=== PATIENT | female | born 1975 | race Caucasian/White ===

== ENCOUNTER → 2017-09-06 09:10 | Outpatient (CLI) | payer OTHER, SELFPAY | PROVIDERS: Family Provider Family Medicine; PCP Family Medicine; Visit Provider Internal Medicine | DX: R00.2 Palpitations (principal) | CPT/HCPCS: 93225; 93226 ==

== ENCOUNTER 2017-10-25 14:21 | Day surgery (SDC) | payer OTHER, SELFPAY ==
--- NOTE | 2017-10-24 17:20 | SUR.PREOP ---
Pt is known to me from my private office where she had presented complaining of chronic heel pain to right foot. Pt had been treated successfully by another DPM about 4 years ago with injections and stretching. Then, the pain returned. She was seen by a different physician who treated her with stretching, arch supports, injections, NSAIDs, etc. Her pain did not resolve. They began to discuss surgical intervention and pt was interested in Endoscopic Plantar Fasciotomy (EPF) rather than open techniques. Pt presented to our office after speaking with a patient who underwent successful EPF. She stated she was very frustrated because the pain was not responding to treatments. MRI was ordered and showed chronic plantar fasciitis of the right foot. She also noticed a very painful plantar wart to the right heel. She would like that removed. Allergies: PCN PMH: See Chart. Medications: See chart. Surgeon: Cyndi Herrera DPM Diagnosis: 1. Chronic plantar fasciitis right foot. 2. Painful plantar verruca right heel. Planned Procedure: 1. Endoscopic Plantar Fasciotomy right foot, 2. Excision painful verruca plantaris right foot Lower extremity examination showed easily palpable pedal pulses to b/l feet. Sensation was intact with negative Tinel's sign to right foot. After reviewing all of pt's history and treatments of the right foot, it seems she has undergone conservative measures unsuccessfully. Risks, complications, alternative treatments were reviewed with pt in detail. No guarantees were given. We discussed the possibility of recurrence of pain, infection, need for additional surgery, nerve injury, etc, for the EPF. We also discussed possibility of painful scar/callus or recurrence of plantar verruca following excision. All questions were answered and pt wished to proceed with outpatient surgical intervention. [facility] for outpatient surgical intervention.
[2017-10-25 14:38] VITALS: BP 136/90; PULSE 99; RESP 18; TEMP 36.8; O2SAT 98; BMI 33.7
[2017-10-25 14:40] LABS: Internal QC Validated? YES +Cl - CLEAR BKGD
[2017-10-25 14:45] LABS: Pregnancy, Urine Negative Negative
[2017-10-25 15:01] LABS: Bedside Glucose 106 mg/dL (70-110)
[2017-10-25] MEDS: Clindamycin 900 MG/50 ML BAG 75 MG IV (15:45)
--- NOTE | 2017-10-25 16:00 | WART_PTH ---
PATIENT: LUANA CASTELLANO LOC: [facility] [place] U#:[id number] AGE/SX: 41/F ROOM: RE10/25/[address]: Dr. Cyndi Herrera DPM : 1975 BED: DIS: 10/25/2017 SPEC #: [id number] RECD: 10/26/17 08:18 STATUS: STACY RIGO #: [id number] KATHY: 10/25/17 16:[address]: Cyndi Herrera DEPT: SURGICAL PATHOLOGY RECD BY: Freya Bradford ENTERED: 10/26/17 09:33 SP TYPE: Issac RUBIO DR: Dr. Tamika Pereyra MD Tissues: Epidermis Procedures: Surgery Specimen Level IV HEADER OPERATION: right endoscopic plantar fasciotomy, excision plantar wart PRE-OP DIAGNOSIS: Plantar fasciitis, plantar wart right heel TISSUE SUBMITTED: Plantar wart right heel MICROSCOPIC DIAGNOSIS Plantar wart right heel, biopsy: Superficial fragments of verrucal vulgaris. AM:leesa 10/27/17 MICROSCOPIC DESCRIPTION Slides are reviewed. GROSS DESCRIPTION Received in fixative is one container labeled with the patient's name and designated plantar wart right heel. The specimen consists of three variable size indurated pieces of keller-white skin. The largest piece measures 0.5 x 0.5 x 0.2 cm. The two smaller pieces each measure 0.2 cm in greatest dimension. The largest piece is bisected. The entire specimen is submitted in one cassette. / RICHARD:leesa 10/26/17 TC:5 CPT: 82667
[2017-10-25 16:39] VITALS: BP 118/71; BP 136/90; PULSE 90; RESP 16; TEMP 36.4; O2SAT 97
[2017-10-25 16:45] VITALS: BP 122/75; BP 136/90; PULSE 80; RESP 16; O2SAT 93
[2017-10-25 17:00] VITALS: BP 120/78; BP 136/90; PULSE 73; RESP 16; O2SAT 99
--- NOTE | 2017-10-25 17:04 | PCM.OPRPT ---
Problem List (1) Plantar fasciitis of right foot Status: Acute (2) Verruca plantaris Status: Acute Report of Operation Date of Procedure: 10/25/17 Pre-Operative Diagnosis: 1. painful chronic plantar fasciitis right foot. 2. painful verruca plantaris right foot Post-Operative Diagnosis: same Surgery/Procedure Performed:: 1. endoscopic plantar fasciotomy right foot. 2. excision of verruca plantaris right foot, 6mm Description of Surgical Findings:: thickened plantar fascia right foot with 6mm solitary verruca plantaris right heel Type of Anesthesia:: General, Local - 10 cc's 1% lidocaine plain post operatively Specimen's removed: 6mm verruca plantaris right heel Drains: none Estimated Blood Loss (mL): minimal Description of Procedure: Pt was brought to the OR and placed on the operating table in supine position. Following sedation, right foot was scrubbed, prepped, and draped in the usual aseptic manner. The right leg was elevated to exsanguinate the limb and the pneumatic ankle tourniquet was elevated to 250 mmHg. Attention was then directed to the medial plantar right heel, where the origin of the plantar fascia was palpated at the medial calcaneal tubercle. A 2cm linear longitudinal incision was made at this area. Then, a spatula was placed oriented transversely to the foot and the soft tissues were at the plantar fat pad and fascia. When the spatula tented the lateral aspect of the plantar heel, another 2cm linear longitudinal incision was made. The spatula was removed and a trochar was inserted. An endoscopic camera was placed in the lateral opening while a probe was placed in the medial. The knife was then inserted medially and the plantar fascia was incised about 50%, encompassing the central and medial bands. The flexor digitorum muscle belly was visualized. Then, the camera and knife were removed, allowing rinsing with NSS. Cotton swabs were used to clear some of the fat globules. The camera was reinserted and the prob was as well to ensure no remaining fibers. Pictures were taken. Then, trochar, camera, and probe were removed and medial and lateral incisions were reapproximated and coapted using 3-0 vicryl sutures. Attentions was then directed to the plantar posterior right heel where the verruca plantaris was located. Using a bone cutter, the lesion was excised in toto and passed from the operative field. It measured approximately 6mm in diameter. Then, the surrounding callus was removed with #15 blade. Next, utilizing a curette, the base of the wound was cleared of any remaining verrucous tissue. Mild bleeding was controlled with compression and then electrocautery. Upon completion of the procedures, a post operative block consisting of a total of 1% lidocaine plain was infiltrated throughout all incisions and excision areas. A sterile compressive dressing consisting of xeroform, 4x4 gauze, and kerlix was applied. An edgardo wrap was then applied. The tourniquet was released and a prompt hyperemic response was noted to all digits of the right foot. Pt tolerated procedure and anesthesia well. She was transferred to recovery room with VSS and vascular status intact to all toes of the right foot. Following a period of post operative monitoring, the pt will be discharged home with written and oral post operative instructions. She is to keep the dressing clean, dry, and intact. Remain NWB right foot and rest, ice, elevate. Wear surgical shoe at all times while ambulating with the knee walker. Follow in Dr. Herrera's personal office for all post operative care and if any problems arise. Rx was given for pain control, Percocet 5/325mg, and pt should take as directed. - Complications none - Admit VTE Documentation VTE Present on Admission: No VTE Mechan Device Prophylaxis: None VTE Pharm Prophylaxis ordered?: No Reason prophylaxis not ordered:: Treatment Not Indicated
[2017-10-25 17:15] VITALS: BP 130/82; BP 136/90; PULSE 70; RESP 16; TEMP 35.9; O2SAT 100
[2017-10-25 18:15] VITALS: BP 136/90
== END 2017-10-25 18:30 | disposition home or self-care (01) ==
LOC: SDC 14:21 → AC 14:22
PROVIDERS: Family Provider Internal Medicine; PCP Internal Medicine; Visit Provider Podiatrist
PROC: (CPT 29893; principal; 2017-10-25 15:45)
DX: M72.2 Plantar fascial fibromatosis (principal); B07.0 Plantar wart; K21.9 Gastro-esophageal reflux disease without esophagitis; E04.2 Nontoxic multinodular goiter; F17.201 Nicotine dependence, unspecified, in remission
CPT/HCPCS: 01464; 11421; 29893; 81025; 82962; 88305; J7120; J2405

== ENCOUNTER 2017-12-22 05:36 | Day surgery (SDC) | payer OTHER, SELFPAY ==
[2017-12-22 05:51] VITALS: BP 123/85; PULSE 78; RESP 18; TEMP 36.6; O2SAT 98; BMI 33.7
[2017-12-22 06:02] LABS: Hemoglobin 14.2 g/dl (12.0-15.0); Mean Corp Hgb Conc 33.8 g/gl (32-36); Mean Corpuscular Hgb 30.5 pg (27.0-32.0); Mean Corpuscular Volume 90.1 fL (81-99); Mean Platelet Vol. 9.7 fl (6.2-12.0); Platelet Count 262 K/mm3 (150-450); RBC Distribution Width CV 13.4 % (11.6-14.6); RBC Distribution Width SD 44.1 fl (35.1-43.9); Red Blood Count 4.66 M/mm3 (4.2-5.4); White Blood Count 9.9 K/mm3 (4.4-11.0)
[2017-12-22 06:05] LABS: Scan Indicated on CBC? Y/N NO
[2017-12-22 06:13] LABS: Internal QC Validated? YES +Cl - CLEAR BKGD; Pregnancy, Urine Negative Negative
[2017-12-22 06:15] LABS: Bedside Glucose 96 mg/dL (70-110)
--- NOTE | 2017-12-22 07:30 | SKTAG_PTH ---
PATIENT: LUANA CASTELLANO [place] [facility] [place][id number] AGE/SX: 42/F ROOM: RE12/22/[address]: Dr. Glo Leyva, MDDOB: 1975 BED: DIS: 12/22/2017 SPEC #: [id number] RECD: 12/22/17 08:54 STATUS: STACY RIGO #: [id number] KATHY: 12/22/17 07:[address]: Glo Leyva DEPT: SURGICAL PATHOLOGY RECD BY: Francisco Javier Wang ENTERED: 12/22/17 09:34 SP TYPE: SKIN TAG OTHR DR: Dr. Tamika Pereyra MD Tissues: A - Skin appendage, NOS B - Endometrium, NOS C - Fallopian tube Procedures: Surgery Specimen Level II Surgery Specimen Level IV HEADER OPERATION: Hysteroscopy, D & C, Alma, ablation, removal of vulvar skin ta PRE-OP DIAGNOSIS: Desires sterilization; vulvar skin tag; abnormal uterine bleeding TISSUE SUBMITTED: A ? Vulvar skin tags, B ? Endometrial curettings, C ? Bilateral fallopian tubes MICROSCOPIC DIAGNOSIS A. Vulvar skin tags, biopsy: Fragments of intradermal nevi. B. Endometrium, curettings: Disordered proliferative endometrium. Rare strips of benign superficial endocervix. C. Right and left fallopian tubes, bilateral salpingectomies: Complete cross-sections of fallopian tubes with no pathologic change. AM:leesa 12/23/17 COMMENT B - Case has been reviewed in consultation with Dr. Be who concurs with the above diagnosis. IDC:SJ MICROSCOPIC DESCRIPTION Slides are reviewed. GROSS DESCRIPTION A - Received in fixative is one container labeled with the patient's name and designated vulvar skin tags. The specimen consists of two pieces of keller-white skin measuring 0.3 x 0.2 x 0.1 cm and 0.4 x 0.3 x 0.2 cm. The entire specimen is submitted in one cassette. B - Received in fixative is one container labeled with the patient's name and designated endometrial curettings. The specimen consists of multiple fragments of hemorrhagic soft tissue mixed with polypoid tissue that in aggregate measure 6 x 3 x 0.3 cm. The entire specimen is submitted in three cassettes. C - Received in fixative is one container labeled with the patient's name and designated bilateral fallopian tubes. The specimen consists of bilateral fallopian tubes including fimbrial ends. The fallopian tubes are not identified as right of left. One of the fallopian tubes measure 8 cm in length and 0.6 cm in diameter. The second fallopian tube is received in three pieces measuring 5 and 3 cm in length and 0.4 to 0.6 cm in diameter. Also present are three variable sized pieces of soft tissue consistent with fimbrial end measuring in aggregate 3.5 x 2.5 x 0.6 cm. A paratubal cyst is also noted measuring 0.5 cm in greatest dimension. Sections of both fallopian tubes reveal unremarkable cut surfaces. Sed Special Education Teacher sections are submitted in two cassettes as follows: 1 ? intact fallopian tube, 2 ? second fallopian tube in multiple pieces. / RICHARD:leesa 12/22/17 TC:5 CPT: 47072 x2, 44947 x2
--- NOTE | 2017-12-22 08:23 | PCM.OP.BLANK ---
Operative Report Date of Procedure: 12/22/17 Surgeon: Dr. Glo Leyva [employer] Operator: Jonny [employer]AB[employer] student Preoperative diagnosis: AUB, vulvar skin tags, Sterilization request Procedure performed: Hysteroscopy, D&C, Alma ablation, removal of vulvar skin tags, Laparoscopic bilateral salpingectomy, Postoperative diagnosis: same complications: None Estimated blood loss: 5 cc Drains: none Specimens collected: Bilateral tubes, vulvar skin tags, endometrial curettings Findings: Normal tubes and ovaries bilaterally uterus sounded to approximately 10 cm. anesthesia: general Operative note: After informed consent was obtained patient taken to the operating room she is placed in supine position she is given anesthesia is prepped draped normal sterile fashion. Bladder was drained prior to the start of the procedure 100cc. Two small vulvar skin tags were removed at base on left labia majora using sterile scissors. pressure held for hemostasis. At this time the weighted speculum was placed the posterior fornix of the vagina then a single-tooth tenaculum was used to grasp the anterior lip of the cervix. At this time the uterus was sounded to approximately 10 cm the endocervical canal sounded to 4 cm. Next cervix was dilated in incremental fashion. Once adequate dilatation was achieved the hysteroscope was inserted using normal saline as distention medium. On hysteroscopy there were no gross abnormalities. Both tubal ostia were visualized. At this time sharp curettage was performed which yielded moderate amount of endometrial tissue. tissue will be sent to pathology for evaluation. At this time the Alma device was opened. The Alma was set at 6 cm. The device was activated. Prior to activation the field test was performed and cavity was intact. The device was then fired and activated for 120 seconds. Once the 120 seconds was completed the device was removed intact and the tenaculum was removed. At this time the uterine maniupulator was placed. Laparoscopic portion was performed. Good hemostasis was appreciated. Weighted speculum was removed. At this time uterine 2 towel clamps were placed superior to umbilicus. After Marcaine was injected superior to umbilicus a small incision was made and a 5 mm trocar was placed under direct visualization. CO2 gas was used to insufflate the intra-abdominal cavity. Upon inspection no gross abnormalities uterus tubes and ovaries appeared to be normal. At this time then the LLQ port was placed again Marcaine was injected small incision was made a knife and the 5 mm trocar was placed. Alligator clamp was then placed suprapubically. At this time then tubes were traced back to the fimbriated ends. Ligasure was used to coagulate and ligate along mesosalpynx bilaterally until tubes removed completely. tube were large and difficult to remove in one piece through port- a 5mm suprapubic port was then placed for assistance. tubes removed in pieces. Good hemostasis was appreciated. At this time procedure was deemed complete successful. The gas was desufflated on from the intra-abdominal cavity. The trochars were removed. Skin was closed using 4-0 Monocryl in a subcutaneous fashion. Dermabond glue was placed. Instrument lap and needle counts were correct ?2. The uterine manipulator was removed. Vaginal sweep was performed it was negative. There were no complications anticipated normal postoperative course for this patient.
--- NOTE | 2017-12-22 08:31 | PCM.DC.TUB ---
Discharge Diet: No Restrictions, - - Increase fluid intake for 48 hours. Discharge Activity: Return to Normal Activity, May Drive - when you are no longer taking narcotic pain medications., May Shower, May Take a Tub Bath - in 7 days., - - Ambulate often the next week after surgery. May shower in (days): 1 May resume sexual activity in: 2 weeks Additional Activity Instructions:: Nothing in the vagina for the next 14 days. Call your doctor if your incision/area has: Continuous Slow Oozing, Sudden Increased Bleeding, Increased Pain/ Swelling, Increased Redness, Foul Smelling Discharge, Swelling at the incision site Call your doctor if you observe: Fever of 101 or Higher Cleanse incision/area with: Soap & Water, Keep Dressing Clean & Dry, - - do not pick off skin glue- you may let soap and water run over incision sites and dab dry. Allergies/Adverse Reactions: Allergies Penicillins Allergy (Verified 10/18/17 09:14) Other Medications to take at Discharge Cholecalciferol (Vitamin D3) [Vitamin D3] 2,000 unit PO DAILY 10/18/17 Metformin HCl [Metformin HCl ER] 500 mg PO DAILY 10/18/17 buPROPion XL [Wellbutrin Xl] 150 mg PO DAILY 10/18/17 Primary Care Physician: Tamika Pereyra MD [Primary Care Provider] - Please Follow Up With: Glo Leyva MD When: as scheduled in 2 weeks
[2017-12-22 08:42] VITALS: BP 123/85; BP 128/92; PULSE 64; RESP 14; TEMP 36.1; O2SAT 99
[2017-12-22 08:45] VITALS: BP 123/85; BP 134/92; PULSE 69; RESP 14; O2SAT 100
[2017-12-22 08:56] LABS: Bedside Glucose 120 mg/dL (70-110)
[2017-12-22 09:07] VITALS: BP 116/81; BP 123/85; PULSE 66; RESP 14; TEMP 36.3; O2SAT 96
[2017-12-22 10:58] VITALS: BP 123/85
== END 2017-12-22 11:00 | disposition home or self-care (01) ==
LOC: SDC 05:37 → AC 05:38
PROVIDERS: Family Provider Internal Medicine; PCP Internal Medicine; Visit Provider Obstetrics & Gynecology
PROC: 0U5B8ZZ Destruction of Endometrium, Via Natural or Artificial Opening Endoscopic (ICD-10-PCS; CPT 58558; principal; 2017-12-22 07:15)
PROC: (CPT 58661; 2017-12-22 07:15)
DX: N93.9 Abnormal uterine and vaginal bleeding, unspecified (principal); D28.0 Benign neoplasm of vulva; Z30.2 Encounter for sterilization; F17.200 Nicotine dependence, unspecified, uncomplicated; R73.03 Prediabetes
CPT/HCPCS: 00840; 11200; 58563; 58661; 36415; 81025; 82962; 85027; 88302; 88304; 88305; J7120; J0330; J2405

== ENCOUNTER 2018-09-02 07:31 | Emergency (ER) | payer OTHER, SELFPAY ==
[2018-09-02 07:33] VITALS: BP 129/81; PULSE 89; RESP 16; TEMP 36.6; O2SAT 98; BMI 35.3
[2018-09-02 08:22] LABS: Bacteria 0 SEEN /hpf (None Seen); Mucous, Urine 0 SEEN /hpf (<or=2+); Red Blood Cells-Urine 0 SEEN /hpf (0-5); Squamous Epithelial Cells - UA 0 SEEN /hpf (5-10)
[2018-09-02 08:33] LABS: Color, Urine Yellow (Yellow); Glucose, Dipstick Normal (Normal); Ketone-Dipstick Negative (Negative); Leukocyte Esterase-Dipstick 25 /ul (Negative); Nitrite-Dipstick Negative (Negative); Occult Blood-Urine Negative /ul (Negative); Protein-Dipstick Negative (Negative); Specific Gravity, Urine 1.025 (1.002-1.030); Urine Bilirubin Dipstick Negative (Negative); Urine Clarity Clear (Clear); Urine Urobilinogen Normal (Normal)
[2018-09-02 08:36] LABS: Internal QC Validated? YES +Cl - CLEAR BKGD; Pregnancy, Urine Negative Negative; White Blood Cells 0-5 SEEN /hpf (0-5)
--- NOTE | 2018-09-02 08:55 | ED.VISSUMM ---
- ER Visit Summary Date of Service: 09/02/18 Chief Complaint: Back pain History of Present Illness: The patient is a 42 F who states that yesterday around noon on her lunch break she began having pain in her left CVA/paraspinal region. She denies any known trauma. States it was continuous and worse with movement. She went bowling last night. She states she had a hard time sleeping due to pain. She cannot find a position of comfort. She denies any nausea vomiting. She denies any urinary symptoms. She took a hot shower this morning and states it felt better. She notes it is grabbing and stabbing in nature. There is no radicular symptoms. No known trauma. Physical Examination: Afebrile vital signs are stable Gen: Well-nourished well-developed Head: Normocephalic atraumatic Eyes: Perrl EOMI ENT: TMs clear no rhinorrhea moist mucous membranes Neck: Supple no lymphadenopathy no JVD nontender CVS: Regular rate rhythm no murmurs normal S1-S2 Respiratory: No distress clear to auscultation bilaterally chest nontender Abdomen: Soft nontender nondistended normal bowel sounds no masses Back: Patient is leaning towards her right side. Her pain seems to be exacerbated with movement. She has palpable lumbar paraspinal musculature spasm. Somatic tissue texture changes Extremity: Nontender no edema Skin: Normal color no rash Neuro: alert orientated ?3 CN II-XII intact normal strength sensation reflexes gait cerebellar Psych: Normal affect normal mood Test Results: Urinalysis is normal Emergency Department Course and Treatment: Patient will be started on anti-inflammatories and Flexeril. Instructions for heat and gentle stretching. She has an appointment with chiropractic medicine on Tuesday. Return if worsening or concerns. We did talk about returning if she sees the rash of shingles. Impression: 1. Lumbar muscle spasm This note was generated with [employer] dictation software. It may contain incorrect words, spelling, and punctuation that were not noted in review of the chart prior to signing ED Disposition - Plan for ED Patient: Disposition: Home or Assisted Living Instructions: ED Spasm Back No Trauma Prescriptions: Ibuprofen [Motrin] 800 mg PO TID PRN PRN #20 tab PRN Reason: Pain Cyclobenzaprine [Flexeril] 10 mg PO TID PRN #20 tab PRN Reason: Muscle Spasm Referrals: Tamika Pereyra MD [Primary Care Provider] - As Needed Additional Instructions: Keep your appointment with chiropractic medicine on Tuesday
--- NOTE | 2018-09-02 08:59 | ED.DCSUM_ITS ---
- ER Visit Summary Date of Service: 09/02/18 Chief Complaint: Back pain History of Present Illness: The patient is a 42 F who states that yesterday around noon on her lunch break she began having pain in her left CVA/paraspinal region. She denies any known trauma. States it was continuous and worse with m ovement. She went bowling last night. She states she had a hard time sleeping due to pain. She cannot find a position of comfort. She denies any nausea vomiting. She denies any urinary symptoms. She took a hot shower this morning and states it felt better. She notes it is grabbing and stabbing in nature. There is no radicular symptoms. No known trauma. Physical Examination: Afebrile vital signs are stable Gen: Well-nourished well-developed Head: Normocephalic atraumatic Eyes: Perrl EOMI ENT: TMs clear no rhinorrhea moist mucous membranes Neck: Supple no lymphadenopathy no JVD nontender CVS: Regular rate rhythm no murmurs normal S1-S2 Respiratory: No distress clear to auscultation bilaterally chest nontender Abdomen: Soft nontender nondistended normal bowel sounds no masses Back: Patient is leaning towards her right side. Her pain seems to be exacerbated with movement. She has palpable lumbar paraspinal musculature spasm. Somatic tissue texture changes Extremity: Nontender no edema Skin: Normal color no rash Neuro: alert orientated ?3 CN II-XII intact normal strength sensation reflexes gait cerebellar Psych: Normal affect normal mood Test Results: Urinalysis is normal Emergency Department Course and Treatment: Patient will be started on anti- inflammatories and Flexeril. Instructions for heat and gentle stretching. She has an appointment with chiropractic medicine on Tuesday. Return if worsening or concerns. We did talk about returning if she sees the rash of shingles. Impression: 1. Lumbar muscle spasm This note was generated with [employer] dictation software. It may contain incorrect words, spelling, and punctuation that were not noted in review of the chart prior to signing ED Disposition - Plan for ED Patient: Disposition: Home or Assisted Living Instructions: ED Spasm Back No Trauma Prescriptions: Ibuprofen [Motrin] 800 mg PO TID PRN PRN #20 tab PRN Reason: Pain Cyclobenzaprine [Flexeril] 10 mg PO TID PRN #20 tab PRN Reason: Muscle Spasm Referrals: Tamika Pereyra MD [Primary Care Provider] - As Needed Additional Instructions: Keep your appointment with chiropractic medicine on Tuesday
== END 2018-09-02 09:05 | disposition home or self-care (01) ==
PROVIDERS: Emergency Provider Emergency Medicine; Family Provider Internal Medicine; PCP Internal Medicine
DX: M62.830 Muscle spasm of back (principal); Z72.0 Tobacco use
CPT/HCPCS: 81001; 81025; 99282

== ENCOUNTER 2018-10-09 21:56 | Emergency (ER) | payer OTHER, SELFPAY ==
[2018-10-09 21:57] VITALS: BP 145/93; PULSE 88; RESP 16; TEMP 36.3; O2SAT 97; BMI 34.7
[2018-10-09 22:03] VITALS: PULSE 82; RESP 23; O2SAT 97
--- NOTE | 2018-10-09 22:15 | RAD_ITS ---
STUDY: X-RAY CHEST REASON FOR EXAM: Female, 42 years old. Bilateral rib and sternal pain. TECHNIQUE: Single AP portable view of the chest. COMPARISON: 02/02/2017. FINDINGS: The lungs are clear and expanded. There is no demonstrated pleural abnormality. Normal size heart. Normal mediastinum and chelo. Normal visualized pulmonary arteries. Normal visualized aortic arch and descending thoracic aorta. The thoracic spine is suboptimally visualized. Normal visualized ribs, clavicles, and shoulders. There is no demonstrated abnormality of the visualized soft tissue structures of the upper abdomen. RAD/Chest 1 View (Portable) IMPRESSION: No active pulmonary disease. Electronically Signed: Lincoln Da Silva MD at 22:46 EDT Tel , Service support ,
--- NOTE | 2018-10-09 22:16 | EKG12_ITS ---
Test Reason : CP Blood Pressure : / mmHG Vent. Rate : 081 BPM Atrial Rate : 081 BPM P-R Int : 166 ms QRS Dur : 092 ms QT Int : 388 ms P-R-T Axes : 029 018 019 degrees QTc Int : 450 ms Normal sinus rhythm Normal ECG Confirmed by EVENS SCHWARTZ, DOMINGO ([id number]), assistant production editor ANDERS CARDONA ([id number]) on 10/13/2018 11:34:50 AM Referred By: KATJA Confirmed By:DOMINGO HORNER MD
[2018-10-09] MEDS: Ketorolac 30 MG/ML Syringe IV (22:22)
[2018-10-09] MEDS: 0.9% Normal Saline 1,000 ML 150 ML IV (22:22)
[2018-10-09 22:42] LABS: Anion Gap 4 (5-15); BUN 11 mg/dL (7-18); BUN/Creat Ratio 13.5 RATIO (10-20); Calcium,Total 8.6 mg/dL (8.5-10.1); Chloride 108 mmol/L (98-107); Creatinine, Serum 0.82 mg/dL (0.55-1.02); EST Glomerular Filtration Rate 82 mL/min (>60); Est Glom Filt Rate - Afr Amer 99 mL/min (>60); Estimated Creatinine Clearance 98.62 ml/min; Glucose 102 mg/dL (74-106); Potassium 3.6 mmol/L (3.5-5.1); Sodium Level 139 mmol/L (136-145)
[2018-10-09 22:45] LABS: Absolute Lymphocyte Count 3.69 X10^3/ul (0.83-4.51); Absolute Neutrophil Count 5.4 X10^3/uL (2.0-7.7); Basophil# 0.04 X10^3/uL; Basophil% 0.4 % (0-1); Eosinophil# 0.24 X10^3/uL; Eosinophils% 2.3 % (0-5); Hematocrit 40.9 % (37-47); Hemoglobin 13.8 g/dl (12.0-15.0); Lymphocyte # 3.69 X10^3/ul (4.0); Lymphocyte % 35.7 % (19-41); Mean Corp Hgb Conc 33.7 g/gl (32-36); Mean Corpuscular Hgb 30.1 pg (27.0-32.0); Mean Corpuscular Volume 89.3 fL (81-99); Mean Platelet Vol. 9.7 fl (6.2-12.0); Monocyte# 0.95 X10^3/uL; Monocyte% 9.2 % (0-10); Neutrophil % 52.2 % (47-70); Platelet Count 277 K/mm3 (150-450); RBC Distribution Width CV 13.3 % (11.6-14.6); RBC Distribution Width SD 43.3 fl (35.1-43.9); Red Blood Count 4.58 M/mm3 (4.2-5.4); White Blood Count 10.3 K/mm3 (4.4-11.0)
[2018-10-09 22:46] LABS: POSITIVE COUNT NO; POSITIVE DIFFERENTIAL NO; POSITIVE MORPHOLOGY NO
--- NOTE | 2018-10-09 22:55 | ED.VISSUMM ---
- ER Visit Summary Date of Service: 10/09/18 Chief Complaint: Chest pain, rib pain, back pain History of Present Illness: The patient is a 42 F with a several week history of chest, rib, and back pain. She states the area does feels very achy. It does seem to be worse with arm movement and deep breath. She states her symptoms started after having bronchitis. Last week she had a sharp pain in her right calf that is now resolved. Today she felt short of breath. Physical Examination: Vital signs unremarkable. Patient is in no acute distress and is nontoxic appearing. Head and neck examination is normal. Heart is regular rate and rhythm. Palpable pulses are noted throughout. Lungs are clear with good air movement throughout. She does have reproducible tenderness along the lateral borders of the lower sternum. She also has mild reproducible tenderness along the lower ribs bilaterally. Abdomen is soft and nontender. Bowel sounds are noted. Back examination reveals reproducible tenderness in the musculature along the thoracolumbar paraspinals. Extremity examination is unremarkable with full range of motion. Neurologic examination reveals no focal deficits. Test Results: EKG is sinus 81 with no acute ischemia. Portable chest x-ray shows no active pulmonary disease. CBC and chemistry studies normal. Troponin and d-dimer are both negative. Emergency Department Course and Treatment: Patient was given IV fluids along with Toradol. On repeat evaluation she is resting comfortably. I believe she likely has costochondritis with chest wall pain after her bronchitis. Her pain is completely reproducible. She will be given Toradol for home along with a short course of prednisone. She will be given Prevacid for reflux. Treatment Plan: [] Disposition: Discharge Impression: 1. Costochondritis 2. Chest wall pain This note was generated with [employer] dictation software. It may contain incorrect words, spelling, and punctuation that were not noted in review of the chart prior to signing ED Disposition - Plan for ED Patient: Referrals: Tamika Pereyra MD [Primary Care Provider] -
[2018-10-09 22:57] LABS: D-Dimer Quantitative (DVT/PE) < 0.27 FEU/ug/m (0.27-0.49)
[2018-10-09 23:01] VITALS: BP 144/88; PULSE 77; RESP 18; O2SAT 100
--- NOTE | 2018-10-09 23:08 | ED.DEP ---
ED Disposition - Plan for ED Patient: Disposition: Home or Assisted Living Instructions: ED Chest Pain Costochondritis Prescriptions: Lansoprazole [Prevacid] 15 mg PO DAILY #30 tab.rap Prednisone [Deltasone] 40 mg PO DAILY #10 tablet Ketorolac [Toradol] 10 mg PO Q6H PRN #14 tablet PRN Reason: Pain Referrals: Tamika Pereyra MD [Primary Care Provider] - 10-14 Days if not better
[2018-10-09] MEDS: predniSONE 20 MG Tablet 40 MG PO (23:10)
[2018-10-09] MEDS: Famotidine 20 MG Tablet 40 MG PO (23:10)
[2018-10-09 23:13] VITALS: BP 134/81; PULSE 74; RESP 15; O2SAT 100
== END 2018-10-09 23:14 | disposition home or self-care (01) ==
PROVIDERS: Emergency Provider Emergency Medicine; Family Provider Internal Medicine; PCP Internal Medicine
DX: M94.0 Chondrocostal junction syndrome [Tietze] (principal); R07.89 Other chest pain; Z72.0 Tobacco use
CPT/HCPCS: 71045; 80048; 84484; 85025; 85379; 93005; 96361; 96374; 99285; J7030; A4216

== ENCOUNTER → 2019-02-28 14:17 | Outpatient (CLI) | payer OTHER, SELFPAY ==
--- NOTE | 2019-02-28 14:22 | RAD_ITS ---
STUDY: X-RAY - RIGHT FOOT CLINICAL: Female, 43 years old. Pain TECHNIQUE: 3 view(s) of the foot. COMPARISON: None. FINDINGS: There is no evidence of fracture or dislocation. There is normal alignment. There are no significant degenerative changes. There is a plantar calcaneal spur. There are no radiodense foreign bodies. RAD/Foot min 3 Views IMPRESSION: No fracture or dislocation. Plantar calcaneal spur. Electronically Signed: Fernando Lao, at 19:12 EDT Tel , Service support ,
== END ==
PROVIDERS: Family Provider Internal Medicine; PCP Internal Medicine; Referring Provider Podiatrist; Visit Provider Podiatrist
DX: M84.30XA Stress fracture, unspecified site, initial encounter for fracture (principal)
CPT/HCPCS: 73630

== ENCOUNTER → 2019-03-08 10:02 | Outpatient (CLI) | payer OTHER, SELFPAY ==
--- NOTE | 2019-03-08 10:07 | STEWCON_ITS ---
Reason For Study: Atypical Chest pain Stress Results Protocol: Dobutatmine Stress Echo Maximum Predicted HR: 179 bpm Target HR: 152 bpm % Maximum Predicted HR: 88 % DurationHeart Rate Stage (mm:ss) (bpm) BP Dose Comment BASELINE 59 140/80 DILUTED DEFINITY USED 6 CC DSE- 10 MCG 3:53 62 132/8210.00NO CP DSE- 20 MCG 3:08 133 153/8120.00NO CP DSE- 30 MCG 3:05 150 137/7330.00NO CP DSE- 40 MCG 2:10 157 142/8440.00NO CP, THROAT TIGHTNESS RECOVERY 88 140/80 NO CP Stress Duration: 12:16 mm:ss Maximum Stress HR: 157 bpm Baseline Echocardiogram Findings Stress Echo Wall motion Data Resting WM Intermediate WM Stress WM Resting Wall Motion Wall Motion Int. Wall Motion Stress No regional wall motion No regional wall motion No regional wall motion abnormalities noted. abnormalities noted. abnormalities noted. EKG Data Sinus bradycardia. About 1-1.5mm horizontal ST depression in the inferior and lateral leads with return of ST segments to baseline during recovery. Symptoms with Stress throat tightness during dobutamine infusion. Interpretation Summary About 1-1.5mm horizontal ST depression in the inferior and lateral leads with return of ST segments to baseline during recovery. throat tightness during dobutamine infusion. 1. Dobutamine stress echo is positive for dobutamine infusion induced EKG changes of ischemia and throat tighttness. 2. The test is -ve for dobutamine infusion induced echocardiographic changes of ischemia. Ordering Physician: Tamika Pereyra Referring Physician: Tamika Pereyra Performed By: Jillian Greer, RDKYUNG
== END ==
PROVIDERS: Family Provider Internal Medicine; PCP Internal Medicine; Referring Provider Internal Medicine; Visit Provider Internal Medicine
DX: R07.9 Chest pain, unspecified (principal)
CPT/HCPCS: 93017; 93350; J7040; Q9957; A4216; C8928

== ENCOUNTER → 2019-03-15 15:43 | Outpatient (CLI) | payer OTHER, SELFPAY ==
--- NOTE | 2019-03-15 | TISS_PTH ---
PATIENT: LUANA CASTELLANO LOC: [facility] U#:[id number] AGE/SX: 49/F ROOM: RE03/15/[address]: Dr. Jeffry Kathleen MD : 1975 BED: DIS: SPEC #: [id number] RECD: 03/15/19 15:34 STATUS: STACY RICHARDSONMaxine #: [id number] KATHY: 03/15/19 00:[address]: Jeffry Kathleen DEPT: SURGICAL PATHOLOGY RECD BY: Toño Solis ENTERED: 03/16/19 08:38 SP TYPE: Tissue Bx JOANNE DR: Dr. Tamika Pereyra MD Tissues: Pharynx, NOS Procedures: Surgery Specimen Level IV HEADER OPERATION: Not noted PRE-OP DIAGNOSIS: Oropharyngeal neoplasm TISSUE SUBMITTED: Oropharynx, permanent pathology MICROSCOPIC DIAGNOSIS Oropharynx, biopsy: Squamous papilloma. SJ:leesa 03/19/19 MICROSCOPIC DESCRIPTION Slides are reviewed. GROSS DESCRIPTION Received in fixative is one container labeled with the patient's name and designated permanent path. The specimen consists of a piece of keller-white soft tissue measuring 0.4 x 0.3 x 0.2 cm. The entire specimen is submitted in one cassette. / SJ:rg 03/16/19 TC:1 CPT: 13277
== END ==
PROVIDERS: Family Provider Internal Medicine; PCP Internal Medicine; Referring Provider Otolaryngology; Visit Provider Otolaryngology
DX: D49.0 Neoplasm of unspecified behavior of digestive system (principal)
CPT/HCPCS: 88305

== ENCOUNTER → 2019-04-27 12:57 | Outpatient (CLI) | payer OTHER, SELFPAY ==
[2019-04-25 14:36] VITALS: BMI 34.7
== END ==
PROVIDERS: Family Provider Internal Medicine; PCP Internal Medicine; Referring Provider Specialist; Visit Provider Specialist
DX: R00.2 Palpitations (principal)
CPT/HCPCS: 93225; 93226

== ENCOUNTER → 2019-05-28 13:26 | Outpatient (CLI) | payer OTHER, SELFPAY ==
[2019-04-25 14:36] VITALS: BMI 34.7
== END ==
PROVIDERS: Family Provider Internal Medicine; PCP Internal Medicine; Referring Provider Internal Medicine; Visit Provider Internal Medicine
DX: G47.30 Sleep apnea, unspecified (principal)
CPT/HCPCS: 95806

== ENCOUNTER → 2019-05-29 09:55 | Outpatient (CLI) | payer OTHER, SELFPAY ==
[2019-04-25 14:36] VITALS: BMI 34.7
--- NOTE | 2019-05-29 09:58 | NM_ITS ---
CLINICAL: 43-year-old female with history of right upper quadrant abdominal pain. RADIONUCLIDE HEPATOBILIARY SCINTIGRAPHY COMPARISON: None available FINDINGS: Following the intravenous administration of 5.4 mCi of 99m Tc Mebrofenin, hepatobiliary images reveal: 1. Relatively prompt and homogeneous radiopharmaceutical concentration is noted by a normal sized liver. No parenchymal defects are identified. 2. Gallbladder activity is identified at 15 minutes post radiopharmaceutical administration. 3. Small intestinal tract is observed at 15 minutes following tracer injection. 4. Washout of the radiopharmaceutical by the hepatic parenchyma appears qualitatively normal. Cholecystokinin (0.02 ug/kg) was administered intravenously over a 30-minute period. The post CCK gallbladder ejection fraction calculated at 20 minutes following Cholecystokinin administration was noted to be 97.0 % (normal greater than 35%). During 30 minutes of post CCK imaging, there is no scintigraphic evidence of reflux of the radiotracer into the common hepatic duct or refilling of the gallbladder. NM/Hepatobilliary Img w/Pharm Int IMPRESSION: 1. NORMAL 99m Tc Mebrofenin hepatobiliary imaging examination with Cholecystokinin. A. A gallbladder ejection fraction calculated to be greater than 35% following the administration of Cholecystokinin makes the probability of functional hepatobiliary disease (gallbladder and/or sphincter of Oddi dyskinesia) and/or organic hepatobiliary disease (chronic acalculous cholecystitis and/or cystic duct syndrome) to be low. (Flores Klein et al, Journal of Nuclear Medicine 32:1695, 1990). Electronically Signed: Francisco Javier Madrid DO at 20:15 EST Tel , Service support ,
== END ==
PROVIDERS: Family Provider Internal Medicine; PCP Internal Medicine; Referring Provider Nurse Practitioner Adult Health; Visit Provider Nurse Practitioner Adult Health
DX: R11.0 Nausea (principal); R10.11 Right upper quadrant pain
CPT/HCPCS: 78227; A9537; J2805

== ENCOUNTER 2019-05-31 19:05 | Emergency (ER) | payer OTHER, SELFPAY ==
[2019-05-29 14:34] VITALS: BMI 35.3
[2019-05-31 19:05] VITALS: BP 126/76; PULSE 86; RESP 18; TEMP 36.3; O2SAT 99; BMI 36.1
--- NOTE | 2019-05-31 19:42 | EKG12_ITS ---
Test Reason : Blood Pressure : / mmHG Vent. Rate : 072 BPM Atrial Rate : 072 BPM P-R Int : 172 ms QRS Dur : 096 ms QT Int : 392 ms P-R-T Axes : 034 025 041 degrees QTc Int : 429 ms Normal sinus rhythm with sinus arrhythmia Normal ECG Confirmed by GEORGE SCHWARTZ, GAB ([id number]), image editor LYNDSAY FRENCH ([id number]) on 06/04/2019 9:26:48 AM Referred By: DARIUS Confirmed By:BRIAN VAZQUEZ MD
--- NOTE | 2019-05-31 19:42 | RAD_ITS ---
STUDY: X-RAY CHEST REASON FOR EXAM: Female, 43 years old. Cough TECHNIQUE: Frontal and lateral views of the chest. COMPARISON: 10/09/18. FINDINGS: Cardiac silhouette unremarkable. Pulmonary vascularity unremarkable. Aorta unremarkable. No focal airspace opacities. No pleural effusions. Upper abdomen unremarkable. Osseous structures intact. No pneumothorax. RAD/Chest PA and Lateral IMPRESSION: No acute cardiopulmonary findings Electronically Signed: Stephane Hennessy, at 20:21 EST Tel , Service support ,
--- NOTE | 2019-05-31 19:43 | ED.VISSUMM ---
- ER Visit Summary Date of Service: 05/31/19 Chief Complaint: Back pain History of Present Illness: The patient is a 43 F who presents with back pain that is been constant for the past month. Patient states is gradually gotten worse. Patient states she has been following with her primary care physician for this. Patient states she was evaluated for GI problems and this all came back normal. Patient states she is supposed to have an endoscopy soon because of her reflux. Patient also states she was seen by cardiology who ruled out cardiac causes of her pain. Patient states her pain is worse with deep breathing. Patient states the pain is over the lower thoracic area and radiates around to her lower chest bilaterally. Patient admits to a cough with some clear sputum. Patient also admits to some palpitations. Patient admits to nausea but denies any vomiting. Physical Examination: Vital signs are stable. Patient is afebrile. Patient is in no acute distress. Oral mucosa is pink and moist. Neck is supple. Trachea is midline. There is no JVD. Heart was regular rate and rhythm. Lungs are clear and equal bilaterally. There is good respiratory effort noted. Abdomen is soft and nontender. Cranial nerves II through XII are intact. There are no focal motor or sensory deficits noted. Musculoskeletal exam reveals tenderness over the lower thoracic paraspinal areas bilaterally. There is no bony crepitance or step-off. There is no midline tenderness. There is full range of motion. Test Results: CBC shows a mild leukocytosis of 11.6. Basic metabolic profile was essentially within normal limits. Urinalysis does not show any evidence of urinary tract infection. D-dimer was normal. EKG showed normal sinus rhythm with a rate of 72. There are no acute ST or T wave changes. PA and lateral chest x-ray was obtained. There is no acute cardiopulmonary process. This was interpreted by the radiologist and myself. Emergency Department Course and Treatment: Patient was feeling better on reevaluation. Patient was instructed to use ice to the area. Patient was instructed to follow-up with her primary care physician in 5 to 7 days. Patient was instructed to take Tylenol, ibuprofen, or Aleve as needed for pain. Patient understood and was agreeable with the plan. All questions were answered. Disposition: Discharge home Impression: 1. Thoracic muscle strain This note was generated with [employer]ation software. It may contain incorrect words, spelling, and punctuation that were not noted in review of the chart prior to signing ED Disposition - Plan for ED Patient: Disposition: Home or Assisted Living Diagnosis: Strain of muscle and tendon of back wall of thorax, initial encounter Instructions: Thoracic Strain Referrals: Tamika Pereyra MD [Primary Care Provider] - 5-7 Days
[2019-05-31 20:10] LABS: Absolute Lymphocyte Count 3.73 X10^3/uL (0.83-4.51); Absolute Neutrophil Count 6.5 X10^3/uL (2.0-7.7); Basophil# 0.06 X10^3/uL; Basophil% 0.5 % (0-1); Eosinophil# 0.32 X10^3/uL; Eosinophils% 2.8 % (0-5); Hematocrit 42.9 % (37-47); Hemoglobin 14.6 g/dL (12.0-15.0); Lymphocyte # 3.73 X10^3/ul (4.0); Lymphocyte % 32.2 % (19-41); Mean Corpuscular Hgb 30.7 pg (27.0-32.0); Mean Corpuscular Volume 90.1 fL (81-99); Mean Platelet Vol. 9.7 fl (6.2-12.0); Monocyte% 7.8 % (0-10); NRBC Flagged by Analyzer 0 % (0-5); Neutrophil # 6.53 X10^3/uL (2.7-7.7); Neutrophil % 56.4 % (47-70); Platelet Count 334 K/mm3 (150-450); RBC Distribution Width CV 12.8 % (11.6-14.6); RBC Distribution Width SD 42.5 fl (35.1-43.9); Red Blood Count 4.76 M/mm3 (4.2-5.4); White Blood Count 11.6 K/mm3 (4.4-11.0)
[2019-05-31 20:10] LABS: Bacteria 0 SEEN /hpf (None Seen); Red Blood Cells-Urine 0 SEEN /hpf (0-5); White Blood Cells 0 SEEN /hpf (0-5)
[2019-05-31 20:11] LABS: Color, Urine Yellow (Yellow); Glucose, Dipstick Normal (Normal); Ketone-Dipstick 5 mg/dl (Negative); Leukocyte Esterase-Dipstick Negative /ul (Negative); Nitrite-Dipstick Negative (Negative); Occult Blood-Urine Negative /ul (Negative); Protein-Dipstick Negative (Negative); Specific Gravity, Urine 1.025 (1.002-1.030); Urine Bilirubin Dipstick Negative (Negative); Urine Clarity Clear (Clear); Urine Urobilinogen Normal (Normal)
[2019-05-31 20:27] LABS: Anion Gap 6 (5-15); BUN 18 mg/dL (7-18); BUN/Creat Ratio 21.8 RATIO (10-20); Calcium,Total 9.3 mg/dL (8.5-10.1); Chloride 110 mmol/L (98-107); Creatinine, Serum 0.82 mg/dL (0.55-1.02); EST Glomerular Filtration Rate 81 mL/min (>60); Est Glom Filt Rate - Afr Amer 98 mL/min (>60); Estimated Creatinine Clearance 94.36 ml/min; Glucose 97 mg/dL (74-106); Potassium 3.9 mmol/L (3.5-5.1); Sodium Level 143 mmol/L (136-145)
[2019-05-31 20:28] LABS: D-Dimer Quantitative (DVT/PE) 0.34 FEU/ug/m (0.27-0.49)
[2019-05-31 20:28] LABS: Mucous, Urine 1+ /hpf (<or=2+); Squamous Epithelial Cells - UA 0-5 SEEN /hpf (5-10)
[2019-05-31 21:14] VITALS: PULSE 57
== END 2019-05-31 21:15 | disposition home or self-care (01) ==
PROVIDERS: Emergency Provider Emergency Medicine; Family Provider Internal Medicine; PCP Internal Medicine
DX: S29.012A Strain of muscle and tendon of back wall of thorax, initial encounter (principal); X58.XXXA Exposure to other specified factors, initial encounter; K21.9 Gastro-esophageal reflux disease without esophagitis; R05 Cough; R11.0 Nausea; E66.9 Obesity, unspecified; F17.210 Nicotine dependence, cigarettes, uncomplicated
CPT/HCPCS: 71046; 80048; 81001; 85025; 85379; 93005; 96360; 99283

== ENCOUNTER 2019-06-18 09:13 | Day surgery (SDC) | payer OTHER, SELFPAY ==
[2019-06-05 08:04] VITALS: BMI 36.1
--- NOTE | 2019-06-06 11:24 | HP_ITS ---
Intake Vital Signs 06/05/19 Body Mass Index (BMI) 36.1 06/05/19 Height 5 ft 9 in 06/05/19 Weight: 245 lb 06/05/19 Body Mass Index (BMI) 36.1 06/05/19 Blood Pressure 111/66 06/05/19 Blood Pressure Location Rt brachial 06/05/19 Blood Pressure Position Sitting 06/05/19 Respiratory Rate 18 06/05/19 Pulse Rate 86 06/05/19 Pulse Source Monitor 06/05/19 Temperature 98.5 F 06/05/19 Temperature Source Oral 06/05/19 Pulse Ox 97 06/05/19 Oxygen Delivery Method room air Intake Visit Reasons: Upper Scope Chief Complaint: Goiter Tipple Operator Required: No Is patient in pain?: No Allergies Penicillins Allergy (Verified 06/04/19 14:06) Other Medications topiramate 25 mg tablet 25 mg PO BID 04/20/19 [History Confirmed 06/05/19] cholecalciferol (vitamin D3) 2,000 unit capsule 6,000 unit PO DAILY cap 04/25/19 [History Confirmed 06/05/19] pantoprazole 40 mg tablet,delayed release 40 mg PO DAILY 05/29/19 [History Confirmed 06/05/19] [facility] Medical History (Updated 06/06/19 @ 11:39 by Tejinder Jarvis MD) Pre-diabetes (Acute) H/O urinary tract infection (Acute) Back problem (Acute) Psoriasis (Chronic) Tobacco abuse (Acute) SERA (obstructive sleep apnea) (Suspected) Vitamin D deficiency (Chronic) Plantar fasciitis (Chronic) Goiter (Chronic) Abnormal stress echo (Acute) Hemochromatosis (Resolved) Chronic fatigue syndrome (Chronic) GERD (gastroesophageal reflux disease) (Chronic) Migraine (Chronic) Hyperlipidemia (Chronic) Surgical History (Updated 06/05/19 @ 08:01 by Laurence Nicholas) History of bilateral salpingo-oophorectomy (BSO) (Resolved ~12/2017) History of endometrial ablation (Resolved ~12/2017) History of dilatation and curettage (Resolved) History of foot surgery (Resolved) Family History Father CAD (coronary artery disease) Diabetes Cancer brain Mother Parkinson's disease Colon cancer Kidney disease Grandmother Cancer pancreatic Grandfather Colon cancer Diabetes Social History (Updated 06/06/19 @ 11:40 by Tejinder Jarvis MD) Smoking Status: Current every day smoker quit status: considering quitting alcohol intake: never substance use type: does not use caffeine: Yes Type: carbonated beverages Number of servings: 2 what type of physical activity do you participate in: none HPI HPI HPI: LUANA CASTELLANO, is a 43 F who presents to the office today for HPI HPI Surgical H&P: Yes HPI: LUANA CASTELLANO, is a 43 F who presents to the office today for Evaluation of GERD. Patient has had a long-standing history of GERD and is never had an upper endoscopy. She has been recently placed on propanolol and she has noticed some improvement but she is also noticed some looser stools. She has not had any waterbrash symptoms. Occasionally she will have some difficulty with dysphasia and food in the upper esophagus with some discomfort. ROS General General: Yes weight change and fatigue; no appetite, colon cancer, breast cancer or weakness HEENT HEENT: Yes swollen glands; no difficulty swallowing, eye injury, eye surgery or hoarseness Endo Endocrine: No thyroid disease, diabetes mellitus, thyroid cancer, Hair loss, heat intolerance or cold intolerance Skin Skin: No rash or changing moles Musc Musculoskeletal: Yes back problems and arthritis; no rheumatoid arthritis, gout or joint pain Cardio Cardiovascular: No murmur, pacemaker, heart disease, atrial fibrillation, high blood pressure, heart attack, heart stent, palpitations, shortness of breat with exertion or chest pain Psych Psychiatric: Yes anxiety; no depression or hearing voices Resp Respiratory: Yes shortness of breath, No sleep apnea, Yes cough, No COPD, No asthma, No emphysema, No wheezing Gastro Gastrointestinal: Yes abdominal pain, Yes nausea or vomiting, Yes diarrhea, No constipation, No blood in stool, Yes acid reflux, No hemorrhoids, No ulcers, No gallbladder problem, No black,tarry stools Blaze Hematologic: No blood thinners, No blood disorders, No bleeding, No anemia, No blood clots Neuro Neurologic: Yes numbness, Yes tingling, No weakness Exam Const General: no acute distress, well developed, well hydrated Orientation: oriented to person, oriented to place, oriented to time [facility] Head: normocephalic, atraumatic Ears: external ears normal Mouth: moist mucous membranes Eyes Sclera: sclerae normal Pupils: normal by confrontation Neck Neck: no lymphadenopathy noted Neck mass: No Thyroid: thyroid normal, symmetrical Chest Chest palpation & inspection: normal inspection of the chest Resp Effort & Inspection: normal respiratory effort Auscultation: clear to auscultation bilaterally Percussion: percussion normal Cardio Rate: regular rate Rhythm: regular rhythm Heart Sounds: no murmurs GI Palpation: soft, no hepatosplenomegaly, no masses, nontender Rectal Exam: other Other: Rectal exam deferred. Extrem General: normal to inspection, no clubbing, cyanosis or edema Assessment & Plan Problems 1. Gastroesophageal reflux disease, esophagitis presence not specified K21.9 Plan I have discussed the above with the patient. I have offered the patient esophagogastroduodenoscopy for evaluation. I have explained the risks/benefits of the procedure and described the procedure. I have discussed the risks with the patient, including but not limited to: infection, bleeding, perforation of the GI tract requiring emergency surgery, inability to complete the procedure, injury to any internal organs, complications of anesthesia, etc. - the patient understands and agrees to proceed. I have answered all the patient's questions to the patient's satisfaction and the patient has no further questions. The patient has been given instructions for the colon cleansing preparation. Orders Orders: EGD 06/05/19 Coding Level of Care Code Off vis,new,level 3 Diagnoses Gastroesophageal reflux disease, esophagitis presence not specified K21.9 ??Esophagitis presence: esophagitis presence not specified 06/06/19 1140 <Electronically signed by Tejinder cheng MD> Date _ Tejinder Jarvis MD I have re-examined the patient. There are no clinical changes since date of exam.
[2019-06-18] VITALS (7 sets, daily range): BP systolic 106–120; BP diastolic 76–85; PULSE 66–81; RESP 16; TEMP 36.5–36.9; O2SAT 94–98; BMI 36.5
--- NOTE | 2019-06-18 | EGD_PTH ---
PATIENT: LUANA CASTELLANO LOC: EN U#:[id number] AGE/SX: 43/F ROOM: RE06/18/[address]: Dr. Tejinder Jarvis MD : 1975 BED: DIS: 06/18/2019 SPEC #: [id number] RECD: 06/18/19 13:45 STATUS: STACY RIGO #: [id number] KATHY: 06/18/19 00:[address]: Tejinder Jarvis DEPT: SURGICAL PATHOLOGY RECD BY: Rudy Arora ENTERED: 06/18/19 13:45 SP TYPE: EGD BIOPSY OT DR: Dr. Tamika Pereyra MD Tissues: A - Duodenum, NOS B - Stomach, NOS Procedures: Surgery Specimen Level IV HEADER OPERATION: EGD ([facility] [place] PRE-OP DIAGNOSIS: GERD TISSUE SUBMITTED: A. Duodenum biopsy, B. Stomach biopsy MICROSCOPIC DIAGNOSIS A. Duodenum, biopsy: No pathologic change. B. Gastric mucosa, biopsy: Mild chronic gastritis. AM:elier 06/19/19 COMMENT B. The results of immunohistochemistry for Helicobacter pylori will be reported separately ([id number]). MICROSCOPIC DESCRIPTION Slides are reviewed. GROSS DESCRIPTION A. Received is one container labeled with the patient name and designated duodenum biopsy. The specimen consists of multiple irregular fragments of light keller soft tissue that in aggregate measure 0.5 x 0.3 x 0.1 cm. The specimen is totally submitted in one cassette. B. Received is one container labeled with the patient name and designated stomach biopsy. The specimen consists of one irregular fragment of light keller soft tissue that measures 0.3 x 0.2 x 0.1 cm. The specimen is totally submitted in one cassette. RICHARD:elier 06/18/19 TC: 3 CPT: 68112 x2
--- NOTE | 2019-06-18 | IMM_PTH ---
PATIENT: LUANA CASTELLANO LOC: [facility] U#:[id number] AGE/SX: 43/F ROOM: RE06/18/[address]: Dr. Tejinder Jarvis MD : 1975 BED: DIS: 06/18/2019 SPEC #: [id number] RECD: 06/18/19 15:23 STATUS: STACY REMaxine #: [id number] KATHY: 06/18/19 00:[address]: Tejinder Jarvis DEPT: IMMUNOHISTOCHEMISTRY RECD BY: Freya Bradford ENTERED: 06/18/19 15:24 SP TYPE: IMMUNO OTHR DR: Dr. Tamika Pereyra MD Tissues: Gastric mucous membrane Procedures: H Pylori (initial) PHYSICIAN & INSTITUTION [place] [id number] SPECIMEN INFORMATION: Tissue Source: B. Stomach biopsy Clinical Info: GERD Specimen Number: [id number] CPT code: 03498 METHODOLOGY: Deparaffinized sections of prefer/formalin-fixed tissue or PAP/DQ stained slides are incubated with monoclonal/polyclonal antibodies/oligonucleotide probes. Localization is made via biotin free immunoperoxidase method. Appropriate controls are performed and reacted as expected. Results on target cell population are indicated in the following table: RESULTS: ANTIBODY / CLONE RESULT Block B H Pylori (polyclonal) negative These tests were developed and their performance characteristics determined by [facility]. They may not have been cleared or approved by the U.S. Food and Drug Administration. The FDA has determined that such clearance or approval is not necessary. INTERPRETATION: B. Stomach, biopsy: Negative for Helicobacter pylori organisms. AM:judson 06/19/19
[2019-06-18] MEDS: Lactated Ringers 1,000 ML 100 ML IV (09:38)
--- NOTE | 2019-06-18 10:07 | OP.EGD_ITS ---
Patient Name: Juany Webb Procedure Date: 06/18/2019 9:46 AM Date of : 1975 Age: 43 Procedure: Upper GI endoscopy Indications: Gastro-esophageal reflux disease Providers: Tejinder Jarvis MD Referring MD: Tamika Pereyra Medicines: See the Anesthesia note for documentation of the administered medications Patient Profile: This is a 43 year old female. Refer to note in patient chart for documentation of history and physical. Complications: No immediate complications. Procedure: Pre-Anesthesia Assessment: - Prior to the procedure, a History and Physical was performed, and patient medications and allergies were reviewed. The patient's tolerance of previous anesthesia was also reviewed. The risks and benefits of the procedure and the sedation options and risks were discussed with the patient. All questions were answered, and informed consent was obtained. Prior Anticoagulants: The patient has taken no previous anticoagulant or antiplatelet agents. ASA Grade Assessment: II - A patient with mild systemic disease. After reviewing the risks and benefits, the patient was deemed in satisfactory condition to undergo the procedure. After obtaining informed consent, the endoscope was passed under direct vision. Throughout the procedure, the patient's blood pressure, pulse, and oxygen saturations were monitored continuously. The gastroscope was introduced through the mouth, and advanced to the second part of duodenum. The upper GI endoscopy was accomplished without difficulty. The patient tolerated the procedure well. Scope In: 10:01:23 AM Scope Out: 10:04:03 AM Total Procedure Duration Time 0 hours 2 minutes 40 seconds Findings: The Z-line was regular and was found 42 cm from the incisors. No biopsies or other specimens were collected for this exam. The examined esophagus was normal. Localized minimal inflammation characterized by erythema was found in the prepyloric region of the stomach. Biopsies were taken with a cold forceps for Helicobacter pylori testing. The examined duodenum was normal. Biopsies were taken with a cold forceps for histology. Impression: - Z-line regular, 42 cm from the incisors. No specimens collected. - Normal esophagus. - Gastritis. Biopsied. - Normal examined duodenum. Biopsied. Recommendation: - Await pathology results. - Repeat upper endoscopy (date not yet determined) for surveillance. - Return to physician broker assistant in 1 week. - Continue present medications. Procedure Code(s): --- Professional --- 23648, Esophagogastroduodenoscopy, flexible, transoral; with biopsy, single or multiple Diagnosis Code(s): --- Professional --- K29.70, Gastritis, unspecified, without bleeding K21.9, Gastro-esophageal reflux disease without esophagitis CPT copyright 2017 [employer]. All rights reserved. The codes documented in this report are preliminary and upon desk lieutenant review may be revised to meet current compliance requirements. MD Tejinder Winn MD 06/18/2019 10:07:27 AM This report has been signed electronically. Number of Addenda: 0 Note Initiated On: 06/18/2019 9:46 AM
== END 2019-06-18 10:45 | disposition home or self-care (01) ==
LOC: EN 09:14 → AC 09:14
PROVIDERS: Family Provider Internal Medicine; PCP Internal Medicine; Referring Provider Internal Medicine; Visit Provider Surgery
PROC: 0DJ08ZZ Inspection of Upper Intestinal Tract, Via Natural or Artificial Opening Endoscopic (ICD-10-PCS; CPT 43235; principal; 2019-06-18 10:10)
DX: K29.50 Unspecified chronic gastritis without bleeding (principal); K21.9 Gastro-esophageal reflux disease without esophagitis; G47.30 Sleep apnea, unspecified; G43.909 Migraine, unspecified, not intractable, without status migrainosus; F17.200 Nicotine dependence, unspecified, uncomplicated; Z79.899 Other long term (current) drug therapy
CPT/HCPCS: 43239; 88305; 88342; J7120; J2405

== ENCOUNTER → 2019-06-19 14:44 | Outpatient (CLI) | payer OTHER, SELFPAY ==
[2019-06-18 09:33] VITALS: BMI 36.5
== END ==
PROVIDERS: Family Provider Internal Medicine; PCP Internal Medicine; Referring Provider Internal Medicine; Visit Provider Internal Medicine
DX: Z46.89 Encounter for fitting and adjustment of other specified devices (principal)

== ENCOUNTER → 2019-08-20 | Outpatient (CLI) | payer OTHER, SELFPAY ==
[2019-06-18 09:33] VITALS: BMI 36.5
== END | disposition home or self-care (01) ==
LOC: SL 12:37
PROVIDERS: PCP Internal Medicine; Referring Provider Internal Medicine; Visit Provider Internal Medicine
DX: Z46.89 Encounter for fitting and adjustment of other specified devices (principal)

== ENCOUNTER → 2019-09-05 | Outpatient (CLI) | payer OTHER, SELFPAY ==
[2019-08-29 14:39] VITALS: BMI 35.9
[2019-09-05 13:21] LABS: D-Dimer Quantitative (DVT/PE) <= 0.27 FEU/ug/m (0.27-0.49)
== END | disposition home or self-care (01) ==
LOC: LABSPEC 12:52
PROVIDERS: PCP Internal Medicine; Referring Provider Nurse Practitioner Primary Care; Visit Provider Nurse Practitioner Primary Care
DX: M54.9 Dorsalgia, unspecified (principal)
CPT/HCPCS: 85379

== ENCOUNTER 2019-12-13 08:45 | Emergency (ER) | payer OTHER, SELFPAY ==
[2019-08-29 14:39] VITALS: BMI 35.9
[2019-12-13 08:46] VITALS: BP 157/88; PULSE 88; RESP 18; TEMP 36.6; O2SAT 98; BMI 34.2
--- NOTE | 2019-12-13 09:21 | EKG12_ITS ---
Test Reason : BACK Blood Pressure : / mmHG Vent. Rate : 070 BPM Atrial Rate : 070 BPM P-R Int : 162 ms QRS Dur : 068 ms QT Int : 388 ms P-R-T Axes : 012 014 014 degrees QTc Int : 419 ms Normal sinus rhythm Normal ECG Confirmed by MICHAEL SCHWARTZ, JANETH ([id number]), book editor ANDERS CARDONA ([id number]) on 12/17/2019 1:33:32 PM Referred By: KATLYN Confirmed By:JANETH RODRIGUEZ MD
[2019-12-13 09:45] LABS: Absolute Lymphocyte Count 2.17 X10^3/uL (0.83-4.51); Absolute Neutrophil Count 5.6 X10^3/uL (2.0-7.7); Basophil# 0.07 X10^3/uL; Basophil% 0.8 % (0-1); Eosinophil# 0.17 X10^3/uL; Hematocrit 43.7 % (37-47); Hemoglobin 14.3 g/dL (12.0-15.0); Lymphocyte # 2.17 X10^3/ul (4.0); Lymphocyte % 25.1 % (19-41); Mean Corp Hgb Conc 32.7 g/dL (32-36); Mean Corpuscular Hgb 30.1 pg (27.0-32.0); Mean Platelet Vol. 9.9 fl (6.2-12.0); Monocyte# 0.62 X10^3/uL; Monocyte% 7.2 % (0-10); NRBC Flagged by Analyzer 0 % (0-5); Neutrophil # 5.58 X10^3/uL (2.7-7.7); Neutrophil % 64.4 % (47-70); Platelet Count 298 K/mm3 (150-450); RBC Distribution Width CV 13.2 % (11.6-14.6); RBC Distribution Width SD 44.9 fl (35.1-43.9); Red Blood Count 4.75 M/mm3 (4.2-5.4); White Blood Count 8.7 K/mm3 (4.4-11.0)
--- NOTE | 2019-12-13 09:50 | RAD_ITS ---
STUDY: X-RAY CHEST REASON FOR EXAM: Female, 44 years old. CHEST PAIN TECHNIQUE: Single AP portable view of the chest. COMPARISON: Comparison is made with prior study May 31, 2019. FINDINGS: EKG electrodes are seen. The lungs are clear and expanded. There is no demonstrated pleural abnormality. Normal size heart. Normal mediastinum and chelo. Normal visualized pulmonary arteries. Normal visualized aortic arch and descending thoracic aorta. Normal visualized thoracic spine. Normal visualized ribs, clavicles, and shoulders. There is no demonstrated abnormality of the visualized soft tissue structures of the upper abdomen. RAD/Chest 1 View (Portable) IMPRESSION: Normal x-ray examination of the chest. Electronically Signed: Chapito Reza, at 10:04 EDT , Service support ,
[2019-12-13 09:54] LABS: Bacteria 0 SEEN /hpf (None Seen); Mucous, Urine 0 SEEN /hpf (<or=2+); Red Blood Cells-Urine 0 SEEN /hpf (0-5); White Blood Cells 0 SEEN /hpf (0-5)
--- NOTE | 2019-12-13 09:57 | ED.VIS.GEN ---
History of Present Illness Chief Complaint: Back Informant: Patient Onset: Month(s) Context: Gradual Onset Timing: Continuous Narrative: Is a 44-year-old female with history of fibroid nodules, migraines, GERD and anxiety presenting with persistent pain in her mid thoracic back as well as right-sided chest pain. Patient states she has had this pain in her back for the past year or so. Seems to be worse when she takes a deep breath as well as in the morning when she wakes up and in the evening when she goes home. States it is an aching sensation. She denies any history of remote trauma. The symptoms have not changed however patient is concerned that they are still going on. She notes she had a stress test in April, 8 months ago and thinks it was normal. Patient is also had pain over her right chest. She describes it as feeling of bruising underneath her pec muscle. She states is been intermittent but constant over the past 3 weeks. She notes that after she had her stress test they did an ultrasound back in April and she feels like it is been bruised since then. Patient was recently on phentermine for weight loss but stopped it 2 weeks ago because she was having tachycardia. States her heart rate was getting up to 140. Patient denies any associated shortness of breath. She denies any cough or upper respiratory symptoms. Denies any swelling of her legs. She is not on any estrogen supplements of control. Patient dates she came in today because she is grueling all of her symptoms and wishes getting very concerned that there could be something more seriously wrong with her. Past Medical History - Allergies and Home Meds Allergies/Adverse Reactions: Allergies Penicillins Allergy (Verified 12/13/19 08:49) Other Primary Care Physician: Tamika Pereyra MD [Primary Care Provider] - Past Medical History: - - Anxiety, GERD, migraines, thyroid nodules Surgical History: noncontributory Smoking Status: Current every day smoker Review of Systems General: Denies: Chills, Fever, Sweats Eyes: Denies: Visual changes - bilaterally, Diplopia ENT: Denies: Rhinorrhea, Sore throat Cardiovascular: Reports: Chest pain. Denies: Palpitations Respiratory: Denies: Dyspnea, Cough, Dyspnea on exertion Gastrointestinal: Denies: Abdominal pain, Nausea, Vomiting, Diarrhea, Melena, Hematochezia Genitourinary: Denies: Dysuria, Hematuria, Frequency Musculoskeletal: Reports: Back pain. Denies: Swelling, Extremity Pain Skin: Denies: Rash, Wounds Neurological: Denies: Headache, Weakness, Numbness Physical Exam Vital Signs/Narrative: Vital Signs Temp Pulse Resp BP Pulse Ox 12/13/19 08:46 98 F 88 18 157/88 H 98 Inital Vital Signs reviewed: Yes General: Well nourished, Well developed, No Acute Distress Head: Normocephalic, Atraumatic Eyes: Perrl, EOMI ENT: Moist mucous membranes, No rhinorrhea Neck: Supple, Nontender Cardiovascular: Regular rate, Regular rhythm, No murmurs Respiratory: No distress, CTA bilaterally, Chest nontender, - - No chest wall deformity, ecchymosis or crepitus. Negative for: Chest tenderness Abdomen: Soft, Nontender, Nondistended, Normal bowel sounds Back: Nontender, Normal Inspection, - - Patient's area of pain is in her mid thoracic region right where her bra strap would be. It is not reproducible. There is no overriding tenderness, step-off sign or other deformity noted.. Negative for: CVA tenderness, Spinal tenderness Extremities: Nontender, No edema Skin: Normal color, No rash Neurological: Alert, Oriented x3, Cranial nerves II-XII grossly intact, Normal Strength, Normal Sensation Psychological: Normal affect, Normal Mood Diagnostic/Tx/Re-eval Chest X-Ray - ED: 1 View, Read by ED Physician, Read by Radiologist, No Acute Disease Clinical Impression(s) from Imaging Studies Chest X-Ray 12/13/19 09:50 IMPRESSION: Normal x-ray examination of the chest. Electronically Signed: Chapito Reza, at 10:04 EDT , Service support , Laboratory Data 12/13/19 12/13/19 12/13/19 09:35 09:35 09:35 WBC 8.7 RBC 4.75 Hgb 14.3 Hct 43.7 MCV 92.0 MCH 30.1 MCHC 32.7 RDW Std Deviation 44.9 H RDW Coeff of Roshan 13.2 Plt Count 298 MPV 9.9 Immature Gran % (Auto) 0.500 Neut % (Auto) 64.4 Lymph % (Auto) 25.1 [place] % (Auto) 7.2 Eos % (Auto) 2.0 Baso % (Auto) 0.8 Absolute Neuts (auto) 5.6 Absolute Lymphs (auto) 2.17 Nucleated RBC % 0 D-Dimer Quant (PE/DVT) <= 0.27 Sodium 142 Potassium 4.3 Chloride 109 H Carbon Dioxide 28.0 Anion Gap 5 BUN 10 Creatinine 0.87 Estim Creat Clear Calc 88.03 Est GFR (MDRD) Af Amer 92 Est GFR (MDRD) Non-Af 76 BUN/Creatinine Ratio 11.5 Glucose 116 H Calcium 8.5 Total Bilirubin 0.40 AST 12 L ALT 23 Alkaline Phosphatase 92 Troponin I < 0.015 Total Protein 7.0 Albumin 3.3 Globulin 3.7 Albumin/Globulin Ratio 0.9 Lipase 136 TSH 1.54 Urine Color Urine Clarity Urine pH Ur Specific [place] Urine Protein Urine Glucose (UA) Urine Ketones Urine Occult Blood Urine Nitrite Urine Bilirubin Urine Urobilinogen Ur Leukocyte Esterase Urine RBC Urine WBC Ur Squamous Epith Cells Urine Bacteria Urine Mucus Urine Test 12/13/19 12/13/19 09:45 09:45 WBC RBC Hgb Hct MCV MCH MCHC RDW Std Deviation RDW Coeff of [place] Plt Count MPV Immature Gran % (Auto) Neut % (Auto) Lymph % (Auto) [place] % (Auto) Eos % (Auto) Baso % (Auto) Absolute Neuts (auto) Absolute Lymphs (auto) Nucleated RBC % D-Dimer Quant (PE/DVT) Sodium Potassium Chloride Carbon Dioxide Anion Gap BUN Creatinine Estim Creat Clear Calc Est GFR (MDRD) Af Amer Est GFR (MDRD) Non-Af BUN/Creatinine Ratio Glucose Calcium Total Bilirubin AST ALT Alkaline Phosphatase Troponin I Total Protein Albumin Globulin Albumin/Globulin Ratio Lipase TSH Urine Color Yellow Urine Clarity Sl. Cloudy Urine pH 7.0 Ur Specific [place] 1.010 Urine Protein Negative Urine Glucose (UA) Normal Urine Ketones Negative Urine Occult Blood Negative Urine Nitrite Negative Urine Bilirubin Negative Urine Urobilinogen Normal Ur Leukocyte Esterase Negative Urine RBC 0 SEEN Urine WBC 0 SEEN Ur Squamous Epith Cells 0-5 SEEN Urine Bacteria 0 SEEN Urine Mucus 0 SEEN Urine Test Negative - Rhythm Strip Rhythm Strip: Sinus Rhythm Rate: 70 Ectopy: None - EKG Initial EKG Interpretation: Sinus Rhythm, - - Sinus rhythm at a rate of 70 Normal intervals Normal axis Normal ST segments - Medical Decision Making Patient is evaluated for 1 year of midthoracic back pain as well as intermittent right chest pain that is been going on for the past few months. Is been constant for the past 3 weeks. She states she is actually very concerned that she might have lung cancer given her smoking history even though she has no other symptoms. She has followed up with cardiology and had a stress test in April 2019. Allergy note from August of this year states that they have a low suspicion for ACS and do not want to proceed with angiography at this time. In August per negative these note concerned about any lung issues it could be because her chest pain is she is a smoker she is not had any significant change in her symptoms. Patient's vital signs are normal. She is a normal EKG. I did check a TSH as a D as well as a d-dimer given her palpitations 2 weeks ago and tachycardia. All of these are negative. Very low suspicion for an acute cardiopulmonary process causing her symptoms. Her back pain is centered in her mid thoracic region right where her bra strap is not counseled that she could be having some muscle skeletal pain in that area. Patient is encouraged to follow-up with her primary care doctor for further evaluation especially if she is concerned about lung cancer. At this time I do not think patient requires admission. Patient is counseled that she should quit smoking. Patient is counseled on signs and symptoms requiring return to the emergency room. Patient verbalizes agreement and understand this plan. Patient discharged home in stable and improved condition. ED Disposition - Plan for ED Patient: Disposition: Home or Assisted Living Diagnosis: Atypical chest pain, Chronic thoracic back pain Instructions: ED Back Pain Acute or Chronic, ED Chest Pain Atypical Unkn Cause Referrals: Tamika Pereyra MD [Primary Care Provider] - Additional Instructions: Your work-up today was largely normal. The exact cause of your pain is not clear. I do encourage you to discuss this with your primary care doctor and your concerns for lung cancer for further screening. Please stop smoking. Try taking Tylenol for your pain.
[2019-12-13 09:59] LABS: Color, Urine Yellow (Yellow); Glucose, Dipstick Normal (Normal); Ketone-Dipstick Negative (Negative); Leukocyte Esterase-Dipstick Negative /ul (Negative); Nitrite-Dipstick Negative (Negative); Occult Blood-Urine Negative /ul (Negative); Protein-Dipstick Negative (Negative); Urine Bilirubin Dipstick Negative (Negative); Urine Clarity Sl. Cloudy (Clear); Urine Urobilinogen Normal (Normal)
[2019-12-13 09:59] LABS: D-Dimer Quantitative (DVT/PE) <= 0.27 FEU/ug/m (0.27-0.49)
[2019-12-13 10:00] LABS: Internal QC Validated? YES +Cl - CLEAR BKGD
[2019-12-13 10:01] LABS: Pregnancy, Urine Negative Negative
[2019-12-13 10:06] LABS: Squamous Epithelial Cells - UA 0-5 SEEN /hpf (5-10)
[2019-12-13 10:09] LABS: ALB/GLOB Ratio 0.9 RATIO (0.9-2.4); AST(SGOT) 12 U/L (15-37); Alanine Aminotransfer ALT/SGPT 23 U/L (13-56); Albumin, Serum 3.3 g/dL (3.2-5.0); Alkaline Phosphatase 92 U/L (45-117); Anion Gap 5 (5-15); BUN 10 mg/dL (7-18); BUN/Creat Ratio 11.5 RATIO (10-20); Calcium,Total 8.5 mg/dL (8.5-10.1); Chloride 109 mmol/L (98-107); Creatinine, Serum 0.87 mg/dL (0.55-1.02); EST Glomerular Filtration Rate 76 mL/min (>60); Est Glom Filt Rate - Afr Amer 92 mL/min (>60); Estimated Creatinine Clearance 88.03 ml/min; Globulin 3.7 g/dL (2.2-4.2); Glucose 116 mg/dL (74-106); Lipase 136 U/L (73-393); Potassium 4.3 mmol/L (3.5-5.1); Sodium Level 142 mmol/L (136-145); Thyroid Stim Hormone (TSH) 1.54 uIU/mL (0.358-3.74)
--- OUTSIDE RECORDS SUMMARY | 2020-04-27 07:33 | XMS RPT_ITS | CCD ---
:1975 External Reference #:[id number] Author Organization [facility] Care Team Providers Name Role Phone Hafsa Primary Care Provider Allergies Reported Allergen Reaction(s) Severity Date of Onset Location Penicillins Intolerance 05-20-2005 - [facility] ([id number]) Medications Medication Name Sig Date Prescriber Location Albuterol albuterol (PROVENTIL) 09-28-2019 - Ed ([facility]) [facility] 2.5 mg /3 mL (0.083 04-01-2020 Ilya Leaah ([phone]) %) nebulizer solution ([employer]older [employer]eder) Ilya Indications: Persistent cough , SOB (shortness of breath) , Chest pain on breathing Use 3 mL via nebulizer every 4 hours as needed for Wheezing/Shortness of Breath. Use over 5-15minutes. 1 Package 1 09/28/2019 04/01/2020 Discontinued (Course of therapy completed) Comment: Use 3 mL via nebulizer every 4 hours as needed for Wheezing/Shortness of Breath. Use over 5-15minutes . albuterol HFA (PROAIR albuterol HFA 09-10-2019 - Romana R (Pa) [facility] HFA) 90 mcg/actuation (PROAIR HFA) 90 04-01-2020 Athy Romana R ([id number] [phone]) inhaler mcg/actuation (Pa) [facility] inhaler Inhale 2 Puffs as instructed every 6 hours as needed. 1 Inhaler 0 09/10/2019 04/01/2020 Discontinued (Course of therapy completed) Comment: Inhale 2 Puffs as instructed every 6 hours as needed. benzonatate benzonatate (TESSALON 09-10-2019 - Romana R (Pa) [facility] PER[facility]) 100 mg capsule 04-01-2020 Athy Romana R ([id number]) Take 2 capsules by (Pa) Athy mouth three times daily as needed. 30 capsule 0 09/10/2019 04/01/2020 Discontinued (Course of therapy completed) Comment: Take 2 capsules by mouth thr ee times daily as needed. BIOTIN, BULK, MISC BIOTIN, BULK, MISC 04-01-2020 [facility] Provider [facility] ([id number]) buPROPion buPROPion SR 10-19-2019 Kojo ([facility]) [facility] (WELLBUTRIN SR) 150 (08343) mg 12 hr tablet Indications: Tobacco abuse disorder Take 1 tablet by mouth twice daily. 60 tablet 5 10/19/2019 Active Comment: Take 1 tablet by mouth twice daily. cyclobenzaprine cyclobenzaprine 01-10-2020 - Joanie ([facility]) [facility] (FLEXERIL) 10 mg tablet 04-01-2020 Older (441 [id number]) Indications: DDD (degenerative disc disease), thoracic Take 0.5-1 tablets by mouth three times daily as needed for Muscle Spasm. 30 tablet 1 04/01/2020 Active Comment: Take 0.5-1 tablets by mouth three times daily as needed for Muscle Spasm. Dexamethasone / tobramycin-dexamethasone 10-19-2019 Kojo ([facility]) [facility] Tobramycin (TOBRADEX) ophthalmic [facility] (92148) suspension Use 1 Drop in the left eye three times daily. 5 mL 0 10/19/2019 Active Comment: Use 1 Drop in the left eye t hree times daily. Ergocalciferol ergocalciferol 50,000 unit 04-27-2019 Castillo Still [facility] capsule (VITAMIN D2, (25279) DRISDOL) Indications: Vitamin D deficiency Take 1 capsule by mouth two times a week. TO BE TAKEN ORALLY DIRECTED. Take 1 tablet by mouth twice weekly [id number], then decrease to 1 tablet weekly. 8 capsule 5 04/27/2019 Active Comment: Take 1 capsule by mouth two times a week. TO BE TAKEN ORALLY DIRECTED. Take 1 tablet by mouth twice weekly [id number], then decrease to 1 tablet weekly. fluticasone fluticasone (FLONASE) 07-20-2019 - Kojo ([facility]) [facility] 50 mcg/actuation nasal 04-01-2020 Eusebio Viveros (4419 5) spray Use 2 [facility]ays [facility] each nostril once daily. Rinse mouth after use. 1 Bottle 11 07/20/2019 04/01/2020 Discontinued (Course of therapy completed) Comment: Use 2 Sprays in each nostril once daily. Rinse mouth after use. meloxicam meloxicam (MOBIC) 15 10-19-2019 - Joanie ([facility]) Older [facility] mg tablet Take 1 04-01-2020 (65140) tablet by mouth once daily. for pain. Take with food. 30 tablet 1 04/01/2020 Active Comment: Take 1 tablet by mouth once daily. for pain. Take with food. Naproxen naproxen sodium (ALEVE) 04-01-2020 [facility] Provider f [facility] 220 mg cap Take 2 Provider (03170) capsules by mouth twice daily at 6AM and 9PM. 0 04/01/2020 Discontinued Comment: Take 2 capsules by mouth twi ce daily at 6AM and 9PM. Nicotine nicotine (NICODERM) 21 10-19-2019 Kojo ([facility]) [facility] mg/24 hr Indications: (37004 ) Tobacco abuse disorder Apply 1 Patch as directed every 24 hours. 30 Patch 1 10/19/2019 Active Comment: Apply 1 Patch as directed ev peri 24 hours. pantoprazole pantoprazole 10-19-2019 Kojo ([facility]) [facility] (PROTONIX) 40 mg tablet Eusebio (441 95) Take 1 tablet by mouth daily before breakfast. Take on empty stomach, 1/2 hr before meal. 30 tablet 5 10/19/2019 Active Comment: Take 1 tablet by mouth daily before breakfast. Take on empty stomach, 1/2 hr before meal. predniSONE predniSONE (DELTASONE) 01-10-2020 - Kojo ([facility]) [facility] 10 mg tablet 04-01-2020 Eusebio Viveros (11795) Indications: DDD ([facility]) Eusebio (degenerative disc disease), lumbar , DDD (degenerative disc disease), thoracic , Chronic midline thoracic back pain , Costochondritis Take 40 mg x 3 days, 20 mg x 3 days, 10 mg x 3 days. Take with food, once daily 21 tablet 0 01/10/2020 04/01/2020 Discontinued (Course of therapy completed) Comment: Take 40 mg x 3 days, 20 mg x 3 days, 10 mg x 3 days. Take with food, once daily topiramate topiramate (TOPAMAX) 25 mg 04-19-2019 Castillo Draper [facility] tablet Indications: (54958) migraine prevention Take 25mgs in the evening for a week, then go to 50 mgs daily. 60 tablet 2 04/19/2019 Active Comment: Take 25mgs in the evening fo r a week, then go to 50 mgs daily. Vitamin B vitamin B complex (B 04-01-2020 [facility] Provider [facility] Complex COMPLEX-VITAMIN B12 Provider (61975) ORAL) Take by mouth. 0 04/01/2020 Discontinued (Discontinued by Patient) Comment: Take by mouth. Problems Active Problems Category Problem Name Status Date Location Allergic reactions Solar degeneration Active 06-16-2006 - 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 intervertebral disc intervertebral disc ( 53385) disorders; other back problems Substance-related Tobacco dependence Active 03-06-2014 - [facility] disorders syndrome (64590) Thyroid disorders Thyroid nodule Active 04-19-2012 [facility] (95602) Unclassified Patient encounter status Active [facility] (56830) Urinary tract Chronic cystitis Active 10-17-2008 - [facility] infections (42477) Past or Other Problems Category Problem Name Status Date Location Contraceptive and IUD contraception Completed 12-14-2012 [facility] procreative management (4419 5) Inflammation; Scleritis Completed 10-29-2015 - [facility] ic infection of eye (30685) (except that caused by tuberculosis or sexually transmitteddisease) Nonspecific chest pain Chest pain Completed 12-06-2018 - [facility] (03658) Other and unspecified Melanocytic nevus of Completed 08-15-2013 [facility] benign neoplasm face (47244) Other and unspecified Melanocytic nevus of Completed 08-15-2013 [facility] benign neoplasm trunk (50566) Other and unspecified Benign neoplasm of Completed 08-15-2013 [facility] benign neoplasm skin of shoulder (44828) Other and unspecified Melanocytic nevus of Completed 08-15-2013 [facility] benign neoplasm upper limb (16417) Other injuries and Superficial injury Completed 08-04-2007 [facility] conditions due to (12414) external causes Other non-traumatic Pain in elbow Completed 08-01-2019 [facility] joint disorders (12741) Other skin disorders Non-scarring alopecia Completed 10-30-2015 [facility] (62116) Other skin disorders Scar Completed 08-15-2013 [facility] (87727) Other skin disorders Acne Completed 08-15-2013 [facility] (13128) Other skin disorders Senile lentigo Completed 08-15-2013 - [facility] (16904) Other skin disorders Epidermoid cyst of Completed 08-15-2013 [facility] skin (50592) Results Result Name Value Range Unit Interpretation Flag Date Location progress on 2020-04 PROGRESS HNO ID: [id number] Normal 04-24-2020 [facility] Author: Tony (PtJulia Saavedra [place] ([id number]) Service: ? Author Type: Physical Therapist Type: Progress Notes Filed: 04/24/2020 4:25 PM Note Text: Episode Visit Count: 4 Therapist That Will Oversee The Plan Of Care: Tony Saavedra Start of Care Date: 04/03/20 Onset Date: 10/02/19 [facility]ERAPY PHYSICAL THERAPY TREATMENT NOTE ASSESSMENT: Juany Castellano demonstrated improvements in int ensity of pain. The patients pain symptoms displayed centralization co mpared to previous visits. The patient will continue to benefit from o ngoing skilled physical therapy for decreasing frequency and intens ity of pain to increase function, specifically breathing, and overall quali ty of life. PLAN FOR NEXT VISIT: Dry needling if necessary Posterior mobilizations if necessary SUBJECTIVE: Patient Reason for Visit: Pt states that it is o verall feeling better with the pain at the sides subsiding, but still has p ain next to her spine in the same spot as before. Taking the deep breath s are still difficult for her. Pain: Pain Pain Level: 5 Pain Location: Thoracic Spine Description: Aching Frequency: Continuous OBJECTIVE MEASURES WITH LEVEL OF FUNCTION: Decrease in widespread tenderness in thoracic paraspinal mus cles Improved breathing post dry needling TREATMENT: Manual Therapy: 1: STM to R and L paraspinals x5 minutes Dry Needling: (1) 30 and 40 mm needle to R T7-8 paraspinals and L T7 paraspinals with pistoning and fanning Skilled Intervention: Manual skills to improve joint mobilit y, ROM, and decrease pain. Utilized anatomy knowledge of the therapist, and assessment of patient's response to intervention. Dry Needling performed by Tony Saavedra PT Billing: [facility]: Manual Therapy (54404): 1:1 time: 25 minut es (2 units: 23-37 mins) Total time / Length of visit: 25 minutes Maria Esther Escalante, SPT Tony Saavedra PT Direct supervision was provided by the licensed physical the rapist for the entire treatment session and licensed provider made all [facility] decisions. cntherapy on 2019-07 0-15 CNTHERAPY OT/PT/Speech Visit (PTWS) Normal 04-10 [facility] JUANY CASTELLANO ([id number]) 1975 [facility] Date Time Provider Department [place] 04/24/20 1:15 PM OTNY SAAVEDRA (PT) PTWS (56016) Date Time Provider Department [place] 04/24/2020 1:15 PM [id number], SEAN (PT)PTWS [facility] Reason for Visit: Physical Therapy [503] Primary Visit Diagnosis:Chronic bilateral thoracic andrew k pain [M54.6, G89.29] Allergies As of Date: 04/24/2020 Noted Allergy Reaction PENICILLINS 05/20/2005 5 - Intolerance Date Reviewed: 04/01/2020 Reviewed by: Yanet Clarke Cinema Operator - Fully Assessed Prescriptions as of 04/24/2020 Sig: CYCLOBENZAPRINE 10 MG TABLET Take 0.5-1 tablets by mouth t* MELOXICAM 15 MG TABLET Take 1 tablet by mouth once d* NICOTINE 21 MG/24 HR DAILY TR* Apply 1 Patch as directed mak * TOBRAMYCIN 0.3 %-DEXAMETHASON* Use 1 Drop in the left eye th * PANTOPRAZOLE 40 MG TABLET,DEL* Take 1 tablet by mouth daily * BUPROPION HCL SR 150 MG TABLE* Take 1 tablet by mouth twice * ERGOCALCIFEROL (VITAMIN D2) 1* Take 1 capsule by mouth two t * TOPIRAMATE 25 MG TABLET Take 25mgs in the evening for* Progress Notes: Tony Saavedra, PT 04/24/2020 4:25 PM Signed Episode Visit Count: 4 Therapist That Will Oversee The Plan Of Care: Tony Saavedra Start of Care Date: 04/03/20 Onset Date: 10/02/19 REHABILITATION AND SPORTS THERAPY PHYSICAL THERAPY TREATMENT NOTE ASSESSMENT: Juany Castellano demonstrated improvements in intensity of pain. The patients pain symptoms displayed centralization compar ed to previous visits. The patient will continue to benefit fro m ongoing skilled physical therapy for decreasing frequency and intensity of pain to in crease function, specifically breathing, and overall quality of life. PLAN FOR NEXT VISIT: Dry needling if necessary Posterior mobilizations if necessary SUBJECTIVE: Patient Reason for Visit: Pt states that it is o verall feeling better with the pain at the sides subsiding, but still has pain next to her spine in the same spot as before. Taking the aracelis p breaths are still difficult for her. Pain: Pain Pain Level: 5 Pain Location: Thoracic Spine Description: Aching Frequency: Continuous OBJECTIVE MEASURES WITH LEVEL OF FUNCTION: Decrease in widespread tenderness in thoracic paraspinal mus cles Improved breathing post dry needling TREATMENT: Manual Therapy: 1: STM to R and L paraspinals x5 minutes Dry Needling: (1) 30 and 40 mm needle to R T7-8 paraspinals and L T7 paraspinals with pistoning and fanning Skilled Intervention: Manual skills to improve joint mobility, ROM, and decrease pain. Utilized anatomy knowledge of the therapist, and assessment of patient's response to intervention. Dry Needling performed by Tony Saavedra PT Billing: [facility]: Manual Therapy (72608) : 1:1 time: 25 minutes (2 units: 23-37 mins) Total time / Length of visit: 25 minutes Maria Esther Escalante, SPT Tony Saavedra PT Direct supervision was provided by the licensed physical the rapist for the entire treatment session and licensed provider made all cl inical decisions. Previous Version progress on 2020-04 PROGRESS HNO ID: [id number] Normal 04-17-2020 [facility] Author: Tony (Pt) Quentin Fernandez ([id number]) Service: ? Author Type: Physical Therapist Type: Progress Notes Filed: 04/17/2020 5:33 PM Note Text: Episode Visit Count: 3 Therapist That Will Oversee The Plan Of Care: Tony Saavedra Start of Care Date: 04/03/20 Onset Date: 10/02/19 REHABILITATION AND SPORTS THERAPY PHYSICAL THERAPY TREATMENT NOTE ASSESSMENT: Juanyshanae Castellano demonstrated improvements in cezar quency and intensity of pain. The patient will continue to benefit from ongoing skilled physical therapy for decreasing intensity and freque ncy of pain and decreasing stiffness and hypomobility in the thoracic sp ine to increase quality of life. PLAN FOR NEXT VISIT: Continue with posterior rib mobilizations and STM in tight p araspinals SUBJECTIVE: Patient Reason for Visit: Pt states that the andrew k is feeling like the pain is still there, but not as bad. Pt fell asleep on their stomach and woke up at one point and felt that the symtpoms were feeling much better. Pain: Pain Pain Level: 5 Pain Location: Thoracic Spine Description: Aching Frequency: Continuous Post Treatment Pain Post Treatment Pain Location: Thoracic Spine Post Treatment Pain Description: Aching Post Treatment Symptoms: (Decrease in intensity but is sore ) OBJECTIVE MEASURES WITH LEVEL OF FUNCTION: Decrease in hypomobility at T8 with grade III mobs and MET TREATMENT: Therapeutic Exercise: 1: Prone progression flat 3 minutes, MARISSA 3 minutes, press up s x10 2: *MET anterior self mobilization x10 Skilled Intervention: Patient was educated in proper exercis e technique and purpose for exercises. Reviewed and educated patient on additions/changes for home exercise program as above (*) Reviewed and educated patient on additions/changes for home exercise program Skilled judgment was provided in selection of appropriate in terventions. Correct performance of therapeutic exercises was facilitated with verbal, visual and tactile cuing. Manual Therapy: 1: MET posterior mobilizations T7-9 x10 5 seconds 2: MET anterior mobilizations 2x10 5 second holds 3: STM R and L thoracic paraspinals x8 minutes Skilled Intervention: Manual skills to improve joint mobilit y, ROM, and decrease pain. Utilized anatomy knowledge of the therapist, and assessment of patient's response to intervention. Billing: [facility]: Therapeutic Exercise (09552): 1:1 time: 13 minutes (1 unit: 8-22 mins) Manual Therapy (68396): 1:1 time: 37 minutes (2 units: 23-37 mins) Total time / Length of visit: 50 minutes Maria Esther Escalante, SUNIL Saavedra PT Direct supervision was provided by the licensed physical the rapist for the entire treatment session and licensed provider made all [facility] decisions. cntherapy on 2019-07 0-08 CNTHERAPY OT/PT/Speech Visit (PTWS) Normal 10-0 [place] JUANY CASTELLANO ([id number]) 1975 [facility] Date Time Provider Department [place] 04/17/20 3:45 PM TONY SAAVEDRA (PT) PTWS ([id number]) Date Time Provider Department [place] 04/17/2020 3:45 PM [id number], SEAN (PT)PTWS [facility] Reason for Visit: Physical Therapy [503] Primary Visit Diagnosis:Chronic bilateral thoracic andrew k pain [M54.6, G89.29] Allergies As of Date: 04/17/2020 Noted Allergy Reaction PENICILLINS 05/20/2005 5 - Intolerance Date Reviewed: 04/01/2020 Reviewed by: Yanet Clarke Cinema Operator - Fully Assessed Prescriptions as of 04/17/2020 Sig: CYCLOBENZAPRINE 10 MG TABLET Take 0.5-1 tablets by mouth t* MELOXICAM 15 MG TABLET Take 1 tablet by mouth once d* NICOTINE 21 MG/24 HR DAILY TR* Apply 1 Patch as directed mak * TOBRAMYCIN 0.3 %-DEXAMETHASON* Use 1 Drop in the left eye th * PANTOPRAZOLE 40 MG TABLET,DEL* Take 1 tablet by mouth daily * BUPROPION HCL SR 150 MG TABLE* Take 1 tablet by mouth twice * ERGOCALCIFEROL (VITAMIN D2) 1* Take 1 capsule by mouth two t * TOPIRAMATE 25 MG TABLET Take 25mgs in the evening for* Progress Notes: Tony Saavedra, PT 04/17/2020 5:33 PM Signed Episode Visit Count: 3 Therapist That Will Oversee The Plan Of Care: Tony Saavedra Start of Care Date: 04/03/20 Onset Date: 10/02/19 REHABILITATION AND SPORTS THERAPY PHYSICAL THERAPY TREATMENT NOTE ASSESSMENT: Juany Castellano demonstrated improvements in frequency and intensity of pain. The patient will continue to benefit from ongoing skilled physical therapy for decreasing inten sity and frequency of pain and decreasing stiffness and hypomobility in the thoracic spine to increase quality o f life. PLAN FOR NEXT VISIT: Continue with posterior rib mobilizations and STM in tight p araspinals SUBJECTIVE: Patient Reason for Visit: Pt states that the back is feeling like the pain is still there, but not as bad. Pt fell aslee p on their stomach and woke up at one point and felt that the symtpoms were feeling much better. Pain: Pain Pain Level: 5 Pain Location: Thoracic Spine Description: Aching Frequency: Continuous Post Treatment Pain Post Treatment Pain Location: Thoracic Spine Post Treatment Pain Description: Aching Post Treatment Symptoms: (Decrease in intensity but is sore ) OBJECTIVE MEASURES WITH LEVEL OF FUNCTION: Decrease in hypomobility at T8 with grade III mobs and MET TREATMENT: Therapeutic Exercise: 1: Prone progression flat 3 minutes, MARISSA 3 minutes, press up s x10 2: *MET anterior self mobilization x10 Skilled Intervention: Patient was educated in proper exerc ise technique and purpose for exercises. Reviewed and educated maryen t on additions/changes for home exercise program as above (*) Reviewed and educated patient on additions/changes for home exercise program Skilled judgment was provided in selection of appropriate in terventions. Correct performance of thera peutic exercises was facilitated with verbal, visual and tactile cuing. Manual Therapy: 1: MET posterior mobilizations T7-9 x10 5 seconds 2: MET anterior mobilizations 2x10 5 second holds 3: STM R and L thoracic paraspinals x8 minutes Skilled Intervention: Manual skills to improve joint mobility, ROM, and decrease pain. Utilized anatomy knowledge of the therapist, and assessment of patient's response to intervention. Billing: [facility]: Therapeutic Exercise (09913): 1:1 time: 13 minutes (1 unit: 8-22 mins) Manual Therapy (56485): 1:1 time: 37 minutes (2 units: 23-37 mins) Total time / Length of visit: 50 minutes Maria Esther Escalante, SUNIL Saavedra, DICK Direct supervision was provided by the licensed physical the rapist for the entire treatment session and licensed provider made all cl inical decisions. Previous Version progress on 2020-04 PROGRESS HNO ID: [id number] Normal 04-10-2020 [facility] Author: Tony (Pt) Quentin Fernandez ([id number]) Service: ? Author Type: Physical Therapist Type: Progress Notes Filed: 04/10/2020 2:55 PM Note Text: Episode Visit Count: 2 Therapist That Will Oversee The Plan Of Care: Tony Saavedra Start of Care Date: 04/03/20 Onset Date: 10/02/19 REHABILITATION AND SPORTS THERAPY PHYSICAL THERAPY TREATMENT NOTE ASSESSMENT: Juany Castellano demonstrated slight improvement in thoracic pain today post session following mobility and manual work. The patient will continue to benefit from ongoing skilled physical thera py for manual prn and progressive exercises to decrease pain and return to prior level of function. PLAN FOR NEXT VISIT: assess carry over of thoracic mobilization exercises, november tr y a thoracic MET SUBJECTIVE: Patient Reason for Visit: Pt states exercises ar e going well, no issues. Feels breathing is getting slightly better but john[address] rd to tell overall. Still feels it in the same 2 spots in the mid back and bottom of her ribs. Pain: Pain Pain Level: 6 Pain Location: Thoracic Spine Description: Aching Frequency: Continuous OBJECTIVE MEASURES WITH LEVEL OF FUNCTION: Tenderness in B thoracic paraspinals L>R TREATMENT: Therapeutic Exercise: 1: *Cat and cow 3x10 with syncing of breath 2: *Seated thoracic extensions in tolerated range 3x10 3: *Supine lying on towel roll for thoracic mobilization 3x6 0 sec Skilled Intervention: Patient was educated in proper exercis e technique and purpose for exercises. Skilled judgment was provided in selection of appropriate in terventions. Provided written instruction for home exercise program to fa cilitate proper performance and compliance. Correct performance of therapeutic exercises was facilitated with verbal, visual and tactile cuing. Manual Therapy: 1: Grade 1-2 thoracic spine PA mobs x30 each segment T4-12 2: STM to B thoracic paraspinals and scapular stabilizers wi th push to tolerance while also assessing for symptoms 3: STM to R lat with push to tolerance 4: TrPr to R QL Skilled Intervention: Manual skills to improve joint mobilit y, ROM, and decrease pain. Utilized anatomy knowledge of the therapist, and assessment of patient's response to intervention. Billing: [facility]: Therapeutic Exercise ([id number]): 1:1 time: 10 minutes (1 unit: 8-22 mins) Manual Therapy ([id number]): 1:1 time: 45 minutes (3 units: 38-52 mins) Total time / Length of visit: 55 minutes Tony Saavedra, PT cntherapy on 2019-07 CNTHERAPY OT/PT/Speech Visit (PTWS) Normal [place] JUANY CASTELLANO ([id number]) 1975 [facility] Date Time Provider Department [place] 04/10/20 1:15 PM TONY SAAVEDRA (PT) PTWS ([id number]) Date Time Provider Department [place] 04/10/2020 1:15 PM [id number], SEAN (PT)PTWS [facility] WOISAIAH R Reason for Visit: Physical Therapy [503] Primary Visit Diagnosis:Chronic bilateral thoracic andrew k pain [M54.6, G89.29] Allergies As of Date: 04/10/2020 Noted Allergy Reaction PENICILLINS 05/20/2005 5 - Intolerance Date Reviewed: 04/01/2020 Reviewed by: Yanet Clarke Cinema Operator - Fully Assessed Prescriptions as of 04/10/2020 Sig: CYCLOBENZAPRINE 10 MG TABLET Take 0.5-1 tablets by mouth t* MELOXICAM 15 MG TABLET Take 1 tablet by mouth once d* NICOTINE 21 MG/24 HR DAILY TR* Apply 1 Patch as directed mak * TOBRAMYCIN 0.3 %-DEXAMETHASON* Use 1 Drop in the left eye th * PANTOPRAZOLE 40 MG TABLET,DEL* Take 1 tablet by mouth daily * BUPROPION HCL SR 150 MG TABLE* Take 1 tablet by mouth twice * ERGOCALCIFEROL (VITAMIN D2) 1* Take 1 capsule by mouth two t * TOPIRAMATE 25 MG TABLET Take 25mgs in the evening for* Progress Notes: Tony Saavedra, PT 04/10/2020 2:55 PM Signed Episode Visit Count: 2 Therapist That Will Oversee The Plan Of Care: Tony Saavedra Start of Care Date: 04/03/20 Onset Date: 10/02/19 REHABILITATION AND SPORTS THERAPY PHYSICAL THERAPY TREATMENT NOTE ASSESSMENT: Juany Castellano demonstrated slight improv ement in thoracic pain today post session following mobility and manual work. 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 PLAN FOR NEXT VISIT: assess carry over of thoracic mobilization exercises, may try a thoracic MET SUBJECTIVE: Patient Reason for Visit: Pt states exerci ses are going well, no issues. Feels breathing is getting slightly better but hard to tell overall. Still feels it in the same 2 spots in the mid back and botto m of her ribs. Pain: Pain Pain Level: 6 Pain Location: Thoracic Spine Description: Aching Frequency: Continuous OBJECTIVE MEASURES WITH LEVEL OF FUNCTION: Tenderness in B thoracic paraspinals L>R TREATMENT: Therapeutic Exercise: 1: *Cat and cow 3x10 with syncing of breath 2: *Seated thoracic extensions in tolerated range 3x10 3: *Supine lying on towel roll for thoracic mobilization 3x6 0 sec Skilled Intervention: Patient was educated in proper exerc ise technique and purpose for exercises. Skilled judgment was provided in selection of appropriate in terventions. Provided written instruction for home exercise program to facilitate proper performance and compliance. Correct performance of thera peutic exercises was facilitated with verbal, visual and tactile cuing. Manual Therapy: 1: Grade 1-2 thoracic spine PA mobs x30 each segment T4-12 2: STM to B thoracic paraspi nals and scapular stabilizers with push to tolerance while also assessing for symptoms 3: STM to R lat with push to tolerance 4: TrPr to R QL Skilled Intervention: Manual skills to improve joint mobility, ROM, and decrease pain. Utilized anatomy knowledge of the therapist, and assessment of patient's response to intervention. Billing: [facility]: Therapeutic Exercise ([id number]): 1:1 time: 10 minutes (1 unit: 8-22 mins) Manual Therapy (75122): 1:1 time: 45 minutes (3 units: 38-52 mins) Total time / Length of visit: 55 minutes Tony Saavedra PT judith on 2020-04-04 JESSICAN Telephone ([id number]) Normal 04-04-2020 [place] JUANY Mcallister ([id number]) 1975 [facility] Date Time Provider Department ([id number]) 04/04/20 CASTILLO STILL During your visit today, we recorded the following informati on about you: Yanet Clarke Cinema Operator 04/04/2020 8:30 AM Signed Patient requesting lab results. Please review and advise. Thank you. Yanet Clarke Cma April 04, 2020 8:30 AM Joanie Gallagher APRN.CNP 04/04/2020 9:11 AM Signed Fasting glucose 115, indicates pre-diabetes. Total cho lesterol near optimal, LDL (bad cholesterol) border line high and HDL (good cholesterol) was at target. Heart disease risk low. Diet should be rich in f ruits, vegetables, lean meats and healthy fats/oils. Avoid processed foods, trans fa ts, vegetable oils and simple sugars. Watch portion sizes. Aerobic exer cise for at least 20 minutes, 3-5 days a week. SHELBIE Domingo [facility] 04/04/2020 10:02 AM Signed Patient is notified of all information and verbalizes unders tanding Yanet Clarke Cma April 04, 2020 10:02 AM Allergies As of Date: 04/04/2020 Noted Allergy Reaction PENICILLINS 05/20/2005 5 - Intolerance Date Reviewed: 04/01/2020 Reviewed by: Yanet Clarke [facility] - Fully Assessed Reason for Visit: Results [95] Prescriptions as of 04/04/2020 Sig: CYCLOBENZAPRINE 10 MG TABLET Take 0.5-1 tablets by mouth t* MELOXICAM 15 MG TABLET Take 1 tablet by mouth once d* NICOTINE 21 MG/24 HR DAILY TR* Apply 1 Patch as directed mak * TOBRAMYCIN 0.3 %-DEXAMETHASON* Use 1 Drop in the left eye th * PANTOPRAZOLE 40 MG TABLET,DEL* Take 1 tablet by mouth daily * BUPROPION HCL SR 150 MG TABLE* Take 1 tablet by mouth twice * ERGOCALCIFEROL (VITAMIN D2) 1* Take 1 capsule by mouth two t * TOPIRAMATE 25 MG TABLET Take 25mgs in the evening for* Problem List As Of Date 04/04/2020 Noted Resolved Contact dermatitis and other eczema, due to uns*06/16/2006 0 11/25/2011 OTHER PSORIASIS [L40.8] 06/16/2006 OTHER ATOPIC DERMATITIS [L20.89] 06/16/2006 XEROSIS////SEBACEOUS GLAND DIS NEC [L73.8] 06/16/20062013 Unspecified pruritic disorder [L29.9] 08/04/2007 08/15/2013 EXCORIATIONS///SUPERFICIAL INJURY NEC [T07.XXXA]08/04/2007 HYPOPIGMENTATION///DYSCHROMIA UNSPECIFIED [L81.*08/04/2007 0 08/15/2013 CHRONIC CYSTITIS NEC [N30.20] 10/17/2008 Nontoxic multinodular goiter [E04.2] 04/19/2012 Hyperlipidemia [E78.5] 11/02/2012 Tobacco abuse disorder [Z72.0] 11/02/2012 IUD (intrauterine device) in place [Z97.5] 12/14/2012 Thyroid nodule [E04.1] 04/18/2013 Multinodular goiter [E04.2] 04/18/2013 10/12/2017 Atypical nevus of shoulder [D22.60] 08/15/2013 Melanocytic nevus of face [D22.30] 08/15/2013 Solar lentigo [L81.4] 08/15/2013 Epidermal cyst [L72.0] 08/15/2013 Melanocytic nevi of trunk [D22.5] 08/15/2013 Melanocytic nevi of upper extremity or shoulder*08/15/2013 Actinic skin damage [L57.8] 08/15/2013 Scars [L90.5] 08/15/2013 Acne vulgaris [L70.0] 08/15/2013 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*03/06/2014 Obesity [E66.9] 03/06/2014 Tobacco dependence [F17.200] 03/06/2014 Migraine headache with aura [G43.109] 08/15/2014 Scleritis [H15.009] 10/29/2015 Nonscarring hair loss, unspecified [L65.9] 10/30/2015 Hereditary hemochromatosis (HCC) [E83.110] 10/31/2015 Plantar fasciitis of right foot [M72.2] 07/22/2017 Chest pain [R07.9] 12/06/2018 Left elbow pain [M25.522] 08/01/2019 Chronic bilateral thoracic back pain [M54.6, G8*04/03/2020 Encounter Status:Closed by MICKIE DELGADILLO YANET Caitlin on 04/04/20 progress on 2020-03 PROGRESS HNO ID: [id number] Normal 04-03-2020 [place] Author: Tony (Pt) [facility] Service: ? [place] Author Type: Physical Therapist ([id number]) Type: Progress Notes Filed: 04/04/2020 11:27 AM Note Text: Episode Visit Count: 1 Therapist That Will Oversee The Plan Of Care: Tony Saavedra Start of Care Date: 04/03/20 Onset Date: 10/02/19 Patient Identified by Name and Date of : Yes REHABILITATION AND SPORTS THERAPY PHYSICAL THERAPY EVALUATION PLAN OF CARE: Assessment: Juany Castellano presents with the chief complain t of chronic thoracic back pain. She presents with impairments of difficu lty with deep breaths, poor tolerance for prolonged activity, difficulty w ith lying, transitional movements, and painful palpation to thoracic sp ine and hypermobile segment around T6 that created pain. She may jim efit from skilled therapy services to improve the above noted deficits to decrease pain and improve quality of life. Patient will benefit from core stabilization, and general aerobic activity, cessation of sm oking, and improving overall stress in every day life to improve sympto ms. Prognosis: Fair Fair due to: clinical presentation;chronic nature of impairm ents;limited tolerance to activity;occupational demands Goals for Episode of Care: created on 04/03/20 through 06/03 [place] in home exercise program. Patient will decrease pain rating by 2 points to meet minima l clinical important difference for numeric pain rating scale. Patient will demonstrate increase in thoracic paraspinals an d scapular stabilizers strength to 4+/5 during manual muscle testing in order to improve function for leisure / recreation skills, light func tional tasks, moderate to heavy functional tasks, prior functional tasks a nd work tasks. Perform lying, work tasks, and self care with decreased repo rt of symptoms/pain in 4-6 weeks. Perform deep breathing without pain. Planned Interventions, Frequency, and Duration: Current Freq uency: 1x/week Duration: 8 weeks Total Number of Visits Planned: 8 Planned Treatment Interventions: Therapeutic exercise;Neurom uscular re-education;Manual therapy;Self-chcf management;Patient/Family/Caregiver Education;Body Mechanics Training;General Conditioning PLAN FOR NEXT VISIT: May try bike for some Aerobic exercises , continue to assess for any muscular involvement Patient demonstrates good understanding of plan of care and treatment. The above goals and plan of care were discussed and agreed u christina by patient/family. SUBJECTIVE: Juany Castellano is a 44 year old female seen tod ay for thoracic back pain for months with recent flare up. Hurts to take deep breaths. Deep aching pain that gets worse as the day goes on . Notes a lot of fatigue lately due to extended work hours. No issues slee ping, and hard to correlate it to any posture, position, or movement. Notes pain currently in the center of her back at the level of her bra strap Red Flags Vertebral Fracture Red Flags: Female Vertebral Fracture Clinical Reasoning: No identified risk fa ctors Cancer Red Flags: Night pain at rest Cancer Clinical Reasoning: No identified risk factors. Infection Red Flags: Constant, progressive pain Infection Clinical Reasoning: No identified risk factors. Cervical Arterial Dysfunction Clinical Reasoning: No identif ied risk factors Cervical Myelopathy Diagnostic Rule: No identified risk fact ors. Red Flags - Cervical Cancer Red Flags: Night pain at rest Cancer Clinical Reasoning: No identified risk factors. Infection Red Flags: Constant, progressive pain Infection Clinical Reasoning: No identified risk factors. Cervical Arterial Dysfunction Clinical Reasoning: No identif ied risk factors Cervical Myelopathy Diagnostic Rule: No identified risk fact ors. Pain: Pain Pain Level: 7 Pain Location: Thoracic Spine Description: Aching Frequency: Continuous Post Treatment Pain Post Treatment Pain Level: No Change Post Treatment Pain Location: Thoracic Spine Post Treatment Pain Description: Aching PROMIS Scales Higher is Better 12/02/2016 08/01/2019 Phys Func - Score - 47 (within normal limits) Phys Func - Percentile - 38 % Social Roles - Score - 53 (within normal limits) Social Role - Percentile - 62 % GH Physical - Score - Incomplete GH Physical - Percentile 41 % - GH Mental - Score - 53.3 GH Mental - Percentile 53 % 63 % T-scores: mean of general population = 50. 5 points is clini april meaningfully difference Percentiles provide an indication of how the patient's score ranks in relation to the general population. Higher percentile angelo gs indicate better function/quality of life. 50th percentile is the aver age of the general population and indicates half of respondents had a w orse score. Lower is Better 08/01/2019 Fatigue - Score 48 (within normal limits) Fatigue - Percentile 58 % T-scores: mean of general population = 50. 5 points is clini april meaningfully difference Percentiles provide an indication of how the patient's score ranks in relation to the general population. Higher percentile angelo gs indicate better function/quality of life. 50th percentile is the aver age of the general population and indicates half of respondents had a w orse score. OBJECTIVE MEASURES WITH LEVEL OF FUNCTION: Thoracic Spine AROM Thoracic Flexion: Normal Thoracic Extension: Minimal limitation Thoracic Sidebend Right: Minimal limitation Thoracic Sidebend Left: Minimal limitation Thoracic Rotation Right: Minimal limitation;Pain during move ment Thoracic Rotation Left: Minimal limitation;Pain during movem ent Special Tests - Thoracic Thoracic Special Tests: Rib Compression tests;Spring Guilherme peter Rib Compression Test: Right Negative;Left Negative Spring Compression: Positive Education: Education Learning Preferences: Demonstration;Explanation;Performance; Printed Materials Barriers: None Learning/educational needs: Home exercise program;Plan of Ca re Education Provided: Yes, see treatment interventions for edu cation provided Education Provided To: Patient Education Mode/Type: Demonstration;Explanation/Discussion;Literature/Printed Materials;Performance Response to Education/Teach Back: States/Identifies;Return D emonstration TREATMENT: PT Treatment Interventions: Therapeutic Exercise;Manual Ther apy Evaluation Therapeutic Exercise: 1: *P Tband rows 2x10 2: *O Tband W's 2x10 3: Prone Trap progression #1 2x10, 3-5 sec holds 4: Discussed role of stress, caffeine, lack of sleep in heig htened pain. Also discussed hypermobility and role in pain, along with co re stabilization rationale of exercises Skilled Intervention: Patient was educated in proper exercis e technique and purpose for exercises. Skilled judgment was provided in selection of appropriate in terventions. Provided written instruction for home exercise program to fa cilitate proper performance and compliance. Correct performance of therapeutic exercises was facilitated with verbal, visual and tactile cuing. Manual Therapy: 1: Grade 1-2 thoracic spine PA mobs x30 each segment T4-12 2: STM to B thoracic paraspinals and scapular stabilizers wi th push to tolerance assessing for symptoms and mm tissue quality Skilled Intervention: Manual skills to improve joint mobilit y, ROM, and decrease pain. Utilized anatomy knowledge of the therapist, and assessment of patient's response to intervention. Billing: [facility]: Evaluation - Low Complexity ([id number]) Therapeutic Exercise (92602): 1:1 time: 15 minutes (1 unit: 8-22 mins) Manual Therapy (69500): 1:1 time: 9 minutes (1 unit: 8-22 mi ns) Total time / Length of visit: 48 minutes Tony Saavedra PT cntherapy on 0 04-03 CNTHERAPY OT/PT/Speech Visit (PTWS) Normal 03-12 [place] JUANY CASTELLANO ([id number]) 1975 [facility] Date Time Provider Department [place] 04/03/20 10:00 AM TONY SAAVEDRA (PT) PTWS ([id number]) Date Time Provider Department [place] 04/03/2020 10:00 AM [id number], SEAN (PT)PTWS [facility] Reason for Visit: PT Eval [747] Visit Diagnosis:Chronic bilateral thoracic back pain [M54.6, G89.29] Allergies As of Date: 04/03/2020 Noted Allergy Reaction PENICILLINS 05/20/2005 5 - Intolerance Date Reviewed: 04/01/2020 Reviewed by: Yanet Clarke Cinema Operator - Fully Assessed Prescriptions as of 04/03/2020 Sig: CYCLOBENZAPRINE 10 MG TABLET Take 0.5-1 tablets by mouth t* MELOXICAM 15 MG TABLET Take 1 tablet by mouth once d* NICOTINE 21 MG/24 HR DAILY TR* Apply 1 Patch as directed mak * TOBRAMYCIN 0.3 %-DEXAMETHASON* Use 1 Drop in the left eye th * PANTOPRAZOLE 40 MG TABLET,DEL* Take 1 tablet by mouth daily * BUPROPION HCL SR 150 MG TABLE* Take 1 tablet by mouth twice * ERGOCALCIFEROL (VITAMIN D2) 1* Take 1 capsule by mouth two t * TOPIRAMATE 25 MG TABLET Take 25mgs in the evening for* Progress Notes: Tony Saavedra, PT 04/04/2020 11:27 AM Signed Episode Visit Count: 1 Therapist That Will Oversee The Plan Of Care: Tony Saavedra Start of Care Date: 04/03/20 Onset Date: 10/02/19 Patient Identified by Name and Date of : Yes REHABILITATION AND SPORTS THERAPY PHYSICAL THERAPY EVALUATION PLAN OF CARE: Assessment: Juany Castellano presents with the chief complain t of chronic thoracic back pain. She presents with impairments of difficu lty with deep breaths, poor tolerance for prolonged activity, difficulty w ith lying, transitional movements, and painful palpation to thoracic spine and hypermobile segment around T6 that created pain. She may benefit from sk illed therapy services to improve the above noted deficits to decrease martha n and improve quality of life. Patient will benefit from core stabilizatio n, and general aerobic activity, cessation of smoking, and impr oving overall stress in every day life to improve symptoms. Prognosis: Fair Fair due to: clinical presentation;chronic nature of impairm ents;limited tolerance to activity;occupational demands Goals for Episode of Care: created on 04/03/20 through 06/03 [place] in home exercise program. Patient will decrease pain r ating by 2 points to meet minimal clinical important difference for numeric pain rating scale. Patient will demonstrate increase in thoracic paraspinals an d scapular stabilizers strength to 4+/5 during manual muscl e testing in order to improve function for leisure / recreation skills, light functional tasks, moderate to heavy functional tasks, prior functional tasks and work task s. Perform lying, work tasks, a nd self care with decreased report of symptoms/pain in 4-6 weeks. Perform deep breathing without pain. Planned Interventions, Frequency, and Duration: Current Freq uency: 1x/week Duration: 8 weeks Total Number of Visits Planned: 8 Planned Treatment Interventions: Therapeutic exercise;Neurom uscular re-education;Manual therapy;Self-care ho me management;Patient/Family/Caregiver Education;Body Mechanics Training;General Conditioning PLAN FOR NEXT VISIT: May try bike for some Aerobic exercises, continue to assess for any muscular involvement Patient demonstrates good understanding of plan of care and treatment. The above goals and plan of care were discus sed and agreed upon by patient/family. SUBJECTIVE: Juany Castellano is a 44 year old female seen t helene for thoracic back pain for months with recent flare up. Hurts to take d eep breaths. Deep aching pain that gets worse as the day goes on. Notes a lot of fatigue lately due to extended work hours. No issues sleeping, and hard to correlate it to any posture, position, or movement. Notes pa in currently in the center of her back at the level of her bra strap Red Flags Vertebral Fracture Red Flags: Female Vertebral Fracture Clinical Reasoning: No identified risk fa ctors Cancer Red Flags: Night pain at rest Cancer Clinical Reasoning: No identified risk factors. Infection Red Flags: Constant, progressive pain Infection Clinical Reasoning: No identified risk factors. Cervical Arterial Dysfunction Clinical Reasoning: No i dentified risk factors Cervical Myelopathy Diagnostic Rule: No identified risk fact ors. Red Flags - Cervical Cancer Red Flags: Night pain at rest Cancer Clinical Reasoning: No identified risk factors. Infection Red Flags: Constant, progressive pain Infection Clinical Reasoning: No identified risk factors. Cervical Arterial Dysfunction Clinical Reasoning: No i dentified risk factors Cervical Myelopathy Diagnostic Rule: No identified risk fact ors. Pain: Pain Pain Level: 7 Pain Location: Thoracic Spine Description: Aching Frequency: Continuous Post Treatment Pain Post Treatment Pain Level: No Change Post Treatment Pain Location: Thoracic Spine Post Treatment Pain Description: Aching PROMIS Scales Higher is Better 12/02/2016 08/01/2019 Phys Func - Score - 47 (within normal limits) Phys Func - Percentile - 38 % Social Roles - Score - 53 (within normal limits) Social Role - Percentile - 62 % GH Physical - Score - Incomplete GH Physical - Percentile 41 % - GH Mental - Score - 53.3 GH Mental - Percentile 53 % 63 % T-scores: mean of general population = 50. 5 points is clini april meaningfully difference Percentiles provide an indication of how the patient's score ranks in relation to the general population. Higher percentile rankings indica te better function/quality of life. 50th percentile is the average of the general population and indicates half of respondents had a worse sco re. Lower is Better 08/01/2019 Fatigue - Score 48 (within normal limits) Fatigue - Percentile 58 % T-scores: mean of general population = 50. 5 points is clini april meaningfully difference Percentiles provide an indication of how the patient's score ranks in relation to the general population. Higher percentile rankings indica te better function/quality of life. 50th percentile is the average of the general population and indicates half of respondents had a worse sco re. OBJECTIVE MEASURES WITH LEVEL OF FUNCTION: Thoracic Spine AROM Thoracic Flexion: Normal Thoracic Extension: Minimal limitation Thoracic Sidebend Right: Minimal limitation Thoracic Sidebend Left: Minimal limitation Thoracic Rotation Right: Minimal limitation;Pain during move ment Thoracic Rotation Left: Minimal limitation;Pain during movem ent Special Tests - Thoracic Thoracic Special Tests: Rib Compression tests;Spring Guilherme peter Rib Compression Test: Right Negative;Left Negative Spring Compression: Positive Education: Education Learning Preferences: Demonstration;Explanation; Performance;Printed Materials Barriers: None Learning/educational needs: Home exercise program;Plan of Ca re Education Provided: Yes, see treatment interventions for e ducation provided Education Provided To: Patient Education Mode/Type: Demonstration;Explanation/Discuss ion;Literature/Printed Materials;Performance Response to Education/Teach Back: States/Identifies;Return D emonstration TREATMENT: PT Treatment Interventions: Therapeutic Exercise;Manual Ther apy Evaluation Therapeutic Exercise: 1: *P Tband rows 2x10 2: *O Tband W's 2x10 3: Prone Trap progression #1 2x10, 3-5 sec holds 4: Discussed role of stress, caffeine, lack of s leep in heightened pain. Also discussed hypermobility and role in pain, along with core st abilization rationale of exercises Skilled Intervention: Patient was educated in proper exerc ise technique and purpose for exercises. Skilled judgment was provided in selection of appropriate in terventions. Provided written instruction for home exercise program to facilitate proper performance and compliance. Correct performance of thera peutic exercises was facilitated with verbal, visual and tactile cuing. Manual Therapy: 1: Grade 1-2 thoracic spine PA mobs x30 each segment T4-12 2: STM to B thoracic paraspi nals and scapular stabilizers with push to tolerance assessing for symptoms and mm tissue quality Skilled Intervention: Manual skills to improve joint mobility, ROM, and decrease pain. Utilized anatomy knowledge of the therapist, and assessment of patient's response to intervention. Billing: [facility]: Evaluation - Low Complexity ([id number]) Therapeutic Exercise ([id number]): 1:1 time: 15 minutes (1 unit: 8-22 mins) Manual Therapy (73290): 1:1 time: 9 minutes (1 unit: 8-22 mi ns) Total time / Length of visit: 48 minutes Tony Saavedra PT remote bmp (for [facility] use only) on 2020-04-01 Anion gap [Moles/Vol] 11 9-18 mmol/L Normal 04-01-[address] [facility] ([id number]) Comment: Performed By: #### RBMP #### [place] [address] [address] [place], [place] [phone] Calcium [Mass/Vol] 9.1 8.5-10.2 mg/dL Normal 04-01-[address] [facility] ([id number]) Comment: Performed By: #### RBMP #### [place] [address] [place], [place] [phone] Chloride [Moles/Vol] 104 97-105 mmol/L Normal [address] [facility] ([id number]) Comment: Performed By: #### RBMP #### [facility] [id number] [place], [place] [phone] CO2 [Moles/Vol] 24 22-30 mmol/L Normal 04-01-2020 [facility] ([id number]) Comment: Performed By: #### RBMP #### [facility] [id number], [place] [phone] Creatinine [Mass/Vol] 0.77 0.58-0.96 mg/dL Normal 04-01-[address] [facility] ([id number]) Comment: Performed By: #### RBMP #### [facility] [address], [place] [phone]- [phone] eGFR- Amer. >60 Normal 04-01-[address] [facility] ([id number]) Comment: Performed By: #### RBMP #### [facility], [place] [phone] GFR/1.73 sq M predicted >60 mL/min/{1.73_m2} Normal 04-01-2020 [facility] among non-blacks MDRD [place] ([id number]) (S/P/Bld) [Vol rate/Area] Comment: Result Comment: eGFR (Estima florencio GFR) Units of measure: mL/min/1.73 meters squared eGFR is derived from the ree xpressed MDRD Study equation using the following parameters: serum creatinine, age, gender and race. The creatinine assay has been calibrated to be traceable to IDMS. An eGFR <60 mL/min/1.73m2 fo r >3 months is consistent with chronic kidney disease. Refer to KDOQI guidelines for clinical interpretation. In patients with unstable re nal function, e.g. those with acute kidney injury, the eGFR may not accurately reflect actual GFR. Performed By: #### RBMP #### [facility] [place], [place] [phone] Glucose [Mass/Vol] 115 74-99 mg/dL High 04-01-[address] [facility] ([id number]) Comment: Result Comment: The [place] Diabetes Association (ADA) provides guidance for cutoff values for fasting glucose and random glucose. The ADA defines fasting as no caloric intake for at least 8 hours. Fas ting plasma glucose results between 100 to 125 mg/dL indicate increased risk for diabetes (prediabetes). Fasting plasma glucose resul ts greater than or equal to 126 mg/dL meet the criteria for diagnosis of diabetes. In the absence of unequivocal hyperglycemia, results should be confirmed by repeat testing. In a patient with classic s ymptoms of hyperglycemia or hyperglycemic crisis, random plasma glucose results greater than or equal to 200 mg/dL meet the criteria for diagnosis of diabetes. Reference: Standards of [facility] in Diabetes 2016, [place] Diabetes Association. Diabetes Care. 2016.39(Suppl 1). Performed By: #### RBMP #### [facility] [place], [place] [phone] Potassium [Moles/Vol] 4.4 3.7-5.1 mmol/L Normal 04-01-[address] [facility] ([id number]) Comment: Performed By: #### RBMP #### [facility] [place], [place] [phone] Sodium [Moles/Vol] 139 136-144 mmol/L Normal 04-01-[address] [facility] ([id number]) Comment: Performed By: #### RBMP #### [facility] [place], [place] [phone] Urea nitrogen [Mass/Vol] 10 7-21 mg/dL Normal 04-[address] [facility] ([id number]) Comment: Performed By: #### RBMP #### [facility] [place], [place] [phone] progress on 2020-03 PROGRESS HNO ID: [id number] Normal 04-01-2020 [facility] Author: Joanie (Molder Feeder) [facility] ([id number]) Service: ? Author Type: Nurse Practitioner Type: Progress Notes Filed: 04/01/2020 10:04 AM Note Text: CC: Patient presents with: Back Pain HPI Juany Castellano is a 44 year old female who presents today f or above. Started: about one year ago Located in thoracic spine area and around to lower rib cage Described as constant dull ache with occasional sharp pains. Cause: The back pain is not related to a known injury. Aggravated by taking deep breath and bending, twisting movem ents, heavy physical exertion. Alleviated by warm shower Denies: arm weakness, numbness, tingling, morning stiffness and loss of bowel or bladder control Also denies history of cancer, history of osteoporosis, hist ory of significant steroid use and history of IV drug abuse. Past treatments include muscle relaxant, NSAID's, steroids a nd chiropractor. All of these provided temporary relief. REVIEW OF SYSTEMS General: no fevers, no chills, no night sweats, no change in energy and no significant changes in weight Neck: no pain Respiratory: patient is a light smoker, chronic productive c ough. no wheezing, no shortness of breath, no hemoptysis Cardiovascular: no chest pain, no chest pressure, no palpita tions and no swelling GI: Occasional heartburn/reflux relieved by TUMS. No abdomin al pain, nausea, vomiting Musculoskeletal: Negative for joint pain or swelling, low ba ck pain or muscle pain Skin: Negative for lesions, rash, and itching PAST MEDICAL HISTORY Diagnosis Date - Blood dyscrasia - Chronic fatigue syndrome - Goiter, unspecified - Headache(784.0) - Hemochromatosis - Menorrhagia - Plantar fasciitis, bilateral - Snoring - Tobacco abuse PAST SURGICAL HISTORY Procedure Laterality Date - FOOT SURGERY HX Right plantar - HYSTEROSCOPY DIAGNOSTIC 12/22/2017 Hysteroscopy DANDC - LEG VEIN LEFT 04/2015 - REMOVAL OF SKIN TAGS 12/22/2017 [place] Skin Tags-Dr. Gaviria - S ABLATION ALMA [id number] 12/22/2017 [place] Ablation-Dr. Gaviria - SALPINGECTOMY Bilateral 12/22/2017 Laparoscopic B/L Salpingectomy-Dr. Gaviria ALLERGIES Penicillins MEDICATIONS nicotine (NICODERM) 21 mg/24 hr Apply 1 Patch as directed ev peri 24 hours. tobramycin-dexamethasone (TOBRADEX) ophthalmic suspension Us e 1 Drop in the left eye three times daily. pantoprazole DR (PROTONIX) 40 mg tablet Take 1 tablet by leena th daily before breakfast. Take on empty stomach, 1/2 hr before meal. naproxen sodium (ALEVE) 220 mg cap Take 2 capsules by mouth twice daily at 6AM and 9PM. vitamin B complex (B COMPLEX-VITAMIN B12 ORAL) Take by mouth . ergocalciferol 50,000 unit capsule (VITAMIN D2, DRISDOL) Qamar e 1 capsule by mouth two times a week. TO BE TAKEN ORALLY DIRECTED. Take 1 tablet by mouth twice weekly a1ugbmr, then decrease to 1 tablet weekly . topiramate (TOPAMAX) 25 mg tablet Take 25mgs in the evening for a week, then go to 50 mgs daily. cyclobenzaprine (FLEXERIL) 10 mg tablet Take 0.5-1 tablets b y mouth three times daily as needed for Muscle Spasm. predniSONE (DELTASONE) 10 mg tablet Take 40 mg x 3 days, 20 mg x 3 days, 10 mg x 3 days. Take with food, once daily meloxicam (MOBIC) 15 mg tablet Take 1 tablet by mouth once d aily. for pain. Take with food. buPROPion SR (WELLBUTRIN SR) 150 mg 12 hr tablet Take 1 tabl et by mouth twice daily. albuterol (PROVENTIL) 2.5 mg /3 mL (0.083 %) nebulizer solut ion Use 3 mL via nebulizer every 4 hours as needed for Wheezing/Shortness of Breath. Use over 5-15minutes. benzonatate (TESSALON PERLES) 100 mg capsule Take 2 capsules by mouth three times daily as needed. albuterol HFA (PROAIR HFA) 90 mcg/actuation inhaler Inhale 2 Puffs as instructed every 6 hours as needed. fluticasone (FLONASE) 50 mcg/actuation nasal spray Use 2 Spr ays in each nostril once daily. Rinse mouth after use. BIOTIN, BULK, MISC FAMILY HISTORY Problem Relation Age of Onset - Heart Father ang ioplasy - Diabetes Father - other (Brain Tumor) Father - Colon Cancer Mother 55 Parkinsons - Cancer Paternal Grandmother pancreatic - Cancer Maternal Grandfather colon - Diabetes Maternal Grandfather Social History Tobacco Use - Smoking status: Light Tobacco Smoker Packs/day: 0.75 Years: 15.00 Pack years: 11.25 Types: Cigarettes - Smokeless tobacco: Never Used - Tobacco comment: 10-15 cigarettes in a daily Substance Use Topics - Alcohol use: No - Drug use: No PHYSICAL EXAM BP 110/84 Pulse 74 Temp 36.3 ?C (97.3 ?F) (Temporal) R lorenzo 16 Wt 108 kg (238 lb) LMP 12/07/2017 SpO2 94% BMI 34.64 k g/m? General Appearance: well appearing, in no acute distress, al ert Pysch: affect is anxious Back: Normal to inspection. Mild tenderness with palpation o f thoracic spine and with palpation of paraspinal muscles and scapula b ilaterally. ROM: THORACIC: Flexion: No limitation, painful Extension: No limitation, increased pain Rotation Right: No limitation, Increased pain Rotation Left: No limitation, Increased pain. Musculoskeletal: Tenderness with palpation of anterior lower ribs Lungs: Lungs clear to auscultation. No wheezing, rhonchi, ra les. Heart: RRR without murmur, gallop, or rubs. No ectopy Lymph nodes: no cervical or clavicular lymphadenopathy Abdomen: Abdomen soft, non-tender DATA REVIEWED: Most recent labs and imaging results. ASSESSMENT/PLAN: 1. Chronic bilateral thoracic back pain - ICD9: 724.1, 338.2 9, ICD10: M54.6, G89.29 (primary diagnosis) Musculoskeletal pain. Patient was seen for this in January. X-r ay of the thoracic spine showed DDD. Given Meloxicam, prednisone and F lexeril and advised to follow-up if symptoms did not improve. Next step in treatment plan was PT. Patient is agreeable to this, will set up appoi ntment. If pain persists once PT complete will order MRI - CONSULT TO PHYSICAL THERAPY - Meloxicam and Flexeril refilled, see orders - Discussed non-medication measures including ice, heat and stretching 2. Rib pain - ICD9: 786.50, ICD10: R07.81 Possibly referred pain from thoracic spine. Chest x-ray in [facility] was normal. See plan above 3. DDD (degenerative disc disease), thoracic - ICD9: 722.51, ICD10: M51.34 As above - CYCLOBENZAPRINE 10 MG TABLET 4. Encounter for lipid screening for cardiovascular disease - ICD9: V77.91, V81.2, ICD10: Z13.220, Z13.6 Patient needs labs for biometric screen - LIPID PANEL BASIC 5. Encounter for screening for diabetes mellitus - ICD9: V77 .1, ICD10: Z13.1 As above - BMP (BMP) (FOR REMOTE [facility] USE) Prescription instructions reviewed with patient as applicabl e. Potential red flag symptoms discussed with the patient. Reviewed appro priate action plan to take if red flag symptoms occur. Patient agreeable t o treatment plan. Joanie Gallagher, PULL OUT OPERATOR.EDUCATION SITE MANAGER lipid panel, basic on 2020-04-01 Cholesterol [Mass/Vol] 202 <200 mg/dL High [address] [facility] ([id number]) Comment: Result Comment: <200 mg/dL, Desirable 200-239 mg/dL, Borderline hi gh >239 mg/dL, High Performed By: #### LIPB #### [facility] [id number] [place], [place] [phone] Cholesterol in HDL 44 >39 mg/dL Normal 04-01-[address] [facility] [Mass/Vol] ([id number]) Comment: Result Comment: 40-59 mg/dL, Acceptable >59 mg/dL, High: Negative ri sk factor for coronary heart disease <40 mg/dL, Low: Positive ris k factor for coronary heart disease Performed By: #### LIPB #### [facility] [place], [place] [phone] Cholesterol in LDL 135 <100 mg/dL High 04-01-[address] [facility] [Mass/Vol] ([id number]) Comment: Result Comment: <100 mg/dL, Optimal 100-129 mg/dL, Near optimal/ above optimal 130-159 mg/dL, Borderline hi gh 160-189 mg/dL, High >189 mg/dL, Very high Secondary prevention optimal LDL Cholesterol levels are recommended to be < 70 mg/dL Performed By: #### LIPB #### [place] [id number] [place], [place] [phone] Fasting Time 10 hrs Normal 04-01-2020 [facility] ([id number]) Comment: Performed By: #### LIPB #### [address] [phone] LDL:HDL Ratio 3.07 <2.54 High 04-01-2020 [facility] ([id number]) Comment: Result Comment: Reference: 1. National Cholesterol Educ ation Program ATP III Guideline At-A-Glance Quick Desk Reference: National Heart, Lung, and Blood [place]. National Institutes of Health. 2001: NIH Publication No. 01-3305. 2. An International Atherosc lerosis Society position paper: global recommendations for the management of dyslipidemia: executive summary, Atherosclerosis. 2014: 232(2):410-413. Performed By: #### LIPB #### [facility] [place], [place] [phone] Non HDL Cholesterol 158 <130 mg/dL High 04-01-[address] [facility] ([id number]) Comment: Result Comment: <130 mg/dL, Optimal 130-159 mg/dL, Near optimal/ above optimal 160-189 mg/dL, Borderline hi gh 190-219 mg/dL, High >219 mg/dL, Very high Secondary prevention optimal non HDL Cholesterol levels are recommended to be < 100 mg/dL Performed By: #### LIPB #### [address] [place] [id number] [place], [place] [phone] TC:HDL Ratio 4.59 <5.10 Normal 04-01-2020 [facility] ([id number]) Comment: Performed By: #### LIPB #### [address] [phone] Triglyceride [Mass/Vol] 116 <150 mg/dL Normal [address] [facility] ([id number]) Comment: Result Comment: <150 mg/dL, Normal 150-199 mg/dL, Borderline hi gh 200-499 mg/dL, High >499 mg/dL, Very high Performed By: #### LIPB #### [place] [address] [place], [place] [phone] VLDL Cholesterol 23 <30 mg/dL Normal 04-01-2020 [facility] ([id number]) Comment: Performed By: #### LIPB #### [place] [address] [place], [place] [phone] cnov on 2020-04-01 CNOV Office Visit (INTMWS) Normal 04-01-[address] [place] [address] [facility] JUANY CASTELLANO ([id number]) 1975 [facility] Date Time Provider Department () 04/01/20 8:00 AM JOANIE GALLAGHER (JESSICA) INTMWS During your visit today, we recorded the following informati on about you: Temperature Pulse Respiration Blood pressure 97.3 degrees 74/minute 16/minute 110/84 Weight 108 kg Joanie Gallagher APRN.CNP 04/01/2020 10:04 AM Signed CC: Patient presents with: Back Pain HPI Juany Castellano is a 44 year old female who presents today f or above. Started: about one year ago Located in thoracic spine area and around to lower rib cage Described as constant dull ache with occasional sharp pains. Cause: The back pain is not related to a known injury. Aggravated by taking deep breath and bending, twisting movem ents, heavy physical exertion. Alleviated by warm shower Denies: arm weakness, numbness, tingling, mornin g stiffness and loss of bowel or bladder control Also denies history of cancer, history o f osteoporosis, history of significant steroid use and history of IV drug abuse. Past treatments include muscle relaxant, NSAID's, ster oids and chiropractor. All of these provided temporary relief. REVIEW OF SYSTEMS General: no fevers, no chills, no night sweats, no change in energy and no significant changes in weight Neck: no pain Respiratory: patient is a light smoker, chronic productive cough. no wheezing, no shortness of breath, no hemoptysis Cardiovascular: no chest pain, no chest pressure, no palpita tions and no swelling GI: Occasional heartburn/reflux relieved by TUMS. No a bdominal pain, nausea, vomiting Musculoskeletal: Negative for joint pain or swel ling, low back pain or muscle pain Skin: Negative for lesions, rash, and itching PAST MEDICAL HISTORY Diagnosis Date - Blood dyscrasia - Chronic fatigue syndrome - Goiter, unspecified - Headache(784.0) - Hemochromatosis - Menorrhagia - Plantar fasciitis, bilateral - Snoring - Tobacco abuse PAST SURGICAL HISTORY Procedure Laterality Date - FOOT SURGERY HX Right plantar - HYSTEROSCOPY DIAGNOSTIC 12/22/2017 Hysteroscopy DANDC - LEG VEIN LEFT 04/2015 - REMOVAL OF SKIN TAGS 12/22/2017 [place] Skin Tags-Dr. Gaviria - S ABLATION ALMA [id number] 12/22/2017 [place] Ablation-Dr. Gaviria - SALPINGECTOMY Bilateral 12/22/2017 Laparoscopic B/L Salpingectomy-Dr. Gaviria ALLERGIES Penicillins MEDICATIONS nicotine (NICODERM) 21 mg/24 hr Apply 1 Patch as directed ev peri 24 hours. tobramycin-dexamethasone (TOBRADEX) ophthalmic suspension Use 1 Drop in the left eye three times daily. pantoprazole DR (PROTONIX) 40 mg tablet Take 1 tablet by m outh daily before breakfast. Take on empty stomach, 1/2 hr before meal. naproxen sodium (ALEVE) 220 mg cap Take 2 capsules by mouth twice daily at 6AM and 9PM. vitamin B complex (B COMPLEX-VITAMIN B12 ORAL) Take by mouth . ergocalciferol 50,000 unit capsule (VITAMIN D2, DRISDOL) Qamar e 1 capsule by mouth two times a week. TO BE TAKEN ORAL LY DIRECTED. Take 1 tablet by mouth twice weekly t1blyta, then decrease to 1 tablet weekly. topiramate (TOPAMAX) 25 mg t ablet Take 25mgs in the evening for a week, then go to 50 mgs daily. cyclobenzaprine (FLEXERIL) 1 0 mg tablet Take 0.5-1 tablets by mouth three times daily as needed for Muscle Spasm. predniSONE (DELTASONE) 10 mg tablet Take 40 mg x 3 days, 20 mg x 3 days, 10 mg x 3 days. Take with food, once daily meloxicam (MOBIC) 15 mg tablet Take 1 tablet by mouth once daily. for pain. Take with food. buPROPion SR (WELLBUTRIN SR) 150 mg 12 hr tablet Take 1 tablet by mouth twice daily. albuterol (PROVENTIL) 2.5 mg /3 mL (0.083 %) nebulizer solution Use 3 mL via nebulizer every 4 hours as needed for Wheezing/Shortne ss of Breath. Use over 5-15minutes. benzonatate (TESSALON PERLES) 100 mg capsule Take 2 capsul es by mouth three times daily as needed. albuterol HFA (PROAIR HFA) 90 mcg/actuation inhaler Inhale 2 Puffs as instructed every 6 hours as needed. fluticasone (FLONASE) 50 mcg /actuation nasal spray Use 2 Sprays in each nostril once daily. Rinse mouth after use. BIOTIN, BULK, MISC FAMILY HISTORY Problem Relation Age of Onset - Heart Father ang ioplasy - Diabetes Father - other (Brain Tumor) Father - Colon Cancer Mother 55 Parkinsons - Cancer Paternal Grandmother pancreatic - Cancer Maternal Grandfather colon - Diabetes Maternal Grandfather Social History Tobacco Use - Smoking status: Light Tobacco Smoker Packs/day: 0.75 Years: 15.00 Pack years: 11.25 Types: Cigarettes - Smokeless tobacco: Never Used - Tobacco comment: 10-15 cigarettes in a daily Substance Use Topics - Alcohol use: No - Drug use: No PHYSICAL EXAM BP 110/84 Pulse 74 Temp 36.3 ?C (97.3 ?F) (Temporal) Resp 16 Wt 108 kg (238 lb) LMP 12/07/2017 SpO2 94% BMI 34.64 kg/m? General Appearance: well appearing, in no acute distress, al ert Pysch: affect is anxious Back: Normal to inspection. Mild tenderness with palpa tion of thoracic spine and with palpation of paraspinal muscles and scapula bilater ally. ROM: THORACIC: Flexion: No limitation, painful Extension: No limitation, increased pain Rotation Right: No limitation, Increased pain Rotation Left: No limitation, Increased pain. Musculoskeletal: Tenderness with palpation of anterior lower ribs Lungs: Lungs clear to auscultation. No wheezing, rhonchi, ra les. Heart: RRR without murmur, gallop, or rubs. No ectopy Lymph nodes: no cervical or clavicular lymphadenopathy Abdomen: Abdomen soft, non-tender DATA REVIEWED: Most recent labs and imaging results. ASSESSMENT/PLAN: 1. Chronic bilateral thoracic back pain - ICD9: 724.1, 338.29, ICD10: M54.6, G89.29 (primary diagnosis) Musculoskeletal pain. Patient was seen f or this in January. X-ray of the thoracic spine showed DDD. Given Meloxicam, prednisone and Flexeril a nd advised to follow-up if symptoms did not improve. Next step in treatmen t plan was PT. Patient is agreeable to this , will set up appointment. If pain persists once PT complete will order MRI - CONSULT TO PHYSICAL THERAPY - Meloxicam and Flexeril refilled, see orders - Discussed non-medication measures including ice, heat and stretching 2. Rib pain - ICD9: 786.50, ICD10: R07.81 Possibly referred pain from thoracic spine. Chest x-ray in January was normal. See plan above 3. DDD (degenerative disc disease), thoracic - ICD9: 722.51, ICD10: M51.34 As above - CYCLOBENZAPRINE 10 MG TABLET 4. Encounter for lipid screening for cardiovascular diseas e - ICD9: V77.91, V81.2, ICD10: Z13.220, Z13.6 Patient needs labs for biometric screen - LIPID PANEL BASIC 5. Encounter for screening for diabetes mellitus - ICD 9: V77.1, ICD10: Z13.1 As above - BMP (BMP) (FOR REMOTE [facility] USE) Prescription instructions reviewed with patient as nery licable. Potential red flag symptoms discussed with the patient. Review ed appropriate action plan to take if red flag symptoms occur. Patient agreeable to treatm ent plan. Joanie Gallagher APRN.EDUCATION SITE MANAGER Referring Provider: SELF [[id number]] Allergies As of Date: 04/01/2020 Noted Allergy Reaction PENICILLINS 05/20/2005 5 - Intolerance Date Reviewed: 04/01/2020 Reviewed by: Yanet Clarke Cinema Operator - Fully Assessed Reason for Visit: Back Pain [12] Primary Visit Diagnosis:Chronic bilateral thoracic andrew k pain [M54.6, G89.29] Other Visit Diagnoses:Rib pain [R07.81] DDD (degenerative disc disease), thoracic [M51.34] Encounter for lipid screening for cardiovascular disease [Z13.220, Z13.6] Encounter for screening for diabetes mellitus [Z13.1] Order(s):LIPID PANEL BASIC [SQLIPB] Order #: [id number] FUTU RE BMP (BMP) (FOR REMOTE [facility] USE) [SQRBMP] Order #: [id number] FUTURE CONSULT TO PHYSICAL THERAPY [9032] Order #: [id number]: 1 FUTURE cyclobenzaprine (FLEXERIL) 10 mg tabletTake 0.5-1 tablets by mouth three times daily as needed for Muscle Spasm.Disp: 30 tablet Rfl: 1 meloxicam (MOBIC) 15 mg tabletTake 1 tablet by mouth once da blanka. for pain. Take with food.Disp: 30 tabletRfl: 1 Prescriptions as of 04/01/2020 Sig: NICOTINE 21 MG/24 HR DAILY TR* Apply 1 Patch as directed mak * TOBRAMYCIN 0.3 %-DEXAMETHASON* Use 1 Drop in the left eye th * PANTOPRAZOLE 40 MG TABLET,DEL* Take 1 tablet by mouth daily * BUPROPION HCL SR 150 MG TABLE* Take 1 tablet by mouth twice * ERGOCALCIFEROL (VITAMIN D2) 1* Take 1 capsule by mouth two t * TOPIRAMATE 25 MG TABLET Take 25mgs in the evening for* CYCLOBENZAPRINE 10 MG TABLET Take 0.5-1 tablets by mouth t* MELOXICAM 15 MG TABLET Take 1 tablet by mouth once d* Problem List As Of Date 04/01/2020 Noted Resolved Contact dermatitis and other eczema, due to uns*06/16/2006 0 11/25/2011 OTHER PSORIASIS [L40.8] 06/16/2006 OTHER ATOPIC DERMATITIS [L20.89] 06/16/2006 XEROSIS////SEBACEOUS GLAND DIS NEC [L73.8] 06/16/20062013 Unspecified pruritic disorder [L29.9] 08/04/2007 08/15/2013 EXCORIATIONS///SUPERFICIAL INJURY NEC [T07.XXXA]08/04/2007 HYPOPIGMENTATION///DYSCHROMIA UNSPECIFIED [L81.*08/04/2007 0 08/15/2013 CHRONIC CYSTITIS NEC [N30.20] 10/17/2008 Nontoxic multinodular goiter [E04.2] 04/19/2012 Hyperlipidemia [E78.5] 11/02/2012 Tobacco abuse disorder [Z72.0] 11/02/2012 IUD (intrauterine device) in place [Z97.5] 12/14/2012 Thyroid nodule [E04.1] 04/18/2013 Multinodular goiter [E04.2] 04/18/2013 10/12/2017 Atypical nevus of shoulder [D22.60] 08/15/2013 Melanocytic nevus of face [D22.30] 08/15/2013 Solar lentigo [L81.4] 08/15/2013 Epidermal cyst [L72.0] 08/15/2013 Melanocytic nevi of trunk [D22.5] 08/15/2013 Melanocytic nevi of upper extremity or shoulder*08/15/2013 Actinic skin damage [L57.8] 08/15/2013 Scars [L90.5] 08/15/2013 Acne vulgaris [L70.0] 08/15/2013 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 MELOXICAM 15 MG TABLET 30 t* 1 04/01/2020 Route: ORAL Sig: Take 1 tablet by mouth once daily. for pain. Take with food. Medications Discontinued During This Encounter Prescriptions - vitamin B complex (B COMPLEX-VITAMIN B12 ORAL) (Discontinu ed) Take by mouth. - cyclobenzaprine (FLEXERIL) 10 mg tablet (Discontinued) Reported on 04/01/2020 - predniSONE (DELTASONE) 10 mg tablet (Discontinued) Reported on 04/01/2020 - meloxicam (MOBIC) 15 mg tablet (Discontinued) Reported on 04/01/2020 - albuterol (PROVENTIL) 2.5 mg /3 mL (0.083 %) nebulizer solution (Discontinued) Reported on 04/01/2020 - albuterol HFA (PROAIR HFA) 90 mcg/actuation inhaler (Disco ntinued) Reported on 04/01/2020 - benzonatate (TESSALON PERLES) 100 mg capsule (Discontinued ) Reported on 04/01/2020 - fluticasone (FLONASE) 50 mcg/actuation nasal spray (Discon tinued) Use 2 Sprays in each nostril once daily. Rinse mouth after u se. - BIOTIN, BULK, MISC (Discontinued) - naproxen sodium (ALEVE) 220 mg cap (Discontinued) Take 2 capsules by mouth twice daily at 6AM and 9PM. Encounter Status:Closed by JOANIE GALLAGHER CNP on 04/01/20 progress on 2020-01 PROGRESS HNO ID: [id number] Normal 01-10-2020 [facility] Author: Kojo (Jessica) Eusebio Fernandez ([id number]) Service: ? Author Type: Nurse Practitioner Type: Progress Notes Filed: 01/10/2020 4:40 PM Note Text: HPI/CC: Juany Castellano is a 44 year old female who presents with mid to low back pain. Chronic for 6 months or longer with recent worsening. . The pain is located to the mid and lower back- midline and e xtending laterally underneath the ribs/flank area. Described as achin g pain worse in the morning and end of day. Currently rated 3 out of 10. Can go to a 8-9/10. Aggravated with deep breathing and does disrupt sleep. Denies leg weakness, numbness or tingling. No bowel or bladder incontinence. No fever or unintended weight loss.. Other symptoms reported: urinary urgency Right chest wall tenderness ongoing since Echo completed 2018. Injury: No Attempted: NSAIDs daily with minimal relief. REVIEW OF SYSTEMS: as above otherwise non-contributory. Reviewed relevant PMHx, PSHx, Social Hx, current medications and allergies. OBJECTIVE/Physical Exam: BP (P) 138/80 Pulse (P) 101 Temp (P) 36.3 ?C (97.3 ?F) ( Temporal) Resp (P) 16 Wt (P) 107.5 kg (237 lb) LMP 12/07/2017 Sp O2 (P) 98% BMI (P) 34.50 kg/m? Gen: Pleasant female in no distress Gait: normal Spinal Tenderness: No point tenderness. +tenderness to the p araspinal musculature at the level of the thoracic spine Muscle Spasm: No Strength Lower extremities: normal Sensory exam Lower Extremities: normal Straight Leg Raise: Sitting: (-) Lying: (-) Range of Motion Spine: extension limited with pain, flexion limited with pain, lateral rotationnormal with pain, lateral bending limited with pain Extremities: Extremities normal. No deformities, edema, or s kin discoloration. ASSESSMENT/PLAN: 1. Chronic midline thoracic back pain - ICD9: 724.1, 338.29, ICD10: M54.6, G89.29 (primary diagnosis) Chronic low back pain - Warm moist heat for 20 min three times a day - Prednisone see orders - Muscle relaxant- see orders - UA today negative - Discussed core strengthening exercises, weight loss, smoki ng cessation and use of back brace - Follow up in 2-4 weeks or sooner if symptoms persist or wo rsen. Recommend PT at that time followed by MRI if therapy failed - CYCLOBENZAPRINE 10 MG TABLET - PREDNISONE 10 MG TABLET 2. Flank pain - ICD9: 789.09, ICD10: R10.9 - Suspect musculoskeletal in nature - Treatment as above - UA dip to rule out UTI - URINALYSIS, WITH MICROSCOPIC - URINE CULTURE - UA DIP, URINE (POC) 3. Urinary frequency - ICD9: 788.41, ICD10: R35.0 - URINALYSIS, WITH MICROSCOPIC - URINE CULTURE - UA DIP, URINE (POC) 4. DDD (degenerative disc disease), lumbar - ICD9: 722.52, I CD10: M51.36 - plan as above, see #1 - CYCLOBENZAPRINE 10 MG TABLET - PREDNISONE 10 MG TABLET 5. DDD (degenerative disc disease), thoracic - ICD9: 722.51, ICD10: M51.34 - plan as above, see #1 - CYCLOBENZAPRINE 10 MG TABLET - PREDNISONE 10 MG TABLET 6. Costochondritis - ICD9: 733.6, ICD10: M94.0 - Recommend alternating ice and heat - Prednisone as prescribed Kojo Farrar APRN.CNP Presc ription instructions reviewed with patient as applicable. Potential red flag symptoms discussed with the patient. Reviewed appro priate action plan to take if red flag symptoms occur. Patient agreeable t o treatment plan. Kojo Farrar APRN.CNP cnov on 2020-01-10 CNOV Office Visit (INTMWS) Normal 01-10-[address] [place] [address] [facility] JUANY CASTELLANO ([id number]) 1975 [facility] Date Time Provider Department ([id number]) 01/10/20 3:40 PM KOJO FARRAR (JESSICA) INTMWS During your visit today, we recorded the following informati on about you: Kojo Farrar APRN.CNP 01/10/2020 4:40 PM Signed HPI/CC: Juany Castellano is a 44 year old female who pr esents with mid to low back pain. Chronic for 6 months or longer with recent worsening. . The pain is located to the mid and lower back- midline and extending laterally underneath the ribs/flank area. Described as ach ing pain worse in the morning and end of day. Currently rated 3 out of 10. Can go to a 8-9 /10. Aggravated with deep breathing and does disrupt sleep. Denies leg weakness, numbness or tingling. No bowel or bladder incontinence. No fever or unintended weight loss.. Other symptoms reported: urinary urgency Right chest wall tenderness ongoing since Echo completed 2018. Injury: No Attempted: NSAIDs daily with minimal relief. REVIEW OF SYSTEMS: as above otherwise non-contributory. Reviewed relevant PMHx, PSHx, Social Hx, current medicatio ns and allergies. OBJECTIVE/Physical Exam: BP (P) 138/80 Pulse (P) 101 Temp (P) 36.3 ?C (97.3 ?F) (Temporal) Resp (P) 16 Wt (P) 107.5 kg (237 lb) LMP 12/07/2017 SpO2 (P) 98% BMI (P) 34.50 kg/m? Gen: Pleasant female in no distress Gait: normal Spinal Tenderness: No point tenderness. +tenderness to the p araspinal musculature at the level of the thoracic spine Muscle Spasm: No Strength Lower extremities: normal Sensory exam Lower Extremities: normal Straight Leg Raise: Sitting: (-) Lying: (-) Range of Motion Spine: extension limited with pain, flexion limited with pain, lateral rotationnormal with pain, lateral bending limited with pain Extremities: Extremities normal. No defo rmities, edema, or skin discoloration. ASSESSMENT/PLAN: 1. Chronic midline thoracic back pain - ICD9: 724.1, 338.29, ICD10: M54.6, G89.29 (primary diagnosis) Chronic low back pain - Warm moist heat for 20 min three times a day - Prednisone see orders - Muscle relaxant- see orders - UA today negative - Discussed core strengthening exercises, weight loss, smoking cessation and use of back brace - Follow up in 2-4 weeks or sooner if symptoms persist or worsen. Recommend PT at that time followed by MRI if therapy failed - CYCLOBENZAPRINE 10 MG TABLET - PREDNISONE 10 MG TABLET 2. Flank pain - ICD9: 789.09, ICD10: R10.9 - Suspect musculoskeletal in nature - Treatment as above - UA dip to rule out UTI - URINALYSIS, WITH MICROSCOPIC - URINE CULTURE - UA DIP, URINE (POC) 3. Urinary frequency - ICD9: 788.41, ICD10: R35.0 - URINALYSIS, WITH MICROSCOPIC - URINE CULTURE - UA DIP, URINE (POC) 4. DDD (degenerative disc disease), lumbar - ICD9: 722.52, I CD10: M51.36 - plan as above, see #1 - CYCLOBENZAPRINE 10 MG TABLET - PREDNISONE 10 MG TABLET 5. DDD (degenerative disc disease), thoracic - ICD9: 722.51, ICD10: M51.34 - plan as above, see #1 - CYCLOBENZAPRINE 10 MG TABLET - PREDNISONE 10 MG TABLET 6. Costochondritis - ICD9: 733.6, ICD10: M94.0 - Recommend alternating ice and heat - Prednisone as prescribed Kojo Farrar APRN.EDUCATION SITE MANAGER Prescription instructions reviewed with patient as nery licable. Potential red flag symptoms discussed with the patient. Review ed appropriate action plan to take if red flag symptoms occur. Patient agreeable to treatm ent plan. Kojo Farrar APRN.EDUCATION SITE MANAGER Referring Provider: CASTILLO STILL [[id number]] Allergies As of Date: 01/10/2020 Noted Allergy Reaction PENICILLINS 05/20/2005 5 - Intolerance Date Reviewed: 01/10/2020 Reviewed by: Edel Cuba Ma - Fully Assessed Reason for Visit: Recheck [92] Cmt: Back pain follow up Primary Visit Diagnosis:Chronic midline thoracic back pain [ M54.6, G89.29] Other Visit Diagnoses:Flank pain [R10.9] Urinary frequency [R35.0] DDD (degenerative disc disease), lumbar [M51.36] DDD (degenerative disc disease), thoracic [M51.34] Costochondritis [M94.0] Order(s):cyclobenzaprine (FLEXERIL) 10 mg tabletTake 0.5-1 tablets by mouth three times daily as needed for Muscle Spasm.Disp: 90 tablet Rfl: 1 predniSONE (DELTASONE) 10 mg tabletTake 40 mg x 3 days, 20 m g x 3 days, 10 mg x 3 days. Take with food, once dailyDisp: 21 tab letRfl: 0 URINALYSIS, WITH MICROSCOPIC [SQUAWMIC] Order #: [id number] URINE CULTURE [SQURCUL] Order #: [id number] FUTURE UA DIP, URINE (POC) [0733629] Order #: [id number]. #:[id number] Prescriptions as of 01/10/2020 Sig: CYCLOBENZAPRINE 10 MG TABLET Take 0.5-1 tablets by mouth t* PREDNISONE 10 MG TABLET Take 40 mg x 3 days, 20 mg x * MELOXICAM 15 MG TABLET Take 1 tablet by mouth once d* NICOTINE 21 MG/24 HR DAILY TR* Apply 1 Patch as directed mak * TOBRAMYCIN 0.3 %-DEXAMETHASON* Use 1 Drop in the left eye th * PANTOPRAZOLE 40 MG TABLET,DEL* Take 1 tablet by mouth daily * BUPROPION HCL SR 150 MG TABLE* Take 1 tablet by mouth twice * ALBUTEROL SULFATE 2.5 MG/3 ML* Use 3 mL via nebulizer every * BENZONATATE 100 MG CAPSULE Take 2 capsules by mouth thre* ALBUTEROL SULFATE HFA 90 MCG/* Inhale 2 Puffs as instructed * FLUTICASONE PROPIONATE 50 MCG* Use 2 Sprays in each nostril * NAPROXEN SODIUM 220 MG CAPSULE Take 2 capsules by mouth twic * B COMPLEX-VITAMIN B12 ORAL Take by mouth. BIOTIN (BULK) MISC ERGOCALCIFEROL (VITAMIN D2) 1* Take 1 capsule by mouth two t * TOPIRAMATE 25 MG TABLET Take 25mgs in the evening for* PERFLUTREN LIPID MICROSPHERES* Inject 1.3 mL intravenously a * Problem List As Of Date 01/10/2020 Noted Resolved Contact dermatitis and other eczema, due to uns*06/16/2006 0 11/25/2011 OTHER PSORIASIS [L40.8] 06/16/2006 OTHER ATOPIC DERMATITIS [L20.89] 06/16/2006 XEROSIS////SEBACEOUS GLAND DIS NEC [L73.8] 06/16/20062013 Unspecified pruritic disorder [L29.9] 08/04/2007 08/15/2013 EXCORIATIONS///SUPERFICIAL INJURY NEC [T07.XXXA]08/04/2007 HYPOPIGMENTATION///DYSCHROMIA UNSPECIFIED [L81.*08/04/2007 0 08/15/2013 CHRONIC CYSTITIS NEC [N30.20] 10/17/2008 Nontoxic multinodular goiter [E04.2] 04/19/2012 Hyperlipidemia [E78.5] 11/02/2012 Tobacco abuse disorder [Z72.0] 11/02/2012 IUD (intrauterine device) in place [Z97.5] 12/14/2012 Thyroid nodule [E04.1] 04/18/2013 Multinodular goiter [E04.2] 04/18/2013 10/12/2017 Atypical nevus of shoulder [D22.60] 08/15/2013 Melanocytic nevus of face [D22.30] 08/15/2013 Solar lentigo [L81.4] 08/15/2013 Epidermal cyst [L72.0] 08/15/2013 Melanocytic nevi of trunk [D22.5] 08/15/2013 Melanocytic nevi of upper extremity or shoulder*08/15/2013 Actinic skin damage [L57.8] 08/15/2013 Scars [L90.5] 08/15/2013 Acne vulgaris [L70.0] 08/15/2013 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*03/06/2014 Obesity [E66.9] 03/06/2014 Tobacco dependence [F17.200] 03/06/2014 Migraine headache with aura [G43.109] 08/15/2014 Scleritis [H15.009] 10/29/2015 Nonscarring hair loss, unspecified [L65.9] 10/30/2015 Hereditary hemochromatosis (HCC) [E83.110] 10/31/2015 Plantar fasciitis of right foot [M72.2] 07/22/2017 Chest pain [R07.9] 12/06/2018 Left elbow pain [M25.522] 08/01/2019 Prescriptions ordered this encounter Disp Refills Start End CYCLOBENZAPRINE 10 MG TABLET 90 t* 1 01/10/2020 Route: ORAL Sig: Take 0.5-1 tablets by mouth three t imes daily as needed for Muscle Spasm. PREDNISONE 10 MG TABLET 21 t* 0 01/10/2020 Sig: Take 40 mg x 3 days, 20 mg x 3 days, 10 mg x 3 days. Ta ke with food, once daily Medications Discontinued During This Encounter tiZANidine (ZANAFLEX) 4 mg tablet 30 t* 0 10/19/2019 01/10/2020 Route: ORAL Sig: Take 0.5-1 tablets by mouth every 8 hours as needed (mu scle spasms). Disc: Reason for discontinue is not on file. Encounter Status:Closed by KOJO FARRAR CNP on 01/10/20 cnpn on 2019-12-11 CNPN Telephone (INTMWS) Normal 12-11-2019 [place] [facility] JUANY CASTELLANO ([id number]) 1975 [facility] Date Time Provider Department ([id number]) 12/11/19 CASTILLO STILL INTMWS During your visit today, we recorded the following informati on about you: Manas Goldman RN 12/11/2019 5:29 PM Signed Patient reports she has been having CP, right side of chest, just below collar bone, and in center of upper back. Constant for 2 weeks. Worse in the morning and at night. Chest is very painful when getting out of be d in the morning. Unable to hold breath for 10 seconds without pain, unable to take a deep breath without causing pain. No fever. Has had several respiratory infections in the past year. Reports she is scheduled to have Antibody test fo r covid this coming Tue. Tested positive for flu A in September. Agreeable to ER for evaluation. CASTILLO STILL MD 12/12/2019 2:06 PM Signed agree Allergies As of Date: 12/11/2019 Noted Allergy Reaction PENICILLINS 05/20/2005 5 - Intolerance Date Reviewed: 09/10/2019 Reviewed by: Aliza Graham LPN - Fully Assessed Reason for Visit: Right CP/SOB [Other] Prescriptions as of 12/11/2019 Sig: TIZANIDINE 4 MG TABLET Take 0.5-1 tablets by mouth e* MELOXICAM 15 MG TABLET Take 1 tablet by mouth once d* NICOTINE 21 MG/24 HR DAILY TR* Apply 1 Patch as directed mak * TOBRAMYCIN 0.3 %-DEXAMETHASON* Use 1 Drop in the left eye th * PANTOPRAZOLE 40 MG TABLET,DEL* Take 1 tablet by mouth daily * BUPROPION HCL SR 150 MG TABLE* Take 1 tablet by mouth twice * ALBUTEROL SULFATE 2.5 MG/3 ML* Use 3 mL via nebulizer every * BENZONATATE 100 MG CAPSULE Take 2 capsules by mouth thre* ALBUTEROL SULFATE HFA 90 MCG/* Inhale 2 Puffs as instructed * FLUTICASONE PROPIONATE 50 MCG* Use 2 Sprays in each nostril * NAPROXEN SODIUM 220 MG CAPSULE Take 2 capsules by mouth twic * B COMPLEX-VITAMIN B12 ORAL Take by mouth. BIOTIN (BULK) MISC ERGOCALCIFEROL (VITAMIN D2) 1* Take 1 capsule by mouth two t * TOPIRAMATE 25 MG TABLET Take 25mgs in the evening for* PERFLUTREN LIPID MICROSPHERES* Inject 1.3 mL intravenously a * Problem List As Of Date 12/11/2019 Noted Resolved Contact dermatitis and other eczema, due to uns*06/16/2006 0 11/25/2011 OTHER PSORIASIS [L40.8] 06/16/2006 OTHER ATOPIC DERMATITIS [L20.89] 06/16/2006 XEROSIS////SEBACEOUS GLAND DIS NEC [L73.8] 06/16/20062013 Unspecified pruritic disorder [L29.9] 08/04/2007 08/15/2013 EXCORIATIONS///SUPERFICIAL INJURY NEC [T07.XXXA]08/04/2007 HYPOPIGMENTATION///DYSCHROMIA UNSPECIFIED [L81.*08/04/2007 0 08/15/2013 CHRONIC CYSTITIS NEC [N30.20] 10/17/2008 Nontoxic multinodular goiter [E04.2] 04/19/2012 Hyperlipidemia [E78.5] 11/02/2012 Tobacco abuse disorder [Z72.0] 11/02/2012 IUD (intrauterine device) in place [Z97.5] 12/14/2012 Thyroid nodule [E04.1] 04/18/2013 Multinodular goiter [E04.2] 04/18/2013 10/12/2017 Atypical nevus of shoulder [D22.60] 08/15/2013 Melanocytic nevus of face [D22.30] 08/15/2013 Solar lentigo [L81.4] 08/15/2013 Epidermal cyst [L72.0] 08/15/2013 Melanocytic nevi of trunk [D22.5] 08/15/2013 Melanocytic nevi of upper extremity or shoulder*08/15/2013 Actinic skin damage [L57.8] 08/15/2013 Scars [L90.5] 08/15/2013 Acne vulgaris [L70.0] 08/15/2013 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*03/06/2014 Obesity [E66.9] 03/06/2014 Tobacco dependence [F17.200] 03/06/2014 Migraine headache with aura [G43.109] 08/15/2014 Scleritis [H15.009] 10/29/2015 Nonscarring hair loss, unspecified [L65.9] 10/30/2015 Hereditary hemochromatosis (HCC) [E83.110] 10/31/2015 Plantar fasciitis of right foot [M72.2] 07/22/2017 Chest pain [R07.9] 12/06/2018 Left elbow pain [M25.522] 08/01/2019 Encounter Status:Closed by EDEL CUBA MA on 12/12/19 progress on 2019-10 PROGRESS HNO ID: [id number] Normal 10-19-2019 [facility] Author: Kojo (Molder Feeder) Eusebio Fernandez ([id number]) Service: ? Author Type: Nurse Practitioner Type: Progress Notes Filed: 10/19/2019 10:08 AM Note Text: This Team Access Model visit is a phone encounter. It requir ed patient-provider interaction for the medical decision making as documented below. In light of the recent COVID 19 pandemic a telephone encount er has taken place in lieu of face to face encounter with patient's permi ssion. CC: Juany Castellano is a 43 year old female verified by name and birthday who presents for weight loss medication and follow up. HPI Interested restarting Adipex today. She was previously presc ribed medication in September 2018 however she delayed starting medica tion and was unable to continue. Today she reports weight loss difficulty despite attempting dieting. She did successfully lose ~15lbs with diet but gained half of he r weight back with COVID quarantine. Since our last visit she reports improved dizziness. Back pain- mildly improved. Hopeful weight loss will bring s ome relief. Imaging completed at last visit showed DDD no acute process. She is doing well with smoking cessation. Down to 1-2 cigare ttes per day. Nicotine patches are helping- asking for refill. Goal of com plete cessation by her birthday at the end of the month. DIET Mild keto- avoiding pop bread sugar Serving of fruits:1-2 Servings of vegetables:1-2 Cumbers, cheese, roast, carrots Servings of protein:3-5 Drinks: Water Coffee and cappuccino Dinh vanilla coke zero Do you Skip meals: YES Eating away from home:YES takeout a few times per week Exercise routine: NO planning to start home workouts has ell iptical and stationary bike at home. She does enjoy walking outdoors whe n weather is nice. Weight/BMI Last 1 Encounter Wt Readings: Date: Wt: 10/19/19 241lbs Last visit Wt: 108.3 kg (238 lb 12.8 oz) BMI: 34.76 kg/(m2) Weight change since last visit: +3 lbs ROS as above, otherwise non-contributory. Reviewed PMHx, PSHx, social Hx, medications and allergies. PHYSICAL EXAM Patient oriented, calm, cooperative, pleasant. No cough, wheeze or SOB Other physical exam deferred d/t nature of our visit, specif ically phone encounter. ASSESSMENT/PLAN: 1. Obesity, Class I, BMI 30-34.9 - ICD9: 278.00, ICD10: E66. 9 (primary diagnosis) Weight increasing - Add Phentermine - PHENTERMINE 37.5 MG TABLET - Begin diet consisting of low carb/sugar. - Reduce sugary drinks of artificial juices and sodas and re place with water and low calorie Crystal Light. - Healthy Snack alternatives have been discussed and will at tempt more fruits and vegetables. - encouraged 3 meals a day - Beginexercise or meaningful activity for 20 minutes at les t 3 times a day PDMP website checked and validated. All prescriptions have b een APPROPRIATELY filled. No suspicious activity was identified. 10/19/2019 by Kojo Farrar APRN.EDUCATION SITE MANAGER - Follow up in 4 weeks - reviewed SE, medication expectations, required weight loss of 5%, monthly monitoring and medication duration of use (3 months on 6 months off) 2. Tobacco abuse disorder - ICD9: 305.1, ICD10: Z72.0 - Congratulated patient on her progress, continue current me dications - Continued goal of complete cessation by follow up - Follow up in 4 weeks - Consider stopping wellbutrin at that time - NICOTINE 21 MG/24 HR DAILY TRANSDERMAL PATCH - BUPROPION HCL SR 150 MG TABLET,12 HR SUSTAINED-RELEASE 3. Vertigo, benign paroxysmal, left - ICD9: 386.11, ICD10: H 81.12 - Improved/resolved 4. Chronic back pain, unspecified back location, unspecified back pain laterality - ICD9: 724.5, 338.29, ICD10: M54.9, G89.29 - Discussed benefits of weight reduction, regular exercise a nd core strengthening - Consider PT referral once routine visits resume, deferred d/t current COVID19 pandemic - TIZANIDINE 4 MG TABLET - MELOXICAM 15 MG TABLET During this patient visit I have spent approximately 22 sandhya rodrigo out of 30 in counseling regarding treatment options, exercise, diet an d medications and coordinating care. Prescription instructions reviewed with patient as applicabl e. Potential red flag symptoms discussed with the patient. Reviewed appro priate action plan to take if red flag symptoms occur. Patient agreeable t o treatment plan. Kojo Farrar APRN.EDUCATION SITE MANAGER xr chest 2v frontal/lat on 2019-09-28 XR CHEST 2V * * *Final Report* * * Normal 09-27 [facility] FRONTAL/LAT DATE OF EXAM: Sep 28 2019 4:53PM [place] WOX [id number] - XR CHEST 2V FRONTAL/LAT / ([id number]) PROCEDURE REASON: multiple diagnoses * * * * Physician Interpretation * * * * EXAMINATION: CHEST RADIOGRAPH (2 VIEW FRONTAL and LATERAL) CLINICAL HISTORY: Persistent cough SOB (shortness of breath) MQ: [id number] EXAM DATE/TIME: 09/28/2019 4:53 PM COMPARISON: Chest x-ray on 04/27/2018 RESULT: Lines, tubes, and devices: None. Lungs and pleura: No consolidation. No lung mass. No pleural effusion. No pneumothorax. Cardiomediastinal silhouette: Normal cardiomediastinal silho uette. Bones and soft tissues: There are mild degenerative changes in the spine. IMPRESSION: No acute radiographic abnormality. Gas Plumber: YOGESH Transcribe Date/Time: Sep 28 2019 4:54P Dictated by : TANVIR BAUTISTA MD This examination was interpreted and the report reviewed and electronically signed by: TANVIR BAUTISTA MD on Sep 28 2019 4:55PM EST [id number] progress on 2019-09 PROGRESS HNO ID: [id number] Normal 09-28-2019 [facility] Author: Shirley Solis (Rt) Fiona Orozco [place] ([id number]) Service: ? Author Type: Vice President Of Consulting Services Type: Progress Notes Filed: 09/28/2019 4:54 PM Note Text: Radiology Service Progress Note PATIENT NAME: Juany Castellano DATE OF SERVICE: September 28, 2019 TIME: 4:46 PM PATIENT IDENTITY VERIFICATION COMPLETED USING TWO (2) IDENTI FIERS: Name and Date of confirmed by patient verbally. PATIENT GENDER DATA: Female. status: : No status: NO. PATIENT RELEVANT IMPLANT DATA REVIEWED: Not Applicable RADIOLOGY DEPARTMENT: General X-ray: Exam(s) Completed: Ches t X-Ray PERIPHERAL IV DATA: Not applicable SIGNED BY: RT Efrem September 28, 2019 4:46 PM cnpn on 2019-09-28 [facility] Normal 09-28-2019 [place] [facility] JUANY CASTELLANO ([id number]) 1975 [facility] Time Provider Department ([id number]) 09/28/19 2:20 PM ED CARABALLO ([facility] During your visit today, we recorded the following informati on about you: Ed Caraballo APRN.CNP 09/28/2019 2:54 PM Signed Chief Complaint Patient presents with: Telemedicine This Team Access Model visit is a phone encounter. It requir ed patient-provider interaction for the medical decision making as documented below. HPI Juany Castellano is a 43 year old female who is contacted tokalli for a phone visit This is an established patient of Dr. CASTILLO STILL MD . Reports: She was diagnosed with influenza A on 09/10/19. On 09/12 was prescribed prednisone and Mucinex for her symptoms. These seemed to h elp somewhat. She has been off of these medications for about a week. Beatriz martin is having back pain, rib pain. Cough has improved somewhat-but still present. Mariposa ngs up mostly clear but sometimes possibly pink-tinged sputum, worse in the morning. When she takes a deep breath the pain is present and she is a bit short of breath. With a large exhale, she has a whistling /wheezing sound. Denies current fever. She is a smoker and has been smoking less since she has been sick. COVID-19 Screening (if applicable): Cough: Yes Difficulty Breathing: Yes Fever (>100.4): No Travel outside of the [place] in the past 14 days: No Known Exposure within the past 14 days t o a confirmed case of the COVID-19: No High Risk age >60 or <36 months: No Has a chronic medical condition: No Past medical history, appointments, medications, allergies reviewed 09/28/2019 Previous Medical History PAST MEDICAL HISTORY Diagnosis Date - Blood dyscrasia - Chronic fatigue syndrome - Goiter, unspecified - Headache(784.0) - Hemochromatosis - Menorrhagia - Plantar fasciitis, bilateral - Snoring - Tobacco abuse Previous Surgical History PAST SURGICAL HISTORY Procedure Laterality Date - FOOT SURGERY HX Right plantar - HYSTEROSCOPY DIAGNOSTIC 12/22/2017 Hysteroscopy DANDC - LEG VEIN LEFT 04/2015 - REMOVAL OF SKIN TAGS 12/22/2017 Vulvar Skin Tags-Dr. Gaviria - S ABLATION ALMA [id number] 12/22/2017 [place]ma Ablation-Dr. Gaviria - SALPINGECTOMY Bilateral 12/22/2017 Laparoscopic B/L Salpingectomy-Dr. Gaviria Family History FAMILY HISTORY Problem Relation Age of Onset - Heart Father ang ioplasy - Diabetes Father - other (Brain Tumor) Father - Colon Cancer Mother 55 Parkinsons - Cancer Paternal Grandmother pancreatic - Cancer Maternal Grandfather colon - Diabetes Maternal Grandfather Patient Allergies ALLERGIES Allergen Reactions - Penicillins Intolerance Current Medications Current Outpatient Medications on File Prior to Visit Medication Sig - benzonatate (TESSALON PERLES) 100 mg capsule T john 2 capsules by mouth three times daily as needed. - albuterol HFA (PROAIR HFA) 90 mcg/actuation inhaler Inhale 2 Puffs as instructed every 6 hours as needed. - buPROPion SR (WELLBUTRIN S R) 150 mg 12 hr tablet Take 1 tablet by mouth twice daily. - fluticasone (FLONASE) 50 mcg/actuation nasal spray Use 2 S prays in each nostril once daily. Rinse mouth after use. - naproxen sodium (ALEVE) 220 mg cap Take 2 capsules b y mouth twice daily at 6AM and 9PM. - vitamin B complex (B COMPLEX-VITAMIN B12 ORAL) Take by leena . - BIOTIN, BULK, MISC - ergocalciferol 50,000 unit capsule (VITAMIN D2, DRIS DOL) Take 1 capsule by mouth two times a week. TO BE TAKEN ORAL LY DIRECTED. Take 1 tablet by mouth twice weekly [id number], then decrease to 1 tablet weekly. - pantoprazole DR (PROTONIX) 40 mg tablet Take 1 tablet by mouth daily before breakfast. Take on empty stomach, 1/2 hr before meal. - topiramate (TOPAMAX) 25 mg tablet Take 25mgs in the evening for a week, then go to 50 mgs daily. - perflutren lipid microspheres (DEFINIT Y) 1.1 mg/mL injection (to be provided with echo procedure) Inject 1.3 mL intravenously as directed . - nicotine (NICODERM) 21 mg/24 hr Apply 1 Patch as directe d every 24 hours. No current facility-administered medications on file prior t o visit. Social History Social History Tobacco Use - Smoking status: Light Tobacco Smoker Packs/day: 0.75 Years: 15.00 Pack years: 11.25 Types: Cigarettes - Smokeless tobacco: Never Used - Tobacco comment: 10-15 cigarettes in a daily Substance Use Topics - Alcohol use: No - Drug use: No Review of Symptoms GENERAL: No malaise or fatigue. No fevers. HEENT: Negative for headaches No eye discharge or redness No earaches No sore throat Nose NEG for congestion and nasal discharge NECK: Negative for pain or swelling. No lumps. Positive for back pain. RESPIRATORY: Positive SOB, chest pain with inspiration, wh eezing, whistling with exhalation, [id number] tinged production with cough -worse in the mornings CARDIOVASCULAR: Positive for chest pain GI: No nausea, vomiting, or diarrhea MUSCULOSKELETAL: Negative for bodyaches SKIN: Negative for rash or itching Neuro: No lightheadedness or dizziness EXAM: Deferred physical exam as visit was completed over the phone /MyChart. Health Maintenance List DTAP,TDAP,TD(1 - Tdap) due on 1988 TWO PNEUMOVAX 5 YEARS APART PRIOR TO AGE 65(1) due on 1996 ADULT PREVNAR-13 due on 1996 MAMMOGRAM due on 12/30/2019 COLORECTAL CANCER SCREENING,SEE MODIFIER due on 11/29/2021 PAP TESTING due on 02/28/2022 HPV TESTING due on 02/28/2022 INFLUENZA Completed HIV SCREENING Completed Data reviewed Last 5 Encounter BP Readings: Date: BP: 09/10/2019 110/82 09/05/2019 132/82 07/20/2019 128/80 05/15/2019 129/84 04/19/2019 136/70 BMI Readings from Last 5 Encounters: 09/10/19 : 34.76 kg/m? 09/05/19 : 34.93 kg/m? 07/25/19 : 35.66 kg/m? 07/20/19 : 36.39 kg/m? 05/15/19 : 36.10 kg/m? Last 5 Encounter Wt Readings: Date: Wt: 09/10/2019 108.3 kg (238 lb 12.8 oz) 09/05/2019 108.9 kg (240 lb) 07/25/2019 111.1 kg (245 lb) 07/20/2019 113.4 kg (250 lb) 05/15/2019 112.5 kg (248 lb) Medication and allergy list reviewed, reconciled and updated 09/28/2019 This patient encounter invol elda the screening or treatment of novel coronavirus infection (COVID-19). Total appointment time on phone with patient = 11-20 minutes ASSESSMENT/PLAN: 1. Persistent cough - ICD9: 786.2, ICD10: R05 (primary diagn osis) Frequent persistent cough following influenza A, SOB, chest pain with inhalation, burning in chest. Will treat her with prednisone taper and albuterol nebulizer. She will have a chest xray later this afternoon. Do plan for antibiotic based on chest xray results for bronchitis vs pneumonia. - PREDNISONE 10 MG TABLET - XR CHEST 2V FRONTAL/LAT - NEBULIZER, WITH COMPRESSOR - ALBUTEROL SULFATE 2.5 MG/3 ML (0.083 %) SOLUTION FOR NEBUL IZATION 2. SOB (shortness of breath) - ICD9: 786.05, ICD10: R06.02 See #1. - PREDNISONE 10 MG TABLET - XR CHEST 2V FRONTAL/LAT - NEBULIZER, WITH COMPRESSOR - ALBUTEROL SULFATE 2.5 MG/3 ML (0.083 %) SOLUTION FOR NEBUL IZATION 3. Chest pain on breathing - ICD9: 786.52, ICD10: R07.1 See #1. - PREDNISONE 10 MG TABLET - XR CHEST 2V FRONTAL/LAT - NEBULIZER, WITH COMPRESSOR - ALBUTEROL SULFATE 2.5 MG/3 ML (0.083 %) SOLUTION FOR NEBUL IZATION Ed Caraballo APRN.EDUCATION SITE MANAGER Referring Provider: SELF [[id number]] Allergies As of Date: 09/28/2019 Noted Allergy Reaction PENICILLINS 05/20/2005 5 - Intolerance Date Reviewed: 09/10/2019 Reviewed by: Aliza Graham LPN - Fully Assessed Reason for Visit: Telemedicine [[id number]] Primary Visit Diagnosis:Persistent cough [R05] Other Visit Diagnoses:SOB (shortness of breath) [R06.02] Chest pain on breathing [R07.1] Order(s):predniSONE (DELTASONE) 10 mg ta bletTake 4 tabs daily for 3 days, then 2 tabs daily for 3 days, then 1 tab daily for 3 days with fo od.Disp: 21 tabletRfl: 0 XR CHEST 2V FRONTAL/LAT [[id number]] Order #: [id number] FUTURE NEBULIZER, WITH COMPRESSOR [[id number]] Order #: [id number] albuterol (PROVENTIL) 2.5 mg /3 mL (0.083 %) nebulizer solut ionUse 3 mL via nebulizer every 4 hours as needed for Wheezing/Shortn ess of Breath. Use over 5-15minutes.Disp: 1 PackageRfl: 1 Prescriptions as of 09/28/2019 Sig: PREDNISONE 10 MG TABLET Take 4 tabs daily for 3 days,* ALBUTEROL SULFATE 2.5 MG/3 ML* Use 3 mL via nebulizer every * BENZONATATE 100 MG CAPSULE Take 2 capsules by mouth thre* ALBUTEROL SULFATE HFA 90 MCG/* Inhale 2 Puffs as instructed * BUPROPION HCL SR 150 MG TABLE* Take 1 tablet by mouth twice * FLUTICASONE PROPIONATE 50 MCG* Use 2 Sprays in each nostril * NAPROXEN SODIUM 220 MG CAPSULE Take 2 capsules by mouth twic * B COMPLEX-VITAMIN B12 ORAL Take by mouth. BIOTIN (BULK) MISC ERGOCALCIFEROL (VITAMIN D2) 1* Take 1 capsule by mouth two t * PANTOPRAZOLE 40 MG TABLET,DEL* Take 1 tablet by mouth daily * TOPIRAMATE 25 MG TABLET Take 25mgs in the evening for* PERFLUTREN LIPID MICROSPHERES* Inject 1.3 mL intravenously a * NICOTINE 21 MG/24 HR DAILY TR* Apply 1 Patch as directed mak * Problem List As Of Date 09/28/2019 Noted Resolved Contact dermatitis and other eczema, due to uns*06/16/2006 0 11/25/2011 OTHER PSORIASIS [L40.8] 06/16/2006 OTHER ATOPIC DERMATITIS [L20.89] 06/16/2006 XEROSIS////SEBACEOUS GLAND DIS NEC [L73.8] 06/16/20062013 Unspecified pruritic disorder [L29.9] 08/04/2007 08/15/2013 EXCORIATIONS///SUPERFICIAL INJURY NEC [T07.XXXA]08/04/2007 HYPOPIGMENTATION///DYSCHROMIA UNSPECIFIED [L81.*08/04/2007 0 08/15/2013 CHRONIC CYSTITIS NEC [N30.20] 10/17/2008 Nontoxic multinodular goiter [E04.2] 04/19/2012 Hyperlipidemia [E78.5] 11/02/2012 Tobacco abuse disorder [Z72.0] 11/02/2012 IUD (intrauterine device) in place [Z97.5] 12/14/2012 Thyroid nodule [E04.1] 04/18/2013 Multinodular goiter [E04.2] 04/18/2013 10/12/2017 Atypical nevus of shoulder [D22.60] 08/15/2013 Melanocytic nevus of face [D22.30] 08/15/2013 Solar lentigo [L81.4] 08/15/2013 Epidermal cyst [L72.0] 08/15/2013 Melanocytic nevi of trunk [D22.5] 08/15/2013 Melanocytic nevi of upper extremity or shoulder*08/15/2013 Actinic skin damage [L57.8] 08/15/2013 Scars [L90.5] 08/15/2013 Acne vulgaris [L70.0] 08/15/2013 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*03/06/2014 Obesity [E66.9] 03/06/2014 Tobacco dependence [F17.200] 03/06/2014 Migraine headache with aura [G43.109] 08/15/2014 Scleritis [H15.009] 10/29/2015 Nonscarring hair loss, unspecified [L65.9] 10/30/2015 Hereditary hemochromatosis (HCC) [E83.110] 10/31/2015 Plantar fasciitis of right foot [M72.2] 07/22/2017 Chest pain [R07.9] 12/06/2018 Left elbow pain [M25.522] 08/01/2019 Prescriptions ordered this encounter Disp Refills Start End PREDNISONE 10 MG TABLET 21 t* 0 09/28/2019 10/07/2019 Sig: Take 4 tabs daily for 3 days, then 2 tabs daily for 3 days, then 1 tab daily for 3 days with food. ALBUTEROL SULFATE 2.5 MG/3 ML (0.083* 1 Pa* 1 09/28/2019 Route: NEBULIZATION Sig: Use 3 mL via nebulizer every 4 hours as nee ded for Wheezing/Shortness of Breath. Use over 5-15minutes. Encounter Status:Closed by ED CARABALLO on 09/28/19 progress on 2019-09 PROGRESS HNO ID: [id number] Normal 09-10-2019 [facility] Author: Romana Keller (Skinny) Rosalie Fernandez ([id number]) Service: ? Author Type: Physician [employer] Dean Type: Progress Notes Filed: 09/10/2019 1:25 PM Note Text: Subjective HPI Patient presents with the chief complaint of cough, congesti on, fever over the past day. She is a smoker. She states she feels like she 's been wheezing. No nausea or vomiting. She's had some chronic prob lems with chest pain and had seen cardiology and is now on a Medrol Do sepak for costochondritis. That hasn't changed. It still hurts with th e cough. She did get a flu shot this season. Review of Systems Constitutional: Positive for chills, fever and malaise/fatig ue. HENT: Positive for congestion and sore throat. Negative for ear pain. Eyes: Negative. Respiratory: Positive for cough and wheezing. Negative for s putum production and shortness of breath. Cardiovascular: Rib pain with cough Gastrointestinal: Negative. Genitourinary: Negative. Musculoskeletal: Positive for myalgias. All other systems reviewed and are negative. PAST MEDICAL HISTORY Diagnosis Date - Blood dyscrasia - Chronic fatigue syndrome - Goiter, unspecified - Headache(784.0) - Hemochromatosis - Menorrhagia - Plantar fasciitis, bilateral - Snoring - Tobacco abuse Current Outpatient Medications Medication Sig Dispense Refill - methylPREDNISolone (MEDROL, CHI,) 4 mg Dose-Pack Follow do sing instructions, take with food. 1 Package 0 - buPROPion SR (WELLBUTRIN SR) 150 mg 12 hr tablet Take 1 ta blet by mouth twice daily. 60 tablet 2 - fluticasone (FLONASE) 50 mcg/actuation nasal spray Use 2 S prays in each nostril once daily. Rinse mouth after use. 1 Bottle 11 - naproxen sodium (ALEVE) 220 mg cap Take 2 capsules by mout h twice daily at 6AM and 9PM. - vitamin B complex (B COMPLEX-VITAMIN B12 ORAL) Take by leena th. - BIOTIN, BULK, MISC - ergocalciferol 50,000 unit capsule (VITAMIN D2, DRISDOL) T john 1 capsule by mouth two times a week. TO BE TAKEN ORALLY DIRECTED. T john 1 tablet by mouth twice weekly [id number], then decrease to 1 tablet yahir chand. 8 capsule 5 - pantoprazole DR (PROTONIX) 40 mg tablet Take 1 tablet by m outh daily before breakfast. Take on empty stomach, 1/2 hr before meal. 30 tablet 5 - topiramate (TOPAMAX) 25 mg tablet Take 25mgs in the evenin g for a week, then go to 50 mgs daily. 60 tablet 2 - perflutren lipid microspheres (DEFINITY) 1.1 mg/mL injecti on (to be provided with echo procedure) Inject 1.3 mL intravenously as directed. 1.3 mL 0 - nicotine (NICODERM) 21 mg/24 hr Apply 1 Patch as directed every 24 hours. 30 Patch 1 - oseltamivir (TAMIFLU) 75 mg capsule Take 1 capsule by mout h twice daily for 5 days. 10 capsule 0 - benzonatate (TESSALON PERLES) 100 mg capsule Take 2 capsul es by mouth three times daily as needed. 30 capsule 0 - albuterol HFA (PROAIR HFA) 90 mcg/actuation inhaler Inhale 2 Puffs as instructed every 6 hours as needed. 1 Inhaler 0 No current facility-administered medications for this visit. PAST SURGICAL HISTORY Procedure Laterality Date - FOOT SURGERY HX Right plantar - HYSTEROSCOPY DIAGNOSTIC 12/22/2017 Hysteroscopy DANDC - LEG VEIN LEFT 04/2015 - REMOVAL OF SKIN TAGS 12/22/2017 Vulvar Skin Tags-Dr. Gaviria - S ABLATION ALMA [id number] 12/22/2017 [place] Ablation-Dr. Gaviria - SALPINGECTOMY Bilateral 12/22/2017 Laparoscopic B/L Salpingectomy-Dr. Gaviria FAMILY HISTORY Problem Relation Age of Onset - Heart Father ang ioplasy - Diabetes Father - other (Brain Tumor) Father - Colon Cancer Mother 55 Parkinsons - Cancer Paternal Grandmother pancreatic - Cancer Maternal Grandfather colon - Diabetes Maternal Grandfather Social History Tobacco Use - Smoking status: Light Tobacco Smoker Packs/day: 0.75 Years: 15.00 Pack years: 11.25 Types: Cigarettes - Smokeless tobacco: Never Used - Tobacco comment: 10-15 cigarettes in a daily Substance Use Topics - Alcohol use: No - Drug use: No BP 110/82 Pulse 94 Temp 37.3 ?C (99.1 ?F) (Tympanic) R lorenzo 16 Wt 108.3 kg (238 lb 12.8 oz) SpO2 97% BMI 34.76 kg/m? Objective Physical Exam Constitutional: She is well-developed, well-nourished, and i n no distress. HENT: Head: Normocephalic and atraumatic. Right Ear: Tympanic membrane, external ear and ear canal nor mal. Left Ear: Tympanic membrane, external ear and ear canal norm al. Nose: Mucosal edema and rhinorrhea present. Mouth/Throat: Uvula is midline, oropharynx is clear and mois t and mucous membranes are normal. Neck: Normal range of motion. Neck supple. Cardiovascular: Normal rate, regular rhythm and normal heart sounds. Pulmonary/Chest: Effort normal and breath sounds normal. No respiratory distress. She has no wheezes. She has no rales. Neurological: She is alert. Skin: Skin is warm and dry. No rash noted. Psychiatric: Affect and judgment normal. Nursing note and vitals reviewed. ASSESSMENT/PLAN: 1. Fever, unspecified fever cause - ICD9: 780.60, ICD10: R50 .9 (primary diagnosis) - INFLUENZA AANDB MOLECULAR (POC) 2. Influenza A - ICD9: 487.1, ICD10: J10.1 Patient's influenza A is positive. She wanted a prescription for Tamiflu. Also given Tessalon and albuterol inhaler. Discussed red fla g symptoms when she would need to follow up with PCP or ER. Romana Whitehead PA-C cnov on 2019-09-10 CNOV Office Visit ([facility]WSTR) Normal 09-10-[address] [place] [address] [facility] JUANY CASTELLANO ([id number]) 1975 [facility] Date Time Provider Department ([id number]) 09/10/19 11:30 AM ROMANA WHITEHEAD (SKINNY) WSTR During your visit today, we recorded the following informati on about you: Temperature Pulse Respiration Blood pressure 99.1 degrees 94/minute 16/minute 110/82 Weight 108.3 kg Romana Whitehead PA-C 09/10/2019 1:25 PM Signed Subjective HPI Patient presents with the chief complain t of cough, congestion, fever over the past day. She is a smoker. She states she feels like s he's been wheezing. No nausea or vomiting. She's had some chronic problems with c hest pain and had seen cardiology and is now on a Medrol Dosepak for costochon dritis. That hasn't changed. It still hurts with the cough. She did get a flu shot this season. Review of Systems Constitutional: Positive for chills, fever and malaise/fatig ue. HENT: Positive for congestion and sore throat. Negative for ear pain. Eyes: Negative. Respiratory: Positive for cough and wheezing. Negative for sputum production and shortness of breath. Cardiovascular: Rib pain with cough Gastrointestinal: Negative. Genitourinary: Negative. Musculoskeletal: Positive for myalgias. All other systems reviewed and are negative. PAST MEDICAL HISTORY Diagnosis Date - Blood dyscrasia - Chronic fatigue syndrome - Goiter, unspecified - Headache(784.0) - Hemochromatosis - Menorrhagia - Plantar fasciitis, bilateral - Snoring - Tobacco abuse Current Outpatient Medications Medication Sig Dispense Refill - methylPREDNISolone (MEDROL, CHI,) 4 mg Dose-Pack Follow dosing instructions, take with food. 1 Package 0 - buPROPion SR (WELLBUTRIN S R) 150 mg 12 hr tablet Take 1 tablet by mouth twice daily. 60 tablet 2 - fluticasone (FLONASE) 50 mcg/actuation nasal spray Use 2 S prays in each nostril once daily. Rinse mouth after use. 1 Bottle 11 - naproxen sodium (ALEVE) 220 mg cap Take 2 capsules b y mouth twice daily at 6AM and 9PM. - vitamin B complex (B COMPLEX-VITAMIN B12 ORAL) Take by . - BIOTIN, BULK, MISC - ergocalciferol 50,000 unit capsule (VITAMIN D2, DRIS DOL) Take 1 capsule by mouth two times a week. TO BE TAKEN ORAL LY DIRECTED. Take 1 tablet by mouth twice weekly [id number], then decrease to 1 tablet weekly. 8 ca psule 5 - pantoprazole DR (PROTONIX) 40 mg tablet Take 1 tablet by mouth daily before breakfast. Take on empty stomach, 1/2 hr before meal. 30 tab let 5 - topiramate (TOPAMAX) 25 mg tablet Take 25mgs in the evening for a week, then go to 50 mgs daily. 60 tablet 2 - perflutren lipid microspheres (DEFINIT Y) 1.1 mg/mL injection (to be provided with echo procedure) Inject 1.3 mL intravenously as directed . 1.3 mL 0 - nicotine (NICODERM) 21 mg/24 hr Apply 1 Patch as directed every 24 hours. 30 Patch 1 - oseltamivir (TAMIFLU) 75 m g capsule Take 1 capsule by mouth twice daily for 5 days. 10 capsule 0 - benzonatate (TESSALON PERLES) 100 mg capsule T john 2 capsules by mouth three times daily as needed. 30 capsule 0 - albuterol HFA (PROAIR HFA) 90 mcg/actuation inhaler Inhale 2 Puffs as instructed every 6 hours as needed. 1 Inhaler 0 No current facility-administered medications for this visit. PAST SURGICAL HISTORY Procedure Laterality Date - FOOT SURGERY HX Right plantar - HYSTEROSCOPY DIAGNOSTIC 12/22/2017 Hysteroscopy DANDC - LEG VEIN LEFT 04/2015 - REMOVAL OF SKIN TAGS 12/22/2017 Vulvar Skin Tags-Dr. Gaviria - S ABLATION ALMA [id number] 12/22/2017 [place] Ablation-Dr. Gaviria - SALPINGECTOMY Bilateral 12/22/2017 Laparoscopic B/L Salpingectomy-Dr. Gaviria FAMILY HISTORY Problem Relation Age of Onset - Heart Father ang ioplasy - Diabetes Father - other (Brain Tumor) Father - Colon Cancer Mother 55 Parkinsons - Cancer Paternal Grandmother pancreatic - Cancer Maternal Grandfather colon - Diabetes Maternal Grandfather Social History Tobacco Use - Smoking status: Light Tobacco Smoker Packs/day: 0.75 Years: 15.00 Pack years: 11.25 Types: Cigarettes - Smokeless tobacco: Never Used - Tobacco comment: 10-15 cigarettes in a daily Substance Use Topics - Alcohol use: No - Drug use: No BP 110/82 Pulse 94 Temp 37.3 ?C (99.1 ?F) (Tympanic) R lorenzo 16 Wt 108.3 kg (238 lb 12.8 oz) SpO2 97% BMI 34.76 kg/m? Objective Physical Exam Constitutional: She is well-developed, well-nourished, and i n no distress. HENT: Head: Normocephalic and atraumatic. Right Ear: Tympanic membrane, external ear and ear canal nor mal. Left Ear: Tympanic membrane, external ear and ear canal norm al. Nose: Mucosal edema and rhinorrhea present. Mouth/Throat: Uvula is midline, oropharynx is clear and mois t and mucous membranes are normal. Neck: Normal range of motion. Neck supple. Cardiovascular: Normal rate, regular rhythm and normal heart sounds. Pulmonary/Chest: Effort normal and breath sounds normal. No respiratory distress. She has no wheezes. She has no rales. Neurological: She is alert. Skin: Skin is warm and dry. No rash noted. Psychiatric: Affect and judgment normal. Nursing note and vitals reviewed. ASSESSMENT/PLAN: 1. Fever, unspecified fever cause - ICD9: 780.60, ICD10: R50 .9 (primary diagnosis) - INFLUENZA AANDB MOLECULAR (POC) 2. Influenza A - ICD9: 487.1, ICD10: J10.1 Patient's influenza A is positive. She wanted a prescription for Tamiflu. Also given Tessalon and albuterol inhaler. Discussed red f lag symptoms when she would need to follow up with PCP or ER. Romana Whitehead PA-C Referring Provider: SELF [200] Allergies As of Date: 09/10/2019 Noted Allergy Reaction PENICILLINS 05/20/2005 5 - Intolerance Date Reviewed: 09/10/2019 Reviewed by: Aliza Graham LPN - Fully Assessed Reason for Visit: Flu Like Symptoms [267] Cmt: cough, fever and bodyaches x 1 day Primary Visit Diagnosis:Fever, unspecified fever cause [R50. 9] Other Visit Diagnosis:Influenza A [J10.1] Order(s):INFLUENZA AANDB MOLECULAR (POC) [[id number]] Order # : [id number]. #:[id number] oseltamivir (TAMIFLU) 75 mg capsuleTake 1 capsule by mouth t wice daily for 5 days.Disp: 10 capsuleRfl: 0 benzonatate (TESSALON PERLES) 100 mg capsuleTake 2 capsules by mouth three times daily as needed.Disp: 30 capsuleRfl: 0 albuterol HFA (PROAIR HFA) 90 mcg/actuation inhalerInhale 2 Puffs as instructed every 6 hours as needed.Disp: 1 InhalerRfl: 0 Prescriptions as of 09/10/2019 Sig: METHYLPREDNISOLONE 4 MG TABLE* Follow dosing instructions, t * BUPROPION HCL SR 150 MG TABLE* Take 1 tablet by mouth twice * FLUTICASONE PROPIONATE 50 MCG* Use 2 Sprays in each nostril * NAPROXEN SODIUM 220 MG CAPSULE Take 2 capsules by mouth twic * B COMPLEX-VITAMIN B12 ORAL Take by mouth. BIOTIN (BULK) MISC ERGOCALCIFEROL (VITAMIN D2) 1* Take 1 capsule by mouth two t * PANTOPRAZOLE 40 MG TABLET,DEL* Take 1 tablet by mouth daily * TOPIRAMATE 25 MG TABLET Take 25mgs in the evening for* PERFLUTREN LIPID MICROSPHERES* Inject 1.3 mL intravenously a * NICOTINE 21 MG/24 HR DAILY TR* Apply 1 Patch as directed mak * OSELTAMIVIR 75 MG CAPSULE Take 1 capsule by mouth twice* BENZONATATE 100 MG CAPSULE Take 2 capsules by mouth thre* ALBUTEROL SULFATE HFA 90 MCG/* Inhale 2 Puffs as instructed * Problem List As Of Date 09/10/2019 Noted Resolved Contact dermatitis and other eczema, due to uns*06/16/2006 0 11/25/2011 OTHER PSORIASIS [L40.8] 06/16/2006 OTHER ATOPIC DERMATITIS [L20.89] 06/16/2006 XEROSIS////SEBACEOUS GLAND DIS NEC [L73.8] 06/16/20062013 Unspecified pruritic disorder [L29.9] 08/04/2007 08/15/2013 EXCORIATIONS///SUPERFICIAL INJURY NEC [T07.XXXA]08/04/2007 HYPOPIGMENTATION///DYSCHROMIA UNSPECIFIED [L81.*08/04/2007 0 08/15/2013 CHRONIC CYSTITIS NEC [N30.20] 10/17/2008 Nontoxic multinodular goiter [E04.2] 04/19/2012 Hyperlipidemia [E78.5] 11/02/2012 Tobacco abuse disorder [Z72.0] 11/02/2012 IUD (intrauterine device) in place [Z97.5] 12/14/2012 Thyroid nodule [E04.1] 04/18/2013 Multinodular goiter [E04.2] 04/18/2013 10/12/2017 Atypical nevus of shoulder [D22.60] 08/15/2013 Melanocytic nevus of face [D22.30] 08/15/2013 Solar lentigo [L81.4] 08/15/2013 Epidermal cyst [L72.0] 08/15/2013 Melanocytic nevi of trunk [D22.5] 08/15/2013 Melanocytic nevi of upper extremity or shoulder*08/15/2013 Actinic skin damage [L57.8] 08/15/2013 Scars [L90.5] 08/15/2013 Acne vulgaris [L70.0] 08/15/2013 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 BENZONATATE 100 MG CAPSULE 30 c* 0 09/10/2019 Route: ORAL Sig: Take 2 capsules by mouth three times daily as needed. ALBUTEROL SULFATE HFA 90 MCG/ACTUATI* 1 In* 0 09/10/2019 Cmt: Generic or brand: dispense inhaler preferre d by patient/insurance unless BRITNEY flag is selected. Route: INHALATION Sig: Inhale 2 Puffs as instructed every 6 hours as needed. Letter Text Encounter Status:Closed by ROMANA WHITEHEAD PA-C on 09/10/19 progress on 2019-08 PROGRESS HNO ID: [id number] Normal 09-07-2019 [facility] Author: Tracy (Pt) Abiodun Fernandez ([id number]) Service: ? Author Type: Physical Therapist Type: Progress Notes Filed: 09/07/2019 3:38 PM Note Text: Episode Visit Count: Visit count could not be calculated. Ma ke sure you are using a visit which is associated with an episode. Therapist That Will Oversee The Plan Of Care: Tracy Rascon Start of Care Date: 08/01/19 Onset Date: 02/08/19 Patient Identified by Name and Date of : Yes REHABILITATION AND SPORTS THERAPY PHYSICAL THERAPY DISCONTINUANCE OF CARE PLAN OF CARE UPDATE: Assessment: Juany Castellano is discontinued from Physical Th erapy services due to Patient/Client declining further intervention.. Patie nt was seen for Visit count could not be calculated. Make sure you are u sing a visit which is associated with an episode. visits from Start of Ca re Date: 08/01/19 to 09/07/2019 and treatment included: Therapeutic ex ercise, Manual therapy, Patient/Family/Caregiver Education and Modalities: Ultrasound. Goals for Episode of Care: created on 08/01/19 through 09/29 Goals updated on 09/07/2019. Pt will demonstrate no soft tissue restrictions L lateral el bow region. (Not Met) [place] in home exercise program. (Met) Patient will decrease pain rating by 2 points to meet minima l clinical important difference for numeric pain rating scale. (Not Met ) Patient will increase strength of L UE to 5/5 to allow for r eturn to prior functional status. (Not Met) Perform carrying and full use of L UE without pain. (Not Met ) SUBJECTIVE: Patient Reason for Visit: Pt states she tried to wear a tennis elbow strap and is was not comfortable. She also was not abl e to wear it under a long sleeve shirt. She notes she has not noticed mus ch difference in the pain and would like to just continue doing the exerci ses on her own. Pain: Pain Pain Level: 2 Pain Location: Elbow - Left Post Treatment Pain Post Treatment Pain Level: 2 Post Treatment Pain Location: Elbow - Left PROMIS Scales Higher is Better 12/02/2016 08/01/2019 Phys Func - Score - 47 (within normal limits) Phys Func - Percentile - 38 % Social Roles - Score - 53 (within normal limits) Social Role - Percentile - 62 % GH Physical - Score - Incomplete GH Physical - Percentile 41 % - GH Mental - Score - 53.3 GH Mental - Percentile 53 % 63 % T-scores: mean of general population = 50. 5 points is clini april meaningfully difference Percentiles provide an indication of how the patient's score ranks in relation to the general population. Higher percentile angelo gs indicate better function/quality of life. 50th percentile is the aver age of the general population and indicates half of respondents had a w orse score. Lower is Better 08/01/2019 Fatigue - Score 48 (within normal limits) Fatigue - Percentile 58 % T-scores: mean of general population = 50. 5 points is clini april meaningfully difference Percentiles provide an indication of how the patient's score ranks in relation to the general population. Higher percentile angelo gs indicate better function/quality of life. 50th percentile is the aver age of the general population and indicates half of respondents had a w orse score. OBJECTIVE MEASURES WITH LEVEL OF FUNCTION: Elbow Observations Comments: soft tissue restrictions remain palpable during ma nual techniques at proximal L extensor muscle belly and musculote ndinous junction. UE AROM L Wrist Extension: 80 Degrees(with mild pulling) L Wrist Flexion: 75 Degrees UE and Cervical Strength L Elbow Extension (C7): 4+/5 L Elbow Flexion (C6): 5/5 TREATMENT: Therapeutic Exercise: 1: wrist extensor stretch 3 x 30 sec holds 2: Education in using tennis ball or lacrosse ball for self- soft tissue mobilization L extensor tissue. Skilled Intervention: Patient was educated in proper exercis e technique and purpose for exercises. Reviewed and educated patient on additions/changes for home exercise program including use of tennis/lacrosse ball for self-soft tissue mobilization. Skilled judgment was provided in selection of appropriate in terventions. Correct performance of therapeutic exercises was facilitated with verbal cuing. Patient education as noted. Manual Therapy: 1: IASTM left forearm and epicondyle x 15 minutes with push to tolerance. Skilled Intervention: Manual skills to improve joint mobilit y, ROM, and decrease pain. Utilized anatomy knowledge of the therapist, and assessment of patient's response to intervention. Modalities: Ultrasound Body Region Treated - Ultrasound: L lateral epicondyle and p roximal extensor tendons/muscle fibers Patient Position: seated in chair with L UE propped on plint h Mode: 100% constant w/cm2: 1.2 MHZ: 1 Minutes: 10 See flowsheet for details regarding treatment. Skilled Inter vention: Proper administration and selection of modality based on cli nical presentation, deficits, and needs. Patient response monitore d throughout treatment. Billing: [facility]: Therapeutic Exercise ([id number]): 1:1 time: 12 minutes (1 unit: 8-22 mins) Manual Therapy ([id number]): 1:1 time: 17 minutes (1 unit: 8-22 m ins) Modalities Ultrasound ([id number]) 1:1 time: 10 minutes1 unit: 8- 22 mins Total time: 39 minutes Tracy Rascon PT PROGRESS HNO ID: [id number] Normal 09-07-2019 [facility] Author: Tracy (Pt) Abiodun Fernandez ([id number]) Service: ? Author Type: Physical Therapist Type: Progress Notes Filed: 09/07/2019 3:38 PM Note Text: cntherapy on 09-07 CNTHERAPY OT/PT/Speech Visit (PTWS) Normal 08-12 [place] JUANY CASTELLANO ([id number]) 1975 Clinic Date Time Provider Department [place] 09/07/19 2:30 PM TRACY RASCON (PT) PTWS ([id number]) Date Time Provider Department [place] 09/07/2019 2:30 PM [id number] RASCON (PT) PTWS [facility] JOSÉ MIGUEL Keller Reason for Visit: PT Progress Note [5116] PT Discharge [752] Reason For Visit History Recorded Primary Visit Diagnosis:Left elbow pain [M25.522] Allergies As of Date: 09/07/2019 Noted Allergy Reaction PENICILLINS 05/20/2005 5 - Intolerance Date Reviewed: 09/05/2019 Reviewed by: Edel Cuba Ma - Fully Assessed Prescriptions as of 09/07/2019 Sig: METHYLPREDNISOLONE 4 MG TABLE* Follow dosing instructions, t * BUPROPION HCL SR 150 MG TABLE* Take 1 tablet by mouth twice * FLUTICASONE PROPIONATE 50 MCG* Use 2 Sprays in each nostril * NAPROXEN SODIUM 220 MG CAPSULE Take 2 capsules by mouth twic * B COMPLEX-VITAMIN B12 ORAL Take by mouth. BIOTIN (BULK) MISC ERGOCALCIFEROL (VITAMIN D2) 1* Take 1 capsule by mouth two t * PANTOPRAZOLE 40 MG TABLET,DEL* Take 1 tablet by mouth daily * TOPIRAMATE 25 MG TABLET Take 25mgs in the evening for* PERFLUTREN LIPID MICROSPHERES* Inject 1.3 mL intravenously a * NICOTINE 21 MG/24 HR DAILY TR* Apply 1 Patch as directed mak * Progress Notes: Tracy Rascon PT 09/07/2019 3:38 PM Signed Tracy Rascon, PT 09/07/2019 3:38 PM Signed Episode Visit Count: Visit count could not be calculated. Make sure you are using a visit which is associated with an episode. Therapist That Will Oversee The Plan Of Care: Tracy Rascon Start of Care Date: 08/01/19 Onset Date: 02/08/19 Patient Identified by Name and Date of : Yes [facility] PHYSICAL THERAPY DISCONTINUANCE OF CARE PLAN OF CARE UPDATE: Assessment: Juany Castellano is discontin ued from Physical Therapy services due to Patient/Client declining further intervention .. Patient was seen for Visit count could not be calculated. Make sure you are using a vis it which is associated with an episode. visits from Start of Care Date: 08/01/19 to 09/07/2019 and treatment included: Therapeutic exercise, Manu al therapy, Patient/Family/Caregiver Education and Modalities: Ultrasoun d. Goals for Episode of Care: created on 08/01/19 through 09/29 Goals updated on 09/07/2019. Pt will demonstrate no soft tissue restrictions L late ral elbow region. (Not Met) Rincon in home exercise program. (Met) Patient will decrease pain rating by 2 points to meet minima l clinical important difference for numeric pain rating scale. (Not Met ) Patient will increase strength of L UE to 5/5 to allow for r eturn to prior functional status. (Not Met) Perform carrying and full use of L UE without pain. (Not Met ) SUBJECTIVE: Patient Reason f or Visit: Pt states she tried to wear a tennis elbow strap and is was not comfort able. She also was not able to wear it under a long sleeve shirt. She notes she has not noticed musch diff erence in the pain and would like to just continue doing the exercises on her own. Pain: Pain Pain Level: 2 Pain Location: Elbow - Left Post Treatment Pain Post Treatment Pain Level: 2 Post Treatment Pain Location: Elbow - Left PROMIS Scales Higher is Better 12/02/2016 08/01/2019 Phys Func - Score - 47 (within normal limits) Phys Func - Percentile - 38 % Social Roles - Score - 53 (within normal limits) Social Role - Percentile - 62 % GH Physical - Score - Incomplete GH Physical - Percentile 41 % - GH Mental - Score - 53.3 GH Mental - Percentile 53 % 63 % T-scores: mean of general population = 50. 5 points is clini april meaningfully difference Percentiles provide an indication of how the patient's score ranks in relation to the general population. Higher percentile rankings indica te better function/quality of life. 50th percentile is the average of the general population and indicates half of respondents had a worse sco re. Lower is Better 08/01/2019 Fatigue - Score 48 (within normal limits) Fatigue - Percentile 58 % T-scores: mean of general population = 50. 5 points is clini april meaningfully difference Percentiles provide an indication of how the patient's score ranks in relation to the general population. Higher percentile rankings indica te better function/quality of life. 50th percentile is the average of the general population and indicates half of respondents had a worse sco re. OBJECTIVE MEASURES WITH LEVEL OF FUNCTION: Elbow Observations Comments: soft tissue restrictions remai n palpable during manual techniques at proximal L extensor muscle belly and musculotendinous juncti on. UE AROM L Wrist Extension: 80 Degrees(with mild pulling) L Wrist Flexion: 75 Degrees UE and Cervical Strength L Elbow Extension (C7): 4+/5 L Elbow Flexion (C6): 5/5 TREATMENT: Therapeutic Exercise: 1: wrist extensor stretch 3 x 30 sec holds 2: Education in using tennis ball or lacrosse ball for self- soft tissue mobilization L extensor tissue. Skilled Intervention: Patient was educated in proper exerc ise technique and purpose for exercises. Reviewed and educated patient on additions/changes for home exercise program including use of tennis/lacrosse ball for self-soft tissue m obilization. Skilled judgment was provided in selection of appropriate in terventions. Correct performance of thera peutic exercises was facilitated with verbal cuing. Patient education as noted. Manual Therapy: 1: IASTM left forearm and epicondyle x 15 minutes with push to tolerance. Skilled Intervention: Manual skills to improve joint mobility, ROM, and decrease pain. Utilized anatomy knowledge of the therapist, and assessment of patient's response to intervention. Modalities: Ultrasound Body Region Treated - Ultrasound: L lateral epicondyle and proximal extensor tendons/muscle fibers Patient Position: seated in chair with L UE propped on plint h Mode: 100% constant w/cm2: 1.2 MHZ: 1 Minutes: 10 See flowsheet for details regarding treatment. Skilled Int ervention: Proper administration and selection of modality based on clinical p resentation, deficits, and needs. Patient response monitored throughout t reatment. Billing: [facility]: Therapeutic Exercise ([id number]): 1:1 time: 12 minutes (1 unit: 8-22 mins) Manual Therapy (00153): 1:1 time: 17 minutes (1 unit: 8-22 m ins) Modalities Ultrasound (86222) 1:1 time: 10 minutes1 unit: 8- 22 mins Total time: 39 minutes Tracyannika Rascon, PT xr thoracic 3v ap/lat/swimmers on 2019-09-05 XR THORACIC 3V * * *Final Report* * * Normal [place] AP/LAT/SWIMMERS DATE OF EXAM: Sep 05 2019 11:50AM Clinic WOX 5261 - XR THORACIC 3V AP/LAT/SWIMMERS / [id number] [place] PROCEDURE REASON: Mid back pain ([id number]) * * * * Physician Interpretation * * * * EXAM: LUMBAR SPINE, 3 VIEWS; THORACIC SPINE, 3 VIEWS CLINICAL: 43-year-old female with back pain TECHNIQUE: AP, lateral coned down lateral ; AP, lateral, swi mmer's view the thoracic spine COMPARISON: None RESULTS: Counting reference: Anatomic Variant: None. The fir st rib-bearing vertebral bodies considered T1. L4-5 is consider ed the level of the iliac crest and assume there are 5 lumbar-type verteb bridget. There are 12 rib-bearing vertebral body. Minimal curve convex righ t centered at T4/T5. Mild disc space narrowing with small osteophytes a nteriorly. Vertebral bodies and pedicles are intact. Lumbar spine: Vertebral bodies and pedicles are intact. Prom inent lumbar lordosis. Mild narrowing of L3/L4 and L4/L5 disc spaces with small osteophytes laterally. The remaining disc spaces are maintai clary. Mild facet narrowing in lower lumbar spine at L4/L5 and L5/S1. IMPRESSION: MILD CURVE OF THE THORACIC SPINE TO THE RIGHT WI TH DEGENERATIVE DISC DISEASE. MILD DEGENERATIVE DISC DISEASE AT L3/L4 AND L4/L5 AND MILD F ACET DEGENERATIVE CHANGES LOWER LUMBAR SPINE. Gas Plumber: YOGESH Transcribe Date/Time: Sep 05 2019 3:01P Dictated by : MILEY PENALOZA MD This examination was interpreted and the report reviewed and electronically signed by: MILEY PENALOZA MD on Sep 05 2019 3:06PM EST [id number] xr lumbar 3v ap/lat/l5-s1 on 2019-09-05 XR LUMBAR 3V * * *Final Report* * * Normal 08-12 [place] AP/LAT/L5-S1 DATE OF EXAM: Sep 05 2019 11:50AM Clinic WOX 5228 - XR LUMBAR 3V AP/LAT/L5-S1 / [place] PROCEDURE REASON: Mid back pain ([id number]) * * * * Physician Interpretation * * * * EXAM: LUMBAR SPINE, 3 VIEWS; THORACIC SPINE, 3 VIEWS CLINICAL: 43-year-old female with back pain TECHNIQUE: AP, lateral coned down lateral ; AP, lateral, swi mmer's view the thoracic spine COMPARISON: None RESULTS: Counting reference: Anatomic Variant: None. The fir st rib-bearing vertebral bodies considered T1. L4-5 is consider ed the level of the iliac crest and assume there are 5 lumbar-type verteb bridget. There are 12 rib-bearing vertebral body. Minimal curve convex righ t centered at T4/T5. Mild disc space narrowing with small osteophytes a nteriorly. Vertebral bodies and pedicles are intact. Lumbar spine: Vertebral bodies and pedicles are intact. Prom inent lumbar lordosis. Mild narrowing of L3/L4 and L4/L5 disc spaces with small osteophytes laterally. The remaining disc spaces are maintai clary. Mild facet narrowing in lower lumbar spine at L4/L5 and L5/S1. IMPRESSION: MILD CURVE OF THE THORACIC SPINE TO THE RIGHT WI TH DEGENERATIVE DISC DISEASE. MILD DEGENERATIVE DISC DISEASE AT L3/L4 AND L4/L5 AND MILD F ACET DEGENERATIVE CHANGES LOWER LUMBAR SPINE. Gas Plumber: YOGESH Transcribe Date/Time: Sep 05 2019 3:01P Dictated by : MILEY PENALOZA MD This examination was interpreted and the report reviewed and electronically signed by: MILEY PENALOZA MD on Sep 05 2019 3:06PM EST [id number] progress on 2019-08 PROGRESS HNO ID: [id number] Normal 09-05-2019 [facility] Author: Marie Cisneros (Rt) Fiona Johnson [place] ([id number]) Service: ? Author Type: Vice President Of Consulting Services Type: Progress Notes Filed: 09/05/2019 11:50 AM Note Text: Radiology Service Progress Note PATIENT NAME: Juany Castellano DATE OF SERVICE: September 05, 2019 TIME: 11:30 AM PATIENT IDENTITY VERIFICATION COMPLETED USING TWO (2) IDENTI FIERS: Name and Date of confirmed by patient verbally. PATIENT GENDER DATA: Female. status: : No status: NO. PATIENT RELEVANT IMPLANT DATA REVIEWED: Not Applicable RADIOLOGY DEPARTMENT: General X-ray: Exam(s) Completed: Spin e X-Ray(s): Thoracic and Lumbar AP / LAT / L5-S1 PERIPHERAL IV DATA: Not applicable SIGNED BY: RT Severiano September 05, 2019 11:30 AM PROGRESS HNO ID: [id number] Normal 09-05-2019 [facility] Author: Kojo (Molder Feeder) Eusebio [place] ([id number]) Service: ? Author Type: Nurse Practitioner Type: Progress Notes Filed: 09/05/2019 12:35 PM Note Text: HPI/CC: Juany Castellano is a 43 year old female who presents with complaints of chronic back pain and intermittent dizziness. Dizziness/lightheadedness: over the last 1-2 weeks. Feels li ke her head is spinning. Denies nausea or vomiting with episodes. No syn cope. Recent evaluation by cardiology last week where dizziness and back/ chest pain were discussed. CT was ordered, since denied by insurance. C ardiology does not feel dizziness or chest pain are cardiac in nature. Associated symptoms include ear throbbing and temporary hear ing loss of the left ear with dizzy episode yesterday. Episode occurred while standing/bending forward. Resolved after sitting down and dr inking water. Drinks 2 to 4 24 oz bottles of water per day. No fever or chills or other sinus symptoms. No recent head injury. Limited caffeine or ETOH use. Patient is a smoker. Mid Back/Bilateral rib pain: Chronic for the last several months, >6 months The pain is located in mid back extending across both sides to under her ribs. Pain does not otherwise radiate. Described as aching and rated 3 out of 10. Pain is worse with routine activities worsening though th e day and better with heating pad. Ibuprofen- more for headaches Associated symptoms include numbness to left fingertips when stretching left arm and intermittent chest pressure/pain. Pain with ins piration. Denies leg weakness, numbness or tingling. No bowel or bladder incontinence. No fever or unintended weight loss.. Injury: None recent. Hx lumbar sprain and whiplash Chiropractor last week- no improvement. REVIEW OF SYSTEMS: as above otherwise non-contributory. Reviewed relevant PMHx, PSHx, Social Hx, current medications and allergies. OBJECTIVE/Physical Exam: BP 132/82 Pulse 74 Temp 36.8 ?C (98.3 ?F) (Temporal) R lorenzo 16 Wt 108.9 kg (240 lb) SpO2 96% BMI 34.93 kg/m? Gen: Pleasant female in no distress Head: Normocephalic Eyes: conjunctiva/corneas normal, EOMI Ears: R TM - clear with good landmarks, nl light reflex, L T M - clear with good landmarks, nl light reflex Heart: regular rate and rhythm, without murmur Lungs: Lungs clear to auscultation, No wheezing, rales or rh onchi Gait: normal Spinal Tenderness: No Muscle Spasm: No Strength Upper and Lower extremities: normal Sensory exam Upper and Lower Extremities: normal Range of Motion Spine: normal ROM with pain Neuro: Awake, alert and oriented x 3, Cranial nerves II-XII grossly intact, Normal gait, No involuntary motions. and negative fi ndings: R handed., speech normal, muscle tone normal, muscle strength normal, rapid alternating movements normal, finger to nose normal Lou-Hallpike: +left side ASSESSMENT/PLAN: 1. Dizziness - ICD9: 780.4, ICD10: R42 (primary diagnosis) - No acute or concerning exam findings. Hemodynamically stab le. Physical exam findings most consistent with BPPV. - Instructions for sav maneuver provided - Discussed importance of adequate water intake - BASIC METABOLIC PNL - CBC + DIFF 2. Mid back pain - ICD9: 724.5, ICD10: M54.9 - Chronic musculoskeletal pain. Unrelieved with chiropractor tx, OTC NSAIDs and heat - Imaging and medrol dose pack as ordered - Recommend weight loss with diet and exercise - Consider PT referral vs spine - XR THORACIC GENERAL 3V AP/LAT/SWIMMERS - XR LUMBAR GENERAL 3V AP/LAT/L5-S1 - METHYLPREDNISOLONE 4 MG TABLETS IN A DOSE PACK 3. Upper back pain - ICD9: 724.5, ICD10: M54.9 - With inspiration. Given patient's reported worsening SOB w ill follow up with labs and imaging as order to rule out PE. - No SOB appreciated on exam, patient able to converse in co mplete sentences without any distress - D-DIMER - METHYLPREDNISOLONE 4 MG TABLETS IN A DOSE PACK - D-DIMER 4. Costochondral chest pain - ICD9: 786.52, ICD10: R07.1 - Ice PRN - METHYLPREDNISOLONE 4 MG TABLETS IN A DOSE PACK 5. Vertigo, benign paroxysmal, left - ICD9: 386.11, ICD10: H 81.12 - Sav maneuver at home as per handout instructions - Follow up in 1 week if no improvement 6. SOB (shortness of breath) - ICD9: 786.05, ICD10: R06.02 - D-DIMER Prescription instructions reviewed with patient as applicabl e. Potential red flag symptoms discussed with the patient. Reviewed appro priate action plan to take if red flag symptoms occur. Patient agreeable t o treatment plan. Kojo Farrar APRN.JESSICA d dimer on D dimer Test sent to [facility]ilippo <500 Normal 0 [facility]. ([id number]) Comment: Result Comment: Account Cred ited HIDE cnov on 2019-09-05 CNOV Office Visit (INTMWS) Normal 09-05-19 [place] [facility] JUANY CASTELLANO ([id number]) 1975 [facility] Date Time Provider Department ([id number]) 09/05/19 10:40 AM KOJO FARRAR ([facility]) INTMWS During your visit today, we recorded the following informati on about you: Temperature Pulse Respiration Blood pressure 98.3 degrees 74/minute 16/minute 132/82 Weight 108.9 kg Kojo Farrar APRN.JESSICA 09/05/2019 12:35 PM Signed HPI/CC: Juany Castellano is a 43 year old female who presents with complaints of chronic back pain and intermittent dizziness. Dizziness/lightheadedness: over the last 1-2 weeks. Feels li ke her head is spinning. Denies nausea or vomiting with episodes. No syncop e. Recent evaluation by cardiology last week where dizziness and andrew k/chest pain were discussed. CT was ordered, since denied by insurance. Cardiology does not feel dizziness or chest pain are cardiac in nature. Associated symptoms include ear throbbing and temporary he aring loss of the left ear with dizzy episode yesterday. E pisode occurred while standing/bending forward. Resolved after sitting down and drinking water. Drinks 2 to 4 24 oz bottles of water per day. No fever or chills or other sinus symptoms. No recent head injury. Limited caffeine or ETOH use. Patient is a smoker. Mid Back/Bilateral rib pain: Chronic for the last several months, >6 months The pain is located in mid back extendin g across both sides to under her ribs. Pain does not otherwise radiate. Described as aching and rated 3 out of 10. Pain is worse with routine activities worsening though out the day and better with heating pad. Ibuprofen- more for headaches Associated symptoms include numbness to left fingertip s when stretching left arm and intermittent chest pressure/pain. Pain with inspirat ion. Denies leg weakness, numbness or tingling. No bowel or bladder incontinence. No fever or unintended weight loss.. Injury: None recent. Hx lumbar sprain and whiplash Chiropractor last week- no improvement. REVIEW OF SYSTEMS: as above otherwise non-contributory. Reviewed relevant PMHx, PSHx, Social Hx, current medicatio ns and allergies. OBJECTIVE/Physical Exam: BP 132/82 Pulse 74 Temp 36.8 ?C (98.3 ?F) (Temporal) R lorenzo 16 Wt 108.9 kg (240 lb) SpO2 96% BMI 34.93 kg/m? Gen: Pleasant female in no distress Head: Normocephalic Eyes: conjunctiva/corneas normal, EOMI Ears: R TM - clear with good landmarks, nl light reflex, L TM - clear with good landmarks, nl light reflex Heart: regular rate and rhythm, without murmur Lungs: Lungs clear to auscultation, No wheezing, rales or rh onchi Gait: normal Spinal Tenderness: No Muscle Spasm: No Strength Upper and Lower extremities: normal Sensory exam Upper and Lower Extremities: normal Range of Motion Spine: normal ROM with pain Neuro: Awake, alert and oriented x 3, Cranial nerves II-XI I grossly intact, Normal gait, No involuntary motions. and negativ e findings: R handed., speech normal, muscle tone normal, muscle strength normal, rapid alternating movements normal, finger to nose normal Lou-Hallpike: +left side ASSESSMENT/PLAN: 1. Dizziness - ICD9: 780.4, ICD10: R42 (primary diagnosis) - No acute or concerning exam findings. Hemodyna mically stable. Physical exam findings most consistent with BPPV. - Instructions for sav maneuver provided - Discussed importance of adequate water intake - BASIC METABOLIC PNL - CBC + DIFF 2. Mid back pain - ICD9: 724.5, ICD10: M54.9 - Chronic musculoskeletal pain. Unrelieved with chiropract or tx, OTC NSAIDs and heat - Imaging and medrol dose pack as ordered - Recommend weight loss with diet and exercise - Consider PT referral vs spine - XR THORACIC GENERAL 3V AP/LAT/SWIMMERS - XR LUMBAR GENERAL 3V AP/LAT/L5-S1 - METHYLPREDNISOLONE 4 MG TABLETS IN A DOSE PACK 3. Upper back pain - ICD9: 724.5, ICD10: M54.9 - With inspiration. Given patient's repo rted worsening SOB will follow up with labs and imaging as order to rule out PE. - No SOB appreciated on exam, patient able to converse in complete sentences without any distress - D-DIMER - METHYLPREDNISOLONE 4 MG TABLETS IN A DOSE PACK - D-DIMER 4. Costochondral chest pain - ICD9: 786.52, ICD10: R07.1 - Ice PRN - METHYLPREDNISOLONE 4 MG TABLETS IN A DOSE PACK 5. Vertigo, benign paroxysmal, left - ICD9: 386.11, ICD10: H 81.12 - Sav maneuver at home as per handout instructions - Follow up in 1 week if no improvement 6. SOB (shortness of breath) - ICD9: 786.05, ICD10: R06.02 - D-DIMER Prescription instructions reviewed with patient as nery licable. Potential red flag symptoms discussed with the patient. Review ed appropriate action plan to take if red flag symptoms occur. Patient agreeable to treatm ent plan. Kojo Farrar APRN.EDUCATION SITE MANAGER Referring Provider: SELF [200] Allergies As of Date: 09/05/2019 Noted Allergy Reaction PENICILLINS 05/20/2005 5 - Intolerance Date Reviewed: 09/05/2019 Reviewed by: Edel Cuba Ma - Fully Assessed Reason for Visit: Back Pain [12] Cmt: Mid back pain ongoing Primary Visit Diagnosis:Dizziness [R42] Other Visit Diagnoses:Mid back pain [M54.9] Upper back pain [M54.9] Costochondral chest pain [R07.1] Vertigo, benign paroxysmal, left [H81.12] SOB (shortness of breath) [R06.02] Order(s):XR THORACIC GENERAL 3V AP/LAT/SWIMMERS [1185156] Order #: [id number] FUTURE BASIC METABOLIC PNL [SQBMP] Order #: [id number] FUTURE CBC + DIFF [SQCBCDIF] Order #: [id number] FUTURE XR LUMBAR GENERAL 3V AP/LAT/L5-S1 [[id number]] Order #: [id number] FUTURE methylPREDNISolone (MEDROL, CHI,) 4 mg Dose-PackFollow dosin g instructions, take with food.Disp: 1 PackageRfl: 0 D-DIMER [SQDDMER] Order #: [id number] FUTURE Prescriptions as of 09/05/2019 Sig: METHYLPREDNISOLONE 4 MG TABLE* Follow dosing instructions, t * BUPROPION HCL SR 150 MG TABLE* Take 1 tablet by mouth twice * FLUTICASONE PROPIONATE 50 MCG* Use 2 Sprays in each nostril * NAPROXEN SODIUM 220 MG CAPSULE Take 2 capsules by mouth twic * B COMPLEX-VITAMIN B12 ORAL Take by mouth. BIOTIN (BULK) MISC ERGOCALCIFEROL (VITAMIN D2) 1* Take 1 capsule by mouth two t * PANTOPRAZOLE 40 MG TABLET,DEL* Take 1 tablet by mouth daily * TOPIRAMATE 25 MG TABLET Take 25mgs in the evening for* PERFLUTREN LIPID MICROSPHERES* Inject 1.3 mL intravenously a * NICOTINE 21 MG/24 HR DAILY TR* Apply 1 Patch as directed mak * Problem List As Of Date 09/05/2019 Noted Resolved Contact dermatitis and other eczema, due to uns*06/16/2006 0 11/25/2011 OTHER PSORIASIS [L40.8] 06/16/2006 OTHER ATOPIC DERMATITIS [L20.89] 06/16/2006 XEROSIS////SEBACEOUS GLAND DIS NEC [L73.8] 06/16/20062013 Unspecified pruritic disorder [L29.9] 08/04/2007 08/15/2013 EXCORIATIONS///SUPERFICIAL INJURY NEC [T07.XXXA]08/04/2007 HYPOPIGMENTATION///DYSCHROMIA UNSPECIFIED [L81.*08/04/2007 0 08/15/2013 CHRONIC CYSTITIS NEC [N30.20] 10/17/2008 Nontoxic multinodular goiter [E04.2] 04/19/2012 Hyperlipidemia [E78.5] 11/02/2012 Tobacco abuse disorder [Z72.0] 11/02/2012 IUD (intrauterine device) in place [Z97.5] 12/14/2012 Thyroid nodule [E04.1] 04/18/2013 Multinodular goiter [E04.2] 04/18/2013 10/12/2017 Atypical nevus of shoulder [D22.60] 08/15/2013 Melanocytic nevus of face [D22.30] 08/15/2013 Solar lentigo [L81.4] 08/15/2013 Epidermal cyst [L72.0] 08/15/2013 Melanocytic nevi of trunk [D22.5] 08/15/2013 Melanocytic nevi of upper extremity or shoulder*08/15/2013 Actinic skin damage [L57.8] 08/15/2013 Scars [L90.5] 08/15/2013 Acne vulgaris [L70.0] 08/15/2013 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 Encounter Status:Closed by KOJO FARRAR CNP on 09/05/19 cbc and differential on 2019-09-05 Abs Baso 0.09 <0.11 k/uL Normal 09-05-[address] [facility] ([id number]) Comment: Performed By: #### CBCRakesh HERNANDEZ MP ####[place] [address], [place] [phone]- [phone] Abs Ciales 0.71 <0.87 k/uL Normal 09-05-[address] [facility] ([id number]) Comment: Performed By: #### CBCRakesh HERNANDEZ MP ####[facility] [phone]- [phone] Abs Neut 5.41 1.45-7.50 k/uL Normal 09-05-[address] [facility] ([id number]) Comment: Performed By: #### CBCRakesh HERNANDEZ MP ####[place] [address], [place] [phone]- [phone] Absolute nRBC <0.01 <0.01 Normal 09-05-2019 [facility] ([id number]) Comment: Performed By: #### CBCMOUSTAPHAF B MP ####[facility], [place] [phone]- [phone] Basophils/100 WBC (Bld) 1.0 % Normal [address] [facility] ([id number]) Comment: Performed By: #### CBCMOUSTAPHAF B MP ####[place] [address], [place] [phone]- [phone] DTYPE Auto Diff Normal 09-05-[address] [facility] ([id number]) Comment: Performed By: #### CBCDIF, B MP ####[facility]leveland[place], [place] [phone]- [phone] Eosinophils (Bld) [#/Vol] 0.27 <0.46 k/uL Normal 08-[address] [facility] ([id number]) Comment: Performed By: #### CBCDIF, B MP ####[place] [address]leveland[place] [phone]- [phone] Eosinophils/100 WBC (Bld) 3.0 % Normal 08-[address] [facility] ([id number]) Comment: Performed By: #### CBCDAVID B MP ####[place] [address]level[address] [phone]- [phone] Erythrocyte distribution 12.9 11.5-15.0 % Normal 09-05 [facility] width (RBC) [Ratio] [place] ([id number]) Comment: Performed By: #### CBCDIF B MP ####[place] [address]level[address] [phone]- [phone] Hematocrit (Bld) [Volume 45.1 36.0-46.0 % Normal 09-05 [facility] fraction] [place] ([id number]) Comment: Performed By: #### CBCDIF B MP ####[place] [address] [phone]- [phone] Hemoglobin (Bld) 15.0 11.5-15.5 g/dL Normal 09-05-2019 [facility] [Mass/Vol] [place] ([id number]) Comment: Performed By: #### CBCDIF, B MP ####[place] [address] [phone]- [phone] Lymphocytes (Bld) [#/Vol] 2.47 1.00-4.00 k/uL Normal 08-[address] [facility] ([id number]) Comment: Performed By: #### CBCDIF B MP ####[place] [address], [place] [phone]- [phone] Lymphocytes/100 WBC (Bld) 27.6 % Normal 08-[address] [facility] ([id number]) Comment: Performed By: #### Rakesh FOX MP ####[facility], [place] [phone]- [phone] MCH (RBC) [Entitic mass] 30.9 26.0-34.0 pG Normal 09-[address] [facility] ([id number]) Comment: Performed By: #### Rakesh FOX MP ####[facility], [place] [phone]- [phone] MCHC (RBC) [Mass/Vol] 33.3 30.5-36.0 g/dL Normal 09-05-[address] [facility] ([id number]) Comment: Performed By: #### Rakesh FOX MP ####[facility], [place] [phone]- [phone] MCV (RBC) [Entitic vol] 93.0 80.0-100.0 fL Normal 09-[address] [facility] ([id number]) Comment: Performed By: #### Rakesh FOX MP ####[facility], [place] [phone]- [phone] Monocytes/100 WBC (Bld) 7.9 % Normal [address] [facility] ([id number]) Comment: Performed By: #### CBCRakesh HERNANDEZ MP ####[facility]ClevelLoc[place], [place] [phone]- [phone] Neutrophils/100 WBC (Bld) 60.5 % Normal 08-[address] [facility] ([id number]) Comment: Performed By: #### CBCRakesh HERNANDEZ MP ####[facility]ClevelLoc[place], [place] [phone]- [phone] NRBCs 0.0 0 /100 WBC Normal 09-05-[address] [facility] ([id number]) Comment: Performed By: #### CBCDAVID B MP ####[place] [address], [place] [phone]- [phone] Platelet mean volume 10.7 9.0-12.7 fL Normal 0 [facility] (Bld) [Entitic vol] [place] ([id number]) Comment: Performed By: #### CBCMOUSTAPHAF B MP ####[place] [address], [place] [phone]- [phone] Platelets (Bld) [#/Vol] 300 150-400 k/uL Normal [address] [facility] ([id number]) Comment: Performed By: #### RUDDY B MP ####[place] [address], [place] [phone]- [phone] RBC (Bld) [#/Vol] 4.85 3.90-5.20 m/uL Normal 09-05-2019 [facility] ([id number]) Comment: Performed By: #### CBCDAVID B MP ####[place] [address] [place], [place] [phone]- [phone] WBC (Bld) [#/Vol] 8.95 3.70-11.00 k/uL Normal 09-05-[address] [facility] ([id number]) Comment: Performed By: #### RUDDY B MP ####[address] AvL[place], [place] [phone]- [phone] basic metabolic panl on 2019-09-05 Anion gap [Moles/Vol] 10 9-18 mmol/L Normal 09-05-[address] [facility] ([id number]) Comment: Performed By: #### CBCDAVID B MP ####[address] Av[address], [place] [phone]- [phone] Calcium [Mass/Vol] 9.6 8.5-10.2 mg/dL Normal 09-05-[address] [facility] ([id number]) Comment: Performed By: #### CBCDAVID B MP ####[facility], [place] [phone]- [phone] Chloride [Moles/Vol] 105 97-105 mmol/L Normal [address] [facility] (78224) Comment: Performed By: #### Rakesh FOX MP ####[place] [address], [place] [phone]- [phone] CO2 [Moles/Vol] 25 22-30 mmol/L Normal 09-05-2019 [facility] ([id number]) Comment: Performed By: #### Rakesh FOX MP ####[place] [address], [place] [phone] Creatinine [Mass/Vol] 0.84 0.58-0.96 mg/dL Normal 09-05-[address] [facility] (38972) Comment: Performed By: #### Rakesh FOX MP ####[place] [address], [place] [phone]- [phone] eGFR- Amer. >60 Normal 09-05-[address] [facility] (69072) Comment: Performed By: #### Rakesh FOX MP ####[place] [address] [place], [place] [phone]- [phone] GFR/1.73 sq M predicted >60 mL/min/{1.73_m2} Normal 09-05-2019 [facility] among non-blacks MDRD [place] ([id number]) (S/P/Bld) [Vol rate/Area] Comment: Result Comment: eGFR (Estima florencio GFR) Units of measure: mL/min/1.73 meters squared eGFR is derived from the ree xpressed MDRD Study equation using the following parameters: serum creatinine, age, gender and race. The creatinine assay has been calibrated to be traceable to IDMS. An eGFR <60 mL/min/1.73m2 fo r >3 months is consistent with chronic kidney disease. Refer to KDOQI guidelines for clinical interpretation. In patients with unstable re nal function, e.g. those with acute kidney injury, the eGFR may not accurately reflect actual GFR. Performed By: #### Rakesh FOX MP ####[facility] [address] [place], [place] [phone]- [phone] Glucose [Mass/Vol] 100 74-99 mg/dL High 09-05-[address] [facility] (88203) Comment: Result Comment: The [place] [employer] (ADA) provides guidance for cutoff values for fasting glucose and random glucose. The ADA defines fasting as no caloric intake for at least 8 hours. Fas ting plasma glucose results between 100 to 125 mg/dL indicate increased risk for diabetes (prediabetes). Fasting plasma glucose resul ts greater than or equal to 126 mg/dL meet the criteria for diagnosis of diabetes. In the absence of unequivocal hyperglycemia, results should be confirmed by repeat testing. In a patient with classic s ymptoms of hyperglycemia or hyperglycemic crisis, random plasma glucose results greater than or equal to 200 mg/dL meet the criteria for diagnosis of diabetes. Reference: Standards of [facility] Care in Diabetes 2016, [place] Diabetes Association. Diabetes Care. 2016.39(Suppl 1). Performed By: #### Rakesh FOX MP ####[facility], [place] [phone]- [phone] Potassium [Moles/Vol] 4.5 3.7-5.1 mmol/L Normal 09-05-[address] [facility] ([id number]) Comment: Performed By: #### Rakesh FOX MP ####[facility] [place], [place] [phone]- [phone] Sodium [Moles/Vol] 140 136-144 mmol/L Normal 09-05-[address] [facility] ([id number]) Comment: Performed By: #### Rakesh FOX MP ####[facility] [address] [place], [place] [phone]- [phone] Urea nitrogen [Mass/Vol] 10 7-21 mg/dL Normal 09-[address] [facility] (60527) Comment: Performed By: #### Rakesh FOX MP ####[facility] [address] [place], [place] [phone]- [phone] progress on 2019-08 PROGRESS HNO ID: [id number] Normal 08-31-2019 [place] Author: Tracy (Pt) [facility] Service: ? [place] Author Type: Physical Therapist ([id number]) Type: Progress Notes Filed: 08/31/2019 4:46 PM Note Text: Billing: [facility]: Therapeutic Exercise (15332): 1:1 time: 15 minutes (1 unit: 8-22 mins) Manual Therapy (09321): 1:1 time: 15 minutes (1 unit: 8-22 m ins) Modalities Ultrasound (21942) 1:1 time: 10 minutes1 unit: 8- 22 mins Total time: 40 minutes Tracy Rascon PT Episode Visit Count: 5 Therapist That Will Oversee The Plan Of Care: Tracy Rascon Start of Care Date: 08/01/19 Onset Date: 02/08/19 Patient Identified by Name and Date of : Yes REHABILITATION AND SPORTS THERAPY PHYSICAL THERAPY PROGRESS REPORT PLAN OF CARE UPDATE: Assessment: Juany Castellano exhibits mild improvements in de creased c/o's of pain with ROM and strength testing compared to initial vi sit and slight improvement in wrist ROM. She continues to be limited with c arrying. She is progressing slower than expected towards her therapy goal s as demonstrated by: documented subjective information on progre ss. She will benefit from continued skilled therapy requiring therapeutic exercise, manual therapy techniques and ultrasound in order to further improve AROM, strength and return to pain free function, and assessment of trial of HEP and tennis elbow strap. Functional gains: Increased independence with HEP Increased ROM Goals for Episode of Care: created on 08/01/19 through 09/29 Goals updated on 08/31/2019. Pt will demonstrate no soft tissue restrictions L lateral el bow region. (Not Met) Rincon in home exercise program. (Met) Patient will decrease pain rating by 2 points to meet minima l clinical important difference for numeric pain rating scale. (Not Met ) Patient will increase strength of L UE to 5/5 to allow for r eturn to prior functional status. (Not Met) Perform carrying and full use of L UE without pain. (Not Met ) Planned Interventions, Frequency, and Duration: 1x/week, 1 w [place] Total Number of Visits Planned: 1 Patient to be seen for Therapeutic exercise;Manual therapy;Patient/Family/Caregiver Education;ModalitiesUltraso und PLAN FOR NEXT VISIT: Pt will continue with HEP and use of te nnis elbow strap and follow up in one week. SUBJECTIVE: Patient Reason for Visit: Pt states she does not notice any difference in her pain since starting therapy. She reports i f she is carrying something that is too heavy, she will just switch t o the other arm. Pain: Pain Pain Level: (not rated) Pain Location: Elbow - Left Description: Aching Frequency: Intermittent Post Treatment Pain Post Treatment Pain Level: 4 Post Treatment Pain Location: Elbow - Left Post Treatment Pain Description: Aching;Other: See comment PROMIS Scales Higher is Better 12/02/2016 08/01/2019 Phys Func - Score - 47 (within normal limits) Phys Func - Percentile - 38 % Social Roles - Score - 53 (within normal limits) Social Role - Percentile - 62 % GH Physical - Score - Incomplete GH Physical - Percentile 41 % - GH Mental - Score - 53.3 GH Mental - Percentile 53 % 63 % T-scores: mean of general population = 50. 5 points is clini april meaningfully difference Percentiles provide an indication of how the patient's score ranks in relation to the general population. Higher percentile angelo gs indicate better function/quality of life. 50th percentile is the aver age of the general population and indicates half of respondents had a w orse score. Lower is Better 08/01/2019 Fatigue - Score 48 (within normal limits) Fatigue - Percentile 58 % T-scores: mean of general population = 50. 5 points is clini april meaningfully difference Percentiles provide an indication of how the patient's score ranks in relation to the general population. Higher percentile angelo gs indicate better function/quality of life. 50th percentile is the aver age of the general population and indicates half of respondents had a w orse score. OBJECTIVE MEASURES WITH LEVEL OF FUNCTION: UE AROM L Wrist Extension: 78 Degrees(pulling) L Wrist Flexion: 75 Degrees UE and Cervical Strength L Elbow Extension (C7): 4+/5 L Elbow Flexion (C6): 5/5 TREATMENT: Therapeutic Exercise: 1: wrist extensor stretch 3 x 30 sec holds 2: Discussed use of a tennis elbow strap for pain management during daily activities. Skilled Intervention: Patient was educated in proper exercis e technique and purpose for exercises. Reviewed and educated patient on additions/changes for home exercise program and pt to add use of tennis elbow strap during daily activities. Skilled judgment was provided in selection of appropriate in terventions. Correct performance of therapeutic exercises was facilitated with verbal and visual cuing. Patient education as noted. Manual Therapy: 1: IASTM left forearm and epicondyle x 15 minutes with push to tolerance. Skilled Intervention: Manual skills to improve joint mobilit y, ROM, and decrease pain. Utilized anatomy knowledge of the therapist, and assessment of patient's response to intervention. Modalities: Ultrasound Body Region Treated - Ultrasound: L lateral epicondyle and p roximal extensor tendons/muscle fibers Patient Position: seated in chair with L UE propped on plint h Mode: 100% constant w/cm2: 1.2 MHZ: 1 Minutes: 10 See flowsheet for details regarding treatment. Skilled Inter vention: Proper administration and selection of modality based on cli nical presentation, deficits, and needs. Patient response monitore d throughout treatment. Billing: [facility]: Therapeutic Exercise (26239): 1:1 time: 15 minutes (1 unit: 8-22 mins) Manual Therapy (40787): 1:1 time: 15 minutes (1 unit: 8-22 m ins) Modalities Ultrasound (37927) 1:1 time: 10 minutes1 unit: 8- 22 mins Total time: 40 minutes Tracy Rascon PT cntherapy on 08-31 CNTHERAPY OT/PT/Speech Visit (PTWS) Normal - [place] JUANY CASTELLANO ([id number]) 1975 Clinic Date Time Provider Department [place] 08/31/19 2:30 PM TRACY RASCON (PT) PTWS ([id number]) Date Time Provider Department [place] 08/31/2019 2:30 PM [id number] RASCON (PT) PTWS [facility] JOSÉ MIGUEL Keller Reason for Visit: Physical Therapy [503] Primary Visit Diagnosis:Left elbow pain [M25.522] Allergies As of Date: 08/31/2019 Noted Allergy Reaction PENICILLINS 05/20/2005 5 - Intolerance Date Reviewed: 07/20/2019 Reviewed by: Edel Cuba Ma - Fully Assessed Prescriptions as of 08/31/2019 Sig: BUPROPION HCL SR 150 MG TABLE* Take 1 tablet by mouth twice * FLUTICASONE PROPIONATE 50 MCG* Use 2 Sprays in each nostril * NAPROXEN SODIUM 220 MG CAPSULE Take 2 capsules by mouth twic * B COMPLEX-VITAMIN B12 ORAL Take by mouth. BIOTIN (BULK) MISC ERGOCALCIFEROL (VITAMIN D2) 1* Take 1 capsule by mouth two t * PANTOPRAZOLE 40 MG TABLET,DEL* Take 1 tablet by mouth daily * TOPIRAMATE 25 MG TABLET Take 25mgs in the evening for* PERFLUTREN LIPID MICROSPHERES* Inject 1.3 mL intravenously a * NICOTINE 21 MG/24 HR DAILY TR* Apply 1 Patch as directed mak * Progress Notes: Tracy Rascon PT 08/31/2019 4:46 PM Signed Billing: [facility]: Therapeutic Exercise (66582): 1:1 time: 15 minutes (1 unit: 8-22 mins) Manual Therapy (45092): 1:1 time: 15 minutes (1 unit: 8-22 m ins) Modalities Ultrasound (65070) 1:1 time: 10 minutes1 unit: 8- 22 mins Total time: 40 minutes Tracy Rascon PT Episode Visit Count: 5 Therapist That Will Oversee The Plan Of Care: Tracy Rascon Start of Care Date: 08/01/19 Onset Date: 02/08/19 Patient Identified by Name and Date of : Yes REHABILITATION AND SPORTS THERAPY PHYSICAL THERAPY PROGRESS REPORT PLAN OF CARE UPDATE: Assessment: Juany Castellano exhibits mild improvements in decreased c/o's of pain with ROM and strength testing compared to initial visit and slight improvement in wrist ROM. She continues to be limited with carrying. She is progressing slower than expected towards her therapy goals as demonstrated by: documented subjective information on pro flores. She will benefit from continued skilled therapy requiring therapeutic exercise, manual therapy techniques and ultrasound in order to further improve AROM, str ength and return to pain free function, and assessment of trial of HEP and tennis elbow st rap. Functional gains: Increased independence with HEP Increased ROM Goals for Episode of Care: created on 08/01/19 through 09/29 Goals updated on 08/31/2019. Pt will demonstrate no soft tissue restrictions L late ral elbow region. (Not Met) Rincon in home exercise program. (Met) Patient will decrease pain rating by 2 points to meet minima l clinical important difference for numeric pain rating scale. (Not Met ) Patient will increase strength of L UE to 5/5 to allow for r eturn to prior functional status. (Not Met) Perform carrying and full use of L UE without pain. (Not Met ) Planned Interventions, Frequency, and Duration: 1x/week, 1 w [place] Total Number of Visits Planned: 1 Patient to be seen for Therapeutic exercise;Manual therapy;Patient/Family/Caregiver Education;ModalitiesUltraso und PLAN FOR NEXT VISIT: Pt will continue with HEP and use of tennis elbow strap and follow up in one week. SUBJECTIVE: Patient Reason for Visit: Pt states she does not notice any difference in her pain since starting therapy. S he reports if she is carrying something that is too heavy, she will just switch to the [facility] er arm. Pain: Pain Pain Level: (not rated) Pain Location: Elbow - Left Description: Aching Frequency: Intermittent Post Treatment Pain Post Treatment Pain Level: 4 Post Treatment Pain Location: Elbow - Left Post Treatment Pain Description: Aching;Other: See comment PROMIS Scales Higher is Better 12/02/2016 08/01/2019 Phys Func - Score - 47 (within normal limits) Phys Func - Percentile - 38 % Social Roles - Score - 53 (within normal limits) Social Role - Percentile - 62 % GH Physical - Score - Incomplete GH Physical - Percentile 41 % - GH Mental - Score - 53.3 GH Mental - Percentile 53 % 63 % T-scores: mean of general population = 50. 5 points is clini april meaningfully difference Percentiles provide an indication of how the patient's score ranks in relation to the general population. Higher percentile rankings indica te better function/quality of life. 50th percentile is the average of the general population and indicates half of respondents had a worse sco re. Lower is Better 08/01/2019 Fatigue - Score 48 (within normal limits) Fatigue - Percentile 58 % T-scores: mean of general population = 50. 5 points is clini april meaningfully difference Percentiles provide an indication of how the patient's score ranks in relation to the general population. Higher percentile rankings indica te better function/quality of life. 50th percentile is the average of the general population and indicates half of respondents had a worse sco re. OBJECTIVE MEASURES WITH LEVEL OF FUNCTION: UE AROM L Wrist Extension: 78 Degrees(pulling) L Wrist Flexion: 75 Degrees UE and Cervical Strength L Elbow Extension (C7): 4+/5 L Elbow Flexion (C6): 5/5 TREATMENT: Therapeutic Exercise: 1: wrist extensor stretch 3 x 30 sec holds 2: Discussed use of a tennis elbow strap for pain management during daily activities. Skilled Intervention: Patient was educated in proper exerc ise technique and purpose for exercises. Reviewed and educated patien t on additions/changes for home exercise program and pt to add use of tennis elbow strap during daily activities. Skilled judgment was provided in selection of appropriate in terventions. Correct performance of therapeutic exercises was facil itated with verbal and visual cuing. Patient education as noted. Manual Therapy: 1: IASTM left forearm and epicondyle x 15 minutes with push to tolerance. Skilled Intervention: Manual skills to improve joint mobility, ROM, and decrease pain. Utilized anatomy knowledge of the therapist, and assessment of patient's response to intervention. Modalities: Ultrasound Body Region Treated - Ultrasound: L lateral epicondyle and proximal extensor tendons/muscle fibers Patient Position: seated in chair with L UE propped on plint h Mode: 100% constant w/cm2: 1.2 MHZ: 1 Minutes: 10 See flowsheet for details regarding treatment. Skilled Int ervention: Proper administration and selection of modality based on clinical p resentation, deficits, and needs. Patient response monitored throughout t reatment. Billing: [facility]: Therapeutic Exercise ([id number]): 1:1 time: 15 minutes (1 unit: 8-22 mins) Manual Therapy ([id number]): 1:1 time: 15 minutes (1 unit: 8-22 m ins) Modalities Ultrasound ([id number]) 1:1 time: 10 minutes1 unit: 8- 22 mins Total time: 40 minutes Tracy Rascon PT progress on 2019-08 PROGRESS HNO ID: [id number] Normal 08-22-2019 [facility] Author: Linus (Pt) Simon Pat[place]veland ([id number]) Service: ? Author Type: Physical Therapist Type: Progress Notes Filed: 08/22/2019 7:12 PM Note Text: Episode Visit Count: 4 Therapist That Will Oversee The Plan Of Care: Erciannamaria Tracy Start of Care Date: 08/01/19 Onset Date: 02/08/19 Patient Identified by Name and Date of : Yes REHABILITATION AND SPORTS THERAPY PHYSICAL THERAPY TREATMENT NOTE ASSESSMENT: Juany Castellano demonstrated difficulty with con tinual ache left lateral epicondyle. She noted fatigue with exercises in therapy today. Following manual therapy and US and exercises she not ed slight increase ache and had a feeling of being tired in her forear m. The patient will continue to benefit from ongoing skilled physic al therapy for supervised therapeutic exercises, manual therapy and US. PLAN FOR NEXT VISIT: Continue with stretches, strengthening as tolerated, manual techniques and US. SUBJECTIVE: Patient Reason for Visit: Patient reports the el bow is still being pesky. She reports the elbow and forearm muscle still have pain. Pain: Pain Pain Level: 2 Pain Location: Elbow - Left Description: Aching Frequency: Intermittent Post Treatment Pain Post Treatment Pain Level: 4 Post Treatment Pain Location: Elbow - Left Post Treatment Pain Description: Aching;Other: See comment(f eels tired) OBJECTIVE MEASURES WITH LEVEL OF FUNCTION: Significant fatigue with forearm with active exercises today . TREATMENT: Therapeutic Exercise: 1: AROM left wrist flexion ,extension 2x12. 2: AROM pronation and supination 2x12 3: Red flex bar side to side and front to back perturbation 2x30 seconds 4: wrist extensor stretch 3 x 30 sec holds 5: Red flex bar left hand wringing of bar 1x10 while holding right hand still 1x10. 6: *Education on trial of ice massage left lateral elbow and forwarm. Instructed on 4 stages of cold, burning, aching and numb and to stop when it is numb. Skilled Intervention: Patient was educated in proper exercis e technique and purpose for exercises. Skilled judgment was provided in selection of appropriate in terventions. Correct performance of therapeutic exercises was facilitated with verbal and visual cuing. Manual Therapy: 1: IASTM left forearm and epicondyle x 10 minutes with push to tolerance. Skilled Intervention: Manual skills to improve joint mobilit y, ROM, and decrease pain. Utilized anatomy knowledge of the therapist, and assessment of patient's response to intervention. Modalities: Ultrasound Body Region Treated - Ultrasound: L lateral epicondyle and p roximal extensor tendons/muscle fibers Patient Position: seated in chair with L UE propped on plint h Mode: 50% pulsed w/cm2: 1.2 MHZ: 1 Minutes: 10 See flowsheet for details regarding treatment. Skilled Inter vention: Proper administration and selection of modality based on cli nical presentation, deficits, and needs. Patient response monitore d throughout treatment. Billing: [facility]: Therapeutic Exercise ([id number]): 1:1 time: 18 minutes (1 unit: 8-22 mins) Manual Therapy ([id number]): 1:1 time: 12 minutes (1 unit: 8-22 m ins) Modalities Ultrasound ([id number]) 1:1 time: 10 minutes (1 unit: 8-22 mins) Total time: 40 minutes DYLAN Collazo PT cntherapy on 0 2-12 CNTHERAPY OT/PT/Speech Visit (PTWS) Normal 08-11 [place] JUANY CASTELLANO ([id number]) 1975 F [facility] Date Time Provider Department [place] 08/22/19 2:15 PM LUZ WANG ([facility]) PTWS ([id number]) Date Time Provider Department [place] 08/22/2019 2:15 PM [id number], NANCY ([facility] [employer]) PTWS [facility] JOSÉ MIGUEL Keller Reason for Visit: Physical Therapy [503] Primary Visit Diagnosis:Left elbow pain [M25.522] Allergies As of Date: 08/22/2019 Noted Allergy Reaction PENICILLINS 05/20/2005 5 - Intolerance Date Reviewed: 07/20/2019 Reviewed by: Edel Cuba Ma - Fully Assessed Prescriptions as of 08/22/2019 Sig: BUPROPION HCL SR 150 MG TABLE* Take 1 tablet by mouth twice * FLUTICASONE PROPIONATE 50 MCG* Use 2 Sprays in each nostril * NAPROXEN SODIUM 220 MG CAPSULE Take 2 capsules by mouth twic * B COMPLEX-VITAMIN B12 ORAL Take by mouth. BIOTIN (BULK) MISC ERGOCALCIFEROL (VITAMIN D2) 1* Take 1 capsule by mouth two t * PANTOPRAZOLE 40 MG TABLET,DEL* Take 1 tablet by mouth daily * TOPIRAMATE 25 MG TABLET Take 25mgs in the evening for* PERFLUTREN LIPID MICROSPHERES* Inject 1.3 mL intravenously a * NICOTINE 21 MG/24 HR DAILY TR* Apply 1 Patch as directed mak * Progress Notes: Linus Montes, PT 08/22/2019 7:12 PM Signed Episode Visit Count: 4 Therapist That Will Oversee The Plan Of Care: Tracy Rascon Start of Care Date: 08/01/19 Onset Date: 02/08/19 Patient Identified by Name and Date of : Yes REHABILITATION AND SPORTS THERAPY PHYSICAL THERAPY TREATMENT NOTE ASSESSMENT: Juany Castellano demonstrated difficulty wi th continual ache left lateral epicondyle. She noted fatigue with exercises in ther apy today. Following manual therapy and US and exercises she noted slight increase ache and had a feeling of being tired in her forearm. The patient ernestina l continue to benefit from ongoing skilled physical therapy for supervised therapeutic exercises, manual therapy and US. PLAN FOR NEXT VISIT: Continue with stretches, strengthening a s tolerated, manual techniques and US. SUBJECTIVE: Patient Reason for Visit: Skinny forbes reports the elbow is still being pesky. She reports the elbow and forearm muscle still have p ain. Pain: Pain Pain Level: 2 Pain Location: Elbow - Left Description: Aching Frequency: Intermittent Post Treatment Pain Post Treatment Pain Level: 4 Post Treatment Pain Location: Elbow - Left Post Treatment Pain Description: Aching;Other: See comment(f eels tired) OBJECTIVE MEASURES WITH LEVEL OF FUNCTION: Significant fatigue with forearm with active exercises today . TREATMENT: Therapeutic Exercise: 1: AROM left wrist flexion ,extension 2x12. 2: AROM pronation and supination 2x12 3: Red flex bar side to side and front to back perturbation 2x30 seconds 4: wrist extensor stretch 3 x 30 sec holds 5: Red flex bar left hand wringing of bar 1x10 w hile holding right hand still 1x10. 6: *Education on trial of ice massage left lateral elbow and forwarm. Instructed on 4 stages of co ld, burning, aching and numb and to stop when it is numb. Skilled Intervention: Patient was educated in proper exerc ise technique and purpose for exercises. Skilled judgment was provided in selection of appropriate in terventions. Correct performance of therapeutic exercises was facil itated with verbal and visual cuing. Manual Therapy: 1: IASTM left forearm and epicondyle x 10 minutes with push to tolerance. Skilled Intervention: Manual skills to improve joint mobility, ROM, and decrease pain. Utilized anatomy knowledge of the therapist, and assessment of patient's response to intervention. Modalities: Ultrasound Body Region Treated - Ultrasound: L lateral epicondyle and proximal extensor tendons/muscle fibers Patient Position: seated in chair with L UE propped on plint h Mode: 50% pulsed w/cm2: 1.2 MHZ: 1 Minutes: 10 See flowsheet for details regarding treatment. Skilled Int ervention: Proper administration and selection of modality based on clinical p resentation, deficits, and needs. Patient response monitored throughout t reatment. Billing: [facility]: Therapeutic Exercise ([id number]): 1:1 time: 18 minutes (1 unit: 8-22 mins) Manual Therapy ([id number]): 1:1 time: 12 minutes (1 unit: 8-22 m ins) Modalities Ultrasound ([id number]) 1:1 time: 10 minutes (1 unit: 8-22 mins) Total time: 40 minutes DYLAN Collazo PT Previous Version progress on 2019-08 PROGRESS HNO ID: [id number] Normal 08-17-2019 [facility] Author: Tarcy (Pt) Abiodun Fernandez ([id number]) Service: ? Author Type: Physical Therapist Type: Progress Notes Filed: 08/17/2019 2:31 PM Note Text: Episode Visit Count: 3 Therapist That Will Oversee The Plan Of Care: Tracy Rascon Start of Care Date: 08/01/19 Onset Date: 02/08/19 Patient Identified by Name and Date of : Yes REHABILITATION AND SPORTS THERAPY PHYSICAL THERAPY TREATMENT NOTE ASSESSMENT: Juany Castellano demonstrated improvements in rep orts of more intermittent, but continued pain. She notes compliance with HEP stretches. The patient will continue to benefit from ongoing skilled ph ysical therapy for supervised progression of there ex, manual techniques fo r soft tissue restrictions and modalities for pain relief. PLAN FOR NEXT VISIT: Continue with stretches, strengthening as tolerated, manual techniques and US. SUBJECTIVE: Patient Reason for Visit: Pt states she still johnson s pain when moving her forearm. No pain at rest. She reports compliance with stretches. Pt notes she is only able to attend sessions once per week d/t her work schedule. Pain: Pain Pain Level: 0(2-3/10 when moves wrist) Pain Location: Elbow - Left Description: Aching Post Treatment Pain Post Treatment Pain Level: (not stated) OBJECTIVE MEASURES WITH LEVEL OF FUNCTION: Elbow Observations Comments: soft tissue restrictions present with boomerang to ol in L wrist extensor tendon/prox muscle belly TREATMENT: Therapeutic Exercise: 1: AROM left wrist flexion ,extension 2x10. 2: AROM pronation and supination 2x10 3: Red flex bar side to side perturbation 2x30 seconds 4: wrist extensor stretch 3 x 30 sec holds Skilled Intervention: Patient was educated in proper exercis e technique and purpose for exercises. Reviewed and educated patient on additions/changes for home exercise program (see below for instruction in self-massage technique s) Skilled judgment was provided in selection of appropriate in terventions. Correct performance of therapeutic exercises was facilitated with verbal and visual cuing. Patient education as noted. Manual Therapy: 1: IASTM to L wrist extensor musculature and lateral epicond yle tendons using [employer] Area boomerang tool x 10 min. Mild petechiae pre sent afterwards. Instruction in self-massage techniques including cross-friction massage to perform as neede through the day. Skilled Intervention: Manual skills to improve joint mobilit y, ROM, and decrease pain and soft tissue restrictions. Utilized anatomy knowledge of the therapist, and assessment of patient's response to inter vention. Modalities: Ultrasound Body Region Treated - Ultrasound: L lateral epicondyle and p roximal extensor tendons/muscle fibers Patient Position: seated in chair with L UE propped on plint h Mode: 50% pulsed w/cm2: 1.2 MHZ: 1 Minutes: 10 See flowsheet for details regarding treatment. Skilled Inter vention: Proper administration and selection of modality based on cli nical presentation, deficits, and needs. Patient response monitore d throughout treatment. Billing: [facility]: Therapeutic Exercise ([id number]): 1:1 time: 18 minutes (1 unit: 8-22 mins) Manual Therapy ([id number]): 1:1 time: 12 minutes (1 unit: 8-22 m ins) Modalities Ultrasound ([id number]) 1:1 time: 10 minutes1 unit: 8- 22 mins Total time: 40 minutes Tracy Rascon PT cntherapy on 08-17 CNTHERAPY OT/PT/Speech Visit (PTWS) Normal [place] JUANY CASTELLANO ([id number]) 1975 F [facility] Date Time Provider Department [place] 08/17/19 1:45 PM TRACY RASCON (PT) PTWS ([id number]) Date Time Provider Department [place] 08/17/2019 1:45 PM [id number], TRACY (PT) PTWS [facility] Reason for Visit: Physical Therapy [503] Primary Visit Diagnosis:Left elbow pain [M25.522] Allergies As of Date: 08/17/2019 Noted Allergy Reaction PENICILLINS 05/20/2005 5 - Intolerance Date Reviewed: 07/20/2019 Reviewed by: Edel Cuba Ma - Fully Assessed Prescriptions as of 08/17/2019 Sig: BUPROPION HCL SR 150 MG TABLE* Take 1 tablet by mouth twice * FLUTICASONE PROPIONATE 50 MCG* Use 2 Sprays in each nostril * NAPROXEN SODIUM 220 MG CAPSULE Take 2 capsules by mouth twic * B COMPLEX-VITAMIN B12 ORAL Take by mouth. BIOTIN (BULK) MISC ERGOCALCIFEROL (VITAMIN D2) 1* Take 1 capsule by mouth two t * PANTOPRAZOLE 40 MG TABLET,DEL* Take 1 tablet by mouth daily * TOPIRAMATE 25 MG TABLET Take 25mgs in the evening for* PERFLUTREN LIPID MICROSPHERES* Inject 1.3 mL intravenously a * NICOTINE 21 MG/24 HR DAILY TR* Apply 1 Patch as directed mak * Progress Notes: Tracy Rascon, PT 08/17/2019 2:31 PM Signed Episode Visit Count: 3 Therapist That Will Oversee The Plan Of Care: Tracy Rascon Start of Care Date: 08/01/19 Onset Date: 02/08/19 Patient Identified by Name and Date of : Yes REHABILITATION AND SPORTS THERAPY PHYSICAL THERAPY TREATMENT NOTE ASSESSMENT: Juany Castellano demonstrated improvements in rep orts of more intermittent, but continued pain. She no rodrigo compliance with HEP stretches. The patient will continue to benefit from ongoing skilled physic al therapy for supervised progression of there ex, manual techniques for so ft tissue restrictions and modalities for pain relief. PLAN FOR NEXT VISIT: Continue with stretches, strengthening a s tolerated, manual techniques and US. SUBJECTIVE: Patient Reason for Visit: Pt states she still has pain when moving her forearm. No pain at rest. She reports compli ance with stretches. Pt notes she is only able to attend sessions once per week d/t her wo rk schedule. Pain: Pain Pain Level: 0(2-3/10 when moves wrist) Pain Location: Elbow - Left Description: Aching Post Treatment Pain Post Treatment Pain Level: (not stated) OBJECTIVE MEASURES WITH LEVEL OF FUNCTION: Elbow Observations Comments: soft tissue restrictions present with boomerang to ol in L wrist extensor tendon/prox muscle belly TREATMENT: Therapeutic Exercise: 1: AROM left wrist flexion ,extension 2x10. 2: AROM pronation and supination 2x10 3: Red flex bar side to side perturbation 2x30 seconds 4: wrist extensor stretch 3 x 30 sec holds Skilled Intervention: Patient was educated in proper exerc ise technique and purpose for exercises. Reviewed and educated patient on additions/changes for home exercise program (see below for instruction in self-massage techniques) Skilled judgment was provided in selection of appropriate in terventions. Correct performance of therapeutic exercises was facil itated with verbal and visual cuing. Patient education as noted. Manual Therapy: 1: IASTM to L wrist extensor musculature and lat eral epicondyle tendons using [employer] Area boomerang tool x 10 min. Mild petechiae present a fterwards. Instruction in self-massage techniques including cross-frict ion massage to perform as neede through the day. Skilled Intervention: Manual skills to improve joint mobility, ROM, and decrease pain and soft tissue restric tions. Utilized anatomy knowledge of the therapist, and assessment of patient's response to intervention. Modalities: Ultrasound Body Region Treated - Ultrasound: L lateral epicondyle and proximal extensor tendons/muscle fibers Patient Position: seated in chair with L UE propped on plint h Mode: 50% pulsed w/cm2: 1.2 MHZ: 1 Minutes: 10 See flowsheet for details regarding treatment. Skilled Int ervention: Proper administration and selection of modality based on clinical p resentation, deficits, and needs. Patient response monitored throughout t reatment. Billing: [facility]: Therapeutic Exercise ([id number]): 1:1 time: 18 minutes (1 unit: 8-22 mins) Manual Therapy ([id number]): 1:1 time: 12 minutes (1 unit: 8-22 m ins) Modalities Ultrasound ([id number]) 1:1 time: 10 minutes1 unit: 8- 22 mins Total time: 40 minutes Tracy Rascon PT progress on 2019-07 PROGRESS HNO ID: [id number] Normal 08-10-2019 [facility] Author: Tracy (Pt) Abiodun Fernandez ([id number]) Service: ? Author Type: Physical Therapist Type: Progress Notes Filed: 08/10/2019 3:41 PM Note Text: Episode Visit Count: 2 Therapist That Will Oversee The Plan Of Care: Tracy Rascon Start of Care Date: 08/01/19 Onset Date: 02/08/19 Patient Identified by Name and Date of : Yes REHABILITATION AND SPORTS THERAPY PHYSICAL THERAPY TREATMENT NOTE ASSESSMENT: Juany Castellano demonstrated difficulty with con tinual pain left wrist extensor muscle. She has some pain in wrist with wrist extensor stretch. She was able to advance active exercises. She had a palpable tight area in distal wrist extensor muscle that dec reased with soft tissue mobs. She notes slight increase soreness left fo rearm following exercises, manual therapy and US today. The patien t will continue to benefit from ongoing skilled physical therapy fo r progression of supervised therapeutic exercises, manual therapy and US. PLAN FOR NEXT VISIT: Monitor delayed response to treatment and continue with exer cises, manual therapy and US. SUBJECTIVE: Patient Reason for Visit: Patient reports no sarah nge in elbow pain this past week. No specific change noted with initial v isit. Patient reports stretching 2x/day Pain: Pain Pain Level: 2 Pain Location: Elbow - Left Description: Aching(annoying) Frequency: Continuous Post Treatment Pain Post Treatment Pain Level: 4 Post Treatment Pain Location: Elbow - Left Post Treatment Pain Description: Aching OBJECTIVE MEASURES WITH LEVEL OF FUNCTION: Tenderness to palpation left forearm extensor muscle. TREATMENT: Therapeutic Exercise: 1: wrist extensor stretch 3 x 30 sec holds (instruction to k eep elbow straight and pain free range) 2: *AROM left wrist flexion ,extension 2x10. 3: *AROM pronation and supination 2x10 4: Red flex bar side to side perturbation 2x30 seconds 5: Soft tissue mobs with lacrosse ball and fingers x 6 minut es left extensor muscle with push to tolerance Skilled Intervention: Patient was educated in proper exercis e technique and purpose for exercises. Reviewed and educated patient on additions/changes for home exercise program as above (*) Skilled judgment was provided in selection of appropriate in terventions. Provided written instruction for home exercise program to fa cilitate proper performance and compliance. Correct performance of therapeutic exercises was facilitated with verbal and visual cuing. Modalities: Ultrasound Body Region Treated - Ultrasound: L lateral epicondyle and p roximal extensor tendons/muscle fibers Patient Position: seated in chair with L UE propped on plint h Mode: 50% pulsed w/cm2: 1.2 MHZ: 1 Minutes: 10 See flowsheet for details regarding treatment. Skilled Inter vention: Proper administration and selection of modality based on cli nical presentation, deficits, and needs. Patient response monitore d throughout treatment. Billing: [facility]: Therapeutic Exercise ([id number]): 1:1 time: 30 minutes (2 units: 23-37 mins) Modalities Ultrasound ([id number]) 1:1 time: 10 minutes1 unit: 8- 22 mins Total time: 40 minutes Luz Wang PT-Humera Rascon PT cntherapy on 08-10 CNTHERAPY OT/PT/Speech Visit (PTWS) Normal - [place] JUANY CASTELLANO ([id number]) 1975 F [facility] Date Time Provider Department [place] 08/10/19 12:30 PM LUZ WANG ([facility]) PTWS ([id number]) Date Time Provider Department [place] 08/10/2019 12:30 PM [id number], NANCY ([facility] [employer]) PTWS [facility] Reason for Visit: Physical Therapy [503] Primary Visit Diagnosis:Left elbow pain [M25.522] Allergies As of Date: 08/10/2019 Noted Allergy Reaction PENICILLINS 05/20/2005 5 - Intolerance Date Reviewed: 07/20/2019 Reviewed by: Edel Cuba Ma - Fully Assessed Prescriptions as of 08/10/2019 Sig: BUPROPION HCL SR 150 MG TABLE* Take 1 tablet by mouth twice * FLUTICASONE PROPIONATE 50 MCG* Use 2 Sprays in each nostril * NAPROXEN SODIUM 220 MG CAPSULE Take 2 capsules by mouth twic * B COMPLEX-VITAMIN B12 ORAL Take by mouth. BIOTIN (BULK) MISC ERGOCALCIFEROL (VITAMIN D2) 1* Take 1 capsule by mouth two t * PANTOPRAZOLE 40 MG TABLET,DEL* Take 1 tablet by mouth daily * TOPIRAMATE 25 MG TABLET Take 25mgs in the evening for* PERFLUTREN LIPID MICROSPHERES* Inject 1.3 mL intravenously a * NICOTINE 21 MG/24 HR DAILY TR* Apply 1 Patch as directed mak * Progress Notes: Tracy Rascon PT 08/10/2019 3:41 PM Signed Episode Visit Count: 2 Therapist That Will Oversee The Plan Of Care: Tracy Rascon Start of Care Date: 08/01/19 Onset Date: 02/08/19 Patient Identified by Name and Date of : Yes REHABILITATION AND SPORTS THERAPY PHYSICAL THERAPY TREATMENT NOTE ASSESSMENT: Juany Castellano demonstrated difficulty wi th continual pain left wrist extensor muscle. She has some pain in wrist with wrist extensor stretch. She was able to advance active exercises. She had a palpable tight area in distal wrist extensor muscle that decreased with soft tissue mobs. She notes slight increase soreness lef t forearm following exercises, manual therapy and US today. The patient will continue to benefit from ongoing [facility] physical therapy for progression of s upervised therapeutic exercises, manual therapy and US. PLAN FOR NEXT VISIT: Monitor delayed response to treatment and continue with exer cises, manual therapy and US. SUBJECTIVE: Patient Reason for Visit: Patient re ports no change in elbow pain this past week. No specific change noted with initial visit. Patient reports stretching 2x/day Pain: Pain Pain Level: 2 Pain Location: Elbow - Left Description: Aching(annoying) Frequency: Continuous Post Treatment Pain Post Treatment Pain Level: 4 Post Treatment Pain Location: Elbow - Left Post Treatment Pain Description: Aching OBJECTIVE MEASURES WITH LEVEL OF FUNCTION: Tenderness to palpation left forearm extensor muscle. TREATMENT: Therapeutic Exercise: 1: wrist extensor stretch 3 x 30 sec hol ds (instruction to keep elbow straight and pain free range) 2: *AROM left wrist flexion ,extension 2x10. 3: *AROM pronation and supination 2x10 4: Red flex bar side to side perturbation 2x30 seconds 5: Soft tissue mobs with lacrosse ball and fingers x 6 minutes left extensor muscle with push to tolerance Skilled Intervention: Patient was educated in proper exerc ise technique and purpose for exercises. Reviewed and educated patien t on additions/changes for home exercise program as above (*) Skilled judgment was provided in selection of appropriate in terventions. Provided written instruction for home exercise program to facilitate proper performance and compliance. Correct performance of therapeutic exercises was facil itated with verbal and visual cuing. Modalities: Ultrasound Body Region Treated - Ultrasound: L lateral epicondyle and proximal extensor tendons/muscle fibers Patient Position: seated in chair with L UE propped on plint h Mode: 50% pulsed w/cm2: 1.2 MHZ: 1 Minutes: 10 See flowsheet for details regarding treatment. Skilled Int ervention: Proper administration and selection of modality based on clinical p resentation, deficits, and needs. Patient response monitored throughout t reatment. Billing: [facility]: Therapeutic Exercise ( [id number]): 1:1 time: 30 minutes (2 units: 23-37 mins) Modalities Ultrasound ([id number]) 1:1 time: 10 minutes1 unit: 8- 22 mins Total time: 40 minutes Luz Wang PT-Humera Rascon PT Previous Version progress on 2019-07 PROGRESS HNO ID: [id number] Normal 08-01-2019 [place] Author: Tracy (Pt) Abiodun [facility] Service: ? [place] Author Type: Physical Therapist ([id number]) Type: Progress Notes Filed: 08/01/2019 2:05 PM Note Text: Episode Visit Count: 1 Therapist That Will Oversee The Plan Of Care: Tracy Rascon Start of Care Date: 08/01/19 Onset Date: 02/08/19 Patient Identified by Name and Date of : Yes REHABILITATION AND SPORTS THERAPY PHYSICAL THERAPY EVALUATION PLAN OF CARE: Assessment: Juany Castellano presents with the diagnosis of L elbow pain. She presents with impairments of painful AROM, strength, sof t tissue restrictions and weakness. She may benefit from skilled ther apy services to improve AROM, strength, soft tissue restrictions to retur n to painfree function. Prognosis: Excellent Excellent due to: current objective clinical presentation;go od overall health status;good support system/ coping skills Goals for Episode of Care: created on 08/01/19 through 09/29 Pt will demonstrate no soft tissue restrictions L lateral el bow region. Rincon in home exercise program. Patient will decrease pain rating by 2 points to meet minima l clinical important difference for numeric pain rating scale. Patient will increase strength of L UE to 5/5 to allow for r eturn to prior functional status. Perform carrying and full use of L UE without pain. Planned Interventions, Frequency, and Duration: Current Freq uency: 2x/week Duration: 8 weeks Total Number of Visits Planned: 16 Planned Treatment Interventions: Therapeutic exercise;Manual therapy;Patient/Family/Caregiver Education;ModalitiesUltraso und PLAN FOR NEXT VISIT: Assess response to initial treatment an d HEP. Review HEP to insure correct performance. Progress exercise per edmond ervin. Continue with US per response and/or addition of manual tech niques including IASTM. Patient demonstrates good understanding of plan of care and treatment. The above goals and plan of care were discussed and agreed u christina by patient/family. SUBJECTIVE: Juany Castellano is a 43 year old female seen tod ay for Pt states she was having a yard sale February, and was doin g a lot of lifting, carrying, etc. She started having pain in L lateral elbow and posterior forearm which got to the point where I couldn't e dennise bean picker my cell phone. Currently it is a constant ache. Seems to be so mewhat better as far as not as much pain and pulling in the forearm, but l ocally at L lateral epicondyle remains painful. 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 She notes she types on the computer a f air amount, but this typically doesn't aggravate symptoms. Patient Goals: To eliminate L elbow pain. Functional Limitations: carrying Prior Level of Function: Independent without limitations Intake Information: Prescription present Previous Treatment: NSAIDs? Pain: Pain Pain Level: 2 Pain Location: Elbow - Left Description: Aching Frequency: Continuous Post Treatment Pain Post Treatment Pain Level: 0 PROMIS Scales Higher is Better 12/02/2016 08/01/2019 Phys Func - Score - 47 (within normal limits) Phys Func - Percentile - 38 % Social Roles - Score - 53 (within normal limits) Social Role - Percentile - 62 % GH Physical - Score - Incomplete GH Physical - Percentile 41 % - GH Mental - Score - 53.3 GH Mental - Percentile 53 % 63 % T-scores: mean of general population = 50. 5 points is clini april meaningfully difference Percentiles provide an indication of how the patient's score ranks in relation to the general population. Higher percentile angelo gs indicate better function/quality of life. 50th percentile is the aver age of the general population and indicates half of respondents had a w orse score. Lower is Better 08/01/2019 Fatigue - Score 48 (within normal limits) Fatigue - Percentile 58 % T-scores: mean of general population = 50. 5 points is clini april meaningfully difference Percentiles provide an indication of how the patient's score ranks in relation to the general population. Higher percentile angelo gs indicate better function/quality of life. 50th percentile is the aver age of the general population and indicates half of respondents had a w orse score. OBJECTIVE MEASURES WITH LEVEL OF FUNCTION: Elbow Observations L Elbow/Wrist Palpation Tenderness: Lateral epicondyle;Other Comments: prox ext tendon UE AROM AROM - R Distal UE: yes R Elbow Extension: 0 Degrees R Elbow Flexion: 145 Degrees R Forearm Supination: 80 Degrees R Forearm Pronation: 95 Degrees R Wrist Extension: 73 Degrees R Wrist Flexion: 67 Degrees AROM - L Distal UE: yes L Elbow Extension: 0 L Elbow Flexion: 145 Degrees L Forearm Supination: 76 Degrees L Forearm Pronation: 100 Degrees L Wrist Extension: 76 Degrees(pulling at forearm and lateral epicondyle) L Wrist Flexion: 73 Degrees UE and Cervical Strength Strength Tested: Shoulder All R UE Strength: wrist ext./flex 4+/5(Outdoor Studies Professor strength 45#, LISSA dynamometer) L UE Strength: wrist ext./flex 4+/5. pulling with resisted e xt.(Outdoor Studies Professor strength 40#, LISSA dynamometer) R Elbow Extension (C7): 4+/5 R Elbow Flexion (C6): 5/5 L Elbow Extension (C7): 4+/5(minimal pain) L Elbow Flexion (C6): 5/5 Education: Education Learning Preferences: Demonstration;Explanation Barriers: None Learning/educational needs: Home exercise program;Plan of Ca re Education Provided: Yes, see treatment interventions for edu cation provided Education Provided To: Patient Education Mode/Type: Demonstration;Explanation/Discussion;Literature/Printed Materials;Performance Response to Education/Teach Back: States/Identifies;Return D emonstration TREATMENT: Evaluation Therapeutic Exercise: 1: *wrist extensor stretch 3 x 30 sec holds Skilled Intervention: Patient was educated in proper exercis e technique and purpose for exercises. Skilled judgment was provided in selection of appropriate in terventions. Provided written instruction for home exercise program to fa cilitate proper performance and compliance. Correct performance of therapeutic exercises was facilitated with verbal and visual cuing. Patient education as noted. Modalities: Ultrasound Body Region Treated - Ultrasound: L lateral epicondyle and p roximal extensor tendons/muscle fibers Patient Position: seated in chair with L UE propped on plint h Mode: 50% pulsed w/cm2: 1.2 MHZ: 1 Minutes: 10 See flowsheet for details regarding treatment. Skilled Inter vention: Proper administration and selection of modality based on cli nical presentation, deficits, and needs. Patient response monitore d throughout treatment. Billing: [facility]: Evaluation - Low Complexity ([id number]) Therapeutic Exercise (67614): 1:1 time: 10 minutes (1 unit: 8-22 mins) Modalities Ultrasound (38186) 1:1 time: 10 minutes1 unit: 8- 22 mins Total time: 43 minutes Tracy Rascon PT cntherapy on 08-01 CNTHERAPY OT/PT/Speech Visit (PTWS) Normal - [place] JUANY CASTELLANO ([id number]) 1975 Clinic Date Time Provider Department [place] 08/01/19 10:15 AM KARINA RASCONISSA (PT) PTWS ([id number]) Date Time Provider Department [place] 08/01/2019 10:15 AM [id number], TRACY (PT) PTWS [facility] Reason for Visit: PT Eval [747] Visit Diagnosis:Left elbow pain [M25.522] Allergies As of Date: 08/01/2019 Noted Allergy Reaction PENICILLINS 05/20/2005 5 - Intolerance Date Reviewed: 07/20/2019 Reviewed by: Edel Cuba Ma - Fully Assessed Prescriptions as of 08/01/2019 Sig: BUPROPION HCL SR 150 MG TABLE* Take 1 tablet by mouth twice * FLUTICASONE PROPIONATE 50 MCG* Use 2 Sprays in each nostril * NAPROXEN SODIUM 220 MG CAPSULE Take 2 capsules by mouth twic * B COMPLEX-VITAMIN B12 ORAL Take by mouth. BIOTIN (BULK) MISC ERGOCALCIFEROL (VITAMIN D2) 1* Take 1 capsule by mouth two t * PANTOPRAZOLE 40 MG TABLET,DEL* Take 1 tablet by mouth daily * TOPIRAMATE 25 MG TABLET Take 25mgs in the evening for* PERFLUTREN LIPID MICROSPHERES* Inject 1.3 mL intravenously a * NICOTINE 21 MG/24 HR DAILY TR* Apply 1 Patch as directed mak * Progress Notes: Tracy Abiodun, PT 08/01/2019 2:05 PM Signed Episode Visit Count: 1 Therapist That Will Oversee The Plan Of Care: Tracy Rascon Start of Care Date: 08/01/19 Onset Date: 02/08/19 Patient Identified by Name and Date of : Yes REHABILITATION AND SPORTS THERAPY PHYSICAL THERAPY EVALUATION PLAN OF CARE: Assessment: Juany Castellano presents with the diagnosi s of L elbow pain. She presents with impairments of painful AROM, stren gth, soft tissue restrictions and weakness. She may benefit from skilled therapy ser vices to improve AROM, strength, soft tissue restrictions to return to painfree fun ction. Prognosis: Excellent Excellent due to: current objective clinical pre sentation;good overall health status;good support system/ coping skills Goals for Episode of Care: created on 08/01/19 through 09/29 Pt will demonstrate no soft tissue restrictions L lateral el bow region. Rincon in home exercise program. Patient will decrease pain r ating by 2 points to meet minimal clinical important difference for numeric pain rating scale. Patient will increase strength of L UE to 5/5 to allow for r eturn to prior functional status. Perform carrying and full use of L UE without pain. Planned Interventions, Frequency, and Duration: Current Freq uency: 2x/week Duration: 8 weeks Total Number of Visits Planned: 16 Planned Treatment Interventions: Therapeutic exercise;Manual therapy;Patient/Family/Caregiver Education;ModalitiesUltraso und PLAN FOR NEXT VISIT: Assess response to initial treatment and HEP. Review HEP to insure correct performance. Progress exercise pe r tolerance. Continue with US per response and/or addition of manual techniques including IASTM. Patient demonstrates good understanding of plan of care and treatment. The above goals and plan of care were discus sed and agreed upon by patient/family. SUBJECTIVE: Juany Castellano is a 43 year old female se en today for Pt states she was having a yard sale February, and was doing a lot of lifting, carrying, etc. She started h aving pain in L lateral elbow and posterior forearm which got to the point wher e I couldn't even bean picker my cell phone. Currently it is a constant ache. Seems to be somewhat bett er as far as not as much pain and pulling in the forearm, but locally at L lateral epicondyle remains painful. 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 She notes she types on the computer a fair amount, but this typicall y doesn't aggravate symptoms. Patient Goals: To eliminate L elbow pain. Functional Limitations: carrying Prior Level of Function: Independent without limitations Intake Information: Prescription present Previous Treatment: NSAIDs? Pain: Pain Pain Level: 2 Pain Location: Elbow - Left Description: Aching Frequency: Continuous Post Treatment Pain Post Treatment Pain Level: 0 PROMIS Scales Higher is Better 12/02/2016 08/01/2019 Phys Func - Score - 47 (within normal limits) Phys Func - Percentile - 38 % Social Roles - Score - 53 (within normal limits) Social Role - Percentile - 62 % GH Physical - Score - Incomplete GH Physical - Percentile 41 % - GH Mental - Score - 53.3 GH Mental - Percentile 53 % 63 % T-scores: mean of general population = 50. 5 points is clini april meaningfully difference Percentiles provide an indication of how the patient's score ranks in relation to the general population. Higher percentile rankings indica te better function/quality of life. 50th percentile is the average of the general population and indicates half of respondents had a worse sco re. Lower is Better 08/01/2019 Fatigue - Score 48 (within normal limits) Fatigue - Percentile 58 % T-scores: mean of general population = 50. 5 points is clini april meaningfully difference Percentiles provide an indication of how the patient's score ranks in relation to the general population. Higher percentile rankings indica te better function/quality of life. 50th percentile is the average of the general population and indicates half of respondents had a worse sco re. OBJECTIVE MEASURES WITH LEVEL OF FUNCTION: Elbow Observations L Elbow/Wrist Palpation Tenderness: Lateral epicondyle;Other Comments: prox ext tendon UE AROM AROM - R Distal UE: yes R Elbow Extension: 0 Degrees R Elbow Flexion: 145 Degrees R Forearm Supination: 80 Degrees R Forearm Pronation: 95 Degrees R Wrist Extension: 73 Degrees R Wrist Flexion: 67 Degrees AROM - L Distal UE: yes L Elbow Extension: 0 L Elbow Flexion: 145 Degrees L Forearm Supination: 76 Degrees L Forearm Pronation: 100 Degrees L Wrist Extension: 76 Degrees(pulling at forearm and lateral epicondyle) L Wrist Flexion: 73 Degrees UE and Cervical Strength Strength Tested: Shoulder All R UE Strength: wrist ext./flex 4+/5(Outdoor Studies Professor strength 45#, LISSA dynamometer) L UE Strength: wrist ext./flex 4+/5. pulling wit h resisted ext.(Outdoor Studies Professor strength 40#, LISSA dynamometer) R Elbow Extension (C7): 4+/5 R Elbow Flexion (C6): 5/5 L Elbow Extension (C7): 4+/5(minimal pain) L Elbow Flexion (C6): 5/5 Education: Education Learning Preferences: Demonstration;Explanation Barriers: None Learning/educational needs: Home exercise program;Plan of Ca re Education Provided: Yes, see treatment interventions for e ducation provided Education Provided To: Patient Education Mode/Type: Demonstration;Explanation/Discuss ion;Literature/Printed Materials;Performance Response to Education/Teach Back: States/Identifies;Return D emonstration TREATMENT: Evaluation Therapeutic Exercise: 1: *wrist extensor stretch 3 x 30 sec holds Skilled Intervention: Patient was educated in proper exerc ise technique and purpose for exercises. Skilled judgment was provided in selection of appropriate in terventions. Provided written instruction for home exercise program to facilitate proper performance and compliance. Correct performance of therapeutic exercises was facil itated with verbal and visual cuing. Patient education as noted. Modalities: Ultrasound Body Region Treated - Ultrasound: L lateral epicondyle and proximal extensor tendons/muscle fibers Patient Position: seated in chair with L UE propped on plint h Mode: 50% pulsed w/cm2: 1.2 MHZ: 1 Minutes: 10 See flowsheet for details regarding treatment. Skilled Int ervention: Proper administration and selection of modality based on clinical p resentation, deficits, and needs. Patient response monitored throughout t reatment. Billing: [facility]: Evaluation - Low Complexity ([id number]) Therapeutic Exercise (14344): 1:1 time: 10 minutes (1 unit: 8-22 mins) Modalities Ultrasound (82208) 1:1 time: 10 minutes1 unit: 8- 22 mins Total time: 43 minutes Tracy Rascon PT obsolete on 2019-07 OBSOLETE Procedure (PULMWS) Normal 07-25-2019 [facility] JUANY CASTELLANO ([id number]) 1975 [facility] Date Time Provider Department ([id number]) 07/25/19 10:30 AM RESPIRATORY THERAPIST [facility] During your visit today, we recorded the following informati on about you: Weight Height 111.1 kg 1.765 m Referring Provider: KOJO FARRAR ([facility]) [[id number]] Allergies As of Date: 07/25/2019 Noted Allergy Reaction PENICILLINS 05/20/2005 5 - Intolerance Date Reviewed: 07/20/2019 Reviewed by: Edel Cuba Ma - Fully Assessed Reason for Visit: Spirometry [191] Visit Diagnoses:Cough [R05] SOB (shortness of breath) [R06.02] Order(s):SPIROMETRY WITH DILATOR IF OBSTRUCTED [[id number]] Ord er #: [id number]. #:[id number] Prescriptions as of 07/25/2019 Sig: BUPROPION HCL SR 150 MG TABLE* Take 1 tablet by mouth twice * FLUTICASONE PROPIONATE 50 MCG* Use 2 Sprays in each nostril * NAPROXEN SODIUM 220 MG CAPSULE Take 2 capsules by mouth twic * B COMPLEX-VITAMIN B12 ORAL Take by mouth. BIOTIN (BULK) MISC ERGOCALCIFEROL (VITAMIN D2) 1* Take 1 capsule by mouth two t * PANTOPRAZOLE 40 MG TABLET,DEL* Take 1 tablet by mouth daily * TOPIRAMATE 25 MG TABLET Take 25mgs in the evening for* PERFLUTREN LIPID MICROSPHERES* Inject 1.3 mL intravenously a * NICOTINE 21 MG/24 HR DAILY TR* Apply 1 Patch as directed mak * Problem List As Of Date 07/25/2019 Noted Resolved Contact dermatitis and other eczema, due to uns*06/16/2006 0 11/25/2011 OTHER PSORIASIS [L40.8] 06/16/2006 OTHER ATOPIC DERMATITIS [L20.89] 06/16/2006 XEROSIS////SEBACEOUS GLAND DIS NEC [L73.8] 06/16/20062013 Unspecified pruritic disorder [L29.9] 08/04/2007 08/15/2013 EXCORIATIONS///SUPERFICIAL INJURY NEC [T07.XXXA]08/04/2007 HYPOPIGMENTATION///DYSCHROMIA UNSPECIFIED [L81.*08/04/2007 0 08/15/2013 CHRONIC CYSTITIS NEC [N30.20] 10/17/2008 Nontoxic multinodular goiter [E04.2] 04/19/2012 Hyperlipidemia [E78.5] 11/02/2012 Tobacco abuse disorder [Z72.0] 11/02/2012 IUD (intrauterine device) in place [Z97.5] 12/14/2012 Thyroid nodule [E04.1] 04/18/2013 Multinodular goiter [E04.2] 04/18/2013 10/12/2017 Atypical nevus of shoulder [D22.60] 08/15/2013 Melanocytic nevus of face [D22.30] 08/15/2013 Solar lentigo [L81.4] 08/15/2013 Epidermal cyst [L72.0] 08/15/2013 Melanocytic nevi of trunk [D22.5] 08/15/2013 Melanocytic nevi of upper extremity or shoulder*08/15/2013 Actinic skin damage [L57.8] 08/15/2013 Scars [L90.5] 08/15/2013 Acne vulgaris [L70.0] 08/15/2013 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*03/06/2014 Obesity [E66.9] 03/06/2014 Tobacco dependence [F17.200] 03/06/2014 Migraine headache with aura [G43.109] 08/15/2014 Scleritis [H15.009] 10/29/2015 Nonscarring hair loss, unspecified [L65.9] 10/30/2015 Hereditary hemochromatosis (HCC) [E83.110] 10/31/2015 Plantar fasciitis of right foot [M72.2] 07/22/2017 Chest pain [R07.9] 12/06/2018 Encounter Status:Closed by REBEKAH CERVANTESOLEKSANDR on 07/25/19 vitamin d 25 hydroxy on 2019-07-20 Vitamin D 25 Hydroxy 35.9 31.0-80.0 ng/mL Normal [address] [facility] ([id number]) Comment: Result Comment: Classificati on of 25 OH Vitamin D status: Insufficiency/Moderate Defic iency: < or = 30 ng/mL Sufficiency/Optimal Levels: 31 to 80 ng/mL Toxicity: > 100 ng/mL Test performed by chemilumin escent immunoassay. Performed By: #### HBA1C, B1 2, VITD ####[facility] [id number] [address] [phone] vitamin b12 on 2019 Cobalamin (Vitamin B12) [phone] pg/mL Normal 2019 [facility] [Mass/Vol] [place] ([id number]) Comment: Performed By: #### HBA1C, B1 2, VITD ####[facility] [id number] [place] [address] [phone] progress on 2019-07 PROGRESS HNO ID: [id number] Normal 07-20-2019 [facility] Author: Kojo (Jessica) Eusebio [place] ([id number]) Service: ? Author Type: Nurse Practitioner Type: Progress Notes Filed: 07/20/2019 3:09 PM Note Text: CC: Patient presents with: Recheck: 3 month follow up HPI Juany Castellano is a 43 year old female who presents today f or 3 month follow up. SERA: Recently diagnosed with mild SERA. Paperwork initiated f or Auto Pap therapy. Patient has since started therapy, not going well. States she feels more SOB with use, tends to remove mask at night avera ging less than 4 hours so far and worsening cough. Scheduled with [facility] sleep medicine clinic for education and f ollow up. GI complaints: upper abdominal pain, dysphagia. Evaluation w ith GI. Follow up HIDA scan unremarkable, recommended follow up endoscopy. Patient completed EGD by revealing gastritis. Started on Protonix. Doing well. Patient also notes some of her pain including back and rib p ain improved significantly after seeing chiropractor this week. Migraines: on Topmax intermittent headaches/migraines d/t in consistency with medications. Weight gain/inability to lose: ongoing, only eating one meal per day snacks on carrots but gaining weight. Tobacco use: continues to smoke around 0.5ppd or less. Attem pting to cut back but difficult. REVIEW OF SYSTEMS General: no fevers, no chills, no night sweats, no recurrent infections, no change in appetite and See HPI HEENT: no changes in hearing, no visual changes, no nose ble eds, See HPI +sinus congestion, cough Neck: no lumps, no pain and no swelling Respiratory: no wheezing, no hemoptysis, See HPI Cardiovascular: no chest pain, no chest pressure, no palpita tions and no swelling GI: Positive for heart burn PAST MEDICAL HISTORY Diagnosis Date - Blood dyscrasia - Chronic fatigue syndrome - Goiter, unspecified - Headache(784.0) - Hemochromatosis - Menorrhagia - Plantar fasciitis, bilateral - Snoring - Tobacco abuse PAST SURGICAL HISTORY Procedure Laterality Date - FOOT SURGERY HX Right plantar - HYSTEROSCOPY DIAGNOSTIC 12/22/2017 Hysteroscopy DANDC - LEG VEIN LEFT 04/2015 - REMOVAL OF SKIN TAGS 12/22/2017 [place] Skin Tags-Dr. Gaviria - S ABLATION ALMA [id number] 12/22/2017 [place] Ablation-Dr. Gaviria - SALPINGECTOMY Bilateral 12/22/2017 Laparoscopic B/L Salpingectomy-Dr. Gaviria ALLERGIES Penicillins MEDICATIONS naproxen sodium (ALEVE) 220 mg cap Take 2 capsules by mouth twice daily at 6AM and 9PM. vitamin B complex (B COMPLEX-VITAMIN B12 ORAL) Take by mouth . BIOTIN, BULK, MISC ergocalciferol 50,000 unit capsule (VITAMIN D2, DRISDOL) Qamar e 1 capsule by mouth two times a week. TO BE TAKEN ORALLY DIRECTED. Take 1 tablet by mouth twice weekly [id number], then decrease to 1 tablet weekly . pantoprazole [address] (PROTONIX) 40 mg tablet Take 1 tablet by leena th daily before breakfast. Take on empty stomach, 1/2 hr before meal. topiramate (TOPAMAX) 25 mg tablet Take 25mgs in the evening for a week, then go to 50 mgs daily. perflutren lipid microspheres (DEFINITY) 1.1 mg/mL injection (to be provided with echo procedure) Inject 1.3 mL intravenously as directed. nicotine (NICODERM) 21 mg/24 hr Apply 1 Patch as directed ev peri 24 hours. FAMILY HISTORY Problem Relation Age of Onset - Heart Father ang ioplasy - Diabetes Father - other (Brain Tumor) Father - Colon Cancer Mother 55 Parkinsons - Cancer Paternal Grandmother pancreatic - Cancer Maternal Grandfather colon - Diabetes Maternal Grandfather Social History Tobacco Use - Smoking status: Light Tobacco Smoker Packs/day: 0.75 Years: 15.00 Pack years: 11.25 Types: Cigarettes - Smokeless tobacco: Never Used - Tobacco comment: 10-15 cigarettes in a daily Substance Use Topics - Alcohol use: No - Drug use: No PHYSICAL EXAM BP 128/80 Pulse 87 Temp 36.6 ?C (97.9 ?F) (Temporal) R lorenzo 16 Wt 113.4 kg (250 lb) SpO2 96% BMI 36.39 kg/m? General Appearance: well appearing, in no acute distress, al ert Pysch: mood and affect broad and appropriate Skin: Skin color, texture, turgor normal for age; Head: normocephalic, atraumatic Eyes: EOM's intact, conjunctiva pink and moist, no icterus, sclera white, non-injected Ears: external ears normal to inspection and palpation, andrés ls clear, Left tympanic membrane normal. , Right tympanic membrane normal Lungs: lungs clear to auscultation. No wheezing, rhonchi, ra les Heart: RRR without murmur, gallop, or rubs. No ectopy DTAP,TDAP,TD(1 - Tdap) due on 1988 TWO PNEUMOVAX 5 YEARS APART PRIOR TO AGE 65(1) due on 1996 ADULT PREVNAR-13 due on 1996 MAMMOGRAM due on 12/30/2019 COLORECTAL CANCER SCREENING,SEE MODIFIER due on 11/29/2021 PAP TESTING due on 02/28/2022 HPV TESTING due on 02/28/2022 INFLUENZA Completed ASSESSMENT/PLAN: 1. Sleep apnea, unspecified type - ICD9: 780.57, ICD10: G47. 30 (primary diagnosis) - Newly diagnosed - Started on autopap therapy, encouraged to stick with thera py - Follow up with sleep medicine as planned 2. Prediabetes - ICD9: 790.29, ICD10: R73.03 - HGB A1C 3. SOB (shortness of breath) - ICD9: 786.05, ICD10: R06.02 - SPIROMETRY WITH DILATOR IF OBSTRUCTED 4. Cough - ICD9: 786.2, ICD10: R05 - SPIROMETRY WITH DILATOR IF OBSTRUCTED 5. Vitamin D deficiency - ICD9: 268.9, ICD10: E55.9 - VITAMIN D 25 HYDROXY 6. B12 deficiency - ICD9: 266.2, ICD10: E53.8 - VITAMIN B12 BLOOD 7. Left elbow pain - ICD9: 719.42, ICD10: M25.522 - CONSULT TO PHYSICAL THERAPY 8. Gastritis without bleeding, unspecified chronicity, unspe cified gastritis type - ICD9: 535.50, ICD10: K29.70 - Newly diagnosed following EGD - Continue protonix 9. Tobacco abuse disorder - ICD9: 305.1, ICD10: Z72.0 - Cessation encouraged. - Physiologic and physical aspects of tobacco addiction as w ell as strategies for quitting were discussed. - Counseling was given focusing on the harmful effects of th is addiction especially given the patient's medical condition(s) which wi ll be worsened because of the chemicals in tobacco. - Prescription for bupropion (Wellbutrin) given - BUPROPION HCL SR 150 MG TABLET,12 HR SUSTAINED-RELEASE 10. Class 2 severe obesity with serious comorbidity and body mass index (BMI) of 36.0 to 36.9 in adult, unspecified obesity type (HC C) - ICD9: 278.01, V85.36, ICD10: E66.01, Z68.36 Weight increasing - Add Bupropion - Check labs given prediabetes status and recent weight gain . Consider metformin vs liraglutide pending laboratory results and insu will approval - Follow up 3 months, sooner pending laboratory results Kojo Farrar APRN.EDUCATION SITE MANAGER Prescription instructions reviewed with patient as applicabl e. Potential red flag symptoms discussed with the patient. Reviewed appro priate action plan to take if red flag symptoms occur. Patient agreeable t o treatment plan. hemoglobin a1c on HbA1c (Bld) [Mass fraction] 5.7 4.3-5.6 % High [facility] ([id number]) Comment: Result Comment: Vietnamese Jackelyn betes Association guidelines indicate that patients with HgbA1c in the range 5.7-6.4% are at increased risk for development of diabetes, and intervention by lifestyle modification may be beneficial. HgbA1c greater o r equal to 6.5% is considered diagnostic of diabetes. Performed By: #### HBA1C, B1 2, VITD ####[facility] [id number] [place] [address] [phone] HbA1c (Bld) [Mass fraction] 117 mg/dL Normal [facility] ([id number]) Comment: Result Comment: eAG: (Estima florencio average glucose) is a calculated value from HgbA1c and is novelties sales representative of the average blood glucose level in the last 2-3 month period. Performed By: #### HBA1C, B1 2, VITD ####[facility] [id number] [place] [address] [phone] cnov on 2019-07-20 CNOV Office Visit (INTMWS) Normal 07-20-[address] [place] [address] [facility] JUANY CASTELLANO ([id number]) 1975 [facility] Date Time Provider Department ([id number]) 07/20/19 9:40 AM KOJO FRARAR (EDUCATION SITE MANAGER) INTMWS During your visit today, we recorded the following informati on about you: Temperature Pulse Respiration Blood pressure 97.9 degrees 87/minute 16/minute 128/80 Weight 113.4 kg Kojo Farrar APRN.CNP 07/20/2019 3:09 PM Signed CC: Patient presents with: Recheck: 3 month follow up HPI Juany Keller Jon is a 43 year old female who pres ents today for 3 month follow up. SERA: Recently diagnosed with mild SERA. Paperwork initiated f or Auto Pap therapy. Patient has since started therapy, not going well. States she feels more SOB with use, tends to remove mask at night averaging less than 4 hours so far and worsening cough. Scheduled with [facility] sleep medicine clinic for education and f ollow up. GI complaints: upper abdominal pain, dysphagia. Evaluation with GI. Follow up HIDA scan unremarkable, recommended foll ow up endoscopy. Patient completed EGD by revealing gastritis. Started on Protonix. Delmi rodriguez. Patient also notes some of her pain including back and rib p ain improved significantly after seeing chiropractor this week. Migraines: on Topmax intermittent headaches/migraines d/t inconsistency with medications. Weight gain/inability to lose: ongoing, only eating one meal per day snacks on carrots but gaining weight. Tobacco use: continues to smoke around 0.5ppd or less. Attempting to cut back but difficult. REVIEW OF SYSTEMS General: no fevers, no chills, no night sweats, no recurre nt infections, no change in appetite and See HPI HEENT: no changes in hearing , no visual changes, no nose bleeds, See HPI +sinus congestion, cough Neck: no lumps, no pain and no swelling Respiratory: no wheezing, no hemoptysis, See HPI Cardiovascular: no chest pain, no chest pressure, no palpita tions and no swelling GI: Positive for heart burn PAST MEDICAL HISTORY Diagnosis Date - Blood dyscrasia - Chronic fatigue syndrome - Goiter, unspecified - Headache(784.0) - Hemochromatosis - Menorrhagia - Plantar fasciitis, bilateral - Snoring - Tobacco abuse PAST SURGICAL HISTORY Procedure Laterality Date - FOOT SURGERY HX Right plantar - HYSTEROSCOPY DIAGNOSTIC 12/22/2017 Hysteroscopy DANDC - LEG VEIN LEFT 04/2015 - REMOVAL OF SKIN TAGS 12/22/2017 Vulvar Skin Tags-Dr. Gaviria - S ABLATION ALMA [id number] 12/22/2017 [place] Ablation-Dr. Gaviria - SALPINGECTOMY Bilateral 12/22/2017 Laparoscopic B/L Salpingectomy-Dr. Gaviria ALLERGIES Penicillins MEDICATIONS naproxen sodium (ALEVE) 220 mg cap Take 2 capsules by mouth twice daily at 6AM and 9PM. vitamin B complex (B COMPLEX-VITAMIN B12 ORAL) Take by mouth . BIOTIN, BULK, MISC ergocalciferol 50,000 unit capsule (VITAMIN D2, DRISDOL) Qamar e 1 capsule by mouth two times a week. TO BE TAKEN ORAL LY DIRECTED. Take 1 tablet by mouth twice weekly [id number], then decrease to [address] (PROTONIX) 40 mg tablet Take 1 tablet by m outh daily before breakfast. Take on empty stomach, 1/2 hr before meal. topiramate (TOPAMAX) 25 mg t ablet Take 25mgs in the evening for a week, then go to 50 mgs daily. perflutren lipid microspheres (DEFINSegmint) 1.1 mg/mL inj ection (to be provided with echo procedure) Inject 1.3 mL intravenously as directed . nicotine (NICODERM) 21 mg/24 hr Apply 1 Patch as directed ev peri 24 hours. FAMILY HISTORY Problem Relation Age of Onset - Heart Father ang ioplasy - Diabetes Father - other (Brain Tumor) Father - Colon Cancer Mother 55 Parkinsons - Cancer Paternal Grandmother pancreatic - Cancer Maternal Grandfather colon - Diabetes Maternal Grandfather Social History Tobacco Use - Smoking status: Light Tobacco Smoker Packs/day: 0.75 Years: 15.00 Pack years: 11.25 Types: Cigarettes - Smokeless tobacco: Never Used - Tobacco comment: 10-15 cigarettes in a daily Substance Use Topics - Alcohol use: No - Drug use: No PHYSICAL EXAM BP 128/80 Pulse 87 Temp 36.6 ?C (97.9 ?F) (Temporal) R lorenzo 16 Wt 113.4 kg (250 lb) SpO2 96% BMI 36.39 kg/m? General Appearance: well appearing, in no acute distress, al ert Pysch: mood and affect broad and appropriate Skin: Skin color, texture, turgor normal for age; Head: normocephalic, atraumatic Eyes: EOM's intact, conjunctiva pink and moist, no icterus, sclera white, non-injected Ears: external ears normal to inspection and palpation, andrés ls clear, Left tympanic membrane normal. , Right tympanic membrane normal Lungs: lungs clear to auscultation. No wheezing, rhonchi, ra les Heart: RRR without murmur, gallop, or rubs. No ectopy DTAP,TDAP,TD(1 - Tdap) due on 1988 TWO PNEUMOVAX 5 YEARS APART PRIOR TO AGE 65(1) due on 1996 ADULT PREVNAR-13 due on 1996 MAMMOGRAM due on 12/30/2019 COLORECTAL CANCER SCREENING,SEE MODIFIER due on 11/29/2021 PAP TESTING due on 02/28/2022 HPV TESTING due on 02/28/2022 INFLUENZA Completed ASSESSMENT/PLAN: 1. Sleep apnea, unspecified type - ICD9: 780.57, ICD10: G47. 30 (primary diagnosis) - Newly diagnosed - Started on autopap therapy, encouraged to stick with thera py - Follow up with sleep medicine as planned 2. Prediabetes - ICD9: 790.29, ICD10: R73.03 - HGB A1C 3. SOB (shortness of breath) - ICD9: 786.05, ICD10: R06.02 - SPIROMETRY WITH DILATOR IF OBSTRUCTED 4. Cough - ICD9: 786.2, ICD10: R05 - SPIROMETRY WITH DILATOR IF OBSTRUCTED 5. Vitamin D deficiency - ICD9: 268.9, ICD10: E55.9 - VITAMIN D 25 HYDROXY 6. B12 deficiency - ICD9: 266.2, ICD10: E53.8 - VITAMIN B12 BLOOD 7. Left elbow pain - ICD9: 719.42, ICD10: M25.522 - CONSULT TO PHYSICAL THERAPY 8. Gastritis without bleeding, unspecified chronicity, unspecified gastritis type - ICD9: 535.50, ICD10: K29.70 - Newly diagnosed following EGD - Continue protonix 9. Tobacco abuse disorder - ICD9: 305.1, ICD10: Z72.0 - Cessation encouraged. - Physiologic and physical aspects of tobacco ad diction as well as strategies for quitting were discussed. - Counseling was given focusing on the harmful effects of th is addiction especially given the patient's medical condition(s) which wi ll be worsened because of the chemicals in tobacco. - Prescription for bupropion (Wellbutrin) given - BUPROPION HCL SR 150 MG TABLET,12 HR SUSTAINED-RELEASE 10. Class 2 severe obesity with serious comorbid ity and body mass index (BMI) of 36.0 to 36.9 in adult, unspecified obesity type (HCC) - I CD9: 278.01, V85.36, ICD10: E66.01, Z68.36 Weight increasing - Add Bupropion - Check labs given prediabetes status and recent weight gain . Consider metformin vs liraglutide pending laboratory results and insu will approval - Follow up 3 months, sooner pending laboratory results Kojo Farrar APRN.EDUCATION SITE MANAGER Prescription instructions reviewed with patient as nery licable. Potential red flag symptoms discussed with the patient. Review ed appropriate action plan to take if red flag symptoms occur. Patient agreeable to treatm ent plan. Referring Provider: CASTILLO STILL [[id number]] Allergies As of Date: 07/20/2019 Noted Allergy Reaction PENICILLINS 05/20/2005 5 - Intolerance Date Reviewed: 07/20/2019 Reviewed by: Edel Cuba Ma - Fully Assessed Reason for Visit: Recheck [92] Cmt: 3 month follow up Primary Visit Diagnosis:Sleep apnea, unspecified type [G47.3 0] Other Visit Diagnoses:Prediabetes [R73.03] SOB (shortness of breath) [R06.02] Cough [R05] Vitamin D deficiency [E55.9] B12 deficiency [E53.8] Left elbow pain [M25.522] Gastritis without bleeding, unspecified chronicity, unspecified gastritis type [K29.70] Tobacco abuse disorder [Z72.0] Class 2 severe obesity with serious comorbidity and body mass index (BMI) of 36.0 to 36.9 in adult, unspecified obesity type (HCC) [E66.01, Z68.36] Order(s):buPROPion SR (WELLBUTRIN SR) 150 mg 12 hr tabletTak e 1 tablet by mouth twice daily.Disp: 60 tabletRfl: 2 HGB A1C [YHVDB2W] Order #: [id number] FUTURE SPIROMETRY WITH DILATOR IF OBSTRUCTED [5213409] Order #: [id number] FUTURE VITAMIN D 25 HYDROXY [SQVITD] Order #: [id number] FUTURE VITAMIN B12 BLOOD [SQB12] Order #: [id number] FUTURE fluticasone (FLONASE) 50 mcg/actuation nasal sprayUse 2 Spra ys in each nostril once daily. Rinse mouth after use.Disp: 1 Bottl eRfl: 11 CONSULT TO PHYSICAL THERAPY [9035] Order #: [id number]: 1 FUTURE Prescriptions as of 07/20/2019 Sig: BUPROPION HCL SR 150 MG TABLE* Take 1 tablet by mouth twice * FLUTICASONE PROPIONATE 50 MCG* Use 2 Sprays in each nostril * NAPROXEN SODIUM 220 MG CAPSULE Take 2 capsules by mouth twic * B COMPLEX-VITAMIN B12 ORAL Take by mouth. BIOTIN (BULK) MISC ERGOCALCIFEROL (VITAMIN D2) 1* Take 1 capsule by mouth two t * PANTOPRAZOLE 40 MG TABLET,DEL* Take 1 tablet by mouth daily * TOPIRAMATE 25 MG TABLET Take 25mgs in the evening for* PERFLUTREN LIPID MICROSPHERES* Inject 1.3 mL intravenously a * NICOTINE 21 MG/24 HR DAILY TR* Apply 1 Patch as directed mak * Problem List As Of Date 07/20/2019 Noted Resolved Contact dermatitis and other eczema, due to uns*06/16/2006 0 11/25/2011 OTHER PSORIASIS [L40.8] 06/16/2006 OTHER ATOPIC DERMATITIS [L20.89] 06/16/2006 XEROSIS////SEBACEOUS GLAND DIS NEC [L73.8] 06/16/20062013 Unspecified pruritic disorder [L29.9] 08/04/2007 08/15/2013 EXCORIATIONS///SUPERFICIAL INJURY NEC [T07.XXXA]08/04/2007 HYPOPIGMENTATION///DYSCHROMIA UNSPECIFIED [L81.*08/04/2007 0 08/15/2013 CHRONIC CYSTITIS NEC [N30.20] 10/17/2008 Nontoxic multinodular goiter [E04.2] 04/19/2012 Hyperlipidemia [E78.5] 11/02/2012 Tobacco abuse disorder [Z72.0] 11/02/2012 IUD (intrauterine device) in place [Z97.5] 12/14/2012 Thyroid nodule [E04.1] 04/18/2013 Multinodular goiter [E04.2] 04/18/2013 10/12/2017 Atypical nevus of shoulder [D22.60] 08/15/2013 Melanocytic nevus of face [D22.30] 08/15/2013 Solar lentigo [L81.4] 08/15/2013 Epidermal cyst [L72.0] 08/15/2013 Melanocytic nevi of trunk [D22.5] 08/15/2013 Melanocytic nevi of upper extremity or shoulder*08/15/2013 Actinic skin damage [L57.8] 08/15/2013 Scars [L90.5] 08/15/2013 Acne vulgaris [L70.0] 08/15/2013 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*03/06/2014 Obesity [E66.9] 03/06/2014 Tobacco dependence [F17.200] 03/06/2014 Migraine headache with aura [G43.109] 08/15/2014 Scleritis [H15.009] 10/29/2015 Nonscarring hair loss, unspecified [L65.9] 10/30/2015 Hereditary hemochromatosis (HCC) [E83.110] 10/31/2015 Plantar fasciitis of right foot [M72.2] 07/22/2017 Chest pain [R07.9] 12/06/2018 Prescriptions ordered this encounter Disp Refills Start End BUPROPION HCL SR 150 MG TABLET,12 HR* 60 t* 2 07/20/2019 Route: ORAL Sig: Take 1 tablet by mouth twice daily. FLUTICASONE PROPIONATE 50 MCG/ACTUAT* 1 Miller* 11 07/20/2019 Route: EACH NOSTRIL Sig: Use 2 Sprays in each nostril once daily. Rinse mouth af ter use. Disposition: Return in about 3 months (around 10/19/2019). Follow-up and Disposition History Recorded Encounter Status:Closed by KOJO FARRAR CNP on 07/20/19 us thyroid/parathyroid on 2019-05-24 THYROID/PARATHYROID * * *Final Report* * * Harpal munguia 05-24-2019 [place] [facility]: [facility]ATHYROID / [place] PROCEDURE REASON: Nontoxic multinodular goiter (27180) * * * * Physician Interpretation * * * * Ultrasound of the thyroid gland History: Thyroid nodules Findings: Right lobe: The dimensions of the lobe are 6.5 x 2.2 x 1.9 c m. Mildly heterogeneous. Central heterogeneous hypoechoic nodule with small cystic components. Dimensions 1.3 x 0.6 x 1.0 cm. Left lobe: The dimensions of the lobe are 6.4 x 2.0 x 1.7 cm . Mildly heterogeneous. There is a rounded nodule with scattered arminda pheral hyperechoic foci possibly representing calcification 1.2 x 1 .1 x 1.4 cm, not significantly changed from prior study. Adjacent more in ferior heterogeneous nodule 1.0-1.1 cm was not clearly evident on p rior study. Superior lateral complex cystic nodule. 0.7-1.0 cm in diamet er previously evident only on lateral images measuring 7 mm. Po sterior heterogeneous nodule 1.0 x 0.8 x 1.2 cm in diameter not jose rly defined on prior study. Isthmus: Right sided Isthmus hypoechoic possibly cystic nodu le 5 x 3 x 5 mm probably stable Images were stored in a permanent archive. IMPRESSION: Borderline enlarged thyroid with multiple nodules some of wh ich in the LEFT lobe were not clearly evident or are mildly enlarged. Gas Plumber: PSCB Transcribe Date/Time: May 24 2019 2:39P Dictated by : MARILYNN PEREZ MD This examination was interpreted and the report reviewed and electronically signed by: MARILYNN PEREZ MD on May 24 2019 2:50PM EST [id number] progress on 2019-05 PROGRESS HNO ID: [id number] Normal 05-24-2019 [facility] Author: Jessika Otero) Philip [place] ([id number]) Service: ? Author Type: Workers Compensation Claims Supervisor Type: Progress Notes Filed: 05/24/2019 10:03 AM Note Text: Radiology Service Progress Note PATIENT NAME: Juany Castellano DATE OF SERVICE: May 24, 2019 TIME: 10:03 AM PATIENT IDENTITY VERIFICATION COMPLETED USING TWO (2) METHOD S: Name and Date of confirmed by patient verbally. PATIENT GENDER DATA: Female. status: : No status: N/A PATIENT RELEVANT IMPLANT DATA REVIEWED: Not Applicable RADIOLOGY DEPARTMENT: Ultrasound PERIPHERAL IV DATA: Not applicable SIGNED BY: JESSIKA JAIN RDMS RVT May 24, 2019 10:03 AM us abd spleen -nb o n 2019-05-17 US ABD SPLEEN * * *Final Report* * * Normal [facility] -NB DATE OF EXAM: May 17 2019 7:55AM [place] ([id number]) WRU 1232 - US ABD SPLEEN -NB / PROCEDURE REASON: multiple diagnoses * * * * Physician Interpretation * * * * EXAMINATION: RIGHT UPPER QUADRANT AND SPLEEN ULTRASOUND CLINICAL HISTORY: Bilateral upper abdominal pain Bilateral u pper abdominal pain TECHNIQUE: Sonography of the right upper quadrant and spleen was performed. Images were obtained and stored in a permanent ar chive. MQ: URUQ_1 COMPARISON: MRI of the abdomen dated 11/20/2015. RESULT: Pancreas: Normal sonographic appearance. Portions obscured: tail Liver: Echotexture: Normal, homogeneous. Echogenicity: Normal Surface contour: Smooth Lesions: None. Biliary: No intrahepatic biliary duct dilation. CBD: 0.4 cm at the hilum. Gallbladder: Relatively underdistended -Contents: No cholelithiasis -Wall: Normal -Other: No pericholecystic fluid. Kidneys: No hydronephrosis. The right kidney measures approx imately 11.5 cm. The left kidney measures approximately 11.3 cm. Ascites: None. Spleen: The spleen measures approximately 12.4 x 6.0 x 9.2 c m. There is no focal splenic lesion. IMPRESSION: Normal liver echotexture, without focal hepatic lesion. No cholelithiasis or convincing sonographic evidence for acu te cholecystitis. No biliary dilation. No splenomegaly or focal splenic mass. Gas Plumber: [facility] Transcribe Date/Time: May 17 2019 8:53A Dictated by : ONEYDA LONG MD This examination was interpreted and the report reviewed and electronically signed by: ONEYDA LONG MD on May 17 2019 8:55AM EST [id number] us abd right upper quadrant on 2019-05-17 US ABD RIGHT * * *Final Report* * * Normal 11-0 [facility] UPPER QUADRANT DATE OF EXAM: May 17 2019 8:42AM [place] ([id number]) WRU 1032 - US ABD RIGHT UPPER QUADRANT / 77 PROCEDURE REASON: multiple diagnoses * * * * Physician Interpretation * * * * EXAMINATION: RIGHT UPPER QUADRANT AND SPLEEN ULTRASOUND CLINICAL HISTORY: Bilateral upper abdominal pain Bilateral u pper abdominal pain TECHNIQUE: Sonography of the right upper quadrant and spleen was performed. Images were obtained and stored in a permanent ar chive. MQ: URUQ_1 COMPARISON: MRI of the abdomen dated 11/20/2015. RESULT: Pancreas: Normal sonographic appearance. Portions obscured: tail Liver: Echotexture: Normal, homogeneous. Echogenicity: Normal Surface contour: Smooth Lesions: None. Biliary: No intrahepatic biliary duct dilation. CBD: 0.4 cm at the hilum. Gallbladder: Relatively underdistended -Contents: No cholelithiasis -Wall: Normal -Other: No pericholecystic fluid. Kidneys: No hydronephrosis. The right kidney measures approx imately 11.5 cm. The left kidney measures approximately 11.3 cm. Ascites: None. Spleen: The spleen measures approximately 12.4 x 6.0 x 9.2 c m. There is no focal splenic lesion. IMPRESSION: Normal liver echotexture, without focal hepatic lesion. No cholelithiasis or convincing sonographic evidence for acu te cholecystitis. No biliary dilation. No splenomegaly or focal splenic mass. Gas Plumber: PSCB Transcribe Date/Time: May 17 2019 8:53A Dictated by : ONEYDA LOGN MD This examination was interpreted and the report reviewed and electronically signed by: ONEYDA LONG MD on May 17 2019 8:55AM EST [id number] progress on 2019-05 PROGRESS HNO ID: [id number] Normal 05-17-2019 [facility] Author: Nola Murray Rdms [place] ([id number]) Service: ? Author Type: ? Type: Progress Notes Filed: 05/17/2019 8:45 AM Note Text: Radiology Service Progress Note PATIENT NAME: Juany Castellano DATE OF SERVICE: May 17, 2019 TIME: 8:45 AM PATIENT IDENTITY VERIFICATION COMPLETED USING TWO (2) METHOD S: Name and Date of confirmed by patient verbally. PATIENT GENDER DATA: Female. status: : No status: NO. PATIENT RELEVANT IMPLANT DATA REVIEWED: Not Applicable RADIOLOGY DEPARTMENT: Ultrasound PERIPHERAL IV DATA: Not applicable SIGNED BY: Nola Murray Rdms May 17, 2019 8:45 AM lipase on Lipase [Catalytic 48 16-61 U/L Normal 05-15-2019 [facility] activity/Vol] Jeff and ([id number]) Comment: Performed By: #### LIPA, HFP ####[facility] [id number] [place], [place] [phone] history physical on 2019-05-15 HISTORY PHYSICAL HNO ID: [id number] Normal [facility] Author: Chet Fernandez ([id number]) Service: ? Author Type: Nurse Practitioner Type: HANDP Filed: 05/15/2019 7:49 PM Note Text: Juany Castellano a 43 year old female who is a consultation r equested by Dr. Still for an opinion regarding dysphagia. My final recom mendations will be communicated back to the requesting physician by way of shared Medical record. The patient has not been seen previously. The patient has a history of hereditary hemochromatosis, mann hillary, sleep apnea and psoriasis. The patient was seen by Dr. Still on 04/19/19, leading to th is consultation. That note has been reviewed and part as follow s: Swallowing issue: sometimes when she eats she feels like it is stuck in her throat. Not on ppi. Would need an egd. She is not sure w hat triggers, she does have severe heart burn with certain foods and seems to think that aggravates it. Presenting complaint: The patient presents today reporting t hat the heartburn has improved with the pantoprazole. Reports having had dysphagia until she started pantoprazole. Will feel food sitting mid c hest if she eats too fast. No nausea. Notes upper abdominal pressure and fullness that has gotten worse. Having upper abdominal pressure - und er the ribcage bilaterally. If she has dinner, it's around 7. She tries to head to bed 1 0-10:30. She sleeps in a regular bed with the head of the bed flat. Bowel movements are looser and may be more often recently - may be due to the pantoprazole. Infrequent dairy. No herbal supplements. No sf candy. REVIEW OF SYSTEMS: GENERAL: Fatigue. No unplanned weight loss. RESPIRATORY: Reports slight SOB due to the bloating. CARDIOVASCULAR: Chest pain, Sees Dr. Gardiner at [facility]. GI: As reported above ROLL BUILDER: Negative for abnormal vaginal bleeding, abnormal vagina l discharge. LMP: s/p ablation- spotting within last month. MUSCULOSKELETAL: Mid back pain. PSYCH: Positive for anxiety: related to health issues. HEMATOLOGY/LYMPHOLOGY: History of possible hemochromatosis. Negative for prolonged bleeding, bruising easily or swollen nodes. ENDOCRINE: Positive for thyroid nodules and a goiter. Histor y of prediabetes. NEURO: Numbness or tingling of feet, also occasional migrain e headaches. All other reviewed and negative other than HPI. PAST MEDICAL HISTORY Diagnosis Date - Blood dyscrasia - Chronic fatigue syndrome - Goiter, unspecified - Headache(784.0) - Hemochromatosis - Menorrhagia - Plantar fasciitis, bilateral - Snoring - Tobacco abuse PAST SURGICAL HISTORY Procedure Laterality Date - FOOT SURGERY HX Right plantar - HYSTEROSCOPY DIAGNOSTIC 12/22/2017 Hysteroscopy DANDC - LEG VEIN LEFT 04/2015 - REMOVAL OF SKIN TAGS 12/22/2017 Vulvar Skin Tags-Dr. Gaviria - S ABLATION [place] [id number] 12/22/2017 [place] Ablation-Dr. Gaviria - SALPINGECTOMY Bilateral 12/22/2017 Laparoscopic B/L Salpingectomy-Dr. Gaviria FAMILY HISTORY Problem Relation Age of Onset - Heart Father ang ioplasy - Diabetes Father - other (Brain Tumor) Father - Colon Cancer Mother 55 Parkinsons - Cancer Paternal Grandmother pancreatic - Cancer Maternal Grandfather colon - Diabetes Maternal Grandfather Current Outpatient Medications Medication Sig Dispense Refill - ergocalciferol 50,000 unit capsule (VITAMIN D2, DRISDOL) T john 1 capsule by mouth two times a week. TO BE TAKEN ORALLY DIRECTED. T john 1 tablet by mouth twice weekly [id number], then decrease to 1 tablet wee kly. 8 capsule 5 - pantoprazole DR (PROTONIX) 40 mg tablet Take 1 tablet by m outh daily before breakfast. Take on empty stomach, 1/2 hr before meal. 30 tablet 5 - pantoprazole DR (PROTONIX) 20 mg tablet Take 1 tablet by m outh twice daily. 60 tablet 2 - topiramate (TOPAMAX) 25 mg tablet Take 25mgs in the evenin g for a week, then go to 50 mgs daily. 60 tablet 2 - perflutren lipid microspheres (DEFINITY) 1.1 mg/mL injecti on (to be provided with echo procedure) Inject 1.3 mL intravenously as directed. 1.3 mL 0 - nicotine (NICODERM) 21 mg/24 hr Apply 1 Patch as directed every 24 hours. 30 Patch 1 No current facility-administered medications for this visit. SOCIAL HISTORY: Patient is . She smokes 10-15 cigs a day. She reports her alcohol use as none. PHYSICAL EXAMINATION: Blood pressure 129/84, pulse 85, height 176.5 cm (5' 9.5), weight 112.5 kg (248 lb). General Appearance: Well appearing, alert, in no acute distr ess, well-hydrated, well nourished. Skin: Skin color, texture, turgor normal, no suspicious rash es or lesions. Head: Normocephalic, no masses, lesions or abnormalities. Eyes: Anicteric sclera. Neck: Supple, no adenopathy; thyroid symmetric, normal size, no bruits. Lungs: lungs clear to auscultation. No wheezing, rhonchi, ra les. Heart: RRR without murmur. Abdomen: Abdomen soft. Slight TTP along lower rib border L>R , non-tender lower abdomen. Bowel sounds normal. No masses, organomegaly. Extremities: No deformities, edema, skin discoloration, club olivier or cyanosis. Impression: upper abdominal pain Plan: Continue PPI. Labs and RUQ US. Further plan based on t he results. I have personally interviewed and examined this patient. I jeevan holm reviewed the information that the MA entered for this encounter. I sp ent 30 minutes in the visit, with greater than 50% of the total face-to-fac e time of the visit in counseling and coordination of care. Chet Muse RN PULL OUT OPERATOR.EDUCATION SITE MANAGER hepatic functn panel on 2019-05-15 Albumin [Mass/Vol] 4.1 3.9-4.9 g/dL Normal 05-15-[address] [facility] ([id number]) Comment: Performed By: #### LIPA, HFP ####[facility] [address] [place], [place] [phone]- [phone] ALP [Catalytic activity/Vol] 84 34-123 U/L Normal 1 07-15-[address] [facility] ([id number]) Comment: Performed By: #### LIPA, HFP ####[facility] [address] [place], [place] [id number]- [phone] ALT [Catalytic activity/Vol] 22 7-38 U/L Normal 1 07-15-[address] [facility] ([id number]) Comment: Performed By: #### LIPA, HFP ####[facility] [id number] [place], [place] [phone] AST [Catalytic activity/Vol] 14 13-35 U/L Normal 1 07-15-[address] [facility] ([id number]) Comment: Performed By: #### LIPA, HFP ####[place] [id number] [place], [place] [id number]- [phone] Bilirubin [Mass/Vol] <0.2 0.2-1.3 mg/dL Low [address] [facility] ([id number]) Comment: Performed By: #### LIPA, HFP ####[place] [address], [place] [phone]- [phone] Bilirubin,Conjugated <0.2 <0.2 Normal [address] [facility] ([id number]) Comment: Performed By: #### LIPA, HFP ####[facility], [place] [phone]- [phone] Protein [Mass/Vol] 7.0 6.3-8.0 g/dL Normal 05-15-[address] [facility] ([id number]) Comment: Performed By: #### LIPA, HFP ####[place] [address], [place] [phone]- [phone] cnov on 2019-05-15 CNOV Office Visit (GAST) Normal 05-15-[address] [place] [address] JUANY Mcallister ([id number]) 1975 [facility] Date Time Provider Department ([id number]) 05/15/19 3:00 PM CHET MUSE [facility] During your visit today, we recorded the following informati on about you: Pulse Blood pressure Weight Height 85/minute 129/84 112.5 kg 1.765 m Chet Muse RN PULL OUT OPERATOR.EDUCATION SITE MANAGER 05/15/2019 7:49 PM Signed Juany Castellano a 43 year old female who is a consultation requested by Dr. Still for an opinion regarding dysphagia. My final recommend ations will be communicated back to the requesting phys tuan by way of shared Medical record. The patient has not been seen previously. The patient has a history of hereditary hemochromatosis, migraine, sleep apnea and psoriasis. The patient was seen by Dr. Still on 04/19/19, leading to this consultation. That note has been reviewed and part as follows: Skye owing issue: sometimes when she eats she feels like it is stuck in her throat. Not on ppi. Would need an egd. She is not sure what triggers, she does have sever e heart burn with certain foods and seems to think that aggravates it. Presenting complaint: The patient presents today reporting that the heartburn has improved with the pantoprazole. Reports having had dysph agia until she started pantoprazole. Will feel food sitting mid chest if she eats too fast. No nausea. Notes upper abdominal pressure and fu llness that has gotten worse. Having upper abdominal pressure - under the ribcage bilatera lly. If she has dinner, it's arou nd 7. She tries to head to bed 10-10:30. She sleeps in a regular bed with the head of the bed flat. Bowel movements are looser and may be more often recently - may be due to the pantoprazole. Infrequent dairy. No herbal supplements. No sf candy. REVIEW OF SYSTEMS: GENERAL: Fatigue. No unplanned weight loss. RESPIRATORY: Reports slight SOB due to the bloating. CARDIOVASCULAR: Chest pain, Sees Dr. Gardiner at [facility]. GI: As reported above ROLL BUILDER: Negative for abnormal vaginal bleeding, abn ormal vaginal discharge. LMP: s/p ablation- spotting within last month. MUSCULOSKELETAL: Mid back pain. PSYCH: Positive for anxiety: related to health issues. HEMATOLOGY/LYMPHOLOGY: History of possible hemochromatosis. Negative for prolonged bleeding, bruising easily or swollen nodes. ENDOCRINE: Positive for thyroid nodules and a go iter. History of prediabetes. NEURO: Numbness or tingling of feet, also occasional migrain e headaches. All other reviewed and negative other than HPI. PAST MEDICAL HISTORY Diagnosis Date - Blood dyscrasia - Chronic fatigue syndrome - Goiter, unspecified - Headache(784.0) - Hemochromatosis - Menorrhagia - Plantar fasciitis, bilateral - Snoring - Tobacco abuse PAST SURGICAL HISTORY Procedure Laterality Date - FOOT SURGERY HX Right plantar - HYSTEROSCOPY DIAGNOSTIC 12/22/2017 Hysteroscopy DANDC - LEG VEIN LEFT 04/2015 - REMOVAL OF SKIN TAGS 12/22/2017 Vulvar Skin Tags-Dr. Gaviria - S ABLATION ALMA [id number] 12/22/2017 Alma Ablation-Dr. Gaviria - SALPINGECTOMY Bilateral 12/22/2017 Laparoscopic B/L Salpingectomy-Dr. Gaviria FAMILY HISTORY Problem Relation Age of Onset - Heart Father ang ioplasy - Diabetes Father - other (Brain Tumor) Father - Colon Cancer Mother 55 Parkinsons - Cancer Paternal Grandmother pancreatic - Cancer Maternal Grandfather colon - Diabetes Maternal Grandfather Current Outpatient Medications Medication Sig Dispense Refill - ergocalciferol 50,000 unit capsule (VITAMIN D2, DRIS DOL) Take 1 capsule by mouth two times a week. TO BE TAKEN ORAL LY DIRECTED. Take 1 tablet by mouth twice weekly [id number], then decrease to 1 tablet weekly. 8 ca psule 5 - pantoprazole DR (PROTONIX) 40 mg tablet Take 1 tablet by mouth daily before breakfast. Take on empty stomach, 1/2 hr before meal. 30 tab let 5 - pantoprazole DR (PROTONIX) 20 mg tablet Take 1 tablet by mouth twice daily. 60 tablet 2 - topiramate (TOPAMAX) 25 mg tablet Take 25mgs in the evening for a week, then go to 50 mgs daily. 60 tablet 2 - perflutren lipid microspheres (DEFINIT Y) 1.1 mg/mL injection (to be provided with echo procedure) Inject 1.3 mL intravenously as directed . 1.3 mL 0 - nicotine (NICODERM) 21 mg/24 hr Apply 1 Patch as directed every 24 hours. 30 Patch 1 No current facility-administered medications for this visit. SOCIAL HISTORY: Patient is . She smokes 10-15 cigs a day. She r eports her alcohol use as none. PHYSICAL EXAMINATION: Blood pressure 129/84, pulse 85, height 176.5 cm (5' 9.5) , weight 112.5 kg (248 lb). General Appearance: Well nery earing, alert, in no acute distress, well-hydrated, well nourished. Skin: Skin color, texture, turgor normal, no suspicious rash es or lesions. Head: Normocephalic, no masses, lesions or abnormalities. Eyes: Anicteric sclera. Neck: Supple, no adenopathy; thyroid symmetric, normal size, no bruits. Lungs: lungs clear to auscultation. No wheezing, rhonchi, ra les. Heart: RRR without murmur. Abdomen: Abdomen soft. Slight TTP along lower rib border L>R, non-tender lower abdomen. Bowel sounds normal. No masses, organomegaly. Extremities: No deformities, edema, skin discolo ration, clubbing or cyanosis. Impression: upper abdominal pain Plan: Continue PPI. Labs and RUQ US. Further plan based on t he results. I have personally interviewed and examined this patient. I hav e reviewed the information that the JAJA entered [facility]. I spent 30 minutes in the visit, with greater than 50% of the total najv-yh-mjpu adonis e of the visit in counseling and coordination of care. Chet Muse RN PULL OUT OPERATOR.JESSICA Muse RN APRN.JESSICA 05/15/2019 4:00 PM Addendum Blood work today. Continue pantoprazole. Try to eat at least 3 hours before heading to bed. Please follow the instructions for the test that looks at your upper abdomen (US at the [facility]). It will take a day or two after the test for us to get the r esults. Call [phone], and ask t o speak to a nurse in GI, if you have any questions or concerns in the mean time. Referring Provider: CASTILLO STILL [[id number]] Allergies As of Date: 05/15/2019 Noted Allergy Reaction PENICILLINS 05/20/2005 5 - Intolerance Date Reviewed: 05/15/2019 Reviewed by: Davina Ag Ma - Fully Assessed Reason for Visit: Consult [502] Cmt: food sticks when swallowing Primary Visit Diagnosis:Bilateral upper abdominal pain [R10. 11, R10.12] Order(s):HEPATIC FUNCTION PNL [SQHFP] Order #: [id number] FU TURE LIPASE BLD [SQLIPA] Order #: [id number] FUTURE US ABD RT UPPER QUADRANT [1312067] Order #: [id number] FUTUR E Prescriptions as of 05/15/2019 Sig: NAPROXEN SODIUM 220 MG CAPSULE Take 2 capsules by mouth twic * B COMPLEX-VITAMIN B12 ORAL Take by mouth. BIOTIN (BULK) MISC ERGOCALCIFEROL (VITAMIN D2) 5* Take 1 capsule by mouth two t * PANTOPRAZOLE 40 MG TABLET,DEL* Take 1 tablet by mouth daily * TOPIRAMATE 25 MG TABLET Take 25mgs in the evening for* PERFLUTREN LIPID MICROSPHERES* Inject 1.3 mL intravenously a * NICOTINE 21 MG/24 HR DAILY TR* Apply 1 Patch as directed mak * Problem List As Of Date 05/15/2019 Noted Resolved Contact dermatitis and other eczema, due to uns*INVALID FOR* 11/25/2011 OTHER PSORIASIS [L40.8] INVALID FOR* OTHER ATOPIC DERMATITIS [L20.89] INVALID FOR* XEROSIS////SEBACEOUS GLAND DIS NEC [L73.8] INVALID FOR*08/15 Unspecified pruritic disorder [L29.9] INVALID FOR*08/15/2013 EXCORIATIONS///SUPERFICIAL INJURY NEC [T07.XXXA]INVALID FOR* HYPOPIGMENTATION///DYSCHROMIA UNSPECIFIED [L81.*INVALID FOR* 08/15/2013 CHRONIC CYSTITIS NEC [N30.20] INVALID FOR* Nontoxic multinodular goiter [E04.2] INVALID FOR* Hyperlipidemia [E78.5] INVALID FOR* Tobacco abuse disorder [Z72.0] INVALID FOR* IUD (intrauterine device) in place [Z97.5] INVALID FOR* Thyroid nodule [E04.1] INVALID FOR* Multinodular goiter [E04.2] INVALID FOR*10/12/2017 Atypical nevus of shoulder [D22.60] INVALID FOR* Melanocytic nevus of face [D22.30] INVALID FOR* Solar lentigo [L81.4] INVALID FOR* Epidermal cyst [L72.0] INVALID FOR* Melanocytic nevi of trunk [D22.5] INVALID FOR* Melanocytic nevi of upper extremity or shoulder*INVALID FOR* Actinic skin damage [L57.8] INVALID FOR* Scars [L90.5] INVALID FOR* Acne vulgaris [L70.0] INVALID FOR* 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*INVALID FOR* Obesity [E66.9] INVALID FOR* Tobacco dependence [F17.200] INVALID FOR* Migraine headache with aura [G43.109] INVALID FOR* Scleritis [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 Continue pantoprazole. Try to eat at least 3 hours before heading to bed. Please follow the instructions for the test that looks at yo ur upper abdomen (US at the [facility]). It will take a day or two after the test for us to get the r esults. Call [phone], and ask to speak to a nurse in GI, if you have any questions or concerns in the mean time. Medications Discontinued During This Encounter pantoprazole DR (PROTONIX) 20 mg tab* 60 t* 2 04/25/201905/15/2019 Route: ORAL Sig: Take 1 tablet by mouth twice daily. Disc: Reason for discontinue is not on file. Encounter Status:Closed by CHET MUSE EDUCATION SITE MANAGER on 05/15/19 ccp-abs on CCP-ABS 9 0-19 units Normal 04-27-2019 [facility] [place] ([id number]) Comment: Result Comment: Negative <20 Weak positive 20 - 39 Moderate positive 40 - 59 Strong positive >59 Performed By: #### L700.0050 0, L700.17034 #### [facility] [address] [place] [address] jose l on 2019-04-27 Nuclear Ab IF (S) [Titer] Negative () Normal 04-10 [facility] [place] ([id number]) Comment: Result Comment: Negative <1: 80 Borderline 1:80 Positive >1:80 Performed At: [facility] [address] [id number] Yunior Castaneda MD [id number] Performed At: [facility] [place] [address] [place], [place] [id number] Brandy Moreira PhD [id number] Performed By: #### L700.0050 0, L700.98318 #### [facility] [address] tp on 2019-04-24 Protein [Mass/Vol] 7.3 6.0-8.5 GM/DL Normal 04-24-2019 [facility] ([id number]) Comment: Performed By: #### L500.0450 0, L500.52177 #### [facility] [address] [place] [address] bili total on 04-24 BILI TOTAL 0.2 0.2-1.0 MG/DL Normal 04-24-2019 [facility] ([id number]) Comment: Performed By: #### L500.0450 0, L500.28975 #### [facility] [address] [place] [address] Vital Signs Vital Sign Description Value / Unit Date Location The following section is limited to 5 en tries per type and includes entries from the following time range: 20200401 - 20200312 2. Body Temperature 97.3 [degF] 04-01-2020 [facility] ([id number]) Body weight 107.96 kg 04-01-2020 [facility] (60503) BP Diastolic 84 mm[Hg] 04-01-2020 [facility] (74705) BP Systolic 110 mm[Hg] 04-01-2020 [facility] (99882) Pulse (Heart Rate) 74 /min [facility]60704[facility] Pulse Oximetry 94 % 04-01-2020 [facility] (02599) Respiratory Rate 16 /min 04-01-2020 [facility] (62105) Encounters Date Type Reason Provider Location 04-10-2020 - Patient encounter Chronic thoracic Tony (Pt) Quentin zuleta [facility] 04-10-2020 procedure back pain Physical Therap y Comment: Chronic bilateral thoracic b ack pain (Primary Dx) 04-03-2020 - Patient encounter Chronic thoracic Tony (Pt) José Miguel keller [facility] 04-03-2020 procedure back pain Quentin Physical Therap y Comment: Chronic bilateral thoracic b ack pain 04-01-2020 - Patient encounter Rib pain Jonaie (Molder Feeder) [facility] 04-01-2020 procedure [place] Comment: Chronic bilateral thoracic b ack pain (Primary Dx); Rib pain; DDD (degenerative disc disea se), thoracic; Encounter for lipid screenin g for cardiovascular disease; Encounter for screening for diabetes mellitus 04-04-2020 - 04-04-2020 Telephone encounter Castillo alvarado [facility] [place] Comment: Results Procedures Procedure Name Date Provider Location Mammography 12-29-2018 - 12-29-2018 [facility] ([id number]) Colonoscopy 11-29-2016 - 11-29-2016 [facility] ([id number]) Plan of Treatment Plan Description Date Location HPV TESTING HPV TESTING 02-28-2022 - [facility] 02-28-2022 ([id number]) PAP TESTING PAP TESTING 02-28-2022 - [facility] 02-28-2022 ([id number]) COLONOSCOPY COLONOSCOPY 11-29-2021 - [facility] 11-29-2021 ([id number]) INFLUENZA (#1) INFLUENZA (#1) 2020 - [facility] 03-11-2020 ([id number]) MAMMOGRAM MAMMOGRAM 12-30-2019 - [facility] 12-30-2019 ([id number]) ADULT PREVNAR-13 ADULT PREVNAR-13 1996 - [facility] ic 1996 ([id number]) TWO PNEUMOVAX 5 YEARS TWO PNEUMOVAX 5 YEARS 1996 - [facility] APART PRIOR TO AGE 65 APART PRIOR TO AGE 65 (#1) 1996 ([id number]) (#1) DTAP,TDAP,TD (1 - Tdap) DTAP,TDAP,TD (1 - Tdap) 1996 - [facility] 1996 (95118) BMP (BMP) (FOR REMOTE BMP (BMP) (FOR REMOTE [facility] USE) USE) Lab Routine Encounter (4419 5) for screening for diabetes mellitus 04/01/2020 9:07 AM EDT LIPID PANEL BASIC LIPID PANEL BASIC Lab [facility] Routine Encounter for (10105) lipid screening for cardiovascular disease 04/01/2020 9:06 AM EDT no information [facility] (11395) Immunizations Vaccine Notes Status Date Location Influenza Vaccine, influenza virus (completed) 04-21-2012 - [facility] Split-Non Spec vaccine, unspecified 04-21-2012 (4419 5) formulation Influenza Seasonal influenza, injectable, (completed) 07-20-2018 - [facility] Inj Quad Age 6 Mo - quadrivalent, contains 07-20-2018 (55057) 64 Yrs preservative Influenza Seasonal influenza, seasonal, (completed) 04-03-2019 - [facility] Inj Age 3+ injectable 04-03-2019 (19133) Payers Payer Name Policy Number Location [employer] [id number] [facility] (44 195) The following information is from the original human readable contentNo Payer Records FoundNo Payer Records FoundNo Payer Records Found Social History Type Social History Date Location Description Tobacco smoking status Light tobacco smoker 04-01-2020 - [facility] NHIS 04-01-2020 (09693) History of tobacco use Cigarette Smoker [facility] (81642) Cigarettes smoked 04-01-2020 - [facility] ic current (pack per day) 04-01-2020 (24545) - Reported Tobacco use and Never used 04-01-2020 - [facility] exposure 04-01-2020 (55297) Alcohol intake Current non-drinker of 04-01-2020 [facility] alcohol (finding) 04-01-2020 (84840) Tobacco Comment 10-15 cigarettes in a 12-06-2018 - [facility] daily 12-06-2018 (69019) Sex Assigned At Not on file [facility] (73878) Exposure to SARS-CoV-2 Not sure [facility] (event) (60234) The following information is from the original human readable contentNo Social History Records FoundNo Social History Records FoundNo Social History Records Found Summary Purpose Family History No Family History Records FoundNo Family History Records Found Advance Directives No Advanced Directives Records Found Documents on File Type Date Recorded 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 on Advance Directive(s) 11/29/2016 8:04 AM Documents on File Type Date Recorded 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 on Advance Directive(s) 11/29/2016 8:04 AM Reason for Referral Status Reason Specialty Diagnoses / Referred By Referred To Procedures Contact Contact Pending Auto-Generated REHAB AND Diagnoses Chronic bilateral thoracic back pain Older, [facility] Referral SPORTS THERAPY Procedures CONSULT TO PHYSICAL THERAPY PHYSICAL THERAPY EVALUATION HIGH COMPLEX 45 MINS (Molder Feeder) [employer] [address] [place], [place] [address] [address] [address] Phone: [place], [place] [phone] [id number] History of Past Illness Problem Noted Date Resolved Date Multinodular goiter 04/18/2013 10/12/2017 Unspecified pruritic disorder 08/04/2007 08/15/2013 HYPOPIGMENTATION///DYSCHROMIA UNSPECIFIED 08/04/2007 08/15/2013 Contact dermatitis and other eczema, due to unspecified 12/0 01/200611/25/2011 cause XEROSIS////SEBACEOUS GLAND DIS NEC 06/16/200608/15 Problem Noted Date Resolved Date Multinodular goiter 04/18/2013 10/12/2017 Unspecified pruritic disorder 08/04/2007 08/15/2013 HYPOPIGMENTATION///DYSCHROMIA UNSPECIFIED 08/04/2007 08/15/2013 Contact dermatitis and other eczema, due to unspecified 12/0 01/200611/25/2011 cause XEROSIS////SEBACEOUS GLAND DIS NEC 06/16/200608/15 Problem Noted Date Resolved Date Multinodular goiter 04/18/2013 10/12/2017 Unspecified pruritic disorder 08/04/2007 08/15/2013 HYPOPIGMENTATION///DYSCHROMIA UNSPECIFIED 08/04/2007 08/15/2013 Contact dermatitis and other eczema, due to unspecified 12/0 01/200611/25/2011 cause XEROSIS////SEBACEOUS GLAND DIS NEC 06/16/200608/15 History of Present Illness Joanie Gallagher (Molder Feeder) - 04/01/2020 8:13 AM EDT CC: Patient presents with: Back Pain HPI Juany Castellano is a 44 year old female who presents today for above. Started: about one year ago Located in thoracic spine area and around to lower rib cage Described as constant dull ache with occasional sharp pains. Cause: The back pain is not related to a known injury. Aggravated by taking deep breath and bending, twisting movements, heavy physical exertion. Alleviated by warm shower Denies: arm weakness, numbness, tingling, morning stiffness and loss of bowel or bladder control Also denies history of cancer, history of osteoporosis, history of significant steroid use and history of IV drug abuse. Past treatments include muscle relaxant, NSAID's, steroids and chiropractor. All of these provided temporary relief. REVIEW OF SYSTEMS General: no fevers, no chills, no night sweats, no change in energy and no significant changes in weight Neck: no pain Respiratory: patient is a light smoker, chronic productive cough. no wheezing, no shortness of breath, no hemoptysis Cardiovascular: no chest pain, no chest pressure, no palpitations and no swelling GI: Occasional heartburn/reflux relieved by TUMS. No abdominal pain, nausea, vomiting Musculoskeletal: Negative for joint pain or swelling, low back pain or muscle pain Skin: Negative for lesions, rash, and itching PAST MEDICAL HISTORY Diagnosis Date ? Blood dyscrasia ? Chronic fatigue syndrome ? Goiter, unspecified ? Headache(784.0) ? Hemochromatosis ? Menorrhagia ? Plantar fasciitis, bilateral ? Snoring ? Tobacco abuse PAST SURGICAL HISTORY Procedure Laterality Date ? FOOT SURGERY HX Right plantar ? HYSTEROSCOPY DIAGNOSTIC 12/22/2017 Hysteroscopy D&C ? LEG VEIN LEFT 04/2015 ? REMOVAL OF SKIN TAGS 12/22/2017 Vulvar Skin Tags-Dr. Gaviria ? S ABLATION ALMA [id number] 12/22/2017 [place] Ablation-Dr. Gaviria ? SALPINGECTOMY Bilateral 12/22/2017 Laparoscopic B/L Salpingectomy-Dr. Gaviria ALLERGIES Penicillins MEDICATIONS nicotine (NICODERM) 21 mg/24 hr Apply 1 Patch as directed every 24 hours. tobramycin-dexamethasone (TOBRADEX) ophthalmic suspension Use 1 Drop in the left eye three times daily. pantoprazole DR (PROTONIX) 40 mg tablet Take 1 tablet by mouth daily before breakfast. Take on emptystomach, 1/2 hr before meal. naproxen sodium (ALEVE) 220 mg cap Take 2 capsules by mouth twice daily at 6AM and 9PM. vitamin B complex (B COMPLEX-VITAMIN B12 ORAL) Take by mouth. ergocalciferol 50,000 unit capsule (VITAMIN D2, DRISDOL) Take 1 capsule by mouth two times a week. TO BE TAKEN ORALLY DIRECTED. Take 1 tablet by mouth twice weekly m3gbdin, then decrease to 1 tabletweekly. topiramate (TOPAMAX) 25 mg tablet Take 25mgs in the evening for a week, then go to 50 mgs daily. cyclobenzaprine (FLEXERIL) 10 mg tablet Take 0.5-1 tablets by mouth three times daily as needed for Muscle Spasm. predniSONE (DELTASONE) 10 mg tablet Take 40 mg x 3 days, 20 mg x 3 days, 10 mg x 3 days. Take with food, once daily meloxicam (MOBIC) 15 mg tablet Take 1 tablet by mouth once daily. for pain. Take with food. buPROPion SR (WELLBUTRIN SR) 150 mg 12 hr tablet Take 1 tablet by mouth twice daily. albuterol (PROVENTIL) 2.5 mg /3 mL (0.083 %) nebulizer solution Use 3 mL via nebulizer every 4 hoursas needed for Wheezing/Shortness of Breath. Use over 5-15minutes. benzonatate (TESSALON PERLES) 100 mg capsule Take 2 capsules by mouth three times daily as needed. albuterol HFA (PROAIR HFA) 90 mcg/actuation inhaler Inhale 2 Puffs as instructed every 6 hours as needed. fluticasone (FLONASE) 50 mcg/actuation nasal spray Use 2 Sprays in each nostril once daily. Rinse mouth after use. BIOTIN, BULK, MISC FAMILY HISTORY Problem Relation Age of Onset ? Heart Father ang ioplasy ? Diabetes Father ? other (Brain Tumor) Father ? Colon Cancer Mother 55 Parkinsons ? Cancer Paternal Grandmother pancreatic ? Cancer Maternal Grandfather colon ? Diabetes Maternal Grandfather Social History Tobacco Use ? Smoking status: Light Tobacco Smoker Packs/day: 0.75 Years: 15.00 Pack years: 11.25 Types: Cigarettes ? Smokeless tobacco: Never Used ? Tobacco comment: 10-15 cigarettes in a daily Substance Use Topics ? Alcohol use: No ? Drug use: No PHYSICAL EXAM BP 110/84 Pulse 74 Temp 36.3 ?C (97.3 ?F) (Temporal) Resp 16 Wt 108 kg (238 lb) LMP 12/07/2017 SpO2 94% BMI 34.64 kg/m? General Appearance: well appearing, in no acute distress, alert Pysch: affect is anxious Back: Normal to inspection. Mild tenderness with palpation of thoracic spine and with palpation of paraspinal muscles and scapula bilaterally. ROM: THORACIC: Flexion: No limitation, painful Extension: No limitation, increased pain Rotation Right: No limitation, Increased pain Rotation Left: No limitation, Increased pain. Musculoskeletal: Tenderness with palpation of anterior lower ribs Lungs: Lungs clear to auscultation. No wheezing, rhonchi, rales. Heart: RRR without murmur, gallop, or rubs. No ectopy Lymph nodes: no cervical or clavicular lymphadenopathy Abdomen: Abdomen soft, non-tender DATA REVIEWED: Most recent labs and imaging results. ASSESSMENT/PLAN: 1. Chronic bilateral thoracic back pain - ICD9: 724.1, 338.29, ICD10: M54.6, G89.29 (primary diagnosis) Musculoskeletal pain. Patient was seen for this in January. X-ray of the thoracic spine showed DDD. Given Meloxicam, prednisone and Flexeril and advised to follow-up if symptoms did not improve. Next stepin treatment plan was PT. Patient is agreeable to this, will set up appointment. If pain persists once PT complete will order MRI - CONSULT TO PHYSICAL THERAPY - Meloxicam and Flexeril refilled, see orders - Discussed non-medication measures including ice, heat and stretching 2. Rib pain - ICD9: 786.50, ICD10: R07.81 Possibly referred pain from thoracic spine. Chest x-ray in January was normal. See plan above 3. DDD (degenerative disc disease), thoracic - ICD9: 722.51, ICD10: M51.34 As above - CYCLOBENZAPRINE 10 MG TABLET 4. Encounter for lipid screening for cardiovascular disease - ICD9: V77.91, V81.2, ICD10: Z13.220, Z13.6 Patient needs labs for biometric screen - LIPID PANEL BASIC 5. Encounter for screening for diabetes mellitus - ICD9: V77.1, ICD10: Z13.1 As above - BMP (BMP) (FOR REMOTE [facility] USE) Prescription instructions reviewed with patient as applicable. Potential red flag symptoms discussedwith the patient. Reviewed appropriate action plan to take if red flag symptoms occur. Patient agreeable to treatment plan. Joanie Gallagher APRN.CNP documented in this encounterTony Saavedra (Pt) - 04/03/2020 5:22 PM EDT Episode Visit Count: 1 Therapist That Will Oversee The Plan Of Care: Tony Saavedra Start of Care Date: 04/03/20 Onset Date: 10/02/19 Patient Identified by Name and Date of : Yes REHABILITATION AND SPORTS THERAPY PHYSICAL THERAPY EVALUATION PLAN OF CARE: Assessment: Juany Castellano presents with the chief complaint of chronic thoracic back pain. She presents with impairments of difficulty with deep breaths, poor tolerance for prolonged activity, difficulty with lying, transitional movements, and painful palpation to thoracic spine and hypermobile segment around T6 that created pain. She may benefit from skilled therapy services to improve the above noted deficits to decrease pain and improve quality of life. Patient will benefit from core stabilization, and general aerobic activity, cessation of smoking, and improving overall stress in every day life to improve symptoms. Prognosis: Fair Fair due to: clinical presentation;chronic nature of impairments;limited tolerance to activity;occupational demands Goals for Episode of Care: created on 04/03/20 through 06/03/20 [place] in home exercise program. Patient will decrease pain rating by 2 points to meet minimal clinical important difference for numeric pain rating scale. Patient will demonstrate increase in thoracic paraspinals and scapular stabilizers strength to 4+/5 during manual muscle testing in order to improve function for leisure / recreation skills, light functional tasks, moderate to heavy functional tasks, prior functional tasks and work tasks. Perform lying, work tasks, and self care with decreased report of symptoms/pain in 4-6 weeks. Perform deep breathing without pain. Planned Interventions, Frequency, and Duration: Current Frequency: 1x/week Duration: 8 weeks Total Number of Visits Planned: 8 Planned Treatment Interventions: Therapeutic exercise;Neuromuscular re- education;Manual therapy;Self-chcf management;Patient/Family/Caregiver Education;Body Mechanics Training;General Conditioning PLAN FOR NEXT VISIT: May try bike for some Aerobic exercises, continue to assess for any muscular involvement Patient demonstrates good understanding of plan of care and treatment. The above goals and plan of care were discussed and agreed upon by patient/family. SUBJECTIVE: Juany Castellano is a 44 year old female seen today for thoracic back pain for months with recent flare up. Hurts to take deep breaths. Deep aching pain that gets worse as the day goes on. Notes a lot of fatigue lately due to extended work hours. No issues sleeping, and hard to correlate itto any posture, position, or movement. Notes pain currently in the center of her back at the level of her bra strap Red Flags Vertebral Fracture Red Flags: Female Vertebral Fracture Clinical Reasoning: No identified risk factors Cancer Red Flags: Night pain at rest Cancer Clinical Reasoning: No identified risk factors. Infection Red Flags: Constant, progressive pain Infection Clinical Reasoning: No identified risk factors. Cervical Arterial Dysfunction Clinical Reasoning: No identified risk factors Cervical Myelopathy Diagnostic Rule: No identified risk factors. Red Flags - Cervical Cancer Red Flags: Night pain at rest Cancer Clinical Reasoning: No identified risk factors. Infection Red Flags: Constant, progressive pain Infection Clinical Reasoning: No identified risk factors. Cervical Arterial Dysfunction Clinical Reasoning: No identified risk factors Cervical Myelopathy Diagnostic Rule: No identified risk factors. Pain: Pain Pain Level: 7 Pain Location: Thoracic Spine Description: Aching Frequency: Continuous Post Treatment Pain Post Treatment Pain Level: No Change Post Treatment Pain Location: Thoracic Spine Post Treatment Pain Description: Aching PROMIS Scales Higher is Better 12/02/2016 08/01/2019 Phys Func - Score - 47 (within normal limits) Phys Func - Percentile - 38 % Social Roles - Score - 53 (within normal limits) Social Role - Percentile - 62 % GH Physical - Score - Incomplete GH Physical - Percentile 41 % - GH Mental - Score - 53.3 GH Mental - Percentile 53 % 63 % T-scores: mean of general population = 50. 5 points is clinically meaningfully difference Percentiles provide an indication of how the patient's score ranks in relation to the general population. Higher percentile rankings indicate better function/quality of life. 50th percentile is the average of the general population and indicates half of respondents had a worse score. Lower is Better 08/01/2019 Fatigue - Score 48 (within normal limits) Fatigue - Percentile 58 % T-scores: mean of general population = 50. 5 points is clinically meaningfully difference Percentiles provide an indication of how the patient's score ranks in relation to the general population. Higher percentile rankings indicate better function/quality of life. 50th percentile is the average of the general population and indicates half of respondents had a worse score. OBJECTIVE MEASURES WITH LEVEL OF FUNCTION: Thoracic Spine AROM Thoracic Flexion: Normal Thoracic Extension: Minimal limitation Thoracic Sidebend Right: Minimal limitation Thoracic Sidebend Left: Minimal limitation Thoracic Rotation Right: Minimal limitation;Pain during movement Thoracic Rotation Left: Minimal limitation;Pain during movement Special Tests - Thoracic Thoracic Special Tests: Rib Compression tests;Spring Compression Rib Compression Test: Right Negative;Left Negative Spring Compression: Positive Education: Education Learning Preferences: Demonstration;Explanation;Performance;Printed Materials Barriers: None Learning/educational needs: Home exercise program;Plan of Care Education Provided: Yes, see treatment interventions for education provided Education Provided To: Patient Education Mode/Type: Demonstration;Explanation/Discussion;Literature/Printed Materials;Performance Response to Education/Teach Back: States/Identifies;Return Demonstration TREATMENT: PT Treatment Interventions: Therapeutic Exercise;Manual Therapy Evaluation Therapeutic Exercise: 1: *P Tband rows 2x10 2: *O Tband W's 2x10 3: Prone Trap progression #1 2x10, 3-5 sec holds 4: Discussed role of stress, caffeine, lack of sleep in heightened pain. Also discussed hypermobility and role in pain, along with core stabilization rationale of exercises Skilled Intervention: Patient was educated in proper exercise technique and purpose for exercises. Skilled judgment was provided in selection of appropriate interventions. Provided written instruction for home exercise program to facilitate proper performance and compliance. Correct performance of therapeutic exercises was facilitated with verbal, visual and tactile cuing. Manual Therapy: 1: Grade 1-2 thoracic spine PA mobs x30 each segment T4-12 2: STM to B thoracic paraspinals and scapular stabilizers with push to tolerance assessing for symptoms and mm tissue quality Skilled Intervention: Manual skills to improve joint mobility, ROM, and decrease pain. Utilized anatomy knowledge of the therapist, and assessment of patient's response to intervention. Billing: [facility]: Evaluation - Low Complexity (16005) Therapeutic Exercise (77911): 1:1 time: 15 minutes (1 unit: 8-22 mins) Manual Therapy ([id number]): 1:1 time: 9 minutes (1 unit: 8-22 mins) Total time / Length of visit: 48 minutes Tony Saavedra, PT documented in this encounterTony Saavedra (Pt) - 04/10/2020 2:52 PM EDT Episode Visit Count: 2 Therapist That Will Oversee The Plan Of Care: Tony Saavedra Start of Care Date: 04/03/20 Onset Date: 10/02/19 REHABILITATION AND SPORTS THERAPY PHYSICAL THERAPY TREATMENT NOTE ASSESSMENT: Juany Castellano demonstrated slight improvement in thoracic pain today post session following mobility and manual work. The patient will continue to benefit from ongoing skilled physical therapy for manual prn and progressive exercises to decrease pain and return to prior level of function. PLAN FOR NEXT VISIT: assess carry over of thoracic mobilization exercises, may try a thoracic MET SUBJECTIVE: Patient Reason for Visit: Pt states exercises are going well, no issues. Feels breathingis getting slightly better but hard to tell overall. Still feels it in the same 2 spots in the mid back and bottom of her ribs. Pain: Pain Pain Level: 6 Pain Location: Thoracic Spine Description: Aching Frequency: Continuous OBJECTIVE MEASURES WITH LEVEL OF FUNCTION: Tenderness in B thoracic paraspinals L>R TREATMENT: Therapeutic Exercise: 1: *Cat and cow 3x10 with syncing of breath 2: *Seated thoracic extensions in tolerated range 3x10 3: *Supine lying on towel roll for thoracic mobilization 3x60 sec Skilled Intervention: Patient was educated in proper exercise technique and purpose for exercises. Skilled judgment was provided in selection of appropriate interventions. Provided written instruction for home exercise program to facilitate proper performance and compliance. Correct performance of therapeutic exercises was facilitated with verbal, visual and tactile cuing. Manual Therapy: 1: Grade 1-2 thoracic spine PA mobs x30 each segment T4-12 2: STM to B thoracic paraspinals and scapular stabilizers with push to tolerance while also assessing for symptoms 3: STM to R lat with push to tolerance 4: TrPr to R QL Skilled Intervention: Manual skills to improve joint mobility, ROM, and decrease pain. Utilized anatomy knowledge of the therapist, and assessment of patient's response to intervention. Billing: [facility]: Therapeutic Exercise ([id number]): 1:1 time: 10 minutes (1 unit: 8- 22 mins) Manual Therapy ([id number]): 1:1 time: 45 minutes (3 units: 38-52 mins) Total time / Length of visit: 55 minutes Tony Saavedra PT documented in this encounter Assessments Diagnosis Chronic bilateral thoracic back pain - P rimary Rib pain Chest pain, unspecified DDD (degenerative disc disease), thoraci c Degeneration of thoracic or thoracolumba r intervertebral disc Encounter for lipid screening for cardio vascular disease Screening for lipoid disorders Encounter for screening for diabetes karina litus Screening for diabetes mellitus Diagnosis Chronic bilateral thoracic back pain Diagnosis Chronic bilateral thoracic back pain - P rimary Additional Source Comments FOR RECORDS PERTAINING TO PATIENTS WHO ARE OR HAVE BEEN ENROLLED IN A CHEMICAL DEPENDENCY/SUBSTANCE ABUSE PROGRAM, SOME INFORMATION MAY BE OMITTED. This clinical summary was aggregated from multiple sources. Caution should be exercised in using it in the provision of clinical care. This summary normalizes information from multiple sources, and as a consequence, information in this document may materially changethe coding, format and clinical context of patient data. In addition, data may be omittedin some cases. CLINICAL DECISIONS SHOULD BE BASED ON THE PRIMARY CLINICAL RECORDS. [facility] provides no warranty or guarantee of the accuracy or completeness of information in this document. UNRECOGNIZED CONTENT PROVIDED BELOW FOR UNRECOGNIZED SECTION INFORMATION SOURCE DATE CREATED AUTHOR AUTHOR'S ORGANIZATIO N 04/30/2019 [facility] DATE CREATED AUTHOR AUTHOR'S ORGANIZATIO N 04/25/2020 [facility] UNRECOGNIZED CONTENT PROVIDED BELOW FOR UNRECOGNIZED SECTION Source Comments In the event this information is protected by the Federal Confidentiality of Alcohol and Drug Abuse Patient Records regulations: The Federal rules restrict any use of the information to criminally investigate or prosecute any alcohol or drug abuse patient.[facility] the event this information is protected by the Federal Confidentiality of Alcohol and Drug Abuse Patient Records regulations: The Federal rules restrict any use of the information to criminally investigate or prosecute any alcohol or drug abuse patient.[facility] the event this information is protected by the Federal Confidentiality of Alcohol and Drug Abuse Patient Records regulations: The Federal rules restrict any use of the information to criminally investigate or prosecute any alcohol or drug abuse patient.[facility] the event this information is protected by the Federal Confidentiality of Alcohol and Drug Abuse Patient Records regulations: The Federal rules restrict any use of the information to criminally investigate or prosecute any alcohol or drug abuse patient.[facility] UNRECOGNIZED CONTENT PROVIDED BELOW FOR UNRECOGNIZED SECTION Reason for Visit Reason Comments Physical Therapy Status Reason Specialty Diagnoses / Referred By Referred To Procedures Contact Contact Authorized Auto-Generated PHYSICAL Diagnoses Chronic bilateral thoracic back pain M54.6 / G89.29 Joanie Gallagher Pt [facility] Referral THERAPY Procedures CONSULT TO PHYSICAL THERAPY PHYSICAL THERAPY EVALUATION HIGH COMPLEX 45 MINS THERAPEUTIC EXERCISES RE, EA 15 MIN. ([employer]older [employer]eder) [address] [place], [place] [id number] Phone: Fax: Reason Comments Back Pain Reason Onset Date Comments Results 04/04/2020 Reason Comments PT Eval UNRECOGNIZED CONTENT PROVIDED BELOW FOR UNRECOGNIZED SECTION Miscellaneous Notes Telephone Encounter - Yanet Clarke Cma - 04/04/2020 10:02 AM EDTPatient is notified of all information and verbalizes understanding Yanet Clarke Cma April 04, 2020 10:02 AM elephone Encounter - Joanie Gallagher ([employer]eder) - 04/04/2020 9:06 AM EDTFasting glucose 115, indicates pre-diabetes. Total cholesterol near optimal, LDL (bad cholesterol) borderline high and HDL (good cholesterol) was at target. Heart disease risk low. Diet should be rich in fruits, vegetables, lean meats and healthy fats/oils. Avoid processed foods, trans fats, vegetableoils and simple sugars. Watch portion sizes. Aerobic exercise for at least 20 minutes, 3-5 days a week. Joanie Gallagher APRN.EDUCATION SITE MANAGER elephone Encounter - Yanet Clarke Cma - 04/04/2020 8:30 AM EDTPatient requesting lab results. Please review and advise. Thank you. Yanet Clarke Cma April 04, 2020 8:30 AM documented in this encounter
--- OUTSIDE RECORDS SUMMARY | 2020-04-27 07:40 | XMS RPT_ITS | CCD ---
:1975 External Reference #:[id number] Author Organization [facility] Care Team Providers Name Role Phone Hafsa Primary Care Provider Allergies Reported Allergen Reaction(s) Severity Date of Onset Location Penicillins Intolerance 05-20-2005 - [place] [facility] (72674) Medications Medication Name Sig Date Prescriber Location Albuterol albuterol (PROVENTIL) 09-28-2019 - Ed (Photogrammetric Tech) [facility] 2.5 mg /3 mL (0.083 04-01-2020 Ilya Leaah (441 95) %) nebulizer solution (Photogrammetric Tech) Ilya Indications: Persistent cough , SOB (shortness [...] albuterol HFA 09-10-2019 - Romana R (Pa) [facility] HFA) 90 mcg/actuation (PROAIR HFA) 90 04-01-2020 Athy Romana R (44 195) inhaler mcg/actuation (Pa) [facility] inhaler Inhale 2 Puffs as instructed every 6 hours as needed. 1 Inhaler 0 09/10/2019 04/01/2020 Discontinued (Course of therapy completed) Comment: Inhale 2 Puffs as instructed every 6 hours as needed. benzonatate benzonatate (TESSALON 09-10-2019 - Romana R (Pa) [facility] PERLES) 100 mg capsule 04-01-2020 Athy Romana R (4419 5) Take 2 capsules by (Pa) Athy mouth three times daily as needed. 30 capsule 0 09/10/2019 04/01/2020 Discontinued (Course of therapy completed) Comment: Take 2 capsules by mouth thr ee times daily as needed. BIOTIN, BULK, MISC BIOTIN, BULK, MISC 04-01-2020 [facility] Provider [facility] (38765) buPROPion buPROPion SR 10-19-2019 Kojo ([facility]) [facility] (WELLBUTRIN SR) 150 (37572) mg 12 hr tablet Indications: Tobacco abuse disorder Take 1 tablet by mouth twice daily. 60 tablet 5 10/19/2019 Active Comment: Take 1 tablet by mouth twice daily. cyclobenzaprine cyclobenzaprine 01-10-2020 - Joanie ([facility]) [facility] (FLEXERIL) 10 mg tablet 04-01-2020 Older (441 95) Indications: DDD (degenerative disc disease), thoracic Take 0.5-1 tablets by mouth three times daily as needed for Muscle Spasm. 30 tablet 1 04/01/2020 Active Comment: Take 0.5-1 tablets by mouth three times daily as needed for Muscle Spasm. Dexamethasone / tobramycin-dexamethasone 10-19-2019 Kojo ([facility]) [place] Tobramycin (TOBRADEX) ophthalmic [facility] (45871) suspension Use 1 Drop in the left eye three times daily. 5 mL 0 10/19/2019 Active Comment: Use 1 Drop in the left eye t hree times daily. Ergocalciferol ergocalciferol 50,000 unit 04-27-2019 Castillo Still [facility] capsule (VITAMIN D2, (56594) DRISDOL) Indications: Vitamin D deficiency Take 1 capsule by mouth two times a week. TO BE TAKEN ORALLY DIRECTED. Take 1 tablet by mouth twice weekly [id number], then decrease to 1 tablet weekly. 8 capsule 5 04/27/2019 Active Comment: Take 1 capsule by mouth two times a week. TO BE TAKEN ORALLY DIRECTED. Take 1 tablet by mouth twice weekly [id number], then decrease to 1 tablet weekly. fluticasone fluticasone (FLONASE) 07-20-2019 - Kojo ([facility]) [facility] 50 mcg/actuation nasal 04-01-2020 Eusebio Viveros (4419 5) spray Use 2 Sprays in [facility] each nostril once daily. Rinse mouth after use. 1 Bottle 11 07/20/2019 04/01/2020 Discontinued (Course of therapy completed) Comment: Use 2 Sprays in each nostril once daily. Rinse mouth after use. meloxicam meloxicam (MOBIC) 15 10-19-2019 - Joanie ([facility]) Older [facility] mg tablet Take 1 04-01-2020 (56000) tablet by mouth once daily. for pain. Take with food. 30 tablet 1 04/01/2020 Active Comment: Take 1 tablet by mouth once daily. for pain. Take with food. Naproxen naproxen sodium (ALEVE) 04-01-2020 [facility] Provider f [facility] 220 mg cap Take 2 Provider (80837) capsules by mouth twice daily at 6AM and 9PM. 0 04/01/2020 Discontinued Comment: Take 2 capsules by mouth twi ce daily at 6AM and 9PM. Nicotine nicotine (NICODERM) 21 10-19-2019 Kojo ([facility]) [facility] mg/24 hr Indications: (35630 ) Tobacco abuse disorder Apply 1 Patch as directed every 24 hours. 30 Patch 1 10/19/2019 Active Comment: Apply 1 Patch as directed ev peri 24 hours. pantoprazole pantoprazole 10-19-2019 Kojo ([facility]) [facility] inic (PROTONIX) 40 mg tablet Eusebio (441 95) Take 1 tablet by mouth daily before breakfast. Take on empty stomach, 1/2 hr before meal. 30 tablet 5 10/19/2019 Active Comment: Take 1 tablet by mouth daily before breakfast. Take on empty stomach, 1/2 hr before meal. predniSONE predniSONE (DELTASONE) 01-10-2020 - Kojo ([facility]) [facility] 10 mg tablet 04-01-2020 Eusebio Viveros (24232) Indications: DDD ([facility]) Eusebio (degenerative disc disease), lumbar , DDD [...] 25 mg 04-19-2019 Castillo Draper [facility] tablet Indications: (79733) migraine prevention Take 25mgs in the evening for a week, then go to 50 mgs daily. 60 tablet 2 04/19/2019 Active Comment: Take 25mgs in the evening fo r a week, then go to 50 mgs daily. Vitamin B vitamin B complex (B 04-01-2020 [facility] Provider Ccf [facility] Complex COMPLEX-VITAMIN B12 Provider (86990) ORAL) Take by mouth. 0 04/01/2020 Discontinued (Discontinued by Patient) Comment: Take by mouth. Problems Active Problems Category Problem Name Status Date Location Allergic reactions Solar degeneration Active 06-16-2006 - [facility] (64657) Disorders of lipid Hyperlipidemia Active 11-02-2012 [facility] metabolism (25291) Headache; including Migraine with aura Active 08-15-2014 [facility] migraine (63737) Other connective tissue Plantar fasciitis of Active [facility] disease right foot (54052) Other inflammatory Psoriasis Active 06-16-2006 - [facility] condition of skin (62630) Other lower respiratory Rib pain Active [facility] disease (96718) Other nutritional; 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; 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 Other nutritional; Obesity Active 03-06-2014 - [facility] endocrine; and (50421) metabolic disorders Residual codes; 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 (44632) Unclassified Patient encounter status Active [facility] (04002) Urinary tract Chronic cystitis Active 10-17-2008 - [facility] infections (80272) Past or Other Problems Category Problem Name Status Date Location Contraceptive and IUD contraception Completed 12-14-2012 [facility] procreative management (4419 5) Inflammation; Scleritis Completed 10-29-2015 - [facility] ic infection of eye (76783) (except that caused by tuberculosis or sexually transmitteddisease) Nonspecific chest pain Chest pain Completed 12-06-2018 - [facility] (24809) Other and unspecified Melanocytic nevus of Completed 08-15-2013 [facility] benign neoplasm face (61985) Other and unspecified Melanocytic nevus of Completed 08-15-2013 [facility] benign neoplasm trunk (25024) Other and unspecified Benign neoplasm of Completed 08-15-2013 [facility] benign neoplasm skin of shoulder (84582) Other and unspecified Melanocytic nevus of Completed 08-15-2013 [facility] benign neoplasm upper limb (74252) Other injuries and Superficial injury Completed 08-04-2007 [facility] conditions due to (37833) external causes Other non-traumatic Pain in elbow Completed 08-01-2019 [facility] joint disorders (54955) Other skin disorders Non-scarring alopecia Completed 10-30-2015 [facility] (99784) Other skin disorders Scar Completed 08-15-2013 [facility] (69524) Other skin disorders Acne Completed 08-15-2013 [facility] (56397) Other skin disorders Senile lentigo Completed 08-15-2013 - [facility] (69872) Other skin disorders Epidermoid cyst of Completed 08-15-2013 [facility] skin (44943) Results Result Name Value Range Unit Interpretation Flag Date Location progress on 2020-04 PROGRESS HNO ID: [id number] Normal 04-24-2020 [facility] Author: Tony (PtJulia Saavedra [place] ([id number]) Service: ? Author Type: Physical Therapist Type: [...] Needling performed by Tony Saavedra PT Billing: [facility]: Manual Therapy (62998): 1:1 time: 25 minut es (2 units: 23-37 mins) Total time / Length of visit: 25 minutes Maria Esther Escalante, SPT Tony Saavedra PT Direct supervision was provided by the licensed physical the rapist for the entire treatment session and licensed provider made all clin [facility] decisions. cntherapy on 2019-07 0-15 CNTHERAPY OT/PT/Speech Visit (PTWS) Normal 04-10 [place] JUANY CASTELLANO ([id number]) 1975 [facility] Date Time Provider Department [place] 04/24/20 1:15 PM TONY SAAVEDRA (PT) PTWS (92065) Date Time Provider Department [place] 04/24/2020 1:15 PM [id number], SEAN (PT)PTWS [facility] Reason for Visit: Physical Therapy [503] Primary Visit Diagnosis:Chronic bilateral thoracic andrew k pain [M54.6, G89.29] Allergies As of Date: 04/24/2020 Noted Allergy Reaction PENICILLINS 05/20/2005 5 - Intolerance Date Reviewed: 04/01/2020 Reviewed by: Yanet Clarke Cafeteria Manager - Fully Assessed Prescriptions as of 04/24/2020 [...] Needling performed by Tony Saavedra PT Billing: [facility]: Manual Therapy (10434) : 1:1 time: 25 minutes (2 units: 23-37 mins) Total time / Length of visit: 25 minutes Maria Esther Escalante, SPT Tony Saavedra PT Direct supervision was provided by the licensed physical the rapist for the entire treatment session and licensed provider made all cl inical decisions. Previous Version progress on 2020-04 PROGRESS HNO ID: [id number] Normal 04-17-2020 [facility] Author: Tony (Pt) Quentin Fernandez ([id number]) Service: ? Author Type: Physical Therapist Type: [...] assessment of patient's response to intervention. Billing: [facility]: Therapeutic Exercise (75695): 1:1 time: 13 minutes (1 unit: 8-22 mins) Manual Therapy (37527): 1:1 time: 37 minutes (2 units: 23-37 mins) Total time / Length of visit: 50 minutes Maria Esther Escalante, SUNIL Saavedra PT Direct supervision was provided by the licensed physical the rapist for the entire treatment session and licensed provider made all [facility] decisions. cntherapy on 2019-07 0-08 CNTHERAPY OT/PT/Speech Visit (PTWS) Normal 10-0 [place] JUANY CASTELLANO ([id number]) 1975 [facility] Date Time Provider Department [place] 04/17/20 3:45 PM TONY SAAVEDRA (PT) PTWS (41703) Date Time Provider Department [place] 04/17/2020 3:45 PM [id number], SEAN (PT)PTWS [facility] Reason for Visit: Physical Therapy [503] Primary Visit Diagnosis:Chronic bilateral thoracic andrew k pain [M54.6, G89.29] Allergies As of Date: 04/17/2020 Noted Allergy Reaction PENICILLINS 05/20/2005 5 - Intolerance Date Reviewed: 04/01/2020 Reviewed by: Yanet Clarke Cafeteria Manager - Fully Assessed Prescriptions as of 04/17/2020 [...] assessment of patient's response to intervention. Billing: [facility]: Therapeutic Exercise (01290): 1:1 time: 13 minutes (1 unit: 8-22 mins) Manual Therapy (71991): 1:1 time: 37 minutes (2 units: 23-37 mins) Total time / Length of visit: 50 minutes Maria Esther Escalante, SUNIL Saavedra, DICK Direct supervision was provided by the licensed physical the rapist for the entire treatment session and licensed provider made all cl inical decisions. Previous Version progress on 2020-04 PROGRESS HNO ID: [id number] Normal 04-10-2020 [facility] Author: Tony (Pt) Quentin Fernandez ([id number]) Service: ? Author Type: Physical Therapist Type: [...] assessment of patient's response to intervention. Billing: [facility]: Therapeutic Exercise (57050): 1:1 time: 10 minutes (1 unit: 8-22 mins) Manual Therapy (83379): 1:1 time: 45 minutes (3 units: 38-52 mins) Total time / Length of visit: 55 minutes Tony Saavedra, PT cntherapy on 2019-07 CNTHERAPY OT/PT/Speech Visit (PTWS) Normal [place] JUANY CASTELLANO ([id number]) 1975 [facility] Date Time Provider Department [place] 04/10/20 1:15 PM TONY SAAVEDRA (PT) PTWS (04524) Date Time Provider Department [place] 04/10/2020 1:15 PM [id number], SEAN (PT)PTWS [facility] Reason for Visit: Physical Therapy [503] Primary Visit Diagnosis:Chronic bilateral thoracic andrew k pain [M54.6, G89.29] Allergies As of Date: 04/10/2020 Noted Allergy Reaction PENICILLINS 05/20/2005 5 - Intolerance Date Reviewed: 04/01/2020 Reviewed by: Yanet Clarke Cafeteria Manager - Fully Assessed Prescriptions as of 04/10/2020 [...] will continue to benefit from ongoing skilled chemist physical apy for manual prn and progressive exercises [...] assessment of patient's response to intervention. Billing: [facility]: Therapeutic Exercise (74870): 1:1 time: 10 minutes (1 unit: 8-22 mins) Manual Therapy (96938): 1:1 time: 45 minutes (3 units: 38-52 mins) Total time / Length of visit: 55 minutes Tony Saavedra PT judith on 2020-04-04 JESSICAN Telephone (INTMWS) Normal 04-04-2020 [place] JUANY Mcallister ([id number]) 1975 [facility] Date Time Provider Department (57258) 04/04/20 CASTILLO STILL During your visit today, we recorded the following informati on about you: Yanet Clarke Cafeteria Manager 04/04/2020 8:30 AM Signed Patient requesting lab [...] minutes, 3-5 days a week. SHELBIE Domingo [facility] 04/04/2020 10:02 AM Signed Patient is notified of all information and verbalizes unders tanding Yanet Clarke Cma April 04, 2020 10:02 AM Allergies As of Date: 04/04/2020 Noted Allergy Reaction PENICILLINS 05/20/2005 5 - Intolerance Date Reviewed: 04/01/2020 Reviewed by: Yanet Clarke [facility] - Fully Assessed Reason for Visit: [...] 04/04/20 progress on 2020-03 PROGRESS HNO ID: [id number] Normal 04-03-2020 [place] Author: Tony (Pt) Quentin [facility] Service: ? [place] Author Type: Physical Therapist ([id number]) Type: Progress Notes Filed: 04/04/2020 11:27 AM [...] of Care: created on 04/03/20 through 06/03 [place] in home exercise program. Patient will decrease [...] assessment of patient's response to intervention. Billing: [facility]: Evaluation - Low Complexity (77916) Therapeutic Exercise (64620): 1:1 time: 15 minutes (1 unit: 8-22 mins) Manual Therapy (86485): 1:1 time: 9 minutes (1 unit: 8-22 mi ns) Total time / Length of visit: 48 minutes Tony Saavedra PT cntherapy on 0 04-03 CNTHERAPY OT/PT/Speech Visit (PTWS) Normal 03-12 [place] JUANY CASTELLANO ([id number]) 1975 [facility] Date Time Provider Department [place] 04/03/20 10:00 AM TONY SAAVEDRA (PT) PTWS (24729) Date Time Provider Department [place] 04/03/2020 10:00 AM [id number], SEAN (PT)PTWS [facility] Reason for Visit: PT Eval [747] Visit Diagnosis:Chronic bilateral thoracic back pain [M54.6, G89.29] Allergies As of Date: 04/03/2020 Noted Allergy Reaction PENICILLINS 05/20/2005 5 - Intolerance Date Reviewed: 04/01/2020 Reviewed by: Yanet Clarke Cafeteria Manager - Fully Assessed Prescriptions as of 04/03/2020 [...] of Care: created on 04/03/20 through 06/03 [place] in home exercise program. Patient will decrease [...] assessment of patient's response to intervention. Billing: [facility]: Evaluation - Low Complexity (23411) Therapeutic Exercise (99596): 1:1 time: 15 minutes (1 unit: 8-22 mins) Manual Therapy (33527): 1:1 time: 9 minutes (1 unit: 8-22 mi ns) Total time / Length of visit: 48 minutes Tony Saavedra PT remote bmp (for [facility] use only) on 2020-04-01 Anion gap [Moles/Vol] 11 9-18 mmol/L Normal 04-01-20 [facility] (41681) Comment: Performed By: #### RBMP #### [place] [address] [address] [place] [address], [place] [phone]- [phone] Calcium [Mass/Vol] 9.1 8.5-10.2 mg/dL Normal 04-01-2020 [facility] (23202) Comment: Performed By: #### RBMP #### [place] [address] [address] [place], [place] [phone]- [phone] Chloride [Moles/Vol] 104 97-105 mmol/L Normal 0 [facility] (50185) Comment: Performed By: #### RBMP #### [facility] [address], [place] [phone] CO2 [Moles/Vol] 24 22-30 mmol/L Normal 04-01-2020 [facility] (93531) Comment: Performed By: #### RBMP #### [facility] [address], [place] [phone]- [phone] Creatinine [Mass/Vol] 0.77 0.58-0.96 mg/dL Normal 04-01-20 [facility] (32356) Comment: Performed By: #### RBMP #### [facility] [address], [place] [phone]- [phone] eGFR- Amer. >60 Normal 04-01-2020 [facility] (50257) Comment: Performed By: #### RBMP #### [facility] [place], [place] [phone]- [phone] GFR/1.73 sq M predicted >60 mL/min/{1.73_m2} Normal 04-01-2020 [facility] among non-blacks MDRD [place] (95780) (S/P/Bld) [Vol rate/Area] Comment: Result Comment: eGFR [...] actual GFR. Performed By: #### RBMP #### [facility] [place], [place] [phone]- [phone] Glucose [Mass/Vol] 115 74-99 mg/dL High 04-01-2020 [facility] (64677) Comment: Result Comment: The [place] Diabetes Association (ADA) provides guidance for cutoff [...] for diagnosis of diabetes. Reference: Standards of [facility] Care in Diabetes 2016, [place] Diabetes Association. Diabetes Care. 2016.39(Suppl 1). Performed By: #### RBMP #### [facility] [place], [place] [phone] Potassium [Moles/Vol] 4.4 3.7-5.1 mmol/L Normal 04-01-20 20 [facility] (91086) Comment: Performed By: #### RBMP #### [facility] [place], [place] [phone] Sodium [Moles/Vol] 139 136-144 mmol/L Normal 04-01-2020 [facility] (15943) Comment: Performed By: #### RBMP #### [facility] [place], [place] [phone]- [phone] Urea nitrogen [Mass/Vol] 10 7-21 mg/dL Normal 04-01 [facility] (11698) Comment: Performed By: #### RBMP #### [facility] [place], [place] [phone] progress on 2020-03 PROGRESS HNO ID: [id number] Normal 04-01-2020 [facility] Author: Joanie (Photogrammetric Tech) [facility] (47848) Service: ? Author Type: Nurse Practitioner Type: [...] Skin Tags-Dr. Gaviria - S [facility] [place] [id number] 12/22/2017 [place] Abl[facility]-Dr. Gaviria - SALPINGECTOMY Bilateral [...] Take 1 tablet by mouth twice weekly [id number], then decrease to 1 tablet weekly . [...] pain from thoracic spine. Chest x-ray in [facility] was normal. See plan above 3. DDD [...] As above - BMP (BMP) (FOR REMOTE [facility] USE) Prescription instructions reviewed with patient as applicabl e. Potential red flag symptoms discussed with the patient. Reviewed appro priate action plan to take if red flag symptoms occur. Patient agreeable t o treatment plan. Joanie Gallagher, [employer].RECONCILIATION MANAGER lipid panel, basic on 2020-04-01 Cholesterol [Mass/Vol] 202 <200 mg/dL High 020 [facility] (14798) Comment: Result Comment: <200 mg/dL, Desirable 200-239 mg/dL, Borderline hi gh >239 mg/dL, High Performed By: #### LIPB #### [facility] [address] [place], [place] [phone]- [phone] Cholesterol in HDL 44 >39 mg/dL Normal 04-01-2020 [facility] [Mass/Vol] (25145) Comment: Result Comment: 40-59 mg/dL, Acceptable >59 mg/dL, High: Negative ri sk factor for coronary heart disease <40 mg/dL, Low: Positive ris k factor for coronary heart disease Performed By: #### LIPB #### [facility] [place], [place] [id number] [phone] Cholesterol in LDL 135 <100 mg/dL High 04-01-2020 [facility] [Mass/Vol] (89013) Comment: Result Comment: <100 mg/dL, Optimal 100-129 mg/dL, Near optimal/ above optimal 130-159 mg/dL, Borderline hi gh 160-189 mg/dL, High >189 mg/dL, Very high Secondary prevention optimal LDL Cholesterol levels are recommended to be < 70 mg/dL Performed By: #### LIPB #### [place] [address] [place], [place] [phone] Fasting Time 10 hrs Normal 04-01-2020 [facility] (25437) Comment: Performed By: #### LIPB #### [address] [id number] [phone] LDL:HDL Ratio 3.07 <2.54 High 04-01-2020 [facility] (01534) Comment: Result Comment: Reference: 1. National Cholesterol Educ ation Program ATP III Guideline At-A-Glance Quick Desk Reference: National Heart, Lung, and Blood Prospect. National Institutes of Health. 2001: NIH Publication No. 01-3305. 2. An International Atherosc lerosis Society position paper: global recommendations for the management of dyslipidemia: executive summary, Atherosclerosis. 2014: 232(2):410-413. Performed By: #### LIPB #### [facility] [place], [place] [phone]- [phone] Non HDL Cholesterol 158 <130 mg/dL High 04-01-2020 [facility] (63923) Comment: Result Comment: <130 mg/dL, Optimal 130-159 mg/dL, Near optimal/ above optimal 160-189 mg/dL, Borderline hi gh 190-219 mg/dL, High >219 mg/dL, Very high Secondary prevention optimal non HDL Cholesterol levels are recommended to be < 100 mg/dL Performed By: #### LIPB #### [place] [address] [place], [place] [phone]- [phone] TC:HDL Ratio 4.59 <5.10 Normal 04-01-2020 [facility] (22046) Comment: Performed By: #### LIPB #### [address] [phone] Triglyceride [Mass/Vol] 116 <150 mg/dL Normal 2019 [facility] (30060) Comment: Result Comment: <150 mg/dL, Normal 150-199 mg/dL, Borderline hi gh 200-499 mg/dL, High >499 mg/dL, Very high Performed By: #### LIPB #### [place] [address] [place] [place], [place] [phone]- [phone] VLDL Cholesterol 23 <30 mg/dL Normal 04-01-[address] [facility] (12422) Comment: Performed By: #### LIPB #### [place] [address] [place] [place], [place] [phone]- [phone] cnov on 2020-04-01 CNOV Office Visit (INTMWS) Normal 04-01-[address] [place] [address] [facility] JUANY CASTELLANO ([id number]) 1975 [facility] Date Time Provider Department () 04/01/20 [...] Skin Tags-Dr. Gaviria - S [place] [id number] 12/22/2017 [place] Ablation-Dr. Gaviria - SALPINGECTOMY Bilateral [...] Take 1 tablet by mouth twice weekly [id number], then decrease to 1 tablet weekly. topiramate [...] As above - BMP (BMP) (FOR REMOTE [facility] USE) Prescription instructions reviewed with patient as nery licable. Potential red flag symptoms discussed with the patient. Review ed appropriate action plan to take if red flag symptoms occur. Patient agreeable to treatm ent plan. Joanie Gallagher APRN.RECONCILIATION MANAGER Referring Provider: SELF [200] Allergies As of Date: 04/01/2020 Noted Allergy Reaction PENICILLINS 05/20/2005 5 - Intolerance Date Reviewed: 04/01/2020 Reviewed by: Yanet Clarke Cafeteria Manager - Fully Assessed Reason for Visit: Back Pain [12] Primary Visit Diagnosis:Chronic bilateral thoracic andrew k pain [M54.6, G89.29] Other Visit Diagnoses:Rib pain [R07.81] DDD (degenerative disc disease), thoracic [M51.34] Encounter for lipid screening for cardiovascular disease [Z13.220, Z13.6] Encounter for screening for diabetes mellitus [Z13.1] Order(s):LIPID PANEL BASIC [SQLIPB] Order #: [id number] FUTU RE BMP (BMP) (FOR REMOTE [facility] USE) [SQRBMP] Order #: [id number] FUTURE CONSULT TO PHYSICAL THERAPY [9032] Order #: [id number]: 1 FUTURE cyclobenzaprine (FLEXERIL) 10 mg tabletTake [...] 04/01/20 progress on 2020-01 PROGRESS HNO ID: [id number] Normal 01-10-2020 [facility] Author: Kojo (Jessica) Eusebio Fernandez ([id number]) Service: ? Author Type: Nurse Practitioner Type: [...] 2020-01-10 CNOV Office Visit (INTMWS) Normal 01-10-[address] [place] [address] [facility] JUANY CASTELLANO ([id number]) 1975 [facility] Date Time Provider Department ([id number]) 01/10/20 3:40 PM KOJO FARRAR (JESSICA) INTMWS [...] heat - Prednisone as prescribed Kojo Farrar APRN.RECONCILIATION MANAGER Prescription instructions reviewed with patient as nery licable. Potential red flag symptoms discussed with the patient. Review ed appropriate action plan to take if red flag symptoms occur. Patient agreeable to treatm ent plan. Kojo Farrar APRN.RECONCILIATION MANAGER Referring Provider: CASTILLO STILL [[id number]] Allergies As of Date: 01/10/2020 Noted Allergy [...] 0 URINALYSIS, WITH MICROSCOPIC [SQUAWMIC] Order #: [id number] URINE CULTURE [SQURCUL] Order #: [id number] FUTURE UA DIP, URINE (POC) [1309432] Order #: [id number]. #:[id number] Prescriptions as of 01/10/2020 Sig: CYCLOBENZAPRINE 10 [...] on 2019-12-11 CNPN Telephone (INTMWS) Normal 12-11-2019 [place] [facility] JUANY CASTELLANO ([id number]) 1975 [facility] Date Time Provider Department ([id number]) 12/11/19 CASTILLO STILL INTMWS During your visit [...] 12/12/19 progress on 2019-10 PROGRESS HNO ID: [id number] Normal 10-19-2019 [facility] Author: Kojo (Photogrammetric Tech) Eusebio Fernandez ([id number]) Service: ? Author Type: Nurse Practitioner Type: [...] activity was identified. 10/19/2019 by Kojo Farrar APRN.RECONCILIATION MANAGER - Follow up in 4 weeks [...] agreeable t o treatment plan. Kojo Farrar APRN.RECONCILIATION MANAGER xr chest 2v frontal/lat on 2019-09-28 XR CHEST 2V * * *Final Report* * * Normal 09-27 [facility] FRONTAL/LAT DATE OF EXAM: Sep 28 2019 4:53PM [place] WOX 5291 - XR CHEST 2V FRONTAL/LAT / (39898) PROCEDURE REASON: multiple diagnoses * * * [...] the spine. IMPRESSION: No acute radiographic abnormality. Lining Closer: YOGESH Transcribe Date/Time: Sep 28 2019 4:54P Dictated by : TANVIR BAUTISTA MD This examination was interpreted and the report reviewed and electronically signed by: TANVIR BAUTISTA MD on Sep 28 2019 4:55PM EST [id number] progress on 2019-09 PROGRESS HNO ID: [id number] Normal 09-28-2019 [facility] Author: Shirley Solis (Rt) Fiona Orozco [place] ([id number]) Service: ? Author Type: Insurance Examining Clerk Type: Progress Notes Filed: 09/28/2019 4:54 PM [...] 28, 2019 4:46 PM cnpn [facility] 2019[facility]09-[facility] Normal 09-28-2019 [place] [facility] JUANY CASTELLANO ([id number]) 1975 [facility] Time Provider Department (05324) 09/28/19 2:20 PM ED CARABALLO ([facility] During your visit today, we recorded the [...] Skin Tags-Dr. Gaviria - S ABLATION [place] [id number] 12/22/2017 [place] Ablation-Dr. Gaviria - SALPINGECTOMY Bilateral [...] Take 1 tablet by mouth twice weekly [id number], then decrease to 1 tablet weekly. - [...] with inspiration, wh eezing, whistling with exhalation, qrbgl-uqv-zwah tinged production with cough -worse in the [...] %) SOLUTION FOR NEBUL IZATION Ed Caraballo APRN.RECONCILIATION MANAGER Referring Provider: SELF [200] Allergies As [...] 21 tabletRfl: 0 XR CHEST 2V FRONTAL/LAT [2382160] Order #: [id number] FUTURE NEBULIZER, WITH COMPRESSOR [V1622SOI] Order #: [id number] albuterol (PROVENTIL) 2.5 mg /3 mL (0.083 [...] 09/28/19 progress on 2019-09 PROGRESS HNO ID: [id number] Normal 09-10-2019 [facility] Author: Romana Keller (Skinny) Rosalie Fernandez ([id number]) Service: ? Author Type: Physician Content Developer Type: Progress Notes Filed: 09/10/2019 1:25 PM [...] week. TO BE TAKEN ORALLY DIRECTED. T jhon 1 tablet by mouth twice weekly x1uegen, then decrease to 1 tablet yahir chand. [...] Skin Tags-Dr. Gaviria - S ABLATION [place] [id number] 12/22/2017 [place] Ablation-Dr. Gaviria - SALPINGECTOMY Bilateral [...] 2019-09-10 CNOV Office Visit (UCWSTR) Normal 09-10-[address] [place] [address] [facility] JUANY CASTELLANO ([id number]) 1975 [facility] Date Time Provider Department (10933) 09/10/19 11:30 AM ROMANA WHITEHEAD (SKINNY) WSTR [...] Take 1 tablet by mouth twice weekly [id number], then decrease to 1 tablet weekly. 8 [...] Skin Tags-Dr. Gaviria - S ABLATION [place] [id number] 12/22/2017 [place] Ablation-Dr. Gaviria - SALPINGECTOMY Bilateral [...] Diagnosis:Influenza A [J10.1] Order(s):INFLUENZA AANDB MOLECULAR (POC) [3739143] Order # : [id number]. #:[id number] oseltamivir (TAMIFLU) 75 mg capsuleTake 1 capsule [...] 09/10/19 progress on 2019-08 PROGRESS HNO ID: [id number] Normal 09-07-2019 [facility] Author: Tracy (Pt) Abiodun Fernandez ([id number]) Service: ? Author Type: Physical Therapist Type: [...] L lateral el bow region. (Not Met) [place] in home exercise program. (Met) Patient will [...] Patient response monitore d throughout treatment. Billing: [facility]: Therapeutic Exercise (05402): 1:1 time: 12 minutes (1 unit: 8-22 mins) Manual Therapy (94807): 1:1 time: 17 minutes (1 unit: 8-22 m ins) Modalities Ultrasound (22198) 1:1 time: 10 minutes1 unit: 8- 22 mins Total time: 39 minutes Tracy Rascon PT PROGRESS HNO ID: [id number] Normal 09-07-2019 [facility] Author: Tracy (Pt) Abiodun Fernandez ([id number]) Service: ? Author Type: Physical Therapist Type: Progress Notes Filed: 09/07/2019 3:38 PM Note Text: cntherapy on 09-07 CNTHERAPY OT/PT/Speech Visit (PTWS) Normal 08-12 [place] JUANY CASTELLANO ([id number]) 1975 [facility] Date Time Provider Department [place] 09/07/19 2:30 PM TRACY RASCON (PT) PTWS (69295) Date Time Provider Department [place] 09/07/2019 2:30 PM [id number] RASCON (PT) PTWS [facility] JOSÉ MIGUEL Keller Reason for Visit: PT Progress Note [8266] PT Discharge [752] Reason For Visit History [...] L late ral elbow region. (Not Met) [place] in home exercise program. (Met) Patient will [...] Patient response monitored throughout t reatment. Billing: [facility]: Therapeutic Exercise (16843): 1:1 time: 12 minutes (1 unit: 8-22 mins) Manual Therapy (91394): 1:1 time: 17 minutes (1 unit: 8-22 m ins) Modalities Ultrasound (06869) 1:1 time: 10 minutes1 unit: 8- 22 mins Total time: 39 minutes Tracyannika Rascon, PT xr thoracic 3v ap/lat/swimmers on 2019-09-05 XR THORACIC 3V * * *Final Report* * * Normal [place] AP/LAT/SWIMMERS DATE OF EXAM: Sep 05 2019 11:50AM Clinic WOX 5261 - XR THORACIC 3V AP/LAT/SWIMMERS / [address] [place] PROCEDURE REASON: Mid back pain (56337) * * * * Physician Interpretation * [...] F ACET DEGENERATIVE CHANGES LOWER LUMBAR SPINE. Lining Closer: YOGESH Transcribe Date/Time: Sep 05 2019 3:01P Dictated by : MILEY PENALOZA MD This examination was interpreted and the report reviewed and electronically signed by: MILEY PENALOZA MD on Sep 05 2019 3:06PM EST [id number] xr lumbar 3v ap/lat/l5-s1 on 2019-09-05 XR LUMBAR 3V * * *Final Report* * * Normal 08-12 [place] AP/LAT/L5-S1 DATE OF EXAM: Sep 05 2019 11:50AM Clinic WOX 5228 - XR LUMBAR 3V AP/LAT/L5-S1 / [place] PROCEDURE REASON: Mid back pain (39550) * * * * Physician Interpretation * [...] F ACET DEGENERATIVE CHANGES LOWER LUMBAR SPINE. Lining Closer: YOGESH Transcribe Date/Time: Sep 05 2019 3:01P Dictated by : MILEY PENALOZA MD This examination was interpreted and the report reviewed and electronically signed by: MILEY PENALOZA MD on Sep 05 2019 3:06PM EST [id number] progress on 2019-08 PROGRESS HNO ID: [id number] Normal 09-05-2019 [facility] Author: Marie Cisneros (Rt) Fiona Johnson [place] ([id number]) Service: ? Author Type: Insurance Examining Clerk Type: Progress Notes Filed: 09/05/2019 11:50 AM [...] 05, 2019 11:30 AM PROGRESS HNO ID: [id number] Normal 09-05-2019 [facility] Author: Kojo (Photogrammetric Tech) Eusebio [place] ([id number]) Service: ? Author Type: Nurse Practitioner Type: [...] Test sent to Filippo <500 Normal 0 [facility]. (27455) Comment: Result Comment: Account Cred ited HIDE cnov on 2019-09-05 CNOV Office Visit (INTMWS) Normal 09-05-19 [place] [facility] JUANY CASTELLANO ([id number]) 1975 [facility] Date Time Provider Department (68704) 09/05/19 10:40 AM KOJO FARRAR ([facility]) INTMWS During your visit today, we [...] agreeable to treatm ent plan. Kojo Farrar APRN.RECONCILIATION MANAGER Referring Provider: SELF [200] Allergies As [...] breath) [R06.02] Order(s):XR THORACIC GENERAL 3V AP/LAT/SWIMMERS [9022204] Order #: [id number] FUTURE BASIC METABOLIC PNL [SQBMP] Order #: [id number] FUTURE CBC + DIFF [SQCBCDIF] Order #: [id number] FUTURE XR LUMBAR GENERAL 3V AP/LAT/L5-S1 [0251727] Order #: [id number] FUTURE methylPREDNISolone (MEDROL, CHI,) 4 mg Dose-PackFollow dosin g instructions, take with food.Disp: 1 PackageRfl: 0 D-DIMER [SQDDMER] Order #: [id number] FUTURE Prescriptions as of 09/05/2019 Sig: METHYLPREDNISOLONE [...] Abs Baso 0.09 <0.11 k/uL Normal 09-05-2019 [facility] (06921) Comment: Performed By: #### CBCRakesh HERNANDEZ MP ####[place] [address] [address], [place] [id number]- [phone] Abs Webb 0.71 <0.87 k/uL Normal 09-05-2019 [facility] (54252) Comment: Performed By: #### CBCRakesh HERNANDEZ MP ####[facility] [place] [phone]- [phone] Abs Neut 5.41 1.45-7.50 k/uL Normal 09-05-2019 [facility] (73795) Comment: Performed By: #### CBCRakesh HERNANDEZ MP ####[place] [address] [address], [place] [phone]- [phone] Absolute nRBC <0.01 <0.01 Normal 09-05-2019 [facility] (79019) Comment: Performed By: #### CBCMOUSTAPHAF B MP ####[facility], [place] [id number]- [phone] Basophils/100 WBC (Bld) 1.0 % Normal 2019 [facility] (86583) Comment: Performed By: #### CBCMOUSTAPHAF B MP ####[place] [address] [address], [place] [phone]- [phone] DTYPE Auto Diff Normal 09-05-2019 [facility] (06602) Comment: Performed By: #### CBCDIF, B MP ####[facility], [place] [phone]- [phone] Eosinophils (Bld) [#/Vol] 0.27 <0.46 k/uL Normal 08-12 [facility] (99952) Comment: Performed By: #### CBCDIF, B MP ####[place] [address] [address] [phone]- [phone] Eosinophils/100 WBC (Bld) 3.0 % Normal 08-12 [facility] (43710) Comment: Performed By: #### CBCDAVID B MP ####[place] [address] [address] [place] [phone]- [phone] Erythrocyte distribution 12.9 11.5-15.0 % Normal 09-05 [facility] width (RBC) [Ratio] [place] (67479) Comment: Performed By: #### CBCDIF B MP ####[place] [address] [address] [place] [phone]- [phone] Hematocrit (Bld) [Volume 45.1 36.0-46.0 % Normal 09-05 [facility] fraction] [place] (33173) Comment: Performed By: #### CBCDIF B MP ####[place] [address] [address] [place] [phone]- [phone] Hemoglobin (Bld) 15.0 11.5-15.5 g/dL Normal 09-05-2019 [facility] [Mass/Vol] [place] (37596) Comment: Performed By: #### CBCDIF, B MP ####[place] [address] [address] [place] [phone]- [phone] Lymphocytes (Bld) [#/Vol] 2.47 1.00-4.00 k/uL Normal 08-12 [facility] (60294) Comment: Performed By: #### CBCDIF B MP ####[place] [address] [address], [place] [phone]- [phone] Lymphocytes/100 WBC (Bld) 27.6 % Normal 08-12 [facility] (11990) Comment: Performed By: #### Rakesh FOX MP ####[facility], [place] [phone]- [phone] MCH (RBC) [Entitic mass] 30.9 26.0-34.0 pG Normal 09-05 [facility] (02245) Comment: Performed By: #### Rakesh FOX MP ####[facility], [place] [phone]- [phone] MCHC (RBC) [Mass/Vol] 33.3 30.5-36.0 g/dL Normal 09-05-19 [facility] (63732) Comment: Performed By: #### Rakesh FOX MP ####[facility], [place] [phone]- [phone] MCV (RBC) [Entitic vol] 93.0 80.0-100.0 fL Normal 09-05 [facility] (64862) Comment: Performed By: #### Rakesh FOX MP ####[facility], [place] [phone]- [phone] Monocytes/100 WBC (Bld) 7.9 % Normal 2019 [facility] (45866) Comment: Performed By: #### CBCRakesh HERNANDEZ MP ####[facility], [place] [phone]- [phone] Neutrophils/100 WBC (Bld) 60.5 % Normal 08-12 [facility] (49885) Comment: Performed By: #### CBCRakesh HERNANDEZ MP ####[facility], [place] [phone]- [phone] NRBCs 0.0 0 /100 WBC Normal 09-05-2019 [facility] (65289) Comment: Performed By: #### CBCDAVID B MP ####[place] [address] [address], [place] [phone]- [phone] Platelet mean volume 10.7 9.0-12.7 fL Normal 0 [facility] (Bld) [Entitic vol] [place] (44479) Comment: Performed By: #### CBCMOUSTAPHAF B MP ####[place] [address] [address], [place] [phone]- [phone] Platelets (Bld) [#/Vol] 300 150-400 k/uL Normal 2019 [facility] (38503) Comment: Performed By: #### RUDDY B MP ####[place] [address] [address], [place] [phone]- [phone] RBC (Bld) [#/Vol] 4.85 3.90-5.20 m/uL Normal 09-05-2019 [facility] (39697) Comment: Performed By: #### CBCDAVID B MP ####[place] [address] [address] [place], [place] [phone]- [phone] WBC (Bld) [#/Vol] 8.95 3.70-11.00 k/uL Normal 09-05-2019 [facility] (95560) Comment: Performed By: #### RUDDY B MP ####[address], [place] [phone]- [phone] basic metabolic panl on 2019-09-05 Anion gap [Moles/Vol] 10 9-18 mmol/L Normal 09-05-19 20 [facility] (28546) Comment: Performed By: #### CBCDAVID B MP ####[address], [place] [phone]- [phone] Calcium [Mass/Vol] 9.6 8.5-10.2 mg/dL Normal 09-05-2019 [facility] (34189) Comment: Performed By: #### CBCDAVID B MP ####[facility], [place] [phone]- [phone] Chloride [Moles/Vol] 105 97-105 mmol/L Normal 0 [facility] (63366) Comment: Performed By: #### Rakesh FOX MP ####[place] [address] [address], [place] [phone]- [phone] CO2 [Moles/Vol] 25 22-30 mmol/L Normal 09-05-2019 [facility] (83782) Comment: Performed By: #### Rakesh FOX MP ####[place] [address] [address], [place] [phone]- [phone] Creatinine [Mass/Vol] 0.84 0.58-0.96 mg/dL Normal 09-05-19 20 [facility] (16878) Comment: Performed By: #### Rakesh FOX MP ####[place] [address] [address], [place] [phone]- [phone] eGFR- Amer. >60 Normal 09-05-2019 [facility] (76069) Comment: Performed By: #### Rakesh FOX MP ####[place] [address] [address] [place], [place] [phone]- [phone] GFR/1.73 sq M predicted >60 mL/min/{1.73_m2} Normal 09-05-2019 [facility] among non-blacks MDRD [place] (85230) (S/P/Bld) [Vol rate/Area] Comment: Result Comment: eGFR [...] GFR. Performed By: #### Rakesh FOX MP ####[facility] [address] [place], [place] [phone]- [phone] Glucose [Mass/Vol] 100 74-99 mg/dL High 09-05-2019 [facility] (83997) Comment: Result Comment: The [place] [employer] Association (ADA) provides guidance for cutoff [...] for diagnosis of diabetes. Reference: Standards of [facility] Care in Diabetes 2016, [place] [employer] Association. Diabetes Care. 2016.39(Suppl 1). Performed By: #### Rakesh FOX MP ####[facility], [place] [phone]- [phone] Potassium [Moles/Vol] 4.5 3.7-5.1 mmol/L Normal 09-05-19 20 [facility] (41395) Comment: Performed By: #### Rakesh FOX MP ####[facility] [place], [place] [phone]- [phone] Sodium [Moles/Vol] 140 136-144 mmol/L Normal 09-05-2019 [facility] (07618) Comment: Performed By: #### Rakesh FOX MP ####[facility] [address] [place], [place] [phone]- [phone] Urea nitrogen [Mass/Vol] 10 7-21 mg/dL Normal 09-05 [facility] (50423) Comment: Performed By: #### Rakesh FOX MP ####[facility] [address] [place], [place] [address]- [phone] progress on 2019-08 PROGRESS HNO ID: [id number] Normal 08-31-2019 [place] Author: Tracy (Pt) Abiodun [facility] Service: ? [place] Author Type: Physical Therapist (72385) Type: Progress Notes Filed: 08/31/2019 4:46 PM Note Text: Billing: [facility]: Therapeutic Exercise (50711): 1:1 time: 15 minutes (1 unit: 8-22 mins) Manual Therapy (67997): 1:1 time: 15 minutes (1 unit: 8-22 m ins) Modalities Ultrasound (54645) 1:1 time: 10 minutes1 unit: 8- 22 [...] L lateral el bow region. (Not Met) [place] in home exercise program. (Met) Patient will [...] Interventions, Frequency, and Duration: 1x/week, 1 w [place] Total Number of Visits Planned: 1 Patient [...] Patient response monitore d throughout treatment. Billing: [facility]: Therapeutic Exercise (75209): 1:1 time: 15 minutes (1 unit: 8-22 mins) Manual Therapy (49775): 1:1 time: 15 minutes (1 unit: 8-22 m ins) Modalities Ultrasound (59801) 1:1 time: 10 minutes1 unit: 8- 22 mins Total time: 40 minutes Tracy Rascon PT cntherapy on 08-31 CNTHERAPY OT/PT/Speech Visit (PTWS) Normal - [place] JUANY CASTELLANO ([id number]) 1975 Clinic Date Time Provider Department [place] 08/31/19 2:30 PM TRACY RASCON (PT) PTWS (04663) Date Time Provider Department [place] 08/31/2019 2:30 PM [id number] RASCON (PT) PTWS [facility] JOSÉ MIGUEL Keller Reason for Visit: Physical [...] Rascon PT 08/31/2019 4:46 PM Signed Billing: [facility]: Therapeutic Exercise (28804): 1:1 time: 15 minutes (1 unit: 8-22 mins) Manual Therapy (40263): 1:1 time: 15 minutes (1 unit: 8-22 m ins) Modalities Ultrasound (93633) 1:1 time: 10 minutes1 unit: 8- 22 [...] L late ral elbow region. (Not Met) [place] in home exercise program. (Met) Patient will [...] Interventions, Frequency, and Duration: 1x/week, 1 w [place] Total Number of Visits Planned: 1 Patient [...] heavy, she will just switch to the [facility] er arm. Pain: Pain Pain Level: [...] Patient response monitored throughout t reatment. Billing: [facility]: Therapeutic Exercise (48888): 1:1 time: 15 minutes (1 unit: 8-22 mins) Manual Therapy (33272): 1:1 time: 15 minutes (1 unit: 8-22 m ins) Modalities Ultrasound (59510) 1:1 time: 10 minutes1 unit: 8- 22 mins Total time: 40 minutes Tracy Rascon PT progress on 2019-08 PROGRESS HNO ID: [id number] Normal 08-22-2019 [facility] Author: Linus (Pt) [place] (70619) Service: ? Author Type: Physical Therapist Type: Progress Notes Filed: 08/22/2019 7:12 PM Note Text: Episode Visit Count: 4 Therapist That Will Oversee The Plan Of Care: Ericannamaria Tracy Start of Care Date: 08/01/19 Onset [...] Patient response monitore d throughout treatment. Billing: [facility]: Therapeutic Exercise (64161): 1:1 time: 18 minutes (1 unit: 8-22 mins) Manual Therapy (81924): 1:1 time: 12 minutes (1 unit: 8-22 m ins) Modalities Ultrasound (23900) 1:1 time: 10 minutes (1 unit: 8-22 mins) Total time: 40 minutes DYLAN Collazo PT cntherapy on 0 2-12 CNTHERAPY OT/PT/Speech Visit (PTWS) Normal 08-11 [place] JU[facility] CASTELLANO ([id number]) 1975 F Clinic Date Time Provider Department [place] 08/22/19 2:15 PM LUZ WANG (RESIDENTIAL PROPERTY MANAGER) PTWS (86160) Date Time Provider Department [place] 08/22/2019 2:15 PM [id number], NANCY (RESIDENTIAL PROPERTY MANAGER) PTWS [facility] JOS[facility] MIGUEL Keller Reason for Visit: Physical [...] Patient response monitored throughout t reatment. Billing: [facility]: Therapeutic Exercise (40133): 1:1 time: 18 minutes (1 unit: 8-22 mins) Manual Therapy (60857): 1:1 time: 12 minutes (1 unit: 8-22 m ins) Modalities Ultrasound (36066) 1:1 time: 10 minutes (1 unit: 8-22 mins) Total time: 40 minutes DYLAN Collazo PT Previous Version progress on 2019-08 PROGRESS HNO ID: [id number] Normal 08-17-2019 [facility] Author: Tracy (Pt) Abiodun Fernandez (52676) Service: ? Author Type: Physical Therapist Type: [...] and lateral epicond yle tendons using [employer] boomerang tool x 10 min. Mild petechiae [...] Patient response monitore d throughout treatment. Billing: [facility]: Therapeutic Exercise (19540): 1:1 time: 18 minutes (1 unit: 8-22 mins) Manual Therapy (66897): 1:1 time: 12 minutes (1 unit: 8-22 m ins) Modalities Ultrasound (59599) 1:1 time: 10 minutes1 unit: 8- 22 mins Total time: 40 minutes Tracy Rascon PT cntherapy on 08-17 CNTHERAPY OT/PT/Speech Visit (PTWS) Normal [place] JUANY CASTELLANO ([id number]) 1975 F [facility] Date Time Provider Department [place] 08/17/19 1:45 PM TRACY RASCON (PT) PTWS (26042) Date Time Provider Department [place] 08/17/2019 1:45 PM [id number], TRACY (PT) PTWS [facility] Reason for Visit: Physical Therapy [503] [...] and lat eral epicondyle tendons using [employer] boomerang tool x 10 min. Mild petechiae [...] Patient response monitored throughout t reatment. Billing: [facility]: Therapeutic Exercise (97422): 1:1 time: 18 minutes (1 unit: 8-22 mins) Manual Therapy (44120): 1:1 time: 12 minutes (1 unit: 8-22 m ins) Modalities Ultrasound (01989) 1:1 time: 10 minutes1 unit: 8- 22 mins Total time: 40 minutes Tracy Rascon PT progress on 2019-07 PROGRESS HNO ID: [id number] Normal 08-10-2019 [facility] Author: Tracy (Pt) Abiodun Fernandez (47188) Service: ? Author Type: Physical Therapist Type: [...] Patient response monitore d throughout treatment. Billing: [facility]: Therapeutic Exercise (14201): 1:1 time: 30 minutes (2 units: 23-37 mins) Modalities Ultrasound (67702) 1:1 time: 10 minutes1 unit: 8- 22 mins Total time: 40 minutes Luz Wang PT-Humera Rascon PT cntherapy on 08-10 CNTHERAPY OT/PT/Speech Visit (PTWS) Normal - [place] JUANY CASTELLANO ([id number]) 1975 F Clinic Date Time Provider Department [place] 08/10/19 12:30 PM LUZ WANG (RESIDENTIAL PROPERTY MANAGER) PTWS (20516) Date Time Provider Department [place] 08/10/2019 12:30 PM [id number], NANCY (RESIDENTIAL PROPERTY MANAGER) PTWS [facility] Reason for Visit: Physical Therapy [...] patient will continue to benefit from ongoing [facility] physical therapy for progression of s [...] Patient response monitored throughout t reatment. Billing: [facility]: Therapeutic Exercise ( 95551): 1:1 time: 30 minutes (2 units: 23-37 mins) Modalities Ultrasound (33328) 1:1 time: 10 minutes1 unit: 8- 22 mins Total time: 40 minutes Luz Wang PT-Humera Rascon PT Previous Version progress on 2019-07 PROGRESS HNO ID: [id number] Normal 08-01-2019 [place] Author: Tracy (Pt) Abiodun [facility] Service: ? [place] Author Type: Physical Therapist (53118) Type: Progress Notes Filed: 08/01/2019 2:05 PM Note Text: Episode Visit Count: 1 Therapist That Will Oversee The Plan Of Care: Tracy Rascon Start of Care Date: 08/01/19 Onset Date: 02/08/19 Patient Identified by Name and Date of : Yes REHABILITATION AND SPORTS THERAPY PHYSICAL THERAPY EVALUATION PLAN OF CARE: Assessment: Junay Castellano presents with the diagnosis of L [...] tissue restrictions L lateral el bow region. [place] in home exercise program. 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 Currently it is a [...] Shoulder All R UE Strength: wrist ext./flex 4+/5(Air Conditioning Specialist strength 45#, LISSA dynamometer) L UE Strength: wrist ext./flex 4+/5. pulling with resisted e xt.(Air Conditioning Specialist strength 40#, LISSA dynamometer) R Elbow Extension [...] Patient response monitore d throughout treatment. Billing: [facility]: Evaluation - Low Complexity (80008) Therapeutic Exercise (63794): 1:1 time: 10 minutes (1 unit: 8-22 mins) Modalities Ultrasound (73466) 1:1 time: 10 minutes1 unit: 8- 22 mins Total time: 43 minutes Tracy Rascon PT cntherapy on 08-01 CNTHERAPY OT/PT/Speech Visit (PTWS) Normal - [place] JUANY CASTELLANO ([id number]) 1975 Clinic Date Time Provider Department [place] 08/01/19 10:15 AM KARINA RASCONISSA (PT) PTWS ([id number]) Date Time Provider Department [place] 08/01/2019 10:15 AM [id number], TRACY (PT) PTWS [facility] Reason for Visit: PT Eval [...] tissue restrictions L lateral el bow region. [place] in home exercise program. 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 Currently it is a constant ache. Seems to be somewhat bett er as far as not as much pain and pulling in the forearm, but locally at L lateral epicondyle remains painful. Pt is R hand dominant and is employed se [employer]. She notes she types on [...] Shoulder All R UE Strength: wrist ext./flex 4+/5(Air Conditioning Specialist strength 45#, LISSA dynamometer) L UE Strength: wrist ext./flex 4+/5. pulling wit h resisted ext.(Air Conditioning Specialist strength 40#, LISSA dynamometer) R Elbow Extension [...] Patient response monitored throughout t reatment. Billing: [facility]: Evaluation - Low Complexity (51716) Therapeutic Exercise (52054): 1:1 time: 10 minutes (1 unit: 8-22 mins) Modalities Ultrasound (39950) 1:1 time: 10 minutes1 unit: 8- 22 mins Total time: 43 minutes Tracy Rascon PT obsolete on 2019-07 OBSOLETE Procedure (PULMWS) Normal 07-25-2019 [place] [facility] JUANY CASTELLANO ([id number]) 1975 [facility] Date Time Provider Department ([id number]) 07/25/19 10:30 AM RESPIRATORY THERAPIST [facility] QUYNH During your visit today, we recorded the following informati on about you: Weight Height 111.1 kg 1.765 m Referring Provider: KOJO FARRAR ([facility]) [[id number]] Allergies As of Date: 07/25/2019 Noted Allergy Reaction PENICILLINS 05/20/2005 5 - Intolerance Date Reviewed: 07/20/2019 Reviewed by: Edel Cuba Ma - Fully Assessed Reason for Visit: Spirometry [191] Visit Diagnoses:Cough [R05] SOB (shortness of breath) [R06.02] Order(s):SPIROMETRY WITH DILATOR IF OBSTRUCTED [3368190] Ord er #: [id number]. #:[id number] Prescriptions as of 07/25/2019 Sig: BUPROPION HCL [...] 25 Hydroxy 35.9 31.0-80.0 ng/mL Normal 0 [facility] (83156) Comment: Result Comment: Classificati on of 25 [place] Vitamin D status: Insufficiency/Moderate Defic iency: < or = 30 ng/mL Sufficiency/Optimal Levels: 31 to 80 ng/mL Toxicity: > 100 ng/mL Test performed by chemilumin escent immunoassay. Performed By: #### HBA1C, B1 2, VITD ####[facility] [address] [place] [address] [phone] vitamin b12 on 2019 Cobalamin (Vitamin B12) 730 980-1546 pg/mL Normal 2019 [facility] [Mass/Vol] [place] ([id number]) Comment: Performed By: #### HBA1C, B1 2, VITD ####[facility] [address] [place] [address] [phone] progress on 2019-07 PROGRESS HNO ID: [id number] Normal 07-20-2019 [facility] Author: Kojo (Jessica) Eusebio [place] ([id number]) Service: ? Author Type: Nurse Practitioner Type: [...] so far and worsening cough. Scheduled with [facility] sleep medicine clinic for education and f [...] Skin Tags-Dr. Gaviria - S ABLATION [place] [id number] 12/22/2017 [place] Ablation-Dr. Gaviria - SALPINGECTOMY Bilateral [...] Take 1 tablet by mouth twice weekly l5sbvtu, then decrease to 1 tablet weekly . [...] months, sooner pending laboratory results Kojo Farrar APRN.RECONCILIATION MANAGER Prescription instructions reviewed with patient as applicabl e. Potential red flag symptoms discussed with the patient. Reviewed appro priate action plan to take if red flag symptoms occur. Patient agreeable t o treatment plan. hemoglobin a1c on HbA1c (Bld) [Mass fraction] 5.7 4.3-5.6 % High [facility] (13153) Comment: Result Comment: [place] Jackelyn betes Association guidelines indicate that patients with HgbA1c in the range 5.7-6.4% are at increased risk for development of diabetes, and intervention by lifestyle modification may be beneficial. HgbA1c greater o r equal to 6.5% is considered diagnostic of diabetes. Performed By: #### HBA1C, B1 2, VITD ####[facility] [address] [place] [address] [phone] HbA1c (Bld) [Mass fraction] 117 mg/dL Normal [facility] (92267) Comment: Result Comment: eAG: (Estima florencio average glucose) is a calculated value from HgbA1c and is sales representative womens health of the average blood glucose level in the last 2-3 month period. Performed By: #### HBA1C, B1 2, VITD ####[facility] [address] [place] [address] [phone] cnov on 2019-07-20 CNOV Office Visit (INTMWS) Normal 07-20-[address] [place] [address] [facility] JUANY CASTELLANO ([id number]) 1975 [facility] Date Time Provider Department ([id number]) 07/20/19 9:40 AM KOJO FARRAR (RECONCILIATION MANAGER) INTMWS During your visit today, we [...] so far and worsening cough. Scheduled with [facility] sleep medicine clinic for education and f [...] Skin Tags-Dr. Gaviria - S ABLATION [place] [id number] 12/22/2017 [place] Ablation-Dr. Gaviria - SALPINGECTOMY Bilateral 12/22/2017 Laparoscopic B/L Salpingectomy-Dr. Gavirai ALLERGIES Penicillins MEDICATIONS naproxen sodium (ALEVE) 220 [...] Take 1 tablet by mouth twice weekly n0whadq, then decrease to [address] (PROTONIX) 40 mg tablet Take 1 tablet by m outh daily before breakfast. Take on empty stomach, 1/2 hr before meal. topiramate (TOPAMAX) 25 mg t ablet Take 25mgs in the evening for a week, then go to 50 mgs daily. perflutren lipid microspheres (DEFINAccess Mobile) 1.1 mg/mL inj ection (to be provided [...] months, sooner pending laboratory results Kojo Farrar APRN.RECONCILIATION MANAGER Prescription instructions reviewed with patient as nery licable. Potential red flag symptoms discussed with the patient. Review ed appropriate action plan to take if red flag symptoms occur. Patient agreeable to treatm ent plan. Referring Provider: CASTILLO STILL [[id number]] Allergies As of Date: 07/20/2019 Noted Allergy [...] twice daily.Disp: 60 tabletRfl: 2 HGB A1C [KIUYS1A] Order #: [id number] FUTURE SPIROMETRY WITH DILATOR IF OBSTRUCTED [2740540] Order #: [id number] FUTURE VITAMIN D 25 HYDROXY [SQVITD] Order #: [id number] FUTURE VITAMIN B12 BLOOD [SQB12] Order #: [id number] FUTURE fluticasone (FLONASE) 50 mcg/actuation nasal sprayUse 2 Spra ys in each nostril once daily. 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 Lining Closer: PSCB Transcribe Date/Time: May 24 2019 2:39P Dictated by : MARILYNN PEREZ MD This examination was interpreted and the report reviewed and electronically signed by: MARILYNN PEREZ MD on May 24 2019 2:50PM EST [id number] progress on 2019-05 PROGRESS HNO ID: [id number] Normal 05-24-2019 [facility] Author: Jessika Otero) Philip [place] ([id number]) Service: ? Author Type: Hydraulic Governor Assembler Type: Progress Notes Filed: 05/24/2019 10:03 AM [...] * * *Final Report* * * Normal [facility] -NB DATE OF EXAM: May 17 2019 7:55AM [place] ([id number]) WRU 1232 - US ABD SPLEEN -NB [...] dilation. No splenomegaly or focal splenic mass. Lining Closer: [facility] Transcribe Date/Time: May 17 2019 8:53A Dictated by : ONEYDA LONG MD This examination was interpreted and the report reviewed and electronically signed by: ONEYDA LONG MD on May 17 2019 8:55AM EST [id number] us abd right upper quadrant on 2019-05-17 US ABD RIGHT * * *Final Report* * * Normal 11-0 [facility] UPPER QUADRANT DATE OF EXAM: May 17 2019 8:42AM [place] ([id number]) WRU 1032 - US ABD RIGHT UPPER [...] dilation. No splenomegaly or focal splenic mass. Lining Closer: PSCB Transcribe Date/Time: May 17 2019 8:53A Dictated by : ONEYDA LONG MD This examination was interpreted and the report reviewed and electronically signed by: ONEYDA LONG MD on May 17 2019 8:55AM EST [id number] progress on 2019-05 PROGRESS HNO ID: [id number] Normal 05-17-2019 [facility] Author: Nola Murray [address] [place] ([id number]) Service: ? Author Type: ? Type: Progress [...] Lipase [Catalytic 48 16-61 U/L Normal 05-15-2019 [facility] activity/Vol] Jeff and (87025) Comment: Performed By: #### LIPA, HFP ####[facility] [address] [place], [place] [id number]- [phone] history physical on 2019-05-15 HISTORY PHYSICAL HNO ID: [id number] Normal [facility] Author: Chet Fernandez ([id number]) Service: ? Author Type: Nurse Practitioner Type: [...] CARDIOVASCULAR: Chest pain, Sees Dr. Gardiner at [facility]. GI: As reported above MUSEUM PREPARATOR: Negative for abnormal vaginal bleeding, abnormal vagina [...] Skin Tags-Dr. Gaviria - S ABLATION [place] [id number] 12/22/2017 [place] Ablation-Dr. Gaviria - SALPINGECTOMY Bilateral [...] john 1 tablet by mouth twice weekly x0bxqef, then decrease to 1 tablet wee kly. [...] and coordination of care. Chet Muse RN CANADIAN BACON TIER.RECONCILIATION MANAGER hepatic functn panel on 2019-05-15 Albumin [Mass/Vol] 4.1 3.9-4.9 g/dL Normal 05-15-2019 [facility] (63822) Comment: Performed By: #### LIPA, HFP ####[facility] [address] [place], [place] [phone] ALP [Catalytic activity/Vol] 84 34-123 U/L Normal 1 07-15-2018 [facility] (23801) Comment: Performed By: #### LIPA, HFP ####[facility] [address] [place], [place] [id number]- [phone] ALT [Catalytic activity/Vol] 22 7-38 U/L Normal 1 07-15-2018 [facility] (66445) Comment: Performed By: #### LIPA, HFP ####[facility] [address] [place], [place] [id number]- [phone] AST [Catalytic activity/Vol] 14 13-35 U/L Normal 1 07-15-2018 [facility] (18321) Comment: Performed By: #### LIPA, HFP ####[place] [address] [place] [address], [place] [phone]- [phone] Bilirubin [Mass/Vol] <0.2 0.2-1.3 mg/dL Low 9 [facility] (19917) Comment: Performed By: #### LIPA, HFP ####[place] [address] [place] [address], [place] [phone]- [phone] Bilirubin,Conjugated <0.2 <0.2 Normal 9 [facility] (85632) Comment: Performed By: #### LIPA, HFP ####[facility] [place] [address], [place] [phone]- [phone] Protein [Mass/Vol] 7.0 6.3-8.0 g/dL Normal 05-15-2019 [facility] (34458) Comment: Performed By: #### LIPA, HFP ####[place] [address] [place], [place] [phone]- [phone] cnov on 2019-05-15 CNOV Office Visit (GAST) Normal 05-15-[address] [place] [address] JUANY Mcallister ([id number]) 1975 [facility] Date Time Provider Department (82103) 05/15/19 3:00 PM CHET MUSE [facility] During your visit today, we recorded the following informati on about you: Pulse Blood pressure Weight Height 85/minute 129/84 112.5 kg 1.765 m Chet Muse RN CANADIAN BACON TIER.RECONCILIATION MANAGER 05/15/2019 7:49 PM Signed Juany Castellano [...] CARDIOVASCULAR: Chest pain, Sees Dr. Gardiner at [facility]. GI: As reported above MUSEUM PREPARATOR: Negative for abnormal vaginal bleeding, abn ormal [...] Skin Tags-Dr. Gaviria - S ABLATION [place] [id number] 12/22/2017 [place] Ablation-Dr. Gaviria - SALPINGECTOMY Bilateral [...] Take 1 tablet by mouth twice weekly n3nmogl, then decrease to 1 tablet weekly. 8 [...] information that the [facility]. I spent 30 minutes in the visit, with greater than 50% of the total zbtq-vr-nzsq adonis e of the visit in counseling and coordination of care. Chet Muse RN CANADIAN BACON TIER.JESSICA Muse RN APRN.JESSICA 05/15/2019 4:00 PM Addendum Blood work today. Continue pantoprazole. Try to eat at least 3 hours before heading to bed. Please follow the instructions for the test that looks at your upper abdomen (US at the [facility]). It will take a day or two after the test for us to get the r esults. Call [phone], and ask t o speak to a nurse in GI, if you have any questions or concerns in the mean time. Referring Provider: CASTILLO STILL [[id number]] Allergies As of Date: 05/15/2019 Noted Allergy Reaction PENICILLINS 05/20/2005 5 - Intolerance Date Reviewed: 05/15/2019 Reviewed by: Davina Ag Ma - Fully Assessed Reason for Visit: Consult [502] Cmt: food sticks when swallowing Primary Visit Diagnosis:Bilateral upper abdominal pain [R10. 11, R10.12] Order(s):HEPATIC FUNCTION PNL [SQHFP] Order #: [id number] FU TURE LIPASE BLD [SQLIPA] Order #: [id number] FUTURE US ABD RT UPPER QUADRANT [0067930] Order #: [id number] FUTUR E Prescriptions as of 05/15/2019 Sig: [...] yo ur upper abdomen (US at the [facility]). It will take a day or two after the test for us to get the r esults. Call [phone], and ask to speak to a nurse in GI, if you have any questions or concerns in the mean time. Medications Discontinued During This Encounter pantoprazole DR (PROTONIX) 20 mg tab* 60 t* 2 04/25/201905/15/2019 Route: ORAL Sig: Take 1 tablet by mouth twice daily. Disc: Reason for discontinue is not on file. Encounter Status:Closed by CHET MUSE RECONCILIATION MANAGER on 05/15/19 ccp-abs on CCP-ABS 9 0-19 units Normal 04-27-2019 [facility] [place] (95323) Comment: Result Comment: Negative <20 Weak positive 20 - 39 Moderate positive 40 - 59 Strong positive >59 Performed By: #### L700.0050 0, L700.40188 #### [facility] [address] [place] [address] jose l on 2019-04-27 Nuclear Ab IF (S) [Titer] Negative () Normal 04-10 [facility] [place] (65245) Comment: Result Comment: Negative <1: 80 Borderline 1:80 Positive >1:80 Performed At: [facility] [address] [id number] Yunior Castaneda MD [id number] Performed At: [facility] [place] [address] [place], [place] [id number] Brandy Moreira PhD [id number] Performed By: #### L700.0050 0, L700.40543 #### [facility] [address] tp on 2019-04-24 Protein [Mass/Vol] 7.3 6.0-8.5 GM/DL Normal 04-24-2019 [facility] (46464) Comment: Performed By: #### L500.0450 0, L500.79698 #### [facility] [address] [place] [address] bili total on 04-24 BILI TOTAL 0.2 0.2-1.0 MG/DL Normal 04-24-2019 [facility] (92537) Comment: Performed By: #### L500.0450 0, L500.13337 #### [facility] [address] [place] [address] Vital Signs Vital Sign Description Value / Unit Date Location The following section is limited to 5 en tries per type and includes entries from the following time range: 20200401 - 20200312 2. Body Temperature 97.3 [degF] 04-01-2020 [place] [facility] (05498) Body weight 107.96 kg 04-01-2020 [facility] (33048) BP Diastolic 84 mm[Hg] 04-01-2020 [facility] (14477) BP Systolic 110 mm[Hg] 04-01-2020 [facility] (80645) Pulse (Heart Rate) 74 /min [facility]98932[facility] Pulse Oximetry 94 % 04-01-2020 [facility] (55522) Respiratory Rate 16 /min 04-01-2020 [facility] (33930) Encounters Date Type Reason Provider Location 04-10-2020 - Patient encounter Chronic thoracic Tony (Pt) Quentin zuleta [facility] 04-10-2020 procedure back pain Physical Therap y Comment: Chronic bilateral thoracic b ack pain (Primary Dx) 04-03-2020 - Patient encounter Chronic thoracic Tony (Pt) José Miguel keller [facility] 04-03-2020 procedure back pain Quentin Physical Therap y Comment: Chronic bilateral thoracic b ack pain 04-01-2020 - Patient encounter Rib pain Joanie (Photogrammetric Tech) [facility] Intern[facility] l [facility] 04-01-2020 procedure [place] Comment: Chronic bilateral thoracic b ack pain (Primary Dx); Rib pain; DDD (degenerative disc disea se), thoracic; Encounter for lipid screenin g for cardiovascular disease; Encounter for screening for diabetes mellitus 04-04-2020 - 04-04-2020 Telephone encounter Castillo alvarado [facility] [place] Comment: Results Procedures Procedure Name Date Provider Location Mammography 12-29-2018 - 12-29-2018 [facility] (76237) Colonoscopy 11-29-2016 - 11-29-2016 [facility] (74081) Plan of Treatment Plan Description Date Location HPV TESTING HPV TESTING 02-28-2022 - [facility] 02-28-2022 (32040) PAP TESTING PAP TESTING 02-28-2022 - [facility] 02-28-2022 (01848) COLONOSCOPY COLONOSCOPY 11-29-2021 - [facility] 11-29-2021 (23448) INFLUENZA (#1) INFLUENZA (#1) 2020 - [facility] 03-11-2020 (76287) MAMMOGRAM MAMMOGRAM 12-30-2019 - [facility] 12-30-2019 (78536) ADULT PREVNAR-13 ADULT PREVNAR-13 1996 - [facility] ic 1996 (37653) TWO PNEUMOVAX 5 YEARS TWO PNEUMOVAX 5 YEARS 1996 - [facility] APART PRIOR TO AGE 65 APART PRIOR TO AGE 65 (#1) 1996 (94880) (#1) DTAP,TDAP,TD (1 - Tdap) DTAP,TDAP,TD (1 - Tdap) 1996 - [facility] 1996 (26991) BMP (BMP) (FOR REMOTE BMP (BMP) (FOR REMOTE [facility] USE) USE) Lab Routine Encounter (4419 5) for screening for diabetes mellitus 04/01/2020 9:07 AM EDT LIPID PANEL BASIC LIPID PANEL BASIC Lab [facility] Routine Encounter for (01100) lipid screening for cardiovascular disease 04/01/2020 9:06 AM EDT no information [facility] (80326) Immunizations Vaccine Notes Status Date Location Influenza Vaccine, influenza virus (completed) 04-21-2012 - [facility] Split-Non Spec vaccine, unspecified 04-21-2012 (4419 5) formulation Influenza Seasonal influenza, injectable, (completed) 07-20-2018 - [facility] Inj Quad Age 6 Mo - quadrivalent, contains 07-20-2018 (93326) 64 Yrs preservative Influenza Seasonal influenza, seasonal, (completed) 04-03-2019 - [facility] Inj Age 3+ injectable 04-03-2019 (73106) Payers Payer Name Policy Number Location [employer] [id number] [facility] (44 195) The following information is from the original human readable contentNo Payer Records FoundNo Payer Records FoundNo Payer Records Found Social History Type Social History Date Location Description Tobacco smoking status Light tobacco smoker 04-01-2020 - [facility] NHIS 04-01-2020 (96749) History of tobacco use Cigarette Smoker [facility] (11020) Cigarettes smoked 04-01-2020 - [facility] ic current (pack per day) 04-01-2020 (17608) - Reported Tobacco use and Never used 04-01-2020 - [facility] exposure 04-01-2020 (57918) Alcohol intake Current non-drinker of 04-01-2020 [facility] alcohol (finding) 04-01-2020 (24258) Tobacco Comment 10-15 cigarettes in a 12-06-2018 - [facility] daily 12-06-2018 (56280) Sex Assigned At Not on file [facility] (98815) Exposure to SARS-CoV-2 Not sure [facility] (event) (46012) The following information is from the original human readable contentNo Social History Records FoundNo Social History Records FoundNo Social History Records Found Summary Purpose Family History No Family History Records FoundNo Family History Records Found Advance Directives No Advanced Directives Records Found Documents on File Type Date Recorded Patient Nonprofit Director Explanati on Advance Directive(s) 11/29/2016 8:04 AM Documents on File Type Date Recorded Patient Nonprofit Director Explanati on Advance Directive(s) 11/29/2016 8:04 AM Reason for Referral Status Reason Specialty Diagnoses / Referred By Referred To Procedures Contact Contact Pending Auto-Generated REHAB AND Diagnoses Chronic bilateral thoracic back pain Older, Joanie Rehab And Review Referral SPORTS THERAPY Procedures CONSULT TO PHYSICAL THERAPY PHYSICAL THERAPY EVALUATION HIGH COMPLEX 45 MINS (Photogrammetric Tech) [employer] [address] [place], [place] [address] [place] [address] [address] Phone: [place], [place] [phone] [address] History of Past Illness Problem Noted [...] 06/16/200608/15 History of Present Illness Joanie Gallagher (Photogrammetric Tech) - 04/01/2020 8:13 AM EDT CC: Patient [...] Skin Tags-Dr. Gaviria ? S ABLATION [place] [id number] 12/22/2017 [place] Ablation-Dr. Gaviria ? SALPINGECTOMY Bilateral [...] Take 1 tablet by mouth twice weekly a7xlizr, then decrease to 1 tabletweekly. topiramate (TOPAMAX) [...] As above - BMP (BMP) (FOR REMOTE [facility] USE) Prescription instructions reviewed with patient as [...] of Care: created on 04/03/20 through 06/03/20 [place] in home exercise program. Patient will decrease [...] assessment of patient's response to intervention. Billing: [facility]: Evaluation - Low Complexity (92670) Therapeutic Exercise (76264): 1:1 time: 15 minutes (1 unit: 8-22 mins) Manual Therapy (95475): 1:1 time: 9 minutes (1 unit: 8-22 [...] assessment of patient's response to intervention. Billing: [facility]: Therapeutic Exercise (19155): 1:1 time: 10 minutes (1 unit: 8- 22 mins) Manual Therapy (03182): 1:1 time: 45 minutes (3 units: 38-52 [...] BE BASED ON THE PRIMARY CLINICAL RECORDS. [facility] provides no warranty or guarantee of the accuracy or completeness of information in this document. UNRECOGNIZED CONTENT PROVIDED BELOW FOR UNRECOGNIZED SECTION INFORMATION SOURCE DATE CREATED AUTHOR AUTHOR'S ORGANIZATIO N 04/30/2019 [facility] [place] DATE CREATED AUTHOR AUTHOR'S ORGANIZATIO N 04/25/2020 [facility] UNRECOGNIZED CONTENT PROVIDED BELOW FOR UNRECOGNIZED SECTION Source Comments In the event this information is protected by the Federal Confidentiality of Alcohol and Drug Abuse Patient Records regulations: The Federal rules restrict any use of the information to criminally investigate or prosecute any alcohol or drug abuse patient.[facility] the event this information is protected by the Federal Confidentiality of Alcohol and Drug Abuse Patient Records regulations: The Federal rules restrict any use of the information to criminally investigate or prosecute any alcohol or drug abuse patient.[facility] HospitalIn the event this information is protected by the Federal Confidentiality of Alcohol and Drug Abuse Patient Records regulations: The Federal rules restrict any use of the information to criminally investigate or prosecute any alcohol or drug abuse patient.[facility] Hospital[facility] the event this information is protected by the Federal Confidentiality of Alcohol and Drug Abuse Patient Records regulations: The Federal rules restrict any use of the information to criminally investigate or prosecute any alcohol or drug abuse patient.[facility] UNRECOGNIZED CONTENT PROVIDED BELOW FOR UNRECOGNIZED SECTION Reason for Visit Reason Comments Physical Therapy Status Reason Specialty Diagnoses / Referred By Referred To Procedures Contact Contact Authorized Auto-Generated PHYSICAL Diagnoses Chronic bilateral thoracic back pain M54.6 / G89.29 Joanie Gallagher Pt [facility] Referral THERAPY Procedures CONSULT TO PHYSICAL THERAPY PHYSICAL THERAPY EVALUATION HIGH COMPLEX 45 MINS THERAPEUTIC EXERCISES RE, EA 15 MIN. (Photogrammetric Tech) [address] [facility] [address] [facility] [address] [place], [place] [id number] Phone: Fax: Reason Comments Back Pain Reason Onset Date Comments Results 04/04/2020 Reason Comments PT Eval UNRECOGNIZED CONTENT PROVIDED BELOW FOR UNRECOGNIZED SECTION Miscellaneous Notes Telephone Encounter - Yanet Clarke Cma - 04/04/2020 10:02 AM EDTPatient is notified of all information and verbalizes understanding Yanet Clarke Cma April 04, 2020 10:02 AM elephone Encounter - Joanie Gallagher (Photogrammetric Tech) - 04/04/2020 9:06 AM EDTFasting glucose 115, [...] minutes, 3-5 days a week. Joanie Gallagher APRN.RECONCILIATION MANAGER elephone Encounter - Yanet Clarke Cma - 04/04/2020 8:30 AM EDTPatient requesting lab results. Please review and advise. Thank you. Yanet Clarke Cma April 04, 2020 8:30 AM documented in this encounter
== END 2019-12-13 10:29 | disposition home or self-care (01) ==
PROVIDERS: Emergency Provider Emergency Medicine; PCP Internal Medicine
DX: M54.6 Pain in thoracic spine (principal); R07.89 Other chest pain; G89.29 Other chronic pain; K21.9 Gastro-esophageal reflux disease without esophagitis; F41.9 Anxiety disorder, unspecified; G43.909 Migraine, unspecified, not intractable, without status migrainosus; F17.200 Nicotine dependence, unspecified, uncomplicated; Z79.899 Other long term (current) drug therapy
CPT/HCPCS: 71045; 80053; 81001; 81025; 83690; 84443; 84484; 85025; 85379; 93005; 99284; A4216

== ENCOUNTER → 2022-03-03 | Outpatient (CLI) | payer BC, SELFPAY ==
--- NOTE | 2022-03-03 16:26 | MRI_ITS ---
STUDY: MRI RIGHT MIDFOOT REASON FOR EXAM: Right foot pain at the bases of the fourth and fifth metatarsals. TECHNIQUE: Standardized fat and water weighted pulse sequences were obtained in all 3 orthogonal planes. COMPARISON: Radiographs 12/23/2021. FINDINGS: Normal talonavicular articulation. Normal calcaneocuboid articulation. Normal navicular-cuneiform articulations. Normal intercuneiform articulations. Normal first tarsometatarsal articulation. Normal Lisfranc ligament. Normal second and third tarsometatarsal articulations. Normal cuboid fourth and cuboid fifth tarsometatarsal articulation. There is a stress fracture of the proximal fourth metatarsal diaphysis with bone edema (inversion recovery sagittal image 21). Otherwise, unremarkable metatarsals. Normal tibialis anterior tendon. Normal extensor hallucis longus tendon. Normal extensor digitorum longus tendons. Normal peroneus longus tendon and distal insertion. Normal peroneus brevis tendon and distal insertion. Normal intrinsic muscles of the mid and forefoot region. Normal extensor digitorum brevis muscle. There is a lobulated ganglion cyst at the medial and plantar aspects of the first tarsometatarsal articulation (T2 short axis images 16, 17) measuring approximately 2.3 x 2.6 x 1.3 cm (maximal AP x maximal transverse x maximal length). MRI/Lower Ext/No Jt/w/o IMPRESSION: Stress fracture of the proximal fourth metatarsal. Ganglion cyst adjacent to the first tarsometatarsal articulation. Electronically Signed: Jacques Maurer MD at 10:53 EDT ,
== END | disposition home or self-care (01) ==
PROVIDERS: PCP Internal Medicine; Visit Provider Podiatrist
DX: M84.374A Stress fracture, right foot, initial encounter for fracture (principal)
CPT/HCPCS: 73718

== ENCOUNTER 2022-03-07 15:56 | Emergency (ER) | payer BC, SELFPAY ==
[2022-03-07 15:57] VITALS: BP 131/101; PULSE 105; RESP 22; TEMP 36.6; O2SAT 93; BMI 36.1
--- NOTE | 2022-03-07 16:26 | EKG12_ITS ---
Test Reason : Blood Pressure : / mmHG Vent. Rate : 080 BPM Atrial Rate : 080 BPM P-R Int : 156 ms QRS Dur : 096 ms QT Int : 376 ms P-R-T Axes : 028 022 034 degrees QTc Int : 433 ms Sinus rhythm with marked sinus arrhythmia Otherwise normal ECG Confirmed by EVENS SCHWARTZ, DOMINGO ([id number]), editor & co founder SUSAN CHATMAN ([id number]) on 03/09/2022 6:16:29 AM Referred By: TARAN Confirmed By:DOMINGO HORNER MD
--- NOTE | 2022-03-07 16:27 | EX.ED.DYSGE1 ---
HPI History of Present Illness Chief Complaint: Hypertension Informant: patient Narrative Narrative: Patient presents with elevated blood pressure. She was running 170s over about 120 at a pharmacy machine. She had gone there because she just did not feel right. She felt just off. She might of had a little palpitations or trouble breathing but not certain. No nausea vomiting. No chest pain. Of note, she was off of her Ozempic medicine for about 3 weeks because the pharmacy did not have it. She was having polyuria polydipsia and some blurring vision. She started the Ozempic again either yesterday or the day before. She is not sure if this is caused her symptoms. She just did not feel right today so she thought she should come in to be evaluated. She does feel better now. She does have a history of diabetes. She quit smoking 2 years ago. No blood pressure or cholesterol. Her father did have heart disease likely in his young 50s. [facility] Medical History (Updated 03/07/22 @ 20:[address] Bolivar Fay MD) Abnormal stress echo Back problem Chronic fatigue syndrome GERD (gastroesophageal reflux disease) Goiter H/O urinary tract infection Hemochromatosis Hyperlipidemia Migraine SERA (obstructive sleep apnea) Plantar fasciitis Pre-diabetes Psoriasis Tobacco abuse Vitamin D deficiency Home Medications topiramate 25 mg tablet 25 mg PO BID 04/20/19 [History Last Taken Unknown] cholecalciferol (vitamin D3) 50 mcg (2,000 unit) capsule 6,000 unit PO DAILY 04/25/19 [History Last Taken Unknown] pantoprazole 40 mg tablet,delayed release 40 mg PO DAILY 05/29/19 [History Last Taken Unknown] bupropion HCl 150 mg tablet,12 hr sustained-release 150 mg PO BID 08/29/19 [History Last Taken Unknown] Allergy/AdvReac Type Severity Reaction Status Date / Time Penicillins Allergy Other Verified 03/07/22 15:57 Family History Father CAD (coronary artery disease) Diabetes Cancer brain Mother Parkinson's disease Colon cancer Kidney disease Grandmother Cancer pancreatic Grandfather Colon cancer Diabetes Surgical History History of bilateral salpingo-oophorectomy (BSO) (~12/2017) History of dilatation and curettage History of endometrial ablation (~12/2017) History of foot surgery Social History Smoking Status: Former smoker quit status: considering quitting alcohol intake: never substance use type: does not use caffeine: Yes Type: carbonated beverages Number of servings: 1 what type of physical activity do you participate in: none ROS ROS ED Constitutional Constitutional ED: Denies fever(s) or subjective Eyes Eyes: Reports blurry vision ENT ENT ED: Denies rhinorrhea or sore throat Cardiovascular Cardiovascular: Reports palpitations; Denies chest pain or racing heartbeat Respiratory/Chest Respiratory/Chest: Reports dyspnea; Denies cough Gastrointestinal Gastrointestinal: Denies abdominal pain, nausea or vomiting Genitourinary Genitourinary ED: Denies dysuria Musculoskeletal Musculoskeletal: Denies myalgias Integumentary Denies rash Neurologic Neurologic: Denies headache(s), paresthesias or weakness Psychiatric Psychiatric: Denies anxiety Endocrine Endocrinology: Denies polydipsia or polyuria Hematologic/Lymphatic Hematologic/Lymphatic: Denies easy bleeding or easy bruising Allergic/Immunologic Allergic/Immunologic ED: Denies urticaria EXAM Physical Exam Const Vital Signs: 03/07/22 15:57 03/07/22 16:21 03/07/22 16:26 Temperature 98 F Temperature Source Temporal Pulse Rate 105 H Respiratory Rate 22 H Respiratory Effort Normal Non-Labored Respiratory Pattern Normal Blood Pressure 131/101 H Blood Pressure Mean 111 Pulse Ox 93 Oxygen Delivery Method Room Air Room Air 03/07/22 18:31 Temperature Temperature Source Pulse Rate 81 Respiratory Rate 16 Respiratory Effort Respiratory Pattern Blood Pressure 140/111 H Blood Pressure Mean 120 Pulse Ox 97 Oxygen Delivery Method Room Air Positive well nourished and well developed General Appearance ED: well developed and NAD; Negative for cyanotic, diaphoretic or pallor HEENT Reports moist mucous membranes Eyes PERRL and EOMs intact bilaterally General Eye ED: Negative for scleral icterus Neck supple and no JVD Chest Wall inspection of chest normal Resp normal respiratory effort and clear to auscultation bilaterally Effort and Inspection: Negative for pain with movement Auscultation: Negative for rales, rhonchi or wheezes Cardio regular rate and regular rhythm Rate: other Other Details: Current heart rate is about 80 or 85 on the monitor. Blood pressure is 139/79. ; Negative for tachycardic GI normal to inspection, nondistended, normoactive bowel sounds, non-tender and non-distended Back/Spine no CVA tenderness Extremity normal to inspection Extremity Narrative: No edema, tenderness, cords General Extremety ED: Negative for edema or tenderness General Extremity: Negative for edema Neuro oriented x3 Sensorium / Orientation: alert Psych mental status grossly normal Skin no rashes or lesions noted General Skin Exam: Negative for pallor MDM MDM MDM Narrative Medical decision making narrative: Patient CBC is overall normal other than a minimal nonspecific elevation of her white count. Electrolytes including renal function is normal. Troponin is unmeasurable at less than 3. Repeat troponin is unmeasurable. Chest x-ray is normal. Blood pressures have been anywhere from 169 to about 114 systolic. I do not think these need to be acutely treated but she does need to follow-up with her physician. She still has some left shoulder pain but is mostly with lifting overhead. She is not dyspneic or hypoxic. I do not think she needs further imaging. We did discuss reasons to return. Lab Data Attestation: I reviewed the patient's lab results. Labs: Laboratory Results - last 24 hr 03/07/22 03/07/22 03/07/22 16:19 16:19 18:45 WBC 11.6 H RBC 4.91 Hgb 14.7 Hct 43.9 MCV 89.4 MCH 29.9 MCHC 33.5 RDW Std Deviation 43.1 RDW Coeff of Roshan 13.2 Plt Count 352 MPV 9.9 Immature Gran % (Auto) 0.400 Neut % (Auto) 64.7 Lymph % (Auto) 24.7 [place] % (Auto) 8.1 Eos % (Auto) 1.6 Baso % (Auto) 0.5 Absolute Neuts (auto) 7.5 Absolute Lymphs (auto) 2.85 Nucleated RBC % 0 Sodium 139 Potassium 3.9 Chloride 106 Carbon Dioxide 26.0 Anion Gap 7 BUN 15 Creatinine 0.84 Estim Creat Clear Calc 89.32 Est GFR (MDRD) Af Amer 95 Est GFR (MDRD) Non-Af 78 BUN/Creatinine Ratio 17.9 Glucose 98 Calcium 9.2 Troponin I High Sens < 3 L < 3 L Radiography Diagnostic Testing: Clinical Impression(s) from Imaging Studies Chest X-Ray 03/07/22 16:50 IMPRESSION: Normal x-ray examination of the chest. Electronically Signed: Karine Melchor MD at 17:59 EDT Reading Location ID and State: [id number] / Tel , Service support , Discharge Plan Triage Chief Complaint: Hypertension ED Provider: Bolivar Fay Dx/Rx/DC Orders Clinical Impression: Elevated blood pressure reading, Left shoulder pain Instructions: ED Hypertension, To Be Confirmed, ED Shoulder Pain, Uncertain Cause Prescriptions: No Action topiramate 25 mg tablet 25 mg PO BID cholecalciferol (vitamin D3) 2,000 unit capsule 6,000 unit PO DAILY pantoprazole 40 mg tablet,delayed release (DR/EC) 40 mg PO DAILY bupropion HCl 150 mg tablet sustained-release 12 hr 150 mg PO BID Label Comments: take 1 tablet by mouth twice a day Primary Care Provider: Tamika Pereyra Referrals: Tamika Pereyra MD [Primary Care Provider] - As soon as possible Disposition Disposition: Home, Self Care
[2022-03-07 16:39] LABS: Absolute Lymphocyte Count 2.85 X10^3/uL (0.83-4.51); Absolute Neutrophil Count 7.5 X10^3/uL (2.0-7.7); Basophil# 0.06 X10^3/uL; Basophil% 0.5 % (0-1); Eosinophil# 0.18 X10^3/uL; Eosinophils% 1.6 % (0-5); Hematocrit 43.9 % (37-47); Hemoglobin 14.7 g/dL (12.0-15.0); Lymphocyte # 2.85 X10^3/ul (0.83-4.51); Lymphocyte % 24.7 % (19-41); Mean Corp Hgb Conc 33.5 g/dL (32-36); Mean Corpuscular Hgb 29.9 pg (27.0-32.0); Mean Corpuscular Volume 89.4 fL (81-99); Mean Platelet Vol. 9.9 fl (6.2-12.0); Monocyte# 0.93 X10^3/uL; Monocyte% 8.1 % (0-10); NRBC Flagged by Analyzer 0 % (0-5); Neutrophil # 7.48 X10^3/uL (2.7-7.7); Neutrophil % 64.7 % (47-70); Platelet Count 352 K/mm3 (150-450); RBC Distribution Width CV 13.2 % (11.6-14.6); RBC Distribution Width SD 43.1 fl (35.1-43.9); Red Blood Count 4.91 M/mm3 (4.2-5.4); White Blood Count 11.6 K/mm3 (4.4-11.0)
--- NOTE | 2022-03-07 16:50 | RAD_ITS ---
STUDY: X-RAY CHEST REASON FOR EXAM: Female, 46 years old. chest pain TECHNIQUE: Single AP portable view of the chest. COMPARISON: 12/13/2019. FINDINGS: The lungs are clear and expanded. There is no demonstrated pleural abnormality. Normal size heart. Normal mediastinum and chelo. Normal visualized pulmonary arteries. Normal visualized aortic arch and descending thoracic aorta. Normal visualized thoracic spine. Normal visualized ribs, clavicles, and shoulders. There is no demonstrated abnormality of the visualized soft tissue structures of the upper abdomen. RAD/Chest 1 View (Portable) IMPRESSION: Normal x-ray examination of the chest. Electronically Signed: Karine Melchor MD at 17:59 EDT Reading Location ID and State: [id number] / Tel , Service support ,
[2022-03-07 16:58] LABS: Anion Gap 7 (5-15); BUN 15 mg/dL (7-18); BUN/Creat Ratio 17.9 RATIO (10-20); Calcium,Total 9.2 mg/dL (8.5-10.1); Chloride 106 mmol/L (98-107); Creatinine, Serum 0.84 mg/dL (0.55-1.02); EST Glomerular Filtration Rate 78 mL/min (>60); Est Glom Filt Rate - Afr Amer 95 mL/min (>60); Estimated Creatinine Clearance 89.32 ml/min; Glucose 98 mg/dL (74-106); Potassium 3.9 mmol/L (3.5-5.1); Sodium Level 139 mmol/L (136-145); Troponin-I HS (w/2H Reflex) < 3 pg/mL (3.0-54.0)
[2022-03-07 18:31] VITALS: BP 140/111; PULSE 81; RESP 16; O2SAT 97
[2022-03-07 18:36] LABS: Reflex Troponin-HS? (from REC) Y
--- NOTE | 2022-03-07 18:57 | ED.RN ---
IV REMOVED PER PT. REQUEST.
[2022-03-07 19:32] LABS: Troponin-I HS < 3 pg/mL (3.0-54.0)
[2022-03-07 20:29] VITALS: BP 170/76; PULSE 78; RESP 18; O2SAT 98
== END 2022-03-07 20:30 | disposition home or self-care (01) ==
PROVIDERS: Emergency Provider Emergency Medicine; PCP Internal Medicine; Visit Provider Emergency Medicine
DX: I10 Essential (primary) hypertension (principal); E11.9 Type 2 diabetes mellitus without complications; M25.512 Pain in left shoulder; E78.5 Hyperlipidemia, unspecified; H53.8 Other visual disturbances; Z87.891 Personal history of nicotine dependence; R35.89 Other polyuria; R63.1 Polydipsia
CPT/HCPCS: 71045; 80048; 84484; 85025; 93005; 99285; A4216